=== PATIENT | female | born 1940 | race Two or more races ===

== ENCOUNTER 2024-04-01 15:25 | Inpatient (IN) | payer MEDICARE, MEDICAID, SELFPAY ==
[2024-04-01] VITALS (7 sets, daily range): BP systolic 164–180; BP diastolic 47–110; PULSE 80–128; RESP 17–20; TEMP 36.3–36.8; O2SAT 95–98; BMI 18.6; BMI 26.2
--- NOTE | 2024-04-01 15:35 | PC.NURSE ---
PT ARRIVES FROM HOME VIA [place]. DAUGHTER WAS HELPING HER GET OUT OF THE SHOWER WHEN SHE SLIPPED AND FELL. DID NOT HAVE ANY LOC IS NOT ON BLOOD THINNERS, PT DID GET A SKIN TEAR TO RIGHT ELBOW AND INJURED RIGHT SECOND TOE WITH VISIBLE DEFORMITY. PT REPORTS HER PAIN IS 6/10, BP A LITTLE ELEVATED ON TELE, OTHER VSS. CALL [facility] IN RE[place], AWAITING PROVIDER ASSESSMENT
--- NOTE | 2024-04-01 15:47 | PD.EDFALL ---
ED Fall Injury RME/HPI General Chief Complaint: Fall Stated Complaint: FALL Time Seen by Provider: 04/01/24 15:36 Arrival date/time: 04/01/24 15:25 RME / HPI RME / HPI Narrative: Patient is a 83 year old female presenting to the ED BIBA for reported slip and fall today when getting out of the shower. Denies dizziness, head trauma, LOC. Complains of pain to bilateral 2nd toes. No further reported history at this time. Related Data Home Medications ?Medication ?Instructions ?Recorded ?Confirmed Fosinopril * (MONOPRIL *) 40 mg PO BID #0 tabs 05/29/16 04/01/24 celecoxib 200 mg capsule (Celebrex) 200 mg PO QDAY #0 caps 05/29/16 04/01/24 lovastatin 40 mg tablet 40 mg PO HS #0 tabs 05/29/16 04/01/24 Previous Rx's ?Medication ?Instructions ?Recorded amlodipine 10 mg tablet 10 mg PO HS 1 month #30 tabs 04/04/24 Allergies Allergy/AdvReac Type Severity Reaction Status Date / Time No Known Allergies Allergy Verified 04/01/24 15:32 Review of Systems Review of Systems Narrative Review of Systems: Gen: No fever, no chills, no weight loss EYES: No discharge, no visual changes, no pain HEENT: No ear pain, no congestion, no sore throat PULM: No shortness of breath, no cough, no congestion CV: No chest pain, no dyspnea on exertion, no palpitations GI: No nausea, no vomiting, no diarrhea, no pain, no constipation : No frequency, no urgency, no dysuria Musc/skel:+toe pain. no back pain Skin: No rash Psyc: No hallucinations, no depression Heme/Lymph: No easy bleeding or bruising tendencies Neuro: No weakness, no headache Past Medical History Past Medical History OTHER HISTORY: Positive Blood Transfusions Social History SMOKING STATUS: Never smoker ED Exam Narrative Physical exam: GEN. APPEARANCE: The patient is alert awake oriented X-3 in minimal distress, lying down comfortably, does not look ill/toxic. Patient has good eye contact. Patient is cooperative. VITALS: All vitals were reviewed and the pulse ox is 98% on room air which is normal according to my interpretation. HEENT: Normocephalic, atraumatic. Pupils are equal and reactive. Oral mucosa is moist. Patent Nares NECK: Supple, nontender, no thyromegaly, no meningismus, no JVD, no step offs CHEST: Symmetrical, atraumatic, and with equal expansion , Nontender on palpation no deformity and no crepitus. CARDIOVASCULAR: Heart regular rhythm no murmur or gallop rub or extra beats. LUNGS: Clear to auscultation bilaterally with symmetrical chest rise. No laboring tachypnea or wheezing. No intercostal subcostal retraction. No rales and no rhonchi. ABDOMEN: Soft, flat, nontender to palpation, no guarding or rebound tenderness. There are no abnormal masses palpated. Active and normal bowel sounds. EXTREMITIES: contusion and skin tear to left elbow. No edema. No cyanosis. Patient is able to move all 4 extremities well, with full ROM and good CSM. SKIN: Warm and dry, no jaundice or rashes noted. MUSCULOSKELETAL: No lubar or midline bony tenderness. There is no CVA tenderness. No paraspinal muscle spasm or tenderness. NEURO: Patient is BOURNE x 4, Cranial nerves II through XII grossly intact. There is no focal neurologic deficits noted. GCS is 15, PNS and [employer] appear grossly intact. PSYCHIATRIC: Patient is in normal mood and affect, cooperative, no SI or HI or hallucinations. Course Quality Measures none Orders Category Date Time Status Admit to Inpatient Status Routine Admission 04/01/24 18:19 Active Patient Condition Routine Admission 04/01/24 18:18 Ordered IV [Insert IV] NOW Care 04/01/24 17:50 Completed Notify provider NEEDED Care 04/01/24 18:18 Completed CA echo doppler complete Routine Exams 04/01/24 18:[address] foot RT wo con Stat Exams 04/01/24 17:13 Completed XR elbow RT 2V Stat Exams 04/01/24 17:50 Completed XR foot comp RT min 3V Stat Exams 04/01/24 15:48 Completed Basic Metabolic Panel AM DRAW Lab 04/02/24 05:29 Completed Basic Metabolic Panel AM DRAW Lab 04/03/24 05:35 Completed Basic Metabolic Panel AM DRAW Lab 04/04/24 05:03 Completed CBC AM DRAW Lab 04/02/24 05:29 Completed CBC AM DRAW Lab 04/03/24 05:35 Completed CBC AM DRAW Lab 04/04/24 05:03 Completed CBC Stat Lab 04/01/24 17:30 Completed CMP [Comprehensive Metabolic Panel] Stat Lab 04/01/24 17:30 Completed INR [Prothrombin Time with INR] Stat Lab 04/01/24 18:00 Completed Liver Panel AM DRAW Lab 04/02/24 05:29 Completed Magnesium AM DRAW Lab 04/02/24 05:29 Completed PTT [Partial Thromboplastin Time] Stat Lab 04/01/24 18:00 Completed Partial Thromboplastin Time AM DRAW Lab 04/02/24 05:29 Completed Prothrombin Time with INR AM DRAW Lab 04/02/24 05:29 Completed Thyroid Stimulating Hormone AM DRAW Lab 04/02/24 05:29 Completed Acetaminophen Tab [Tylenol Tab] Med 04/01/24 18:18 Discontinued 650 mg PO Q6H PRN Famotidine Inj [Pepcid Inj] Med 04/01/24 21:00 Discontinued 20 mg IVP Q12HR HYDROcodone*/APAP 5/325 [[place] 5/325] Med 04/01/24 18:18 Discontinued 1 tab PO Q4HR PRN Heparin Inj Med 04/01/24 18:23 Discontinued 5,000 unit SC X1 ONE Morphine Inj Med 04/01/24 15:48 Discontinued 2 mg IVP Q30M PRN Ondansetron Inj [Zofran Inj] Med 04/01/24 18:18 Discontinued 4 mg IV Q6H PRN Ondansetron Inj [Zofran Inj] Med 04/01/24 15:48 Discontinued 4 mg IV X1 ONE ceFAZolin/D5W 1 GM IVPB [Ancef Ivpb] Med 04/01/24 17:50 Discontinued 1 gm in 50 ml IV X1 Code Status Routine Oth 04/01/24 18:18 Completed Vital Signs Vital signs: Vital Signs Temperature 98.2 F 04/01/24 15:32 Pulse Rate 101 H 04/01/24 15:32 Respiratory Rate 19 04/01/24 15:32 Blood Pressure 178/79 H 04/01/24 15:32 Pulse Oximetry (%) 98 04/01/24 15:32 Oxygen Delivery Method Room Air 04/01/24 15:32 Fall MDM Narrative MDM Narrative:: I called and spoke with Dr. Lorenzo Mae (orthopedic surgeon communication professor from the emergency department). We discussed the patient's case in detail. He said we should continue the IV antibiotics and admit the patient to the hospitalist team I then spoke with the resident for Dr. Lyons. We discussed the patient's case in detail and she kindly agreed to admit the patient. Patient's pain is currently controlled. Patient data External records reviewed:: [facility] previous records and EMS form Clinical information provided by:: patient Social determinants that could affect healthcare access:: none Patient has the following chronic illnesses:: RA How is presenting disease/condition affected by chronic disease/condition?: exacerbated by Evaluation data The following diagnostics were reviewed and interpreted by me:: radiology exam(s) Lab and/or radiology exams considered but not ordered:: none Interpretation Summary: Ordering Physician: Daniel Núñez MD Date of Service: 04/01/24 Procedure(s): XR foot comp RT min 3V Accession Number(s): [id number] cc: Malena Arora MD; Ramin Denis MD; Daniel Núñez MD~ Examination: Foot, right, 3 views Technique: AP, oblique, lateral views foot, 3 views Date and time of exam: April 01, 2024 1608 hrs. Indications: Patient fell today with injury to foot, foot pain Findings: Subluxations chronic deformities at the fifth, fourth, third and second metatarsophalangeal joints Severe osteopenia No acute fracture depicted Impression: No acute fracture Given the severe osteopenia, suggest short-term follow-up foot films as clinically warranted Dictated By: Ramin Denis MD Signed By: <Electronically signed by Ramin Denis MD in OV> 04/01/24 1705 Medications / Prescriptions Medications or Prescriptions considered but not ordered:: none Medication administrations:: Medication Administration History Discontinued Medications Acetaminophen (Acetaminophen 325 Mg Tablet) 650 mg PO Q6H PRN PRN Reason: Fever >100.3 Stop: 05/01/24 18:17 Hydrocodone Bitart/Acetaminophen (Hydrocodone/Apap 5/325 Tablet) 1 tab PO Q4HR PRN PRN Reason: PAIN SCALE 4-10(Mod-Sev Stop: 04/06/24 18:17 Amlodipine Besylate (Amlodipine Besylate 2.5 Mg Tablet) 2.5 mg PO X1 ONE Stop: 04/02/24 08:25 Last Admin: 04/02/24 08:59 Dose: 2.5 mg Documented By: [facility] Amlodipine Besylate (Amlodipine Besylate 5 Mg Tablet) 5 mg PO QPM NADIR Stop: 05/03/24 20:59 Amlodipine Besylate (Amlodipine Besylate 5 Mg Tablet) 10 mg PO QPM NADIR Stop: 05/04/24 20:59 Amlodipine Besylate (Amlodipine Besylate 5 Mg Tablet) 5 mg PO X1 ONE Stop: 04/03/24 09:01 Last Admin: 04/03/24 09:12 Dose: 5 mg Documented By: ZAKI Amlodipine Besylate (Amlodipine Besylate 5 Mg Tablet) 5 mg PO X1 ONE Stop: 04/03/24 21:01 Last Admin: 04/03/24 21:02 Dose: 5 mg Documented By: LUIS Atorvastatin Calcium (Atorvastatin Calcium 10 Mg Tablet) 10 mg PO HS [facility] Stop: 05/01/24 20:59 Celecoxib (Celecoxib 100 Mg Capsule) 100 mg PO BID PRN PRN Reason: rheumatoid arthritis Stop: 05/01/24 20:59 Enoxaparin Sodium (Enoxaparin Sod Inj 30 Mg/0.3 Ml Syringe) 30 mg SC QDAY NADIR Stop: 04/17/24 17:29 Last Admin: 04/04/24 09:03 Dose: 30 mg Documented By: Admin: 04/03/24 17:52 Dose: 30 mg Documented By: MOO Famotidine (Famotidine Inj 10 Mg/Ml Vial 2 Ml) 20 mg IVP Q12HR NADIR Stop: 05/01/24 20:59 Famotidine (Famotidine 20 Mg Tablet) 20 mg PO QDAY NADIR Stop: 05/02/24 23:00 Last Admin: 04/04/24 09:03 Dose: 20 mg Documented By: Admin: 04/03/24 08:12 Dose: 20 mg Documented By: Admin: 04/02/24 22:50 Dose: 20 mg Documented By: LUIS Glycerin (Glycerin, Adult 1 Ea Supp) 1 each [place] X1 ONE Stop: 04/04/24 12:07 Heparin Sodium (Porcine) (Heparin Sod Inj 5000 Unit/Ml Vial) 5,000 unit SC X1 ONE Stop: 04/01/24 18:24 Last Admin: 04/01/24 19:40 Dose: 5,000 unit Documented By: CLEMENTE Co-signed By: KRISTAN Cefazolin Sodium/Dextrose (Ancef Ivpb) 1 gm in 50 mls @ 100 mls/hr IV X1 ONE Stop: 04/01/24 18:19 Last Infusion: 04/01/24 18:50 Dose: Infused Documented By: Admin: 04/01/24 18:03 Dose: 100 mls/hr Documented By: CHASE Sodium Chloride (Ns) 1,000 mls @ 50 mls/hr IV .Q20H NADIR Stop: 05/02/24 11:14 Last Admin: 04/02/24 11:48 Dose: 50 mls/hr Documented By: ZAKI Lisinopril (Lisinopril 20 Mg Tablet) 40 mg PO DAILY NADIR Stop: 05/01/24 18:29 Last Admin: 04/04/24 09:02 Dose: 40 mg Documented By: Admin: 04/03/24 08:12 Dose: 40 mg Documented By: Admin: 04/02/24 08:11 Dose: 40 mg Documented By: Admin: 04/01/24 20:23 Dose: 40 mg Documented By: CLEMENTE Comments: Order was not verified by pharmacy until 2008. Magnesium Hydroxide (Milk Of Magnesia Susp 30 Ml Udc) 30 ml PO X1 ONE; Protocol Stop: 04/03/24 16:12 Last Admin: 04/03/24 16:32 Dose: 30 ml Documented By: ZAKI Morphine Sulfate (Morphine Sulf Inj 10 Mg/Ml Vial) 2 mg IVP Q30M PRN PRN Reason: toe fracture Last Admin: 04/01/24 16:27 Dose: 2 mg Documented By: CHASE Non-Formulary Medication (Fosfomycin ) 3 gm PO X1 ONE Stop: 04/02/24 13:53 Ondansetron HCl (Ondansetron Inj 2 Mg/Ml Inj 2 Ml) 4 mg IV X1 ONE; Protocol Stop: 04/01/24 15:49 Last Admin: 04/01/24 16:27 Dose: 4 mg Documented By: CHASE Ondansetron HCl (Ondansetron Inj 2 Mg/Ml Inj 2 Ml) 4 mg IV X1 ONE; Protocol Stop: 04/01/24 18:22 Last Admin: 04/01/24 19:04 Dose: Not Given Documented By: CHASE Non-Admin Reason: Duplicate Medication on eMAR Ondansetron HCl (Ondansetron Inj 2 Mg/Ml Inj 2 Ml) 4 mg IV Q6H PRN; Protocol PRN Reason: NAUSEA OR VOMITING Stop: 05/01/24 18:17 Last Admin: 04/01/24 18:44 Dose: 4 mg Documented By: ED see above Consultations Consultation(s) initiated? (list below): No Diagnosis Fall Differential Diagnosis: other (fracture, dislocation, foot fracture, midfoot fracture) Most likely diagnosis given after review of the tests above:: work up in progress Admission Indicated Admission indicated?: not indicated Admission Request Was there a request for admission?: No Disposition Plan Disposition Plan: other (specify) (signed out pending results) Discharge Plan Plan Patient Disposition: Admit Acute Care w/in Hospital Disposition Comment: [facility] Patient condition on transfer: Stable Problem List Clinical Impression: Fracture of toe
[2024-04-01] MEDS: ONDANSETRON INJ 2 MG/ML INJ 2 ML 4 MG IV ×2 (16:27→18:44)
[2024-04-01] MEDS: MORPHINE SULF INJ 10 MG/ML VIAL 2 MG IVP (16:27)
--- NOTE | 2024-04-01 17:13 | XR_ITS ---
Examination: CT right foot, without contrast. 2-D sagittal reconstructions. 2-D coronal reconstructions. 3-D reconstructions. Date and time of exam:April 01, 2024 1718 hrs. Indications: Patient slipped and fell today with injury to the foot, foot pain CTDI: vol (mGy):5.48 DLP: (mGycm):123 Technique: Multiple 1.25 mm axial sections of the right foot without intravenous contrast have been obtained. 2-D sagittal and coronal reconstructions have been obtained. 3-D reconstructions have been obtained. Low dose protocols were performed. One or more of the following dose reduction techniques were used; automated exposure control, adjustment of the mA and/or KV according to patient size, use of iterative reconstruction technique. Findings: Severe osteopenia Chronic subluxations at the fifth, fourth, third, second metatarsal phalangeal joints, most prominent third metatarsophalangeal joint sagittal image 43 There is a fracture deformity which appears acute involving the distal aspect proximal phalanx second digit sagittal image 41 Tarsal bones intact No Lisfranc tarsometatarsal dislocations Impression: Chronic subluxations at the fifth, fourth, third, second metatarsal tarsal phalangeal joints There is a fracture deformity which appears acute with mild offset involving the distal aspect proximal phalanx second digit, sagittal image 41
--- NOTE | 2024-04-01 17:50 | XR_ITS ---
Examination: Right elbow 2 views Technique: Elbow AP, lateral 2 views Exam date and time: April 01, 2024 1752 hrs. Indications: Injury to the elbow today, elbow pain Findings: No acute fracture No dislocation No foreign body Impression: No acute fracture.
[2024-04-01] MEDS: ceFAZolin/D5W 1 GM IVPB 1 GM/50 ML BAG IV (18:03)
[2024-04-01 18:22] LABS: Basophils # (Auto) 0.1 Thou/mm3 (0.0-0.2); Basophils % (Auto) 1 % (0-2.5); Eosinophils % (Auto) 0 % (0-10); Hematocrit 47.7 % (36.0-46.0); Hemoglobin 15.3 g/dL (12.0-16.0); Immature Granulocytes % (Auto) 1 % (0-0); Immature Granulocytes Auto 0.06 Thou/mm3 (0.00-0.00); Lymphocytes # (Auto) 1.7 Thou/mm3 (1.0-4.8); Lymphocytes % (Auto) 15 % (10-50); Mean Corpuscular HGB Conc 32.1 g/dl (31.0-37.0); Mean Corpuscular Hemoglobin 28.3 pg (25.0-35.0); Mean Corpuscular Volume 88 fL (80-100); Monocytes # (Auto) 0.7 Thou/mm3 (0.0-0.8); Monocytes % (Auto) 6 % (0-12); Neutrophils % (Auto) 77 % (37-80); Nucleated Red Blood Cell % 0 /100 WBC (0); Platelet Count 159 Thou/mm3 (140-440); RDW Standard Deviation 45.6 fL (36.4-46.3); Red Blood Count 5.41 Miln/mm3 (4.00-5.20); White Blood Count 11.6 Thou/mm3 (3.6-11.0)
--- NOTE | 2024-04-01 18:22 | ECHO_ITS ---
Transthoracic Echo Report Ht (in): 66 Wt (lb): 115 Exam Location: [facility] Status: Emergency Management Information Systems Director: Ana Schafer Indications: Procedure Performed: BP: 151 / 68 HR: 86 Rhythm: Sinus Technical Quality: Fair FINDINGS Left Ventricle Normal left ventricular size, systolic function with no obvious regional wall motion abnormalities. Mild LVH. The ejection fraction is visually estimated at 65-70%. Right Ventricle The right ventricle is normal in size and systolic function. Left Atrium The left atrium is moderate dilatation. Right Atrium The right atrium is normal by two-dimensional imaging, color flow and Doppler imaging with no struct ural abnormalities, no thrombus formation present. Atrial Septum The interatrial septum appears normal with no evidence of a shunt. Aorta The aorta is normal by two-dimensional, color flow and Doppler interrogation. Mitral Valve The mitral valve is moderately MAC. Mild to moderate stenosis. There is moderate mitral valve regurgitation. Aortic Valve The aortic valve is trileaflet and normal by two-dimensional, color flow and Doppler interrogation. There is moderate aortic valve regurgitation. Tricuspid Valve The tricuspid valve is normal by two-dimensional, color flow and Doppler interrogation. There is tra ce tricuspid valve regurgitation. Pulmonic Valve There is no significant pulmonic valve regurgitation. Vessels The pulmonary artery appears normal. The inferior vena cava pulmonary and hepatic veins appear leonel l. Pericardium The pericardium is normal by two-dimensional imaging. There is no significant pericardial effusion. CONCLUSIONS Normal LV size and function. Mild LVH. Estimated EF 65-70% Normal RV size and function. Moderate LA dilatation Moderate MAC. Mild to moderate MV stenosis, mean gradient 6mmHg. Moderate MR, AI. Trace TR. Geovanny Mendieta (Electronically Signed) Final Date: 02 April 2024 16:43
--- NOTE | 2024-04-01 18:28 | ESHP_ITS ---
Documentation for date of: 04/01/24 HPI History of Present Illness History of present illness: Chief complaint: GLF, RT 2nd toe # HPI: Ms. Nagy is a pleasant 83-year-old female with past medical history of rheumatoid arthritis, primary hypertension and hyperlipidemia, who was brought into the ED by her daughter after having a ground-level fall. Patient was stepping out of the shower with assistance from her daughter when she slipped and fell to the ground, she injured her right second toe and this process, and has abrasions of the right elbow and hand. Patient has longstanding history of advanced rheumatoid arthritis and has joint deformities in both upper and lower extremity digits. She has minimal discomfort at this time from the fracture of the right foot second digit, but endorses this to her rheumatoid arthritis. Recently started seeing a new still operator batch or continuous, and is also on monthly IV infusions of monoclonal antibodies for the same. As per daughter at bedside, patient ambulates independently with some help, and has no past history of ground-level falls or syncope. She denies any chest pain, dizziness/lightheadedness, weakness or other systemic symptoms at this time In the ED, vitals showed elevated blood pressure 175/76, other vitals within normal limits. Initial lab work up is for mild leukocytosis WBC 11.6, hct 47.7% likely due to dehydration. CMP and coag panel pending results at this time. On imaging, foot x-ray did not show a fracture. Follow-up with CT was obtained, which showed chronic subluxations at the fifth, fourth, third, second metatarsal tarsal phalangeal joints, with a fracture deformity which appears acute with mild offset involving the distal aspect proximal phalanx second digit. Patient was admitted for the work-up and management of right second digit proximal phalanx fracture. Orthopedic surgeon Dr Narayan is consulted and recommended admission for further evaluation regarding surgery. Past medical history: -Hyperlipidemia -Primary hypertension -Rheumatoid arthritis Medication list: pending med rec Allergies: NKFDA Social history: Marital?Status:? Tobacco?Use:?Denies ETOH?Use:?Denies Drug?Note:?Denies Social?History?Note:?Lives?alone at home, daughter is primary customer care agent Family history: CAD, stroke and cancer Review of Systems Review of Systems Narrative Review of Systems: GENERAL: Denies fevers/chills or diaphoresis. HEENT: Denies headache or visual/hearing changes. Denies nasal discharge. NEURO: Denies unusual weakness or difficulty speaking. CARDIO: Denies chest pain or palpitations. PULM: Denies SOB, coughing, or wheezing. GI: Denies abdominal pain, N/V/C/D. Reports having BMs URO: Denies burning/itching/pain/urinary changes. C D STILL OPERATOR: Denies menstrual changes, hot flashes. MSK/EXT/SKIN: chronic RA joint deformities, RT foot 2nd digit displaced 90 degrees PSYCH: Cooperative, pleasant mood & affect. The rest of the review of systems is otherwise negative. Exam Vital Signs Temp Pulse Resp BP Pulse Ox O2 Del Method 97.7 F 93 17 175/76 H 98 Room Air 04/01/24 16:23 04/01/24 16:23 04/01/24 16:23 04/01/24 16:23 04/01/24 16:23 04/01/24 16:23 Narrative Exam Constitutional Alert, oriented x3 and comfortable. Thin, small build HEENT Vision grossly intact. Patent nares. Trachea midline. Respiratory Chest normal on inspection and clear to auscultation bilaterally. Cardiovascular S1 and S2 audible, RRR. No murmurs or carotid bruit. No gross JVD. Abdominal Soft and non tender to palpation in all quadrants. BS + Genitourinary No bladder tenderness, no flank pain. Normal to palpation. Musculoskeletal RT foot 2nd phalanx displaced by 90 degrees, other digits also show deformities due to RA Neurological CN II - XII grossly intact. Extremity motor and sensation grossly intact. Skin Abrasion at the extensor surface of RT elbow Psychiatric Patient has a good affect, is cooperative. Results: Labs 04/02/24 05:29 04/02/24 05:29 Labs: Short CBC 04/01/24 Range/Units 17:30 WBC 11.6 H (3.6-11.0) Thou/mm3 Hgb 15.3 (12.0-16.0) g/dL Hct 47.7 H (36.0-46.0) % Plt Count 159 (140-440) Thou/mm3 Quality Measures Quality Measures VTE prophylaxis Advance care planning discussed with:: patient and child Medications Home Medications and Allergies Home Medications ?Medication ?Instructions ?Recorded ?Confirmed ?Type Fosinopril * (MONOPRIL *) 40 mg PO BID #0 tabs 05/29/16 04/01/24 History celecoxib 200 mg capsule (Celebrex) 200 mg PO QDAY #0 caps 05/29/16 04/01/24 History lovastatin 40 mg tablet 40 mg PO HS #0 tabs 05/29/16 04/01/24 History Allergies Allergy/AdvReac Type Severity Reaction Status Date / Time No Known Allergies Allergy Verified 04/01/24 15:32 Visit Medications Acetaminophen (Acetaminophen 325 Mg Tablet) 650 mg PO Q6H PRN PRN Reason: Fever >100.3 Stop: 05/01/24 18:17 Hydrocodone Bitart/Acetaminophen (Hydrocodone/Apap 5/325 Tablet) 1 tab PO Q4HR PRN PRN Reason: PAIN SCALE 4-10(Mod-Sev Stop: 04/06/24 18:17 Atorvastatin Calcium (Atorvastatin Calcium 10 Mg Tablet) 10 mg PO HS NADIR Stop: 05/01/24 20:59 Celecoxib (Celecoxib 100 Mg Capsule) 100 mg PO BID PRN PRN Reason: rheumatoid arthritis Stop: 05/01/24 20:59 Famotidine (Famotidine Inj 10 Mg/Ml Vial 2 Ml) 20 mg IVP Q12HR NADIR Stop: 05/01/24 20:59 Lisinopril (Lisinopril 20 Mg Tablet) 40 mg PO DAILY NADIR Stop: 05/01/24 18:29 Morphine Sulfate (Morphine Sulf Inj 10 Mg/Ml Vial) 2 mg IVP Q30M PRN PRN Reason: toe fracture Last Admin: 04/01/24 16:27 Dose: 2 mg Ondansetron HCl (Ondansetron Inj 2 Mg/Ml Inj 2 Ml) 4 mg IV Q6H PRN; Protocol PRN Reason: NAUSEA OR VOMITING Stop: 05/01/24 18:17 Discontinued Medications Heparin Sodium (Porcine) (Heparin Sod Inj 5000 Unit/Ml Vial) 5,000 unit SC X1 ONE Stop: 04/01/24 18:24 Cefazolin Sodium/Dextrose (Ancef Ivpb) 1 gm in 50 mls @ 100 mls/hr IV X1 ONE Stop: 04/01/24 18:19 Last Admin: 04/01/24 18:03 Dose: 100 mls/hr Ondansetron HCl (Ondansetron Inj 2 Mg/Ml Inj 2 Ml) 4 mg IV X1 ONE; Protocol Stop: 04/01/24 15:49 Last Admin: 04/01/24 16:27 Dose: 4 mg Ondansetron HCl (Ondansetron Inj 2 Mg/Ml Inj 2 Ml) 4 mg IV X1 ONE; Protocol Stop: 04/01/24 18:22 Assessment & Plan Plan Ms. Nagy is a pleasant 83-year-old female with past medical history of rheumatoid arthritis, primary hypertension and hyperlipidemia, who was brought into the ED by her daughter after having a ground-level fall. Patient was stepping out of the shower with assistance from her daughter when she slipped and fell to the ground, she injured her right second toe and this process, and has abrasions of the right elbow and hand. Patient has longstanding history of advanced rheumatoid arthritis and has joint deformities in both upper and lower extremity digits. She has minimal discomfort at this time from the fracture of the right foot second digit, but endorses this to her rheumatoid arthritis. Recently started seeing a new still operator batch or continuous, and is also on monthly IV infusions of monoclonal antibodies for the same. As per daughter at bedside, patient ambulates independently with some help, and has no past history of ground-level falls or syncope. She denies any chest pain, dizziness/lightheadedness, weakness or other systemic symptoms at this time. In the ED, vitals showed elevated blood pressure 175/76, other vitals within normal limits. Initial lab work up is for mild leukocytosis WBC 11.6, hct 47.7% likely due to dehydration. CMP and coag panel pending results at this time. On imaging, foot x-ray did not show a fracture. Follow-up with CT was obtained, which showed chronic subluxations at the fifth, fourth, third, second metatarsal tarsal phalangeal joints, with a fracture deformity which appears acute with mild offset involving the distal aspect proximal phalanx second digit. Patient was admitted for the work-up and management of right second digit proximal phalanx fracture. Orthopedic surgeon Dr Narayan is consulted and recommended admission for further evaluation regarding surgery. 1. RT second digit proximal phalanx fracture 2. Ground-level mechanical fall 3. Advanced rheumatoid arthritis 4. Reactive leukocytosis - Patient was stepping out of the shower with assistance from her daughter when she slipped and fell to the ground, she injured her right second toe and this process, and has abrasions of the right elbow and hand. She has minimal discomfort at this time from the fracture of the right foot second digit, but endorses this to her rheumatoid arthritis. Recently started seeing a new still operator batch or continuous, and is also on monthly IV infusions of monoclonal antibodies for the same. - mild leukocytosis WBC 11.6 - Foot x-ray did not show a fracture. - Foot CT : chronic subluxations at the fifth, fourth, third, second metatarsal tarsal phalangeal joints, with a fracture deformity which appears acute with mild offset involving the distal aspect proximal phalanx second digit. Plan: - Orthopedic surgeon Dr Narayan is consulted and recommended admission for further evaluation regarding surgeyr - NPO after midnight, with meds allowed - DVT prophylaxis with Heparin 5000U x1 only for now - Will get PT evaluation post-op - Pain control: Tylenol (1-3) + [place] 5/325 q4H (4-10) - PRN celebrex 100mg BID for RA pain, per patient's request 5. Primary hypertension 6. Hyperlipidemia - On admission, elevated blood pressure 175/76 - Takes Fosinopril 40mg daily at home - On Lovastatin 40mg HS at home Plan: - Started Lisinopril 40mg daily - On Atorvastatin 40mg HS - Diet x1 ordered, NPO after midnight Health maintenance: Disposition: Admitted to [facility], pending orthopedic recommendations Diet: Dysphagia 2 tray x 1 ordered. N.p.o. after midnight Lines: pIVs GI Prophylaxis: IV famotidine 20 mg twice daily Thrombo Prophylaxis: Heparin 5000 SC x 1 given, will hold in anticipation of surgery until further orthopedic recommendations Code status: DNR/DNI Plan of care discussed with attending Dr Lyons , Jaya Keys MD, PGY 2 Attending Provider Attestation/Addendum I reviewed labs, imaging, EKG, home medications and prior available records. Face to face evaluation was performed by me. I have personally examined the patient and discussed assessment and plan with the IM team. I reviewed the resident note and agree with the plan with exceptions as below. 83-year-old female with history of rheumatoid arthritis including her feet who presented with a chief complaint of ground-level fall. She was found to have right second toe fracture. Right second toe fracture: In the setting of ground-level fall. Pain is severe requiring IV opiates. Management of pain as needed. 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 PT evaluation. Rheumatoid arthritis: Resume home medications. Uncontrolled hypertension: Resume home medications. Management of pain as above.
[2024-04-01 18:45] LABS: INR 1.1 (0.9-1.3); Prothrombin Time 11.5 Seconds (9.0-12.2)
--- NOTE | 2024-04-01 19:36 | PC.NURSE ---
Called to verify heparin order. Per MD Keys, give heparin x1 now and hold furthermore for pending ortho surgery.
[2024-04-01 19:40] LABS: Alanine Aminotransferase 274 U/L (10-49); Albumin, Serum 3.7 gm/dL (3.4-4.8); Albumin/Globulin Ratio 1.2 (1.2-2.2); Alkaline Phosphatase 98 U/L (46-116); Anion Gap 10 (7-16); Aspartate Amino Transferase 512 U/L (0-34); BUN/Creatinine Ratio 18 Ratio (12-20); Bilirubin,Total 0.4 mg/dL (0.3-1.2); Blood Urea Nitrogen 21 mg/dL (9-23); Calcium 9.4 mg/dL (8.3-10.6); Calcium (Corrected) 9.6 mg/dL (8.5-10.1); Carbon Dioxide 23.3 mMol/L (20.0-31.0); Chloride 102 mMol/L (98-107); Creatinine (Component) 1.2 mg/dL (0.6-1.3); Estimated Creatinine Clearance 29.3 mL/min (>60); Globulin 3.2 gm/dL (2.3-3.5); Glucose 154 mg/dL (74-106); Osmolality,Calculated 276 (275-295); Potassium 4.5 mMol/L (3.4-5.1); Sodium 135 mMol/L (136-145); Total Protein 6.9 gm/dL (5.7-8.2); eGFR 45 See Note
[2024-04-01] MEDS: HEPARIN SOD INJ 5000 UNIT/ML VIAL SC (19:40)
[2024-04-01] MEDS: Lisinopril 20 MG TABLET 40 MG PO (20:23)
[2024-04-02] VITALS (8 sets, daily range): BP systolic 126–156; BP diastolic 62–80; PULSE 80–93; RESP 18–20; TEMP 36.4–36.9; O2SAT 95–97; BMI 13.0
[2024-04-02 06:10] LABS: Basophils % (Auto) 0 % (0-2.5); Eosinophils % (Auto) 0 % (0-10); Hematocrit 42.7 % (36.0-46.0); Immature Granulocytes % (Auto) 1 % (0-0); Immature Granulocytes Auto 0.07 Thou/mm3 (0.00-0.00); Lymphocytes # (Auto) 1.6 Thou/mm3 (1.0-4.8); Lymphocytes % (Auto) 11 % (10-50); Mean Corpuscular HGB Conc 32.8 g/dl (31.0-37.0); Mean Corpuscular Hemoglobin 28.3 pg (25.0-35.0); Mean Corpuscular Volume 86 fL (80-100); Monocytes # (Auto) 0.8 Thou/mm3 (0.0-0.8); Monocytes % (Auto) 5 % (0-12); Neutrophils % (Auto) 83 % (37-80); Nucleated Red Blood Cell % 0 /100 WBC (0); Platelet Count 171 Thou/mm3 (140-440); RDW Standard Deviation 44.8 fL (36.4-46.3); Red Blood Count 4.94 Miln/mm3 (4.00-5.20); White Blood Count 14.5 Thou/mm3 (3.6-11.0)
--- NOTE | 2024-04-02 06:17 | XR_ITS ---
Examination: AP chest single view Technique one AP portable upright chest single view Exam date and time: April 02, 2024 0626 hrs. Comparison September 11, 2018 Indications: Shortness of breath today. Findings: Extensive bilateral lung opacity No significant cardiac enlargement Severe osteopenia Impression: Extensive bilateral lung opacity, differential would include pneumonia, pulmonary fibrosis, clinical correlation advised, consider CT high-resolution chest without contrast follow-up
--- NOTE | 2024-04-02 06:17 | EKG_ITS ---
[facility] Test Date: 2024-04-02 Pat Name: JAYLA INFANTE [facility] [employer]: LINDA : 1940 Requested By: Eric Rainey Order Number: [id number] Reading MD: Eric Rainey Measurements Intervals [place] Rate: 82 P: 29 [place]: 142 QRS: 2 QRSD: 81 T: 25 QT: 359 QTc: 420 Interpretive Statements SINUS RHYTHM POSSIBLE LEFT ATRIAL ENLARGEMENT [-0.1mV P WAVE IN V1/V2] POSSIBLE LEFT VENTRICULAR HYPERTROPHY [VOLTAGE CRITERIA PLUS LAE OR QRS WIDENING] No previous ECG available for comparison /[id number]/S0/[id number].pdf
[2024-04-02 06:23] LABS: Partial Thromboplastin Time 24.2 Seconds (22.0-36.0); Prothrombin Time 11.1 Seconds (9.0-12.2)
[2024-04-02 06:40] LABS: Alanine Aminotransferase 217 U/L (10-49); Albumin, Serum 3.5 gm/dL (3.4-4.8); Alkaline Phosphatase 81 U/L (46-116); Anion Gap 9 (7-16); Aspartate Amino Transferase 365 U/L (0-34); BUN/Creatinine Ratio 24 Ratio (12-20); Bilirubin,Direct 0.2 mg/dL (0.0-0.3); Bilirubin,Total 0.5 mg/dL (0.3-1.2); Blood Urea Nitrogen 24 mg/dL (9-23); Calcium 9.3 mg/dL (8.3-10.6); Carbon Dioxide 25.3 mMol/L (20.0-31.0); Chloride 102 mMol/L (98-107); Estimated Creatinine Clearance 33.3 mL/min (>60); Glucose 101 mg/dL (74-106); Magnesium 2.3 mg/dL (1.6-2.6); Osmolality,Calculated 275 (275-295); Potassium 4.3 mMol/L (3.4-5.1); Sodium 136 mMol/L (136-145); Thyroid Stimulating Hormone 1.62 uIU/mL (0.55-4.78); Total Protein 6.3 gm/dL (5.7-8.2); eGFR 56 See Note
[2024-04-02] MEDS: Lisinopril 20 MG TABLET 40 MG PO (08:11)
[2024-04-02] MEDS: amLODIPine BESYLATE 2.5 MG TABLET PO (08:59)
--- NOTE | 2024-04-02 11:14 | XR_ITS ---
Examination:Left hip AP, lateral, AP pelvis 3 views, AP lateral left femur 2 views Technique: Hip AP lateral, AP pelvis, 3 views, AP lateral left femur 2 views Exam date and time:April 02, 2024 1121 hours INDICATIONS: Patient fell 2 days ago with injury to the left hip, left hip pain. FINDINGS: Healed fracture left hip No acute left or right hip fracture Bones of the pelvis intact Long intramedullary zana satisfactory position femoral shaft No femoral shaft fracture IMPRESSION: No acute fracture
--- NOTE | 2024-04-02 11:18 | XR_ITS ---
Examination: Abdomen sonogram, Limited Date and time of exam: April 02, 2024 1205 hours INDICATIONS: Elevated liver function tests on laboratory examination April 02, 2024 Technique: Real-time muller scale transabdominal sonographic images of the upper abdomen obtained. Findings: Multiple gallstones, the largest 16 mm Normal gallbladder wall 0.1 cm Normal common bile duct 0.1 cm Pancreatic head 2.4 cm Liver 11.3 cm no focal liver lesions Normal hepatopedal portal venous flow Patent IVC IMPRESSION: Cholelithiasis, negative for cholecystitis
[2024-04-02] MEDS: SODIUM CHLORIDE 0.9% 1000 ML 1,000 ML 50 ML IV (11:48)
--- NOTE | 2024-04-02 14:02 | PC.NURSE ---
Dr. Narayan at bedside, no surgery needed
--- NOTE | 2024-04-02 16:04 | ESPR_ITS ---
Documentation for date of: 04/02/24 Subjective Subjective Interval history: Patient was seen and examined bedside. Denies any other complaints. Patient is on n.p.o. since midnight and scheduled for surgery by Dr. Narayan. Exam Vital Signs Temp Pulse Resp BP Pulse Ox O2 Del Method 97.7 F 80 18 126/68 97 Room Air 04/02/24 12:00 04/02/24 12:00 04/02/24 12:00 04/02/24 12:00 04/02/24 12:00 04/02/24 12:00 Narrative Exam General: Awake. Lying comfortably on the bed. HEENT: Normocephalic, atraumatic, mucous membranes moist. Heart: Regular rate and rhythm, no murmurs. Lungs: Clear to auscultation with no wheezing or crackles. Abdomen: Soft, nondistended, nontender, positive bowel sounds. ?No guarding or rebound tenderness. Neurologic: Alert and oriented x3, no gross neurological deficit, and patient able to move all 4 extremities. Extremities: No edema. Deformity of right second toe is noted and rheumatoid arthritis deformities are noted in both upper and lower extremities Skin: No rash or ecchymoses. Objective Labs 04/03/24 05:35 04/03/24 05:35 Labs: Laboratory Results - last 24 hr 04/01/24 04/01/24 04/02/24 17:30 18:00 05:29 WBC 11.6 H 14.5 H RBC 5.41 H 4.94 Hgb 15.3 14.0 Hct 47.7 H 42.7 MCV 88 86 MCH 28.3 28.3 MCHC 32.1 32.8 RDW Std Deviation 45.6 44.8 Plt Count 159 171 Neut % (Auto) 77 83 H Lymph % (Auto) 15 11 [place] % (Auto) 6 5 Eos % (Auto) 0 0 Baso % (Auto) 1 0 Neut # (Auto) 9.0 H 12.0 H Lymph # (Auto) 1.7 1.6 [place] # (Auto) 0.7 0.8 Eos # (Auto) 0.0 0.0 Baso # (Auto) 0.1 0.0 Immature Gran # (Auto) 0.06 H 0.07 H Absolute Nucleated RBC 0.00 0.00 Immature Gran % 1 H 1 H Nucleated RBC % 0 0 PT 11.5 11.1 INR 1.1 1.0 APTT 20.0 L 24.2 Sodium 135 L 136 Potassium 4.5 4.3 Chloride 102 102 Carbon Dioxide 23.3 25.3 Anion Gap 10 9 BUN 21 24 H Creatinine 1.2 1.0 Estim Creat Clear Calc 29.3 L 33.3 L eGFR 45 L 56 L BUN/Creatinine Ratio 18 24 H Glucose 154 H 101 D Calculated Osmolality 276 275 Calcium 9.4 9.3 Corrected Calcium 9.6 Magnesium 2.3 Total Bilirubin 0.4 0.5 Direct Bilirubin 0.2 AST 512 H* 365 H ALT 274 H 217 H Alkaline Phosphatase 98 81 Total Protein 6.9 6.3 Albumin 3.7 3.5 Globulin 3.2 Albumin/Globulin Ratio 1.2 TSH 1.62 Blood Type Antibody Screen Blood Bank Wristband ID 04/02/24 07:20 WBC RBC Hgb Hct MCV MCH MCHC RDW Std Deviation Plt Count Neut % (Auto) Lymph % (Auto) [place] % (Auto) Eos % (Auto) Baso % (Auto) Neut # (Auto) Lymph # (Auto) [place] # (Auto) Eos # (Auto) Baso # (Auto) Immature Gran # (Auto) Absolute Nucleated RBC Immature Gran % Nucleated RBC % PT INR APTT Sodium Potassium Chloride Carbon Dioxide Anion Gap BUN Creatinine Estim Creat Clear Calc eGFR BUN/Creatinine Ratio Glucose Calculated Osmolality Calcium Corrected Calcium Magnesium Total Bilirubin Direct Bilirubin AST ALT Alkaline Phosphatase Total Protein Albumin Globulin Albumin/Globulin Ratio TSH Blood Type O Positive Antibody Screen NEGATIVE Blood Bank Wristband ID Yes Quality Measures Quality Measures VTE prophylaxis Advance care planning discussed with:: patient Assessment & Plan Assessment Current Active Medications: Generic Name Dose Route Start Last Admin Trade Name Freq PRN Reason Stop Dose Admin Acetaminophen 650 mg 04/01/24 18:18 Acetaminophen 325 Mg Tablet PO 05/01/24 18:17 Q6H PRN Fever >100.3 Hydrocodone Bitart/Acetaminophen 1 tab 04/01/24 18:18 Hydrocodone/Apap 5/325 Tablet PO 04/06/24 18:17 Q4HR PRN PAIN SCALE 4-10(Mod-Sev Amlodipine Besylate 5 mg 04/03/24 21:00 Amlodipine Besylate 5 Mg Tablet PO 05/03/24 20:59 QPM NADIR Celecoxib 100 mg 04/01/24 18:27 Celecoxib 100 Mg Capsule PO 05/01/24 20:59 BID PRN rheumatoid arthritis Famotidine 20 mg 04/02/24 23:01 Famotidine 20 Mg Tablet PO 05/02/24 23:00 QDAY NADIR Sodium Chloride 1,000 mls @ 50 mls/hr 04/02/24 11:15 04/02/24 11:48 Ns IV 05/02/24 11:14 50 mls/hr .Q20H NADIR Administration Lisinopril 40 mg 04/01/24 18:30 04/02/24 08:11 Lisinopril 20 Mg Tablet PO 05/01/24 18:29 40 mg DAILY NADIR Administration Ondansetron HCl 4 mg 04/01/24 18:18 04/01/24 18:44 Ondansetron Inj 2 Mg/Ml Inj 2 Ml IV 05/01/24 18:17 4 mg Q6H PRN Administration NAUSEA OR VOMITING Protocol Plan Ms. Nagy is a pleasant 83-year-old female with past medical history of rheumatoid arthritis, primary hypertension and hyperlipidemia, who was brought into the ED by her daughter after having a ground-level fall. 1. RT second digit proximal phalanx fracture 2. Ground-level mechanical fall 3. Advanced rheumatoid arthritis 4. Reactive leukocytosis - Patient was stepping out of the shower with assistance from her daughter when she slipped and fell to the ground, she injured her right second toe and this process, and has abrasions of the right elbow and hand. She has minimal discomfort at this time from the fracture of the right foot second digit, but endorses this to her rheumatoid arthritis. Recently started seeing a new gum maker, and is also on monthly IV infusions of monoclonal antibodies for the same. - mild leukocytosis WBC 11.6 - Foot x-ray did not show a fracture. - Foot CT : chronic subluxations at the fifth, fourth, third, second metatarsal tarsal phalangeal joints, with a fracture deformity which appears acute with mild offset involving the distal aspect proximal phalanx second digit. Plan: - Orthopedic surgeon Dr Narayan is consulted and recommended surgery. - Will get PT evaluation post-op - Pain control: Tylenol (1-3) + [place] 5/325 q4H (4-10) - PRN celebrex 100mg BID for RA pain, per patient's request 5. Primary hypertension 6. Hyperlipidemia - On admission, elevated blood pressure 175/76 - Takes Fosinopril 40mg daily at home - On Lovastatin 40mg HS at home Plan: - Started Lisinopril 40mg daily - On Atorvastatin 40mg HS Health maintenance: Disposition: Admitted to [facility], Diet: N.p.o. Lines: pIVs GI Prophylaxis: IV famotidine 20 mg twice daily Thrombo Prophylaxis: will hold in anticipation of surgery until further orthopedic recommendations Code status: DNR/DNI Patient plan of care was discussed with the attending physician, Dr. Lyons and senior resident Dr. Ludmila Lara, PGY1 L Ms. Nagy is a pleasant 83-year-old female with past medical history of rheumatoid arthritis, primary hypertension and hyperlipidemia, who was brought into the ED by her daughter after having a ground-level fall. Pending Orthopedic recommendations at this time. We will go ahead and order diet for the patient until plan finalized re: surgical intervention. Patient examined and case discussed with the team including attending physician. Note reviewed, I agree with the care plan as documented. - Jaya Keys MD, PGY 2 Attending Provider Attestation/Addendum I reviewed labs, imaging, EKG, home medications and prior available records. Face to face evaluation was performed by me. I have personally examined the patient and discussed assessment and plan with the IM team. I reviewed the resident note and agree with the plan with exceptions as below. 83-year-old female with history of rheumatoid arthritis including her feet who presented with a chief complaint of ground-level fall. She was found to have right second toe fracture. Right second toe fracture: In the setting of ground-level fall. Pain is severe requiring IV opiates. Management of pain as needed. 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 PT evaluation. Rheumatoid arthritis: Resume home medications. Leukocytosis: Likely reactive in the setting of toe fracture versus pain. Management as above. Trend WBC. Transaminitis: Could be reactive in setting of pain versus dehydration versus rheumatoid arthritis. Ordered liver ultrasound. Monitor LFTs. Uncontrolled hypertension: Resume home medications. Management of pain as above. Possible pulmonary fibrosis: Seen on chest x-ray. No respiratory symptoms. Could be interstitial lung disease in the setting of longstanding rheumatoid arthritis. Recommend outpatient high-resolution CT scan.
--- NOTE | 2024-04-02 19:43 | ESCONSULT_ITS ---
RE: JAYLA INFANTE : 1940 DATE OF CONSULTATION: 04/02/2024 Thank you, Dr. Magallon, for asking me to consult with the patient. HISTORY OF PRESENT ILLNESS: As per history available, the patient fell down. It was a ground level fall. The patient injured her right foot. The patient was brought to the emergency room. There was some suspicion of fracture, but it did not show any fracture. However, the patient has significant rheumatoid arthritis and there is significant subluxation of quite a few joints at the metatarsophalangeal joint of the right foot. There was superficial abrasion on the little toe on the lateral side. The patient was admitted for further management as the patient is 85 years old. PAST MEDICAL HISTORY: The patient has a history of high blood pressure, rheumatoid arthritis and hyperlipidemia. PAST SURGICAL HISTORY: The patient underwent left hip fracture surgery in the past. DRUG HISTORY: The patient is on Monopril, lovastatin, and Celebrex. FAMILY HISTORY AND SOCIAL HISTORY: Noncontributory in this case. PHYSICAL EXAMINATION: GENERAL: Normal built lady. The patient is alert and oriented. The patient's family member was there and the patient said it was okay to talk about the issues in the presence of the family member. VITAL SIGNS: Pulse 88 per minute. Blood pressure 140/76. NECK: Soft, supple. No mass felt. Trachea centrally placed. CARDIOVASCULAR SYSTEM: First and second heart sounds normal. No murmur heard. RESPIRATORY SYSTEM: Bilateral vesicular breath sounds. CHEST: Clear. ABDOMEN: Soft. No mass felt. Bowel sounds present. EXTREMITIES: Right foot examination revealed no swelling. There was tenderness over the base of the second toe. On the lateral side at the metatarsophalangeal joint of the fifth toe, there was a superficial abrasion. DIAGNOSTIC DATA: X-ray was obtained, which revealed subluxation of the metatarsophalangeal joint of the second, third, fourth, and fifth toes. A CT scan was also reviewed and it showed the same thing. No obvious fracture is seen. I discussed the situation with the patient and the family. No surgical intervention is indicated. RECOMMENDATIONS: I advised the patient to be mobilized with the help of physical therapist and once she is comfortable, may be discharged home. I will be happy to see her as a followup in my office. Once again, I thank you for letting me take part in the management of the patient. DT: 17:23:10 TT: 19:42:00 Ref: [id number] - TID: [id number]
[2024-04-02] MEDS: FAMOTIDINE 20 MG TABLET PO (22:50)
[2024-04-02 23:12] LABS: Collection Type, Urine Clean Catch
[2024-04-02 23:33] LABS: Bilirubin,Urine Negative (Negative); Blood,Urine 3+ (Negative); Clarity,Urine Turbid (Clear/Hazy); Color,Urine Yellow (Lt Yel-Yel); Culture Indicated,Urine Yes; Glucose, Urine Negative (Negative); Hyaline Casts,Urine < 1 /hpf (0-1); Ketones,Urine 1+ (Negative); Leukocyte Esterase,Urine Positive (Negative); Nitrite,Urine Negative (Negative); Protein,Urine 1+ (Neg - Trace); RBC,Urine 6 /hpf (0-3); Specific Gravity,Urine 1.028 (1.001-1.035); Squamous Epithelial Cell,Urine 1 /hpf (0-5); Urobilinogen,Urine Negative mg/dL (0.0-1.0); WBC,Urine 136 /hpf (0-5)
[2024-04-03] VITALS (9 sets, daily range): BP systolic 142–176; BP diastolic 64–90; PULSE 86–104; RESP 18–22; TEMP 36.1–36.9; O2SAT 94–97; BMI 13.0
--- NOTE | 2024-04-03 00:19 | PC.NURSE ---
Dr. Pierre notified of UA completion and results ready for them to view.
[2024-04-03 06:14] LABS: Basophils # (Auto) 0.1 Thou/mm3 (0.0-0.2); Basophils % (Auto) 1 % (0-2.5); Eosinophils # (Auto) 0.1 Thou/mm3 (0.0-0.5); Eosinophils % (Auto) 1 % (0-10); Hematocrit 40.5 % (36.0-46.0); Hemoglobin 13.5 g/dL (12.0-16.0); Immature Granulocytes % (Auto) 0 % (0-0); Immature Granulocytes Auto 0.05 Thou/mm3 (0.00-0.00); Lymphocytes # (Auto) 1.6 Thou/mm3 (1.0-4.8); Lymphocytes % (Auto) 14 % (10-50); Mean Corpuscular HGB Conc 33.3 g/dl (31.0-37.0); Mean Corpuscular Hemoglobin 28.8 pg (25.0-35.0); Mean Corpuscular Volume 87 fL (80-100); Monocytes # (Auto) 0.8 Thou/mm3 (0.0-0.8); Monocytes % (Auto) 7 % (0-12); Neutrophils # (Auto) 8.7 Thou/mm3 (1.8-7.7); Neutrophils % (Auto) 77 % (37-80); Nucleated Red Blood Cell % 0 /100 WBC (0); Platelet Count 141 Thou/mm3 (140-440); RDW Standard Deviation 44.5 fL (36.4-46.3); Red Blood Count 4.68 Miln/mm3 (4.00-5.20); White Blood Count 11.3 Thou/mm3 (3.6-11.0)
[2024-04-03 06:39] LABS: Anion Gap 7 (7-16); BUN/Creatinine Ratio 26 Ratio (12-20); Blood Urea Nitrogen 21 mg/dL (9-23); Calcium 8.8 mg/dL (8.3-10.6); Carbon Dioxide 25.8 mMol/L (20.0-31.0); Chloride 105 mMol/L (98-107); Creatinine (Component) 0.8 mg/dL (0.6-1.3); Estimated Creatinine Clearance 41.6 mL/min (>60); Glucose 85 mg/dL (74-106); Osmolality,Calculated 277 (275-295); Potassium 4.2 mMol/L (3.4-5.1); Sodium 138 mMol/L (136-145); eGFR > 60 See Note
[2024-04-03] MEDS: Lisinopril 20 MG TABLET 40 MG PO (08:12)
[2024-04-03] MEDS: FAMOTIDINE 20 MG TABLET PO (08:12)
[2024-04-03] MEDS: amLODIPine BESYLATE 5 MG TABLET PO ×2 (09:12→21:02)
--- NOTE | 2024-04-03 10:36 | PC.SS ---
This is 83-year-old, , single female who presented to the ED due to suffering from a fall. Patient appeared alert and oriented to self only. Most of the information was provided by her daughter, Crystal and [id number], Jane. Patient reported that she resides alone at home. She has her grandson- Driss III, as a healthcare sales representative through [facility] [facility] [employer]. He goes 3 times per week. Patient reported that her daughter, Crystal goes in the AM and PM to set her medications and ensure that she has ate throughout the day. Patient has a walker, wheelchair, cane and BSC. Patient follows up with Dr. Arora for primary care. When medically clear, patient will need SNF as she cannot continue to reside alone at home. SW provided pamphlet information regarding SNF facilities to James. Discharge Plan: SNF (referrals sent via [facility]). Medical Decision Maker: Crystal Yakov, daughter.
--- NOTE | 2024-04-03 13:42 | CHAP ---
09:30 AM Visited by spiritual care volunteer Provided prayer for Patient.
[2024-04-03] MEDS: Milk Of Magnesia Susp 30 ML UDC PO (16:32)
--- NOTE | 2024-04-03 17:12 | ESPR_ITS ---
<Statement entered by Evin Lamb MD - 04/04/24 07:57> Patient was seen and examined by me personally. I agree with most of the assessment and plan as discussed with the psychology intern physician, and my attending, Dr. Lyons. No surgical managment recommended by ortho. Will continue PT and pain management, and discuss with family/CM regarding dispo plan, as patient lives alone. She is AAO to self, place, and , but not year. Evin Lamb MD, PGY-3 Documentation for date of: 04/03/24 Subjective Subjective Interval history: Patient was seen and examined bedside. No complaints. Dr. Narayan saw the patient and recommended no surgery and conservative management. Patient underwent physical therapy yesterday and was able to walk with the help of support. Planning to discharge patient to halfway facility tomorrow for further care. Exam Vital Signs Temp Pulse Resp BP Pulse Ox O2 Del Method 98.4 F 90 22 H 142/67 H 94 L Room Air 04/03/24 16:00 04/03/24 16:00 04/03/24 16:00 04/03/24 16:00 04/03/24 16:00 04/03/24 16:00 Narrative Exam General: Awake. Lying comfortably on the bed. HEENT: Normocephalic, atraumatic, mucous membranes moist. Heart: Regular rate and rhythm, no murmurs. Lungs: Clear to auscultation with no wheezing or crackles. Abdomen: Soft, nondistended, nontender, positive bowel sounds. ?No guarding or rebound tenderness. Neurologic: Alert and oriented x3, no gross neurological deficit, and patient able to move all 4 extremities. Extremities: No edema. Deformity of right second toe is noted and rheumatoid arthritis deformities are noted in both upper and lower extremities Skin: No rash. Ecchymosis noted on right second toe at the site of fracture. Objective Labs 04/04/24 05:03 04/04/24 05:03 Labs: Laboratory Results - last 24 hr 04/02/24 04/03/24 23:00 05:35 WBC 11.3 H RBC 4.68 Hgb 13.5 Hct 40.5 MCV 87 MCH 28.8 MCHC 33.3 RDW Std Deviation 44.5 Plt Count 141 D Neut % (Auto) 77 Lymph % (Auto) 14 Miner % (Auto) 7 Eos % (Auto) 1 Baso % (Auto) 1 Neut # (Auto) 8.7 H Lymph # (Auto) 1.6 Miner # (Auto) 0.8 Eos # (Auto) 0.1 Baso # (Auto) 0.1 Immature Gran # (Auto) 0.05 H Absolute Nucleated RBC 0.00 Immature Gran % 0 Nucleated RBC % 0 Sodium 138 Potassium 4.2 Chloride 105 Carbon Dioxide 25.8 Anion Gap 7 BUN 21 Creatinine 0.8 Estim Creat Clear Calc 41.6 L eGFR > 60 BUN/Creatinine Ratio 26 H Glucose 85 Calculated Osmolality 277 Calcium 8.8 Ur Collection Type Clean Catch Urine Color Yellow Urine Clarity Turbid A Urine pH 6.0 Ur Specific Jackson 1.028 Urine Protein 1+ A Urine Glucose (UA) Negative Urine Ketones 1+ A Urine Blood 3+ A Urine Nitrite Negative Urine Bilirubin Negative Urine Urobilinogen (Auto) Negative Ur Leukocyte Esterase Positive Urine RBC 6 H Urine WBC 136 H Ur Squamous Epith Cells 1 Urine Bacteria None Hyaline Casts < 1 Ur Culture Indicated? Yes Quality Measures Quality Measures VTE prophylaxis Advance care planning discussed with:: patient and significant other Assessment & Plan Assessment Current Active Medications: Generic Name Dose Route Start Last Admin Trade Name Freq PRN Reason Stop Dose Admin Acetaminophen 650 mg 04/01/24 18:18 Acetaminophen 325 Mg Tablet PO 05/01/24 18:17 Q6H PRN Fever >100.3 Hydrocodone Bitart/Acetaminophen 1 tab 04/01/24 18:18 Hydrocodone/Apap 5/325 Tablet PO 04/06/24 18:17 Q4HR PRN PAIN SCALE 4-10(Mod-Sev Amlodipine Besylate 10 mg 04/04/24 21:00 Amlodipine Besylate 5 Mg Tablet PO 05/04/24 20:59 QPM NADIR Amlodipine Besylate 5 mg 04/03/24 21:00 Amlodipine Besylate 5 Mg Tablet PO 04/03/24 21:01 X1 ONE Celecoxib 100 mg 04/01/24 18:27 Celecoxib 100 Mg Capsule PO 05/01/24 20:59 BID PRN rheumatoid arthritis Famotidine 20 mg 04/02/24 23:01 04/03/24 08:12 Famotidine 20 Mg Tablet PO 05/02/24 23:00 20 mg QDAY NADIR Administration Lisinopril 40 mg 04/01/24 18:30 04/03/24 08:12 Lisinopril 20 Mg Tablet PO 05/01/24 18:29 40 mg DAILY NADIR Administration Ondansetron HCl 4 mg 04/01/24 18:18 04/01/24 18:44 Ondansetron Inj 2 Mg/Ml Inj 2 Ml IV 05/01/24 18:17 4 mg Q6H PRN Administration NAUSEA OR VOMITING Protocol Plan Ms. Nagy is a pleasant 83-year-old female with past medical history of rheumatoid arthritis, primary hypertension and hyperlipidemia, who was brought into the ED by her daughter after having a ground-level fall. 1. RT second digit proximal phalanx fracture 2. Ground-level mechanical fall 3. Advanced rheumatoid arthritis 4. Reactive leukocytosis - Patient was stepping out of the shower with assistance from her daughter when she slipped and fell to the ground, she injured her right second toe and this process, and has abrasions of the right elbow and hand. She has minimal discomfort at this time from the fracture of the right foot second digit, but endorses this to her rheumatoid arthritis. Recently started seeing a new solid glass rod dowel machine operator, and is also on monthly IV infusions of monoclonal antibodies for the same. - mild leukocytosis WBC 11.6 - Foot x-ray did not show a fracture. - Foot CT : chronic subluxations at the fifth, fourth, third, second metatarsal tarsal phalangeal joints, with a fracture deformity which appears acute with mild offset involving the distal aspect proximal phalanx second digit. Plan: - Orthopedic surgeon Dr Narayan is consulted and recommended conservative management with no surgery. - Pain control: Tylenol (1-3) + [place] 5/325 q4H (4-10) - PRN celebrex 100mg BID for RA pain, per patient's request 5. Primary hypertension 6. Hyperlipidemia - On admission, elevated blood pressure 175/76 - Takes Fosinopril 40mg daily at home - On Lovastatin 40mg HS at home Plan: - Started Lisinopril 40mg daily - On Atorvastatin 40mg HS # UTI, treated -Urine analysis showed turbid urine with 1+ proteinuria, 136 WBC -Patient denied of burning micturition, urine frequency but Patient had history of dementia -On examination there is suprapubic tenderness. -WBC count is mildly elevated, 11.3 -Treated with 1 dose of fosfomycin. Health maintenance: Disposition: Admitted to [facility], Diet: Dysphagia 2 Lines: pIVs GI Prophylaxis: IV famotidine 20 mg twice daily Thrombo Prophylaxis: Lovenox Code status: DNR/DNI Patient plan of care was discussed with the attending physician, Dr. Lyons and senior resident Dr. Zainab Lara, PGY1 Attending Provider Attestation/Addendum I reviewed labs, imaging, EKG, home medications and prior available records. Face to face evaluation was performed by me. I have personally examined the patient and discussed assessment and plan with the IM team. I reviewed the resident note and agree with the plan with exceptions as below. 83-year-old female with history of rheumatoid arthritis including her feet who presented with a chief complaint of ground-level fall. She was found to have right second toe fracture. Right second toe fracture: In the setting of ground-level fall. Pain is severe requiring IV opiates. Management of pain as needed. 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 Recommended to continue to work with physical therapy. Physical therapy recommended SNF. She needs 3 inpatient nights prior to discharge. Rheumatoid arthritis: Resume home medications. Leukocytosis: Likely reactive in the setting of toe fracture versus pain. Management as above. Trend WBC. Transaminitis: Could be reactive in setting of pain versus dehydration versus rheumatoid arthritis. Ordered liver ultrasound: Showed no focal lesions. Monitor LFTs: Downtrending. Uncontrolled hypertension: Resume home medications. Management of pain as above. Possible pulmonary fibrosis: Seen on chest x-ray. No respiratory symptoms. Could be interstitial lung disease in the setting of longstanding rheumatoid arthritis. Recommend outpatient high-resolution CT scan.
[2024-04-03] MEDS: ENOXAPARIN SOD INJ 30 MG/0.3 ML SYRINGE SC (17:52)
[2024-04-04] VITALS: BP 140/70; PULSE 97; RESP 18; TEMP 36.2; O2SAT 94
[2024-04-04 03:57] VITALS: BP 157/78; PULSE 98; RESP 18; TEMP 36.3; O2SAT 95
[2024-04-04 06:02] LABS: Basophils # (Auto) 0.1 Thou/mm3 (0.0-0.2); Basophils % (Auto) 1 % (0-2.5); Eosinophils # (Auto) 0.1 Thou/mm3 (0.0-0.5); Eosinophils % (Auto) 1 % (0-10); Hematocrit 43.2 % (36.0-46.0); Hemoglobin 14.3 g/dL (12.0-16.0); Immature Granulocytes % (Auto) 0 % (0-0); Immature Granulocytes Auto 0.05 Thou/mm3 (0.00-0.00); Lymphocytes # (Auto) 1.8 Thou/mm3 (1.0-4.8); Lymphocytes % (Auto) 15 % (10-50); Mean Corpuscular HGB Conc 33.1 g/dl (31.0-37.0); Mean Corpuscular Hemoglobin 28.5 pg (25.0-35.0); Mean Corpuscular Volume 86 fL (80-100); Monocytes # (Auto) 0.8 Thou/mm3 (0.0-0.8); Monocytes % (Auto) 7 % (0-12); Neutrophils % (Auto) 76 % (37-80); Nucleated Red Blood Cell % 0 /100 WBC (0); Platelet Count 157 Thou/mm3 (140-440); RDW Standard Deviation 44.5 fL (36.4-46.3); Red Blood Count 5.02 Miln/mm3 (4.00-5.20); White Blood Count 11.8 Thou/mm3 (3.6-11.0)
[2024-04-04 06:34] LABS: Anion Gap 3 (7-16); BUN/Creatinine Ratio 29 Ratio (12-20); Blood Urea Nitrogen 23 mg/dL (9-23); Calcium 9.4 mg/dL (8.3-10.6); Carbon Dioxide 28.9 mMol/L (20.0-31.0); Chloride 104 mMol/L (98-107); Creatinine (Component) 0.8 mg/dL (0.6-1.3); Estimated Creatinine Clearance 41.6 mL/min (>60); Glucose 100 mg/dL (74-106); Osmolality,Calculated 275 (275-295); Potassium 4.4 mMol/L (3.4-5.1); Sodium 136 mMol/L (136-145); eGFR > 60 See Note
[2024-04-04 08:00] VITALS: BP 124/51; PULSE 74; RESP 18; TEMP 36.2; O2SAT 92
[2024-04-04 08:58] VITALS: BP 123/57; PULSE 85; RESP 18
--- NOTE | 2024-04-04 09:01 | PC.SS ---
Addendum entered by Nancy Jaramillo 04/04/24 09:24: SS spoke to nursing to update. Patient needs a BM prior to discharge. SS spoke to PT and they state patient can d/c via private vehicle or medi van. Original Note: Follow up note: SS spoke to physician who will discharge patient to SNF today. Patient is ready for d/c. Patient/family chose [facility].
[2024-04-04 09:02] VITALS: BP 123/57; PULSE 85
[2024-04-04] MEDS: Lisinopril 20 MG TABLET 40 MG PO (09:02)
[2024-04-04] MEDS: FAMOTIDINE 20 MG TABLET PO (09:03)
[2024-04-04] MEDS: ENOXAPARIN SOD INJ 30 MG/0.3 ML SYRINGE SC (09:03)
[2024-04-04 10:16] LABS: Alanine Aminotransferase 277 U/L (10-49); Albumin, Serum 3.1 gm/dL (3.4-4.8); Alkaline Phosphatase 74 U/L (46-116); Aspartate Amino Transferase 525 U/L (0-34); Bilirubin,Direct 0.2 mg/dL (0.0-0.3); Bilirubin,Total 0.5 mg/dL (0.3-1.2); Total Protein 5.7 gm/dL (5.7-8.2)
[2024-04-04 12:00] VITALS: BP 155/51; PULSE 96; RESP 18; TEMP 36.2; O2SAT 95
--- NOTE | 2024-04-04 15:18 | ESDS_ITS ---
Planned Discharge Date 04/05/24 DS: Providers Provider Date of admission: 04/01/24 18:19 Primary care physician: Malena Arora MD Admitting Provider: Jose Lyons MD Attending Provider on Admission: Jose Lyons MD Consults: 04/01/24 18:25 Consult to Orthopedic Routine Comment: Consulting Provider: Eric Narayan 04/01/24 22:13 Referral [place] Routine Comment: Referral Physical Therapy Routine Comment: Physician Instructions: Referral Respiratory Therapy Routine Comment: Attending Provider on DC: Juan Pablo Lara MD Discharging Provider: Juan Pablo Lara MD DS: Diagnosis Problem List Completed Was Problem List Reviewed/Reconciled?: Yes Hospital Course Hospital Course Hospital course: Ms. Nagy is a pleasant 83-year-old female with past medical history of rheumatoid arthritis, primary hypertension and hyperlipidemia, who was brought into the ED by her daughter after having a ground-level fall and diagnosed to have a right second toe phalanx fracture. Initial lab work up is for mild leukocytosis WBC 11.6, hct 47.7% likely due to dehydration. CMP and coag panel pending results at this time. On imaging, foot x-ray did not show a fracture. Follow-up with CT was obtained, which showed chronic subluxations at the fifth, fourth, third, second metatarsal tarsal phalangeal joints, with a fracture deformity which appears acute with mild offset involving the distal aspect proximal phalanx second digit. Dr Narayan was consulted and he recommended conservative management. Treated with 1 dose of fosfomycin for UTI. Patient was kept for 3 nights to be eligible for SNF placement. Patient was discharged to the home with the following medications and recommendations. -Follow-up with PCP within 1 week of discharge. If you do not have appointment, please [facility] for [facility] and complex care with Dr. Lara. Call [phone] to make an appointment. -Follow up with Dr. Narayan within 1 week of discharge -Started amlodipine 10mg in view of elevated blood pressures noted in the hospital -Continue other home medications as prescribed -Return to ED if symptoms persist or return 1. RT second digit proximal phalanx fracture 2. Ground-level mechanical fall 3. Advanced rheumatoid arthritis 4. Reactive leukocytosis 5. Primary hypertension 6. Hyperlipidemia # UTI, treated Patient plan of care was discussed with the attending physician, Dr. Lyons and senior resident Dr. Ludmila Lara, PGY1 Time Spent with Patient Time attestation: Total time spent providing and/or coordinating discharge services: Time spent: Greater than 30 minutes Exam Vital Signs Temp Pulse Resp BP Pulse Ox O2 Del Method 97.1 F 96 18 155/51 H 95 Room Air 04/04/24 12:00 04/04/24 12:00 04/04/24 12:00 04/04/24 12:00 04/04/24 12:00 04/04/24 12:00 Narrative Exam General: Awake. Lying comfortably on the bed. HEENT: Normocephalic, atraumatic, mucous membranes moist. Heart: Regular rate and rhythm, no murmurs. Lungs: Clear to auscultation with no wheezing or crackles. Abdomen: Soft, nondistended, nontender, positive bowel sounds. ?No guarding or rebound tenderness. Neurologic: Alert and oriented x3, no gross neurological deficit, and patient able to move all 4 extremities. Extremities: No edema. Deformity of right second toe is noted and rheumatoid arthritis deformities are noted in both upper and lower extremities Skin: No rash. Ecchymosis noted on right second toe at the site of fracture. Discharge Plan Plan Patient Disposition: Xfer Skilled Nsg Fac (SNF) Disposition Comment: [facility] Patient condition on transfer: Stable Care Plan Goals: -Follow-up with PCP within 1 week of discharge. If you do not have appointment, please follow-up with the regional hospital for respiratory and complex care with Dr. Lara. Call [phone] to make an appointment. -Follow up with Dr. Narayan within 1 week of discharge -Started amlodipine 10mg in view of elevated blood pressures noted in the [place] -Continue other home medications as prescribed -Return to ED if symptoms persist or return Prescriptions/Referrals Prescriptions/Med Rec: New amlodipine 10 mg tablet 10 mg PO HS 30 Days Qty: 30 1RF Continued celecoxib [Celebrex] 200 MG capsule 200 mg PO QDAY Qty: 0 lovastatin 40 MG tablet 40 mg PO HS Qty: 0 Fosinopril * (MONOPRIL *) 40 MG tablet 40 mg PO BID Qty: 0 Referrals: Malena Arora MD [Primary Care Provider] - Eric Narayan MD [Physician] - Patient/Caregiver Discharge Instructions Discharge Activity: as per physical therapy Other Discharge Activity Instructions:: - Follow up Dr. Narayan on or Tuesday - Resume activities as tolerated - Take Amlodipine 10mg every night. Continue Fosinipril as prescribed - Return to ED if symptoms worsen Print Language: Afghan Stand Alone Forms: [employer] Award Info. Discharge Order Discharge Orders: Discharge (Routine); Ordered 04/04/24 Ordered By: Evin Lamb Quality Discharge Quality Measures VTE prophylaxis Attestestation Attestation I reviewed labs, imaging, EKG, home medications and prior available records. Face to face evaluation was performed by me. I have personally examined the patient and discussed assessment and plan with the IM team. I reviewed the resident note and agree with the plan with exceptions as below. 83-year-old female with history of rheumatoid arthritis including her feet who presented with a chief complaint of ground-level fall. She was found to have right second toe fracture. Right second toe fracture: In the setting of ground-level fall. Pain is severe requiring IV opiates. Management of pain as needed. 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 Recommended to continue to work with physical therapy. Physical therapy recommended SNF. She needs 3 inpatient nights prior to discharge. Rheumatoid arthritis: Resume home medications. Leukocytosis: Likely reactive in the setting of toe fracture versus pain. Management as above. Trend WBC. Transaminitis: Could be reactive in setting of pain versus dehydration versus rheumatoid arthritis. Ordered liver ultrasound: Showed no focal lesions. Monitor LFTs: Downtrending. Uncontrolled hypertension: Resume home medications. Management of pain as above. Possible pulmonary fibrosis: Seen on chest x-ray. No respiratory symptoms. Could be interstitial lung disease in the setting of longstanding rheumatoid arthritis. Recommend outpatient high-resolution CT scan. Time spent is 40 minutes. More than 50% of the time was spent on patient education and coordination of care.
== END 2024-04-04 15:40 | disposition skilled nursing facility (03) | DRG 563 ==
LOC: SERX 16:52 → SERHOLD 19:03 → S3SX 21:47
PROVIDERS: Student in an Organized Health Care Education/Training Program; Admitting Provider Student in an Organized Health Care Education/Training Program; Emergency Provider Emergency Medicine; PCP Specialist; Visit Provider Student in an Organized Health Care Education/Training Program
DX: S92.321A Displaced fracture of second metatarsal bone, right foot, initial encounter for closed fracture (principal); N39.0 Urinary tract infection, site not specified; M06.9 Rheumatoid arthritis, unspecified; I10 Essential (primary) hypertension; E78.5 Hyperlipidemia, unspecified; W01.0XXA Fall on same level from slipping, tripping and stumbling without subsequent striking against object, initial encounter; S50.311A Abrasion of right elbow, initial encounter; S60.511A Abrasion of right hand, initial encounter; E86.0 Dehydration; Z66 Do not resuscitate
CPT/HCPCS: 36415; 71045; 73070; 73502; 73630; 73700; 76705; 80048; 80053; 80076; 81001; 83735; 84443; 85025; 85610; 85730; 86850; 86900; 86901; 87086; 93005; 93306; 96365; 96372; 96375; 96376; 97162; 99285; J0689; J1643; J1650; J2270; J2405; J7030; A9270; J0690; J1644

== ENCOUNTER → 2024-06-05 | Outpatient (CLI) | payer MEDICARE, MEDICAID, SELFPAY ==
--- NOTE | 2024-06-05 07:30 | XR_ITS ---
Examination: CT chest, without intravenous contrast. Sagittal and coronal 2-D reconstructions. Exam date and time: June 05, 2024 at 0749 hours INDICATIONS: History pulmonary nodules CTDI:vol (mGy) 12.0 DLP: (mGycm) 354 Technique: Multiple 3.0 mm axial sections of the chest to been obtained. Bone and lung density settings are obtained. Sagittal and coronal 2-D reconstructions have been obtained. Low dose protocols were performed. One or more of the following dose reduction techniques were used; automated exposure control, adjustment of the mA and/or KV according to patient size, use of iterative reconstruction technique. 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
== END | disposition home or self-care (01) ==
LOC: CCTX 07:16
PROVIDERS: PCP Family Medicine; Referring Provider Physician Assistant; Visit Provider Physician Assistant
DX: J84.10 Pulmonary fibrosis, unspecified (principal)
CPT/HCPCS: 71250

== ENCOUNTER 2024-08-02 11:17 | Emergency (ER) | payer MEDICARE, SELFPAY ==
[2024-08-02] VITALS (16 sets, daily range): BP systolic 82–174; BP diastolic 50–74; PULSE 71–99; RESP 14–33; TEMP 36.3–37; O2SAT 94–100; BMI 16.1
--- NOTE | 2024-08-02 11:34 | XR_ITS ---
Examination: CT abdomen with intravenous contrast CT pelvis with intravenous contrast 2-D coronal reconstructions 2-D sagittal reconstructions Date and time of exam:August 02, 2024 1434 hrs. Indications: Nausea vomiting abdominal pain coffee-ground emesis beginning this morning. CTDI: vol (mGy) 6.98 DLP: (mGycm) 368 Technique: Multiple axial sections of the abdomen and pelvis have been obtained. 64 slice high-resolution scanner used. 3 mm axial sections have been obtained, post intravenous injection 60 cc [id number] 2-D sagittal, coronal reconstructions obtained. Low dose protocols were performed. One or more of the following dose reduction techniques were used; automated exposure control, adjustment of the mA and/or KV according to patient size, use of iterative reconstruction technique. Findings: Mild enlargement cardiac contour Retrocardiac gastric hernia Severe bibasilar pulmonary fibrosis Liver irregular in contour Cholelithiasis, common hepatic duct 11 mm, suspicious for 4 mm stone in the distal common bile duct coronal image 57 Spleen not enlarged No pancreatic mass Atrophic right kidney 2 mm nonobstructing right renal calculus Heavy abdominal aortic calcification No pericecal inflammatory change No bowel obstruction No diverticulitis Atrophic uterus Urinary bladder wall thickening up to 4 mm no bladder mass or bladder calculi Severe osteopenia with advanced disc narrowing L2-L3, L3-L4, healed left hip fracture Impression: Severe bibasilar pulmonary fibrosis Primary hepatocellular disease Cholelithiasis, prominent hepatic duct 11 mm, suspicious for 4 mm stone in the distal common bile duct, consider MRCP follow-up
--- NOTE | 2024-08-02 11:34 | EKG_ITS ---
[facility] Test Date: 2024-08-02 Pat Name: JAYLA INFANTE Department: Room: - Gender: Female Testing Consultant: : 1940 Requested By: Hina Nolan Order Number: [id number] Reading MD: Hina Nolan Measurements Intervals [place] Rate: 75 P: 29 MN: 164 QRS: 2 QRSD: 73 T: 32 QT: 397 QTc: 446 Interpretive Statements SINUS RHYTHM NONSPECIFIC ST & T-WAVE ABNORMALITY Compared to ECG 04/02/2024 09:15:12 T-wave abnormality now present /store/S0/[id number]
--- NOTE | 2024-08-02 11:36 | PD.EDABDPN ---
ED Abdominal Pain RME/HPI General Chief Complaint: Abdominal Pain Stated complaint: N/V Time seen by provider: 08/02/24 11:25 Arrival date/time: 08/02/24 11:17 RME / HPI RME / HPI narrative: 84-year-old female patient with significant history of rheumatoid arthritis, hypertension, currently taking Celebrex, came in for evaluation regarding abdominal pain. Patient's been having abdominal pain since early this morning described as dull ache, severity moderate associated with vomiting, pinkish colored vomitus severity moderate. Patient denies any fever denies any cough denies any diarrhea denies any constipation denies any blood in the stool. Denies any abdominal surgery. Patient is DNR Related Data Home Medications ?Medication ?Instructions ?Recorded ?Confirmed Fosinopril * (MONOPRIL *) 40 mg PO BID #0 tabs 05/29/16 04/01/24 celecoxib 200 mg capsule (Celebrex) 200 mg PO QDAY #0 caps 05/29/16 04/01/24 lovastatin 40 mg tablet 40 mg PO HS #0 tabs 05/29/16 04/01/24 Previous Rx's ?Medication ?Instructions ?Recorded amlodipine 10 mg tablet 10 mg PO HS 1 month #30 tabs 04/04/24 Allergies Allergy/AdvReac Type Severity Reaction Status Date / Time No Known Allergies Allergy Verified 04/01/24 15:32 Review of Systems Review of Systems Narrative Review of Systems: Review of system reviewed and within normal limits except mentioned in HPI ED Exam Narrative Physical exam: VITAL SIGNS: Reviewed. GENERAL APPEARANCE: Alert and interactive, follows commands, no acute distress, HEAD AND FACE: Non-traumatic. ENT: PERRL, pink conjunctivitis, eyelid no trauma, Mucous membrane moist. NECK: Supple, nontender, no nuchal rigidity. CHEST: No tenderness, no crepitus, no paradoxical movement, no retractions. LUNGS: Clear, well ventilated, symmetric, no rales, no wheezing, no ronchi, no stridor, good breath sounds bilaterally. HEART: Regular rate, regular rhythm, no murmur, no gallops. ABDOMEN: Soft, positive bowel sounds, nondistended, no guarding, diffuse tenderness, no rebound, no masses, RECTAL: Deferred. GENITAL: Deferred. NEUROLOGICAL: Gross motor function intact sensory function intact, Appropriate for age. MUSCULOSKELETAL: low back nontender, full range of motion. EXTREMITIES: Nontender, full range of motion. SKIN: Color pink, dry, no rash, no lacerations, no abrasions, no contusions. LYMPHATICS: Deferred. Course Quality Measures none Orders Category Date Time Status COVID-19 Screening Questionnaire NOW Care 08/02/24 16:[address] Screening NOW Care 08/02/24 11:34 Active Decision to Admit X1 Care 08/02/24 16:02 Completed EKG (ED ONLY) *Do not use* NOW Care 08/02/24 11:34 Completed MRI Screening NOW Care 08/02/24 16:33 Active Occult blood,Gastric (Nursing) NEEDED Care 08/02/24 11:[address] abdomen pelvis w con Stat Exams 08/02/24 11:34 Completed EKG (ED Only) Stat Exams 08/02/24 11:34 Draft MR MRCP Stat Exams 08/03/24 00:00 Taken US gall bladder Stat Exams 08/02/24 13:28 Completed CBC Stat Lab 08/02/24 11:44 Completed Comprehensive Metabolic Panel Stat Lab 08/02/24 11:44 Completed Occult Blood, Gastric (LAB) Stat Lab 08/02/24 11:38 Completed Partial Thromboplastin Time Stat Lab 08/02/24 15:05 Completed Prothrombin Time with INR Stat Lab 08/02/24 15:05 Completed Troponin I Stat Lab 08/02/24 11:44 Completed Type and Screen Stat Lab 08/02/24 11:44 Completed Urinalysis Stat Lab 08/02/24 13:14 Completed Metoclopramide Inj [Reglan Inj] Med 08/02/24 11:34 Discontinued 10 mg IVP X1 ONE Morphine Inj Med 08/03/24 09:02 Discontinued 2 mg IVP X1 ONE Ondansetron Inj [Zofran Inj] Med 08/02/24 13:28 Discontinued 4 mg IV X1 ONE Ondansetron Inj [Zofran Inj] Med 08/03/24 09:02 Discontinued 4 mg IV X1 ONE Pantoprazole Inj [Protonix Inj] Med 08/02/24 11:34 Discontinued 80 mg IV X1 ONE Piper/Tazo 3.375 gm Premix [Zosyn] Med 08/03/24 09:00 Active 3.375 gm in 50 ml IV Q12HR Piper/Tazo 3.375 gm Premix [Zosyn] Med 08/02/24 15:48 Discontinued 3.375 gm in 50 ml IV X1 Piper/Tazo 3.375 gm Premix [Zosyn] Med 08/02/24 23:00 Discontinued 3.375 gm in 50 ml IV X1 Ringers Lactated 1000 ml [Lactated Ringers] 1,000 ml Med 08/02/24 22:53 Discontinued IV 125 mls/hr Ringers Lactated 1000 ml [Lactated Ringers] 1,000 ml Med 08/02/24 11:35 Discontinued IV 999 mls/hr Ringers Lactated 1000 ml [Lactated Ringers] 1,000 ml Med 08/02/24 15:55 Discontinued IV 999 mls/hr Vital Signs Vital signs: Vital Signs Temperature 97.4 F 08/02/24 11:20 Pulse Rate 71 08/02/24 11:20 Respiratory Rate 18 08/02/24 11:20 Blood Pressure 105/65 08/02/24 11:20 Pulse Oximetry (%) 98 08/02/24 11:20 Oxygen Delivery Method Room Air 08/02/24 11:20 Abdominal Pain MDM MDM Narrative MDM Narrative:: 84-year-old female patient with significant history of rheumatoid arthritis, hypertension, currently taking Celebrex, came in for evaluation regarding abdominal pain. Patient's been having abdominal pain since early this morning described as dull ache, severity moderate associated with vomiting, pinkish colored vomitus severity moderate. Patient denies any fever denies any cough denies any diarrhea denies any constipation denies any blood in the stool. Denies any abdominal surgery. Patient is DNR Patient's workup today significant for leukocytosis of 20,000. CMP significant for AST of 446, ALT of 175, alkaline phos of 210. Urinalysis no UTI. Gastric occult blood was noted to be positive. 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 Garcia for final disposition. I already discussed this case with hospitalist who refused admission asking for MRCP. At this time I do not think patient needs emergent MRCP or ERCP due to no sign of obstructive jaundice, total bili is normal Patient data External records reviewed:: None Clinical information provided by:: patient Social determinants that could affect healthcare access:: none Patient has the following chronic illnesses:: DNR, How is presenting disease/condition affected by chronic disease/condition?: no chronic disease Evaluation data The following diagnostics were reviewed and interpreted by me:: lab results and radiology exam(s) Lab and/or radiology exams considered but not ordered:: None Interpretation Summary: See results MDM Medications / Prescriptions Medications or Prescriptions considered but not ordered:: None Medication administrations:: Medication Administration History Piperacillin/Tazobactam/Dextrose (Zosyn) 3.375 gm in 50 mls @ 12.5 mls/hr IV Q12HR NADIR; Protocol Stop: 08/10/24 08:59 Last Admin: 08/03/24 09:44 Dose: 12.5 mls/hr Documented By: RD Discontinued Medications Lactated Ringer's (Lactated Ringers) 1,000 mls @ 999 mls/hr IV .Q1H1M ONE Stop: 08/02/24 12:35 Last Infusion: 08/02/24 13:01 Dose: Infused Documented By: Admin: 08/02/24 11:59 Dose: 999 mls/hr Documented By: Piperacillin/Tazobactam/Dextrose (Zosyn) 3.375 gm in 50 mls @ 100 mls/hr IV X1 ONE Stop: 08/02/24 16:17 Last Infusion: 08/02/24 16:59 Dose: Infused Documented By: Admin: 08/02/24 16:05 Dose: 100 mls/hr Documented By: Lactated Ringer's (Lactated Ringers) 1,000 mls @ 999 mls/hr IV .Q1H1M ONE Stop: 08/02/24 16:55 Last Infusion: 08/02/24 18:52 Dose: Infused Documented By: Admin: 08/02/24 16:57 Dose: 999 mls/hr Documented By: Lactated Ringer's (Lactated Ringers) 1,000 mls @ 125 mls/hr IV .Q8H ONE Stop: 08/03/24 06:52 Last Admin: 08/02/24 23:25 Dose: 125 mls/hr Documented By: KRISTAN Piperacillin/Tazobactam/Dextrose (Zosyn) 3.375 gm in 50 mls @ 100 mls/hr IV X1 ONE Stop: 08/02/24 23:29 Last Infusion: 08/02/24 23:55 Dose: Infused Documented By: Admin: 08/02/24 23:25 Dose: 100 mls/hr Documented By: KRISTAN Metoclopramide HCl (Metoclopramide Inj 5 Mg/Ml Vial 2 Ml) 10 mg IVP X1 ONE; Protocol Stop: 08/02/24 11:35 Last Admin: 08/02/24 11:52 Dose: 10 mg Documented By: GM Morphine Sulfate (Morphine Sulf Inj 10 Mg/Ml Vial) 2 mg IVP X1 ONE Stop: 08/03/24 09:03 Last Admin: 08/03/24 09:47 Dose: 2 mg Documented By: CHARLOTTE Ondansetron HCl (Ondansetron Inj 2 Mg/Ml Inj 2 Ml) 4 mg IV X1 ONE; Protocol Stop: 08/02/24 13:29 Last Admin: 08/02/24 14:01 Dose: 4 mg Documented By: GM Ondansetron HCl (Ondansetron Inj 2 Mg/Ml Inj 2 Ml) 4 mg IV X1 ONE; Protocol Stop: 08/03/24 09:03 Last Admin: 08/03/24 09:47 Dose: 4 mg Documented By: CHARLOTTE Pantoprazole Sodium (Pantoprazole Inj 40 Mg Vial) 80 mg IV X1 ONE Stop: 08/02/24 11:35 Last Admin: 08/02/24 11:52 Dose: 80 mg Documented By: GM IV fluids, IV Zosyn Protonix Reglan Zofran Consultations Consultation(s) initiated? (list below): No Diagnosis Differential diagnosis abdominal pain: abdominal pain, gastroenteritis, pancreatitis and other (Nausea vomiting, cholelithiasis) Most likely diagnosis given after review of the tests above:: Nausea vomiting, cholelithiasis Admission Indicated Admission indicated?: indicated Admission Request Was there a request for admission?: Yes Admission Attestation Admission request attestation: Discussed case with [Dr. Head ] from Hospitalist service regarding admission. Discussed patients ED course, exam findings, labs, and radiology results. The Hospitalist declines] to accept the patient for admission. Disposition Plan Disposition Plan: other (specify) Discharge Plan Prescriptions/Referrals Prescriptions/Med Rec: No Action celecoxib [Celebrex] 200 MG capsule 200 mg PO QDAY Qty: 0 lovastatin 40 MG tablet 40 mg PO HS Qty: 0 Fosinopril * (MONOPRIL *) 40 MG tablet 40 mg PO BID Qty: 0 amlodipine 10 mg tablet 10 mg PO HS 30 Days Qty: 30 1RF Referrals: Malena Arora MD [Primary Care Provider] - In 1 week Problem List Clinical Impression: Abdominal pain, Intractable nausea and vomiting Patient/Caregiver Discharge Instructions Print Language: Chinese
[2024-08-02 11:51] LABS: OBG Card Lot # 2063210; OBG Developer Expiration Date 2026-09; OBG Developer Lot # 7508BG; OBG Performed By MADRG3; OBG QC OK? Yes
[2024-08-02 11:52] LABS: Basophils # (Auto) 0.1 Thou/mm3 (0.0-0.2); Basophils % (Auto) 0 % (0-2.5); Eosinophils # (Auto) 0.1 Thou/mm3 (0.0-0.5); Eosinophils % (Auto) 1 % (0-10); Hematocrit 42.8 % (36.0-46.0); Hemoglobin 13.5 g/dL (12.0-16.0); Immature Granulocytes % (Auto) 1 % (0-0); Lymphocytes # (Auto) 2.2 Thou/mm3 (1.0-4.8); Lymphocytes % (Auto) 11 % (10-50); Mean Corpuscular HGB Conc 31.5 g/dl (31.0-37.0); Mean Corpuscular Volume 89 fL (80-100); Monocytes # (Auto) 1.1 Thou/mm3 (0.0-0.8); Monocytes % (Auto) 5 % (0-12); Neutrophils # (Auto) 16.4 Thou/mm3 (1.8-7.7); Neutrophils % (Auto) 82 % (37-80); Nucleated Red Blood Cell % 0 /100 WBC (0); Platelet Count 193 Thou/mm3 (140-440); Red Blood Count 4.83 Miln/mm3 (4.00-5.20)
[2024-08-02] MEDS: PANTOPRAZOLE INJ 40 MG VIAL 80 MG IV (11:52)
[2024-08-02] MEDS: METOCLOPRAMIDE INJ 5 MG/ML VIAL 2 ML 10 MG IVP (11:52)
[2024-08-02 11:58] LABS: Occult Blood, Gastric Positive (Negative)
[2024-08-02] MEDS: RINGERS LACTATED 1000 ML 1,000 ML 999 ML IV ×2 (11:59→16:57)
[2024-08-02 12:10] LABS: Alanine Aminotransferase 175 U/L (10-49); Albumin, Serum 3.5 gm/dL (3.4-4.8); Alkaline Phosphatase 210 U/L (46-116); Anion Gap 11 (7-16); Aspartate Amino Transferase 446 U/L (0-34); BUN/Creatinine Ratio 18 Ratio (12-20); Bilirubin,Total 1.1 mg/dL (0.3-1.2); Blood Urea Nitrogen 21 mg/dL (9-23); Calcium 9.6 mg/dL (8.3-10.6); Carbon Dioxide 23.2 mMol/L (20.0-31.0); Chloride 107 mMol/L (98-107); Creatinine (Component) 1.2 mg/dL (0.6-1.3); Globulin 3.6 gm/dL (2.3-3.5); Glucose 179 mg/dL (74-106); Osmolality,Calculated 288 (275-295); Potassium 4.1 mMol/L (3.4-5.1); Sodium 141 mMol/L (136-145); Total Protein 7.1 gm/dL (5.7-8.2); Troponin I < 0.020 ng/mL (0.0-0.045); eGFR 45 See Note
[2024-08-02 13:27] LABS: Collection Type, Urine Clean Catch
--- NOTE | 2024-08-02 13:28 | XR_ITS ---
Examination: Abdomen sonogram, Limited Date and time of exam: August 02, 2024 1429 hrs. Indications: Abdominal pain nausea vomiting today Technique: Real-time muller scale transabdominal sonographic images of the upper abdomen obtained. Findings: Multiple gallstones Gallbladder wall Common bile duct 1.0 cm no stones Pancreatic head 3.1 Liver 11.8 cm irregular contour no focal liver lesions Normal hepatopedal portal venous oh Patent IVC Impression: Cholelithiasis, negative for cholecystitis Common bile duct 10 mm no common bile duct stones, if biliary colic is a clinical consideration, consider MRCP follow-up
[2024-08-02 13:35] LABS: Bilirubin,Urine Negative (Negative); Blood,Urine Trace (Negative); Clarity,Urine Clear (Clear/Hazy); Color,Urine Yellow (Lt Yel-Yel); Glucose, Urine Negative (Negative); Hyaline Casts,Urine < 1 /hpf (0-1); Ketones,Urine Negative (Negative); Leukocyte Esterase,Urine Negative (Negative); Nitrite,Urine Negative (Negative); PH,Urine 6.5 (5.0-7.0); Protein,Urine Trace (Neg - Trace); RBC,Urine 3 /hpf (0-3); Specific Gravity,Urine 1.014 (1.001-1.035); Squamous Epithelial Cell,Urine < 1 /hpf (0-5); WBC,Urine 1 /hpf (0-5)
[2024-08-02] MEDS: ONDANSETRON INJ 2 MG/ML INJ 2 ML 4 MG IV (14:01)
[2024-08-02 15:45] LABS: INR 1.1 (0.9-1.3); Partial Thromboplastin Time 23.7 Seconds (22.0-36.0); Prothrombin Time 11.9 Seconds (9.0-12.2)
[2024-08-02] MEDS: PIPER/TAZO 3.375 GM PREMIX 3.375 GM/50 ML BAG IV ×2 (16:05→23:25)
--- NOTE | 2024-08-02 16:33 | ESCONSULT_ITS ---
<Statement entered by Pilo Perez MD - 08/10/24 08:54> I reviewed above note and agree with findings and plans. I have also personally examined the patient with medicine team and went over assessment and plan with medical team including security intern and resident physician. <Statement entered by Hattie Gaines MD - 08/02/24 16:59> 84-year-old female with PMH of Rheumatoid arthritis (on celecoxib), hypertension, hyperlipidemia presented to the emergency department with complaints of worsening abdominal pain, nausea, and vomiting. These symptoms began earlier in the morning and progressively intensified, to the point where the patient was unable to eat. Her daughter, who was at the bedside, reported that the patient experienced coffee-ground emesis. A gastric occult blood test was performed, which was positive. On presentation, the patient was hemodynamically stable.PE Positive Pack sign. Abdominal examination consistent with tenderness and discomfort. Laboratory Results:Leukocytosis: WBC of 20,000 with a left shift.,Hemoglobin: Stable at 13.5 g/dL.Liver Enzymes:AST: 406 U/LALT: 175 U/LALP: 210 U/L Imaging:Abdomen/Pelvic CT: Revealed cholelithiasis and a prominent hepatic duct (11 mm). There is a suspicion of a 4 mm stone in the distal common bile duct. Cholangitis is suspected, given the patient's presentation with abdominal pain, nausea, vomiting, severe leukocytosis, elevated ALP, and a positive Pack sign. Hospitalist team was consulted regarding management. Next steps:MRCP is indicated to confirm or rule out the presence of an obstructive stone in the common bile duct. If obstruction is confirmed, the patient will require ERCP and transfer to another facility where procedure can be done. The patient's daughter was at the bedside, and all findings, the treatment plan, and potential need for ERCP were explained in detail. The daughter is agreeable to proceed with further imaging and, if needed, to transfer for ERCP. I discussed with and supervised the security intern physician who took care of this patient. I personally saw and examined the patient and discussed the assessment and plan with the entire medicine team, including my attending , I agree with the assessment and plan as documented below Hattie Gaines M.D. PGY-2 Disclaimer: Despite multiple revisions, due to the dictation software being used, the document bellow may not be free of grammatical errors including phonetic/typographic errors. However, this does not deter from our commitment to providing health care in the patient's best interest in mind. HPI Data of Consult Requesting Physician: Hina Nolan Attending Provider: Pilo Perez MD Primary Care Provider: Malena Arora MD Consult Narrative Reason for consult: Eval for admission History of present illness: 84 y/o F with PMHx significant for rheumatoid arthritis, hypertension, hyperlipidemia presents to the ED with 1 day of coffee-ground emesis. Patient has emesis associated with oral intake, abdominal pain. Patient received 1 L bolus lactated Ringer's, Reglan in ED. Patient was given small bite of Jell-O which caused immediate emesis. While waiting in ED patient had CT A/P which showed 11 mm hepatic duct, 4 mm stone in the distal common bile duct. On exam Pack sign was positive. Hospitalist team was consulted to evaluate for potential admission. Patient denies fevers, chills, shortness of breath, chest pain. Spoke to patient and her daughter at bedside, who were agreeable with intervention as necessary. Will recommend MRCP prior to decision making regarding admission, patient potential need to transfer to facility with ERCP. Past medical history: Hyperlipidemia, Primary hypertension, Rheumatoid arthritis Medication list: Amlodipine, Celebrex, lovastatin, Monopril Allergies: NKDA Social history: Denies alcohol, tobacco, illicit drug use. Family history: CAD, stroke and cancer CODE STATUS: DNR cc:: cc: Review of Systems Review of Systems Systems Reviewed: All systems reviewed, normal except as documented Past Medical History Past Medical History Comments PMH COMMENT: Past medical history: Hyperlipidemia, Primary hypertension, Rheumatoid arthritis Medication list: Amlodipine, Celebrex, lovastatin, Monopril Allergies: NKDA Social history: Denies alcohol, tobacco, illicit drug use. Family history: CAD, stroke and cancer Exam Vital Signs Temp Pulse Resp BP Pulse Ox O2 Del Method 98.3 F 99 15 129/51 L 96 Room Air 08/02/24 16:20 08/02/24 16:20 08/02/24 16:20 08/02/24 16:20 08/02/24 16:20 08/02/24 13:59 Narrative Exam PE: Gen: Well-developed and well-nourished. Appears mildly distressed. HEENT: NCAT, PERRLA, EOMI, MMM, anicteric conjunctivae. CVS: normal S1 and S2. RRR. No M/R/G. Resp: CTA B/L. No rhonchi, rales, crackles or wheezing. Abd: soft, non-distended. RUQ tenderness, Pack sign positive. MSK: Good ROM in BUE & BLE. No edema or rash. Neuro: CN II-XII grossly intact. Strength 5/5 in BUE & BLE. Alert and oriented x3. Psych: appropriate mood and affect. Results Labs 08/02/24 11:44 08/02/24 11:44 Labs: Short CBC 08/02/24 Range/Units 11:44 WBC 20.0 H (3.6-11.0) Thou/mm3 Hgb 13.5 (12.0-16.0) g/dL Hct 42.8 (36.0-46.0) % Plt Count 193 (140-440) Thou/mm3 BMP 08/02/24 11:44 Sodium 141 Potassium 4.1 Chloride 107 Carbon Dioxide 23.2 BUN 21 Creatinine 1.2 Glucose 179 H Calcium 9.6 Cardiac Enzymes 08/02/24 Range/Units 11:44 Troponin I < 0.020 (0.0-0.045) ng/mL Liver Function 08/02/24 Range/Units 11:44 Total Bilirubin 1.1 (0.3-1.2) mg/dL AST 446 H (0-34) U/L ALT 175 H (10-49) U/L Alkaline Phosphatase 210 H (46-116) U/L Albumin 3.5 (3.4-4.8) gm/dL Urine 08/02/24 Range/Units 13:14 Urine Color Yellow (Lt Yel-Yel) Urine Clarity Clear (Clear/Hazy) Urine pH 6.5 (5.0-7.0) Ur Specific [place] 1.014 (1.001-1.035) Urine Protein Trace (Neg - Trace) Urine Glucose (UA) Negative (Negative) Quality Measures Quality Measures none Advance care planning discussed with:: patient and child Medications Home Medications and Allergies Home Medications ?Medication ?Instructions ?Recorded ?Confirmed ?Type Fosinopril * (MONOPRIL *) 40 mg PO BID #0 tabs 7 04/01/24 History celecoxib 200 mg capsule (Celebrex) 200 mg PO QDAY #0 caps 05/29/16 04/01/24 History lovastatin 40 mg tablet 40 mg PO HS #0 tabs 05/29/16 04/01/24 History Allergies Allergy/AdvReac Type Severity Reaction Status Date / Time No Known Allergies Allergy Verified 04/01/24 15:32 Visit Medications Lactated Ringer's (Lactated Ringers) 1,000 mls @ 999 mls/hr IV .Q1H1M ONE Stop: 08/02/24 16:55 Discontinued Medications Lactated Ringer's (Lactated Ringers) 1,000 mls @ 999 mls/hr IV .Q1H1M ONE Stop: 08/02/24 12:35 Last Infusion: 08/02/24 13:01 Dose: Infused Piperacillin/Tazobactam/Dextrose (Zosyn) 3.375 gm in 50 mls @ 100 mls/hr IV X1 ONE Stop: 08/02/24 16:17 Last Admin: 08/02/24 16:05 Dose: 100 mls/hr Metoclopramide HCl (Metoclopramide Inj 5 Mg/Ml Vial 2 Ml) 10 mg IVP X1 ONE; Protocol Stop: 08/02/24 11:35 Last Admin: 08/02/24 11:52 Dose: 10 mg Ondansetron HCl (Ondansetron Inj 2 Mg/Ml Inj 2 Ml) 4 mg IV X1 ONE; Protocol Stop: 08/02/24 13:29 Last Admin: 08/02/24 14:01 Dose: 4 mg Pantoprazole Sodium (Pantoprazole Inj 40 Mg Vial) 80 mg IV X1 ONE Stop: 08/02/24 11:35 Last Admin: 08/02/24 11:52 Dose: 80 mg Assessment & Plan Plan 84 y/o F with PMHx significant for rheumatoid arthritis, hypertension, hyperlipidemia presents to the ED with 1 day of coffee-ground emesis, hospitalist team consulted for potential admit. #Abdominal pain #Nausea/vomiting #nausea/vomiting DDx will include choledocholithiasis, gastric ulcer, cholecystitis, gastritis Hospitalist team consulted due to coffee-ground emesis. CT A/P showed 11 mm hepatic duct, 4 mm stone in the distal common bile duct. On exam patient had notable right upper quadrant tenderness, with positive Pack sign. Patient remained afebrile, however leukocytosis with WBCs 20. Concern for choledocholithiasis requiring urgent treatment. Discussion held with patient and family at bedside, requested full interventional treatment. - Recommend urgent MRCP - If MRCP positive, patient requires transfer to facility capable of performing ERCP for urgent treatment - If MRCP negative, contact hospitalist team on-call for admission Plan of care discussed with senior resident Dr. Gaines PGY?[address] Perez. Chi Guadarrama MD PGY?1
--- NOTE | 2024-08-02 19:00 | PC.NURSE ---
MRI CALLED AT THIS TIME; NO ANSWER.
--- NOTE | 2024-08-02 20:17 | PC.NURSE ---
Pt resting comfortably at this time. Denies pain and NV at this time. Pt and family informed that she will stay in ER tonight for ERCP in the morning.
--- NOTE | 2024-08-02 23:02 | PD.EDADDENDU ---
Emergency Room Addendum Addendum Narrative: 2300: Care assumed from Hina Nolan NP. Past medical, surgical, social and family history reviewed. Vitals and home medications reviewed. Results and treatment plan discussed. I will assume the care of the patient at this time and will follow the patient, pending MRCP. Please refer to the emergency department record for history and examination from initial visit. The patient was placed in ED observation care at 08/02/24 at 2300 hours. The patient was placed in ED observation care because of pending MRCP. The patients past medical history, social history, and family history were reviewed. Patient remained clinically stable while under my care. 0600: Care signed out to Dr. Wolf (emergency physician). Past medical, surgical, social and family history reviewed. Vitals and home medications reviewed. Results and treatment plan discussed. They will assume the care of the patient at this time and will follow the patient, pending MRCP. At this time, observation has ended.
[2024-08-02] MEDS: RINGERS LACTATED 1000 ML 1,000 ML 125 ML IV (23:25)
[2024-08-03] VITALS (11 sets, daily range): BP systolic 134–177; BP diastolic 47–85; PULSE 68–90; RESP 15–20; TEMP 36.5–36.9; O2SAT 90–98
--- NOTE | 2024-08-03 | XR_ITS ---
MRI abdomen, without contrast. MRCP Date and time of exam: August 03, 2024 at 0736 hrs. Indications: Abdominal pain nausea vomiting today, suspicious for 4 mm stone in the distal common bile duct on CT examination 2024 Technique: Multiple axial and coronal images of the abdomen have been obtained with the Siemens 1.5T MRI scanner. Images obtained included T1 weighted transverse images, T2-weighted transverse images, T2-weighted transverse images fat-suppressed, T2 weighted haste fat suppressed transverse images, T1 weighted images, in and out of phase images, T2-weighted coronal images, breath hold, T2 weighted haze coronal images as well as T2 weighted coronal thick slab images, MRCP. Findings: Multiple gallstones Gallbladder wall does not appear thickened Normal-appearing common bile duct in size but 3 mm calculus is present in the distal common bile duct No peripancreatic edema Atrophic right kidney Benign renal cysts Impression: 3 mm calculus in the distal common bile duct
--- NOTE | 2024-08-03 05:03 | PC.NURSE ---
IV to L arm infiltrated with LR. IV restarted R FA. warm compress applied to L arm.
--- NOTE | 2024-08-03 06:52 | EDNOTE_ITS ---
Emergency Room Addendum <Hannah Mcfarland - Last Filed: 08/03/24 17:08> Addendum Narrative: 0600: Care assumed from Dr. Hankins, the previous shift emergency physician. Past medical, surgical, social and family history reviewed. Vitals and home medications reviewed. I will assume the care of the patient at this time, pending MRCP. Please refer to the emergency department record for history and examination from initial visit.?The following addendum documentation note is intended to reflect any pending information, findings, or radiology results not included in the patient?s initial chart. 719: I spoke with daughter Crystal. Reports the patient began having abdominal pain, nausea, vomiting, and unable to tolerate any foods beginning yesterday. Daughter described emesis and coffee ground. Aware of pending MRCP. MRCP was eventually completed and came back with a very small choledocholithiasis measuring 3 mm when back in the room multiple times and patient is comfortable her belly is soft and benign we had a long discussion with the daughter Patient ate and drank without any nausea or vomiting she just got up and walk at 1630 hrs. around the department and she is walking her usual self smiling and in no distress. Gave her the option of following up with a regular doctor get referred to an outpatient specialist for this and she knows to return or seek ERCP services at another facility if she is getting worse. Lab review reveals her transaminases were elevated white count was elevated and hemoglobin is 13.5. And although the patient has no nausea vomiting now earlier she did and it is unclear if the white count is elevated due to some other process and it is unclear why the transaminases were elevated as the patient clinically is much improved. Because of the uncertain organ to get a second CBC and a CMP at this time and if those show improvement or are stable then the patient can go home and follow-up with outpatient ERCP as this was discussed with the patient's daughter at great length. RADIOLOGY Ordering Physician: Date of Service: Procedure(s): Accession Number(s): cc: ~ MR Cholangiopancreatography without intravenous contrast. August 03, 2024 at 0734 hours Clinical History: Rule out choledocholithiasis Comparison: No prior study is available for comparison. Findings: There are multiple calculi within the gallbladder, the largest measuring 1.5 cm. No gallbladder pericholecystic fluid. The common bile duct is normal in caliber, measuring 3.2 mm with intraluminal calculus distally measuring 3 mm (axial T2 HASTE image 20/26). The pancreatic duct is not dilated. There is no evidence of intrahepatic biliary duct dilatation. The right kidney is atrophic. There are bilateral renal cysts measuring up to 5 mm. The liver, pancreas, spleen and adrenals appear unremarkable. A moderate-sized hiatal hernia is present. Bibasilar interstitial lung changes are seen. Impression: 1. Cholelithiasis, without evidence of acute cholecystitis. 2. Choledocholithiasis, with no evidence of intra or extrahepatic biliary ductal dilatation. 3. Other findings as described above. Report Electronically Signed By: Daniel Brewer 08/03/2024 9:41:07 AM [EST] <Misael Wolf MD - Last Filed: 08/03/24 17:43> Addendum Narrative: 0600: Care assumed from Dr. Hankins, the previous shift emergency physician. Past medical, surgical, social and family history reviewed. Vitals and home medications reviewed. I will assume the care of the patient at this time, pending MRCP. Please refer to the emergency department record for history and examination from initial visit.?The following addendum documentation note is intended to reflect any pending information, findings, or radiology results not included in the patient?s initial chart. 719: I spoke with daughter Crystal. Reports the patient began having abdominal pain, nausea, vomiting, and unable to tolerate any foods beginning yesterday. Daughter described emesis and coffee ground. Aware of pending MRCP. MRCP was eventually completed and came back with a very small choledocholithiasis measuring 3 mm when back in the room multiple times and patient is comfortable her belly is soft and benign we had a long discussion with the daughter Patient ate and drank without any nausea or vomiting she just got up and walk at 1630 hrs. around the department and she is walking her usual self smiling and in no distress. Gave her the option of following up with a regular doctor get referred to an outpatient specialist for this and she knows to return or seek ERCP services at another facility if she is getting worse. Lab review reveals her transaminases were elevated white count was elevated and hemoglobin is 13.5. And although the patient has no nausea vomiting now earlier she did and it is unclear if the white count is elevated due to some other process and it is unclear why the transaminases were elevated as the patient clinically is much improved. Because of the uncertain organ to get a second CBC and a CMP at this time and if those show improvement or are stable then the patient can go home and follow-up with outpatient ERCP as this was discussed with the patient's daughter at great length. Follow-up CBC shows improvement of the white count hemoglobin is stable so I do not believe there is any significant GI bleed despite the intermittent coffee- ground emesis 12 for 18 hours ago. Also the transaminases the AST is improved ALT is about the same alkaline phos is slightly elevated bilirubin is still negative. At this time the daughter understands follow-up with the regular doctor and coming back if getting worse or to another facility that has ERCP services if the patient is getting worse. RADIOLOGY Ordering Physician: Date of Service: Procedure(s): Accession Number(s): cc: ~ MR Cholangiopancreatography without intravenous contrast. August 03, 2024 at 0734 hours Clinical History: Rule out choledocholithiasis Comparison: No prior study is available for comparison. Findings: There are multiple calculi within the gallbladder, the largest measuring 1.5 cm. No gallbladder pericholecystic fluid. The common bile duct is normal in caliber, measuring 3.2 mm with intraluminal calculus distally measuring 3 mm (axial T2 HASTE image 20/26). The pancreatic duct is not dilated. There is no evidence of intrahepatic biliary duct dilatation. The right kidney is atrophic. There are bilateral renal cysts measuring up to 5 mm. The liver, pancreas, spleen and adrenals appear unremarkable. A moderate-sized hiatal hernia is present. Bibasilar interstitial lung changes are seen. Impression: 1. Cholelithiasis, without evidence of acute cholecystitis. 2. Choledocholithiasis, with no evidence of intra or extrahepatic biliary ductal dilatation. 3. Other findings as described above. Report Electronically Signed By: Daniel Brewer 08/03/2024 9:41:07 AM [EST]
--- NOTE | 2024-08-03 08:59 | PC.NURSE ---
RECEIVED VERBAL ORDER FOR 2MG MORPHINE IV AND 4MG ZOFRAN IV.
--- NOTE | 2024-08-03 09:41 | PRELIM_ITS ---
MR Cholangiopancreatography without intravenous contrast. August 03, 2024 at 0734 hours Clinical History: Rule out choledocholithiasis Comparison: No prior study is available for comparison. Findings: There are multiple calculi within the gallbladder, the largest measuring 1.5 cm. No gallbladder pericholecystic fluid. The common bile duct is normal in caliber, measuring 3.2 mm with intraluminal calculus distally measuring 3 mm (axial T2 HASTE image 20/26). The pancreatic duct is not dilated. There is no evidence of intrahepatic biliary duct dilatation. The right kidney is atrophic. There are bilateral renal cysts measuring up to 5 mm. The liver, pancreas, spleen and adrenals appear unremarkable. A moderate-sized hiatal hernia is present. Bibasilar interstitial lung changes are seen. Impression: 1. Cholelithiasis, without evidence of acute cholecystitis. 2. Choledocholithiasis, with no evidence of intra or extrahepatic biliary ductal dilatation. 3. Other findings as described above. Report Electronically Signed By: Daniel Brewer 08/03/2024 9:41:07 AM [EST]
[2024-08-03] MEDS: PIPER/TAZO 3.375 GM PREMIX 3.375 GM/50 ML BAG IV (09:44)
[2024-08-03] MEDS: ONDANSETRON INJ 2 MG/ML INJ 2 ML 4 MG IV (09:47)
[2024-08-03] MEDS: MORPHINE SULF INJ 10 MG/ML VIAL 2 MG IVP ×2 (09:47→14:17)
--- NOTE | 2024-08-03 13:53 | PC.NURSE ---
Received verbal order for 2mg morphine IV.
--- NOTE | 2024-08-03 16:33 | PC.NURSE ---
Patient ambulated around ER past nurses station with minimal assistance. ER provider made aware.
[2024-08-03 16:57] LABS: Lactate (Lactic Acid) 1.9 mMol/L (0.4-2.0)
[2024-08-03 17:02] LABS: Basophils # (Auto) 0.1 Thou/mm3 (0.0-0.2); Basophils % (Auto) 1 % (0-2.5); Eosinophils % (Auto) 0 % (0-10); Hematocrit 37.8 % (36.0-46.0); Hemoglobin 12.3 g/dL (12.0-16.0); Immature Granulocytes % (Auto) 0 % (0-0); Immature Granulocytes Auto 0.03 Thou/mm3 (0.00-0.00); Lymphocytes # (Auto) 1.5 Thou/mm3 (1.0-4.8); Lymphocytes % (Auto) 12 % (10-50); Mean Corpuscular HGB Conc 32.5 g/dl (31.0-37.0); Mean Corpuscular Hemoglobin 28.1 pg (25.0-35.0); Mean Corpuscular Volume 87 fL (80-100); Monocytes # (Auto) 0.9 Thou/mm3 (0.0-0.8); Monocytes % (Auto) 7 % (0-12); Neutrophils # (Auto) 9.8 Thou/mm3 (1.8-7.7); Neutrophils % (Auto) 80 % (37-80); Nucleated Red Blood Cell % 0 /100 WBC (0); Platelet Count 169 Thou/mm3 (140-440); Red Blood Count 4.37 Miln/mm3 (4.00-5.20); White Blood Count 12.3 Thou/mm3 (3.6-11.0)
[2024-08-03 17:30] LABS: Alanine Aminotransferase 349 U/L (10-49); Albumin, Serum 3.2 gm/dL (3.4-4.8); Alkaline Phosphatase 232 U/L (46-116); Anion Gap 8 (7-16); Aspartate Amino Transferase 385 U/L (0-34); BUN/Creatinine Ratio 14 Ratio (12-20); Bilirubin,Total 1.1 mg/dL (0.3-1.2); Blood Urea Nitrogen 15 mg/dL (9-23); Calcium 8.8 mg/dL (8.3-10.6); Calcium (Corrected) 9.4 mg/dL (8.5-10.1); Carbon Dioxide 27.6 mMol/L (20.0-31.0); Chloride 106 mMol/L (98-107); Creatinine (Component) 1.1 mg/dL (0.6-1.3); Estimated Creatinine Clearance 21.8 mL/min (>60); Globulin 3.3 gm/dL (2.3-3.5); Glucose 150 mg/dL (74-106); Osmolality,Calculated 286 (275-295); Potassium 4.1 mMol/L (3.4-5.1); Sodium 142 mMol/L (136-145); Total Protein 6.5 gm/dL (5.7-8.2); eGFR 50 See Note
== END 2024-08-03 18:27 | disposition home or self-care (01) ==
PROVIDERS: Nurse Practitioner Family; Emergency Provider Emergency Medicine; PCP Specialist
DX: K80.70 Calculus of gallbladder and bile duct without cholecystitis without obstruction (principal); D72.829 Elevated white blood cell count, unspecified; I10 Essential (primary) hypertension; M06.9 Rheumatoid arthritis, unspecified; Z66 Do not resuscitate; Z79.899 Other long term (current) drug therapy
CPT/HCPCS: 51701; 36415; 74177; 76705; 80053; 81001; 82271; 83605; 84484; 85025; 85610; 85730; 86850; 86900; 86901; 93005; 96361; 96365; 96367; 96374; 96375; 96376; 99285; A4649; J2270; J2405; J2470; J2543; J2765; J7120; Q9967; S8037; 74181

== ENCOUNTER 2024-08-20 07:24 | Inpatient (IN) | payer MEDICARE, MEDICAID, SELFPAY ==
[2024-08-20] VITALS (21 sets, daily range): BP systolic 143–213; BP diastolic 68–134; PULSE 66–105; RESP 13–99; TEMP 36.3–37; O2SAT 94–99; BMI 25.4
--- NOTE | 2024-08-20 | XR_ITS ---
Examinations: MRI Brain without intravenous contrast. MRA brain without intravenous contrast. MRA carotids without intravenous contrast 3-D vascular reconstructions Date and time of exam: August 20, 2024 1748 hours INDICATIONS: Stroke alert today, onset left-sided facial droop slurred speech and left-sided body numbness beginning this morning Technique: Multiple axial and sagittal images of the brain have been obtained MRA brain carotid images without contrast obtained, including 3-D postprocessing, vascular maximum intensity projection images Findings: Sellaturcica is not enlarged. The optic chiasm and infundibular stalk are not remarkable. Prepontine and interpeduncular cisterns are not enlarged. No localized enlargement of the medulla or tacos. Fourth ventricle and cerebellar tonsils normal in position. Subacute hemorrhage is not seen. Fourth ventricle is midline. Mass in the cerebellopontine angle region is not evident. 7th and 8th nerve complexes exhibits symmetry. Globes are symmetrical with no retro-orbital mass. Increased white matter signal prominent Diffusion-weighted images demonstrate multiple embolic type subcentimeter foci restricted diffusion left cerebellar hemisphere right vermis left occipital lobe bilateral temporal lobes bilateral parietal lobes Mass-effect upon the ventricular system is not identified. MRA carotid images degraded by patient motion. 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
--- NOTE | 2024-08-20 07:29 | EKG_ITS ---
[facility] Test Date: 2024-08-20 Pat Name: JAYLA INFANTE Department: Room: - Gender: Female Patient Services Technician: : 1940 Requested By: Ashley Reina Order Number: [id number] Reading MD: Ashley Reina Measurements Intervals [place] Rate: 95 P: 45 NV: 155 QRS: 15 QRSD: 74 T: 54 QT: 329 QTc: 414 Interpretive Statements SINUS RHYTHM WITH OCCASIONAL SUPRAVENTRICULAR PREMATURE COMPLEXES POSSIBLE LEFT ATRIAL ENLARGEMENT [-0.1mV P-WAVE IN V1/V2] Compared to ECG 08/02/2024 12:00:50 T-wave abnormality no longer present /store/S0/[id number]/ecg/[id number].pdf
--- NOTE | 2024-08-20 07:31 | EDNOTE_ITS ---
Neuro Symptoms Deficit-RME/HPI General Chief Complaint: Neuro Symptoms/Deficit Stated Complaint: L SIDE FACIAL DROOP WITH SLURRED SPEECH Time Seen by Provider: 08/20/24 07:29 Arrival date/time: 08/20/24 07:24 RME / HPI RME / HPI Narrative: DR. MONSIVAIS MAIN ED EVALUATION: 84 year old female presents to the Emergency Department accompanied by the daughter with complaints of slurred speech, left facial droop, left sided we akness, and mouth drooling since she got up at 630 AM. Last well known time was last night at 930 PM. No other symptoms reported at this time. Related Data Home Medications ?Medication ?Instructions ?Recorded ?Confirmed Fosinopril * (MONOPRIL *) 40 mg PO BID #0 tabs 7 04/01/24 celecoxib 200 mg capsule (Celebrex) 200 mg PO QDAY #0 caps 05/29/16 04/01/24 lovastatin 40 mg tablet 40 mg PO HS #0 tabs 05/29/16 04/01/24 Previous Rx's ?Medication ?Instructions ?Recorded amlodipine 10 mg tablet 10 mg PO HS 1 month #30 tabs 04/04/24 Allergies Allergy/AdvReac Type Severity Reaction Status Date / Time No Known Allergies Allergy Verified 08/20/24 07:25 Review of Systems Review of Systems Systems Reviewed: All systems reviewed, normal except as documented Narrative Review of Systems: GEN: No fever, no chills, no weight loss EYES: No discharge, no visual changes, no pain HEENT: No ear pain, no congestion, no sore throat PULM: No shortness of breath, no cough, no congestion CV: No chest pain, no dyspnea on exertion, no palpitations GI: No nausea, no vomiting, no diarrhea, no pain, no constipation : No frequency, no urgency and no dysuria MUSC/SKEL: No joint pain, no back pain SKIN: No rash PSYCH: No hallucinations, no depression HEME/LYMPH: No easy bleeding or bruising tendencies NEURO: No weakness, no headache, + slurred speech, + left facial droop Past Medical History Past Medical History CARDIAC: Positive Hypercholesterolemia and Hypertension MUSCULOSKELETAL: Positive Rheumatoid Arthritis OTHER HISTORY: Positive Blood Transfusions and Anesthesia Reactions (nausea) Social History SMOKING STATUS: Never smoker SUBSTANCE USE: does not use ALCOHOL: Never ED Exam Narrative Physical exam: GENERAL APPEARANCE: alert and oriented x 4, well-developed, well-nourished, no acute distress VITALS: All vitals were reviewed and the pulse ox is 97% on room air, which is normal according to my interpretation. HEENT: Normocephalic, atraumatic; pupils equal, round, reactive to light; EOMI; mucous membranes pink, moist; oropharynx clear NECK: Supple LUNGS: CTABL; no wheezes, no rales, no rhonchi HEART: Regular rate, regular rhythm; normal S1, S2; no murmurs ABDOMEN: non distended; normal BS; soft, no tenderness, no guarding, no rebound; no masses, no organomegaly, no hernia BACK: no CVA tenderness EXTREMITIES: atraumatic; no edema, contractures of bilateral hands NEUROLOGIC: awake; alert and oriented x4; left facial droop, left pronator drift, LLE 4/5 PSYCHIATRIC: appropriate mood and affect SKIN: warm, dry, normal color; no rashes Course Quality Measures none Orders Category Date Time Status Bedside Blood Glucose NOW Care 08/20/24 07:29 Active Installation And Repair Technician NOW Care 08/20/24 07:29 Active Continuous Pulse Oximetry NOW Care 08/20/24 07:29 Completed EKG (ED ONLY) *Do not use* NOW Care 08/20/24 07:29 Completed In and Out Catheter NEEDED Care 08/20/24 07:29 Completed Insert IV NOW Care 08/20/24 07:29 Active NIH Stroke Scale now Care 08/20/24 07:29 Active NPO NOW Care 08/20/24 07:29 Active Nurse Swallow Screen x1 Care 08/20/24 07:29 Active Consult to Neurology / Tele-Neurology Routine Cons 08/20/24 07:[address] angio stroke protocol Stat Exams 08/20/24 07:[address] stroke protocol Stat Exams 08/20/24 07:29 Completed EKG (ED Only) Stat Exams 08/20/24 07:29 Ordered B-Type Natriuretic Peptide Stat Lab 08/20/24 07:39 Completed CBC Stat Lab 08/20/24 07:39 Completed Comprehensive Metabolic Panel Stat Lab 08/20/24 07:39 Completed Drug Screen,Urine Stat Lab 08/20/24 08:15 Received Magnesium Stat Lab 08/20/24 07:39 Completed Partial Thromboplastin Time Stat Lab 08/20/24 07:39 Completed Prothrombin Time with INR Stat Lab 08/20/24 07:39 Completed Troponin I Stat Lab 08/20/24 07:39 Completed Urinalysis Stat Lab 08/20/24 08:15 Completed Urine Culture Stat Lab 08/20/24 08:15 Received Aspirin Chew Med 08/20/24 08:07 Discontinued 324 mg PO X1 ONE Clopidogrel [Plavix] Med 08/20/24 08:07 Discontinued 300 mg PO X1 ONE Ondansetron Inj [Zofran Inj] Med 08/20/24 07:29 Active 4 mg IV Q4HR PRN Oxygen Delivery NOW RT 08/20/24 07:29 Active Vital Signs Vital signs: Vital Signs Temperature 98.3 F 08/20/24 07:25 Pulse Rate 97 08/20/24 07:25 Respiratory Rate 18 08/20/24 07:25 Blood Pressure 190/89 H 08/20/24 07:25 Pulse Oximetry (%) 97 08/20/24 07:25 Oxygen Delivery Method Room Air 08/20/24 07:25 Neuro Symptoms / Deficit MDM Narrative MDM Narrative:: Letitia Ballard am scribing for and in the presence of Dr. Monsivais. Patient data External records reviewed:: [facility] previous records (Reviewed last admission discharge dated 04/04/24, patient admitted for the following: Fracture of toe) Clinical information provided by:: patient and family Social determinants that could affect healthcare access:: none Patient has the following chronic illnesses:: rheumatoid arthritis, primary hypertension, and hyperlipidemia How is presenting disease/condition affected by chronic disease/condition?: exacerbated by Evaluation data The following diagnostics were reviewed and interpreted by me:: lab results, radiology exam(s) and EKG tracing(s) (EKG#1: EKG at 0802 hours. Interpreted by me: sinus rhythm, rate 95, Q wave in lead 3, mild artifact) Lab and/or radiology exams considered but not ordered:: none Interpretation Summary: Procedure(s): CT stroke protocol Accession Number(s): [id number] cc: Ramin Denis MD; Ashley Monsivais MD~ Examination: CT brain head without contrast. 2-D sagittal coronal reconstructions Date and time of exam:August 20, 2024 0731 hours CTDI: vol (mGy):46 DLP: (mGycm):837 Technique: Multiple CT axial sections of the brain have been obtained, 5 mm slice thickness. Contrast has not been administered. 2-D sagittal, coronal reconstructions have been obtained Low dose protocols were performed. One or more of the following dose reduction techniques were used; automated exposure control, adjustment of the mA and/or KV according to patient size, use of iterative reconstruction technique. Findings: No significant ventricular enlargement. Intra-axial or extra-axial hemorrhage density is not seen. No mass effect or midline shift Basal cisterns are not remarkable. Fourth ventricle is midline. Cranial vault intact. Impression: Negative for acute hemorrhage, mass effect or midline shift Dictated By: Ramin Denis MD Procedure(s): CT angio stroke protocol Accession Number(s): [id number] cc: Ramin Denis MD; Ashley Monsivais MD; Adry Bojorquez MD~ Examination: CTA carotids with intravenous contrast CTA brain, head with intravenous contrast. 2-D sagittal, coronal reconstructions. 3-D reconstructions. Exam date and time: August 20, 2024 0738 hours INDICATIONS: Stroke alert, onset focal neurologic deficit today CTDI: vol (mGy) 26.6 DLP: (mGycm) 404 Technique: Multiple CTA axial brain, head carotid images post intravenous contrast injection 75 cc, [id number]. 2-D sagittal, coronal reconstructions. 3-D reconstructions, 3-D post processing including vascular maximum intensity projection images. Low dose protocols were performed. One or more of the following dose reduction techniques were used; automated exposure control, adjustment of the mA and/or KV according to patient size, use of iterative reconstruction technique. 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 No cerebral large vessel arterial occlusions or thrombus Dictated By: Ramin Denis MD Medications / Prescriptions Medications or Prescriptions considered but not ordered:: none Medication administrations:: Medication Administration History Ondansetron HCl (Ondansetron Inj 2 Mg/Ml Inj 2 Ml) 4 mg IV Q4HR PRN PRN Reason: NAUSEA OR VOMITING Stop: 09/19/24 07:28 Discontinued Medications Aspirin (Aspirin 81 Mg Chew) 324 mg PO X1 ONE Stop: 08/20/24 08:08 Last Admin: 08/20/24 08:28 Dose: 324 mg Documented By: RADHA Clopidogrel Bisulfate (Clopidogrel Bisulfate 75 Mg Tablet) 300 mg PO X1 ONE Stop: 08/20/24 08:08 Last Admin: 08/20/24 08:26 Dose: 300 mg Documented By: RADHA see above Consultations Consultation(s) initiated? (list below): Yes Consultation #1 (Physician, Specialty, Details): Discussed test HPI, PMHx, lab, radiology results and/or management with hospitalist. Will admit for further evaluation and management. Accepts patient for admission. Time: 09:02 Diagnosis Neuro Differential Diagnosis: subarachnoid hemorrhage, cerebrovascular accident and transient cerebral ischemia Most likely diagnosis given after review of the tests above:: CVA Admission Indicated Admission indicated?: indicated Admission Request Was there a request for admission?: Yes Admission Attestation Admission request attestation: Discussed case with [] from Hospitalist service regarding admission. Discussed patients ED course, exam findings, labs, and radiology results. The Hospitalist [agrees,declines] to accept the patient for admission. Disposition Plan Disposition Plan: Admit Discharge Plan Plan Patient Disposition: Admit Acute Care w/in Hospital Prescriptions/Referrals Prescriptions/Med Rec: No Action celecoxib [Celebrex] 200 MG capsule 200 mg PO QDAY Qty: 0 lovastatin 40 MG tablet 40 mg PO HS Qty: 0 Fosinopril * (MONOPRIL *) 40 MG tablet 40 mg PO BID Qty: 0 amlodipine 10 mg tablet 10 mg PO HS 30 Days Qty: 30 1RF Referrals: Adry Bojorquez MD [Primary Care Provider] - In 1 week Problem List Clinical Impression: CVA (cerebral vascular accident) Patient/Caregiver Discharge Instructions Print Language: Sinhala Stand Alone Forms: Pam Award Info., Patient Portal Info Letter
--- NOTE | 2024-08-20 07:40 | PC.NURSE ---
PT BIB DAUGHTER WITH [facility] C/O OF LEFT SIDE FACIAL DROOP/SLURRED SPEECH/ AND LEFT SIDE WEAKNESS THAT STARTED AT 0630AM. PER DAUGHTER, PT LWKT 2130HRS. ON ASSESSMENT, PT HAD SLURRED SPEECH WITH LEFT SIDE FACIAL DROOP AND LEFT SIDE WEAKNESS. BLOOD GLUCOSE 105. PT IS A GCS 15, A&OX3. PT WAS TAKEN TO CT, PENDING CT RESULTS.
[2024-08-20 08:04] LABS: Basophils # (Auto) 0.1 Thou/mm3 (0.0-0.2); Basophils % (Auto) 1 % (0-2.5); Eosinophils # (Auto) 0.1 Thou/mm3 (0.0-0.5); Eosinophils % (Auto) 1 % (0-10); Hematocrit 43.6 % (36.0-46.0); Hemoglobin 13.8 g/dL (12.0-16.0); Immature Granulocytes % (Auto) 0 % (0-0); Immature Granulocytes Auto 0.04 Thou/mm3 (0.00-0.00); Lymphocytes # (Auto) 2.3 Thou/mm3 (1.0-4.8); Lymphocytes % (Auto) 17 % (10-50); Mean Corpuscular HGB Conc 31.7 g/dl (31.0-37.0); Mean Corpuscular Hemoglobin 27.3 pg (25.0-35.0); Mean Corpuscular Volume 86 fL (80-100); Monocytes # (Auto) 1.1 Thou/mm3 (0.0-0.8); Monocytes % (Auto) 8 % (0-12); Neutrophils # (Auto) 9.6 Thou/mm3 (1.8-7.7); Neutrophils % (Auto) 73 % (37-80); Nucleated Red Blood Cell % 0 /100 WBC (0); Platelet Count 193 Thou/mm3 (140-440); RDW Standard Deviation 40.8 fL (36.4-46.3); Red Blood Count 5.06 Miln/mm3 (4.00-5.20); White Blood Count 13.1 Thou/mm3 (3.6-11.0)
--- NOTE | 2024-08-20 08:04 | PD.TNEURO ---
Tele Neuro Consultation Consultation Date 08/20/24 Most Recent Vital Signs Last Vital Signs Temp 98.3 F 08/20/24 07:25 Pulse 97 08/20/24 07:25 Resp 18 08/20/24 07:25 BP 190/89 H 08/20/24 07:25 Pulse Ox 97 08/20/24 07:25 O2 Del Method Room Air 08/20/24 07:25 Consultation Narrative [facility] Tele[facility]urology Consult Services Patient Name:???Katherine Nagy Date of :???1940 Identification Number:??? Date of Service:???08/20/2024 07:29:41 Diagnosis:?R47.81 - Slurred speech ?R29.810 - Facial numbness/ Facial weakness Impression: ?Patient is an 84 year old woman PMHX of HTN, not on blood thinners. Was last normal last evening 08/19/2024 at 2130 PST at bedtime. Daughter noticed when patient woke up at 0630 PST today patient had new left sided facial droop, slurred speech. Patient also reports left sided numbness. ? ?Exam with left facial droop, slurred speech, left arm drift, left sided numbness. Concerned for stroke. ? ?CT head was performed and reviewed. No acute findings. The patient was not a candidate for IV thrombolytics due to LKN > 4.5 hrs. ? ?Further stroke workup as below recommended. ? ? Our recommendations are outlined below. Recommendations: ? Stroke/Telemetry Floor ? Neuro Checks ? Bedside Swallow Eval ? DVT Prophylaxis ? IV Fluids, Normal Saline ? Head of Bed 30 Degrees ? Euglycemia and Avoid Hyperthermia (PRN Acetaminophen) ? Bolus with Clopidogrel 300 mg bolus x1 and initiate dual antiplatelet therapy with Aspirin 81 mg daily and Clopidogrel 75 mg daily ? Antihypertensives PRN if Blood pressure is greater than 220/120 or there is a concern for End organ damage/contraindications for permissive HTN. If blood pressure is greater than 220/120 give labetalol PO or IV or Vasotec IV with a goal of 15% reduction in BP during the first 24 hours. ?CTA pending ?MRI head without contrast Sign Out: ? Discussed with Emergency Department Provider Advanced Imaging:Advanced imaging has been ordered. Results pending. Metrics: Last Known Well: 08/19/2024 21:30:00 Dispatch Time: 08/20/2024 07:29:41 Arrival Time: 08/20/2024 07:24:00 Initial Response Time: 08/20/2024 07:31:57Symptoms: facial droop, slurred speech . Initial patient interaction: 08/20/2024 07:32:47 NIHSS Assessment Completed: 08/20/2024 07:44:57Patient is not a candidate for Thrombolytic. Thrombolytic Medical Decision: 08/20/2024 07:45:01Patient was not deemed candidate for Thrombolytic because of following reasons: LKW outside 4.[address] head showed no acute hemorrhage or acute core infarct. I personally Reviewed the CT Head and it Showed no acute findings. Primary Provider Notified of Diagnostic Impression and Management Plan on: 08/20/2024 08:07:03 History of Present Illness:Patient is a 84 year old Female. Patient was brought by private transportation with symptoms of facial droop, slurred speech . Patient is an 84 year old woman PMHX of HTN, not on blood thinners. Was last normal last evening 08/19/2024 at 2130 PST at bedtime. Daughter noticed when patient woke up at 0630 PST today patient had new left sided facial droop, slurred speech. Patient also reports left sided numbness. ? Past Medical History: ?Hypertension Medications: No Anticoagulant use? No Antiplatelet use Reviewed EMR for current medications Allergies:? Reviewed Social History: Drug Use: No Family History: There is no family history of premature cerebrovascular disease pertinent to this consultation ROS : 14 Points Review of Systems was performed and was negative except mentioned in HPI. Past Surgical History: There Is No Surgical History Contributory To Today?s Visit ? Examination: BP(163/48),?Pulse(78),?Blood Glucose(105) 1A: Level of Consciousness - Alert; keenly responsive?+ 0 1B: Ask Month and Age - 1 Question Right?+ 1 1C: Blink Eyes & Squeeze Hands - Performs Both Tasks?+ 0 2: Test Horizontal Extraocular Movements - Normal?+ 0 3: Test Visual Schulz - No Visual Loss?+ 0 4: Test Facial Palsy (Use Grimace if Obtunded) - Partial paralysis (lower face)?+ 2 5A: Test Left Arm Motor Drift - No Drift for 10 Seconds?+ 0 5B: Test Right Arm Motor Drift - No Drift for 10 Seconds?+ 0 6A: Test Left Leg Motor Drift - Drift, but doesn't hit bed?+ 1 6B: Test Right Leg Motor Drift - No Drift for 5 Seconds?+ 0 7: Test Limb Ataxia (FNF/Heel-Salmon) - No Ataxia?+ 0 8: Test Sensation - Mild-Moderate Loss: Less Sharp/More Dull?+ 1 9: Test Language/Aphasia - Normal; No aphasia?+ 0 10: Test Dysarthria - Mild-Moderate Dysarthria: Slurring but can be understood?+ 1 11: Test Extinction/Inattention - No abnormality?+ 0 NIHSS Score:?6 NIHSS Free Text :?left sided reduced sensation Pre-Morbid Modified Gervais Scale:0 Points = No symptoms at all Spoke with :?Dr Monsivais This consult was conducted in real time using interactive audio and video technology. Patient was informed of the technology being used for this visit and agreed to proceed. Patient located in hospital and provider located at home/office setting. Patient is being evaluated for possible acute neurologic impairment and high probability of imminent or life-threatening deterioration. I spent total of 30 minutes providing care to this patient, including time for face to face visit via telemedicine, review of medical records, imaging studies and discussion of findings with providers, the patient and/or family. Dr Ho Murphy [facility] For Inpatient follow-up with [facility] physician please call [facility] at . As we are not an outpatient service for any post hospital discharge needs please contact the hospital for assistance. If you have any questions for the [facility] physicians or need to reconsult for clinical or diagnostic changes please contact us via [facility] at . ?
[2024-08-20 08:12] LABS: B-Type Natriuretic Peptide 204 pg/mL (0-100)
[2024-08-20 08:25] LABS: Collection Type, Urine Clean Catch; Squamous Epithelial Cell,Urine 0 /hpf (0-5)
[2024-08-20] MEDS: CLOPIDOGREL BISULFATE 75 MG TABLET 300 MG PO (08:26)
[2024-08-20 08:27] LABS: INR 1.1 (0.9-1.3); Partial Thromboplastin Time 27.5 Seconds (22.0-36.0); Prothrombin Time 11.9 Seconds (9.0-12.2)
[2024-08-20] MEDS: ASPIRIN 81 MG CHEW 324 MG PO (08:28)
[2024-08-20 08:30] LABS: Alanine Aminotransferase 9 U/L (10-49); Albumin, Serum 3.5 gm/dL (3.4-4.8); Alkaline Phosphatase 116 U/L (46-116); Anion Gap 7 (7-16); Aspartate Amino Transferase 21 U/L (0-34); BUN/Creatinine Ratio 21 Ratio (12-20); Bilirubin,Total 0.5 mg/dL (0.3-1.2); Blood Urea Nitrogen 17 mg/dL (9-23); Calcium 8.9 mg/dL (8.3-10.6); Calcium (Corrected) 9.3 mg/dL (8.5-10.1); Carbon Dioxide 25.7 mMol/L (20.0-31.0); Chloride 107 mMol/L (98-107); Creatinine (Component) 0.8 mg/dL (0.6-1.3); Estimated Creatinine Clearance 42.1 mL/min (>60); Globulin 3.6 gm/dL (2.3-3.5); Glucose 109 mg/dL (74-106); Magnesium 1.9 mg/dL (1.6-2.6); Osmolality,Calculated 281 (275-295); Potassium 4.4 mMol/L (3.4-5.1); Sodium 140 mMol/L (136-145); Total Protein 7.1 gm/dL (5.7-8.2); eGFR > 60 See Note
[2024-08-20 08:32] LABS: Troponin I 0.998 ng/mL (0.0-0.045)
[2024-08-20 08:48] LABS: Bilirubin,Urine Negative (Negative); Blood,Urine Trace (Negative); Clarity,Urine Clear (Clear/Hazy); Color,Urine Colorless (Lt Yel-Yel); Glucose, Urine Negative (Negative); Ketones,Urine Negative (Negative); Leukocyte Esterase,Urine Negative (Negative); Nitrite,Urine Negative (Negative); Protein,Urine Negative (Neg - Trace); RBC,Urine 6 /hpf (0-3); Specific Gravity,Urine 1.028 (1.001-1.035); Urobilinogen,Urine Negative mg/dL (0.0-1.0); WBC,Urine 1 /hpf (0-5)
[2024-08-20 09:04] LABS: Amphetamine/Methamp Scrn,U Negative (Negative); Barbiturate Screen,Urine Negative (Negative); Benzodiazepines Screen,Urine Negative (Negative); Benzoylecgonine Screen, Ur Negative (Negative); Fentanyl Screen,Urine Negative (Negative); Opiate Screen,Urine Negative (Negative); THC Screen,Urine Negative (Negative)
[2024-08-20] MEDS: FAMOTIDINE INJ 10 MG/ML VIAL 2 ML 20 MG IVP (10:08)
[2024-08-20] MEDS: DiphenhydrAMINE INJ 50 MG/ML VIAL 25 MG IVP (10:08)
--- NOTE | 2024-08-20 10:29 | ESHP_ITS ---
Documentation for date of: 08/20/24 HPI History of Present Illness Chief complaint: Slurring of speech, facial droop. History of present illness: Ms. Nagy is a 84-year-old female with past medical history of rheumatoid arthritis, hypertension and hyperlipidemia who presented to [facility] emergency department with a chief complaint of left-sided facial droop, slurred speech and left-sided numbness. Patient's daughter at bedside assisting in providing history, per daughter patient woke up this morning and had symptoms of facial droop slurred speech and left-sided numbness. Patient otherwise ambulates with assistance of cane, has no complaints with mobility as of now. Per daughter patient walked to the car with a cane this morning. On examination patient does have swelling of upper lip, tongue shows white discharge high suspicion of oral thrush. Patient denies having any history of angioedema, is on ARIANNA inhibitor for the last many years, denies any allergies, no new medications and also tried no new foods recently. Patient has no other complaints, strength intact bilateral lower and upper extremities. Patient denies any history of heart problems, denies any chest pain shortness of breath palpitation and headache currently. Patient does follow rheumatology outpatient, received IV infusions of tocilizumab in the past, currently was recently discharged from [facility]. Of note patient was recently discharged from the emergency department on 08/03/2024. MRCP was done that showed cholelithiasis, no acute cholecystitis, choledocholithiasis and patient was discharged from ED to follow-up outpatient to obtain ERCP. Currently patient has no abdominal tenderness, Pack sign negative and denies any abdominal discomfort. ED Course: ED Vitals: On presentation blood pressure 190/89, heart rate 97, respirate rate 18, temp 98.3, O2 sat 97 on room air ED Labs: Emergency department labs show WBC 13.1, glucose 109, ALT 9, troponin I 0.998, BNP 204, globulin 3.6. Urine analysis negative for bacteria, urine RBC 6. ED Imaging: CT scan of the head in the ED showed no acute hemorrhage mass or midline affect. CTA shows 70% stenosis origin left internal carotid artery ED Treatment: Stroke alert called in the ED, patient was given loading dose clopidogrel and aspirin in the emergency department Review of Systems Review of Systems Narrative Review of Systems: ROS: -CONSTITUTIONAL: Denies weight loss, fever and chills. -HEENT: Denies changes in vision and hearing. -RESPIRATORY: Denies SOB and cough. -CV: Denies palpitations and Chest Pain. -GI: Denies abdominal pain, nausea, vomiting,constipation and diarrhea. -: Denies dysuria and urinary frequency. -MSK: Denies myalgia and joint pain. -SKIN: Denies rash and pruritus. -NEUROLOGICAL: Denies headache and syncope. Positive for facial droop, slurring of speech. -PSYCHIATRIC: Denies recent changes in mood. Denies anxiety and depression. Past Medical History Past Medical History Comments PMH COMMENT: PMH: Positive for rheumatoid arthritis, hypertension and hyperlipidemia PSHx: Positive for hip and knee surgery in the past Allergies: No known drug and food allergies Social history: -Smoking: Denies -Alcohol Use: Denies -Illicit Drug Use: Denies Family History: Denies any family history of CVA Exam Vital Signs Temp Pulse Resp BP Pulse Ox O2 Del Method 98.4 F 94 16 213/88 H 95 Room Air 08/20/24 10:22 08/20/24 10:22 08/20/24 10:22 08/20/24 10:22 08/20/24 10:22 08/20/24 10:22 Narrative Exam Physical Exam General: Awake and in no acute distress. Conversational and non-toxic appearing. HEENT: Normocephalic, atraumatic, mucous membranes moist. Heart: Regular rate and rhythm, no murmurs. Lungs: Clear to auscultation with no wheezing or crackles. Abdomen: Soft, nondistended, nontender, positive bowel sounds. ?No guarding or rebound tenderness. Neurologic: Alert and oriented x3, no gross neurological deficit, and patient able to move all 4 extremities. Extremities: No edema. Deformity is noted secondary to rheumatoid arthritis on the right foot and bilateral upper extremities. Small ulcer lateral right foot. Skin: No rash or ecchymoses. Results: Labs 08/20/24 07:39 08/20/24 07:39 Labs: Short CBC 08/20/24 Range/Units 07:39 WBC 13.1 H (3.6-11.0) Thou/mm3 Hgb 13.8 (12.0-16.0) g/dL Hct 43.6 (36.0-46.0) % Plt Count 193 (140-440) Thou/mm3 BMP 08/20/24 07:39 Sodium 140 Potassium 4.4 Chloride 107 Carbon Dioxide 25.7 BUN 17 Creatinine 0.8 Glucose 109 H Calcium 8.9 Cardiac Enzymes 08/20/24 Range/Units 07:39 Troponin I 0.998 H* (0.0-0.045) ng/mL Liver Function 08/20/24 Range/Units 07:39 Total Bilirubin 0.5 (0.3-1.2) mg/dL AST 21 (0-34) U/L ALT 9 L (10-49) U/L Alkaline Phosphatase 116 (46-116) U/L Albumin 3.5 (3.4-4.8) gm/dL Urine 08/20/24 Range/Units 08:15 Urine Color Colorless A (Lt Yel-Yel) Urine Clarity Clear (Clear/Hazy) Urine pH 7.0 (5.0-7.0) Ur Specific [place] 1.028 (1.001-1.035) Urine Protein Negative (Neg - Trace) Urine Glucose (UA) Negative (Negative) Quality Measures Quality Measures none Advance care planning discussed with:: patient and child Medications Home Medications and Allergies Home Medications ?Medication ?Instructions ?Recorded ?Confirmed ?Type Fosinopril * (MONOPRIL *) 40 mg PO BID #0 tabs 7 08/20/24 History celecoxib 200 mg capsule (Celebrex) 200 mg PO QDAY #0 caps 05/29/16 08/20/24 History Allergies Allergy/AdvReac Type Severity Reaction Status Date / Time No Known Allergies Allergy Verified 08/20/24 07:25 Visit Medications Acetaminophen (Acetaminophen 325 Mg Tablet) 650 mg PO Q6H PRN PRN Reason: Pain (1-3) & Fever >100.4 Stop: 09/19/24 09:48 Aspirin (Aspirin Ec 81 Mg Tabec) 81 mg PO QDAY NADIR Stop: 09/20/24 08:59 Atorvastatin Calcium (Atorvastatin Calcium 20 Mg Tablet) 80 mg PO HS NADIR Stop: 09/19/24 20:59 Clopidogrel Bisulfate (Clopidogrel Bisulfate 75 Mg Tablet) 75 mg PO QDAY NADIR Stop: 09/20/24 08:59 Famotidine (Famotidine Inj 10 Mg/Ml Vial 2 Ml) 20 mg IVP QDAY NADIR Stop: 09/19/24 09:59 Last Admin: 08/20/24 10:08 Dose: 20 mg Heparin Sodium (Porcine) (Heparin Sod Inj 5000 Unit/Ml Vial) 5,000 unit SC Q12H [facility] Stop: 09/03/24 20:59 Labetalol HCl (Labetalol Inj 5 Mg/Ml Vial 20 Ml) 10 mg IVP Q6H PRN PRN Reason: HTN SBP>220 DBP >120 Stop: 09/19/24 10:14 Nystatin (Nystatin Susp 1 Ml) 5 ml PO QID [facility] Stop: 08/27/24 11:59 Ondansetron HCl (Ondansetron Inj 2 Mg/Ml Inj 2 Ml) 4 mg IV Q6H PRN; Protocol PRN Reason: NAUSEA OR VOMITING Stop: 09/19/24 09:48 Sennosides (Senna Tablet) 2 tab PO QDAY [facility]; Protocol Stop: 09/20/24 08:59 Discontinued Medications Aspirin (Aspirin 81 Mg Chew) 324 mg PO X1 ONE Stop: 08/20/24 08:08 Last Admin: 08/20/24 08:28 Dose: 324 mg Clopidogrel Bisulfate (Clopidogrel Bisulfate 75 Mg Tablet) 300 mg PO X1 ONE Stop: 08/20/24 08:08 Last Admin: 08/20/24 08:26 Dose: 300 mg Diphenhydramine HCl (Diphenhydramine Inj 50 Mg/Ml Vial) 25 mg IVP X1 ONE Stop: 08/20/24 09:57 Last Admin: 08/20/24 10:08 Dose: 25 mg Ondansetron HCl (Ondansetron Inj 2 Mg/Ml Inj 2 Ml) 4 mg IV Q4HR PRN PRN Reason: NAUSEA OR VOMITING Stop: 09/19/24 07:28 Assessment & Plan Plan Assessment and plan: Summary: Ms. Nagy is a 84-year-old female with past medical history of rheumatoid arthritis, hypertension and hyperlipidemia who presented to [facility] emergency department with a chief complaint of left-sided facial droop, slurred speech and left-sided numbness. Patient admitted for CVA workup. #Left-sided facial droop #Slurred speech #CVA workup Per daughter patient woke up this morning and had symptoms of facial droop slurred speech and left-sided numbness. Patient otherwise ambulates with assistance of cane, has no complaints with mobility as of now. Per daughter patient walked to the car with a cane this morning. Does have history of TIA in the past per daughter. NIHSS was Plan: - Admitted to telemetry unit - Started on aspirin 81 Mg daily - Started on clopidogrel 75 Mg daily - Started on atorvastatin 80 Mg daily - A1c, lipid panel, TSH ordered - Ordered MR stroke protocol, TTE as per teleneurology recommendations - Neurologist Dr. Rollins consulted, appreciate recommendations - Speech therapist and physical therapist consultation done - Neurocheck every 4 hourly, head of bed elevated to 30 daily, aspiration precautions - Clear liquid diet, passed bedside swallow, pending speech therapy evaluation - Permissive hypertension for 24 hours - Daily a.m. labs for CBC, CMP and electrolytes - Continue to monitor closely #Elevated troponin, likely type II Elevated troponin on presentation 0.998, no chest pain and no acute ST-T changes -Trend troponin every 6 hours until downtrend #Upper lip swelling #Oral thrush On examination patient does have swelling of upper lip, tongue shows white discharge high suspicion of oral thrush. Patient denies having any history of angioedema, is on ARIANNA inhibitor for the last many years, denies any allergies, no new medications and also tried no new foods recently. - Started on nystatin suspension 4 times daily - Patient was given diphenhydramine 25 IV x 1, famotidine x 1 - Continue to monitor #Hypertension Patient on lisinopril at home, will hold in setting of permissive hypertension #Hyperlipidemia Follow lipid panel in a.m. - Atorvastatin 80 mg at bedtime daily #Cholelithiasis #Choledocholithiasis Patient presented with coffee-ground emesis earlier this month, was found to have cholelithiasis and choledocholithiasis . Currently denies any abdominal pain, has no symptoms alk phos, AST ALT, bilirubin within normal limits . -Pursue outpatient workup DVT prophylaxis: Heparin every 12hours GI prophylaxis: IV Protonix daily Diet: Clear liquid diet, pending speech therapy evaluation Lines: Peripheral IV Code status: DNR Case discussed with Attending Dr. Gonzalez and Dr. Mirza PGY3. Raquel Torres PGY1 Disclaimer: This note was dictated by speech recognition. Minor errors in electric repair supervisor may be present due to voice recognition software. SHAR discussed with and supervised the international relations teacher physician who took care of this patient. I personally saw and examined the patient and discussed the assessment and plan with the entire medicine team, including my attending Dr. Curt Rodriguez MD. I agree with the assessment and plan as documented above. Ms. Mejia is a 84-year-old lady with a past medical history significant for rheumatoid arthritis, hypertension and hyperlipidemia and stroke who presented to the ED with left-sided facial droop, dysarthria and hemiparesis. Patient was admitted for stroke workup per teleneurology recommendations. Thus far, patient's imaging has been negative for an acute stroke. Patient currently pending MRI. Will consult neurology for further recommendations. In the meantime we will start aspirin, clopidogrel and atorvastatin. Will stratify the patient with A1c, lipid panel and TSH. Will allow for permissive hypertension within the first 24 hours. Of note, the patient's troponin was also elevated at 0.998 which up trended to 1 point. Will consult cardiology service for further recommendations and defer heparin drip at this time. Patient also noted to have oral candidiasis for which we will start nystatin. On exam patient was noted to have swelling of her lips. Upon further questioning of the patient, this was noted to be a new symptom. Patient is also notably on an ARIANNA inhibitor which may be attributing to this finding, concerning for angioedema, for which Benadryl and famotidine were administered. Abhinav Mirza M.D. Internal Medicine PGY-3 Attending Provider Attestation/Addendum 84-year-old female with hypertension on fosinopril, cholelithiasis admitted for facial droop left side and slurring of speech noted this morning when she woke up. She was fine last night she went to bed around 930 according to her daughter who was at bedside patient denies headache. She has no chest pain. She has no A- fib. Patient is scheduled to have an MRI done. CT scan of the head is negative for acute stroke. CTA head and neck 70% left ICA stenosis. Will need vascular surgery referral.
--- NOTE | 2024-08-20 11:55 | PC.SS ---
Initial assessment: this is 84 year old female who presents to the ED for CVA workup. Patient is pending admission to med/tele floors. Information was obtained by patient's daughter, Crystal Nagy . Patient resides at home with daughter Crystal. Patient was recently at [facility] and discharged back home during May 2024. Patient able to complete ADL's with some assistance. Per daughter, the patient has a wheelchair and walker to assist with ambulation. Patient was being seen by provider Lexie at the [facility] and is pending to get established with a new provider at [facility] per daughter. Pharmacy of choice is [facility] in [place]. Patient's alternate medical surrogate decision maker is Crystal, she informs she has POA over the patient and recommended she provide a copy to hospital staff. At this time the discharge plan is pending on physical therapy evaluation home vs SNF. If SNF is recommended, daughter prefers [facility]. D/c plan: home vs SNF Next of kin: Crystal kyle
[2024-08-20] MEDS: PANTOPRAZOLE INJ 40 MG VIAL IV (13:23)
[2024-08-20] MEDS: ACETAMINOPHEN 325 MG TABLET 650 MG PO (13:57)
[2024-08-20] MEDS: NYSTATIN SUSP 5 ML UDC PO ×3 (13:58→20:18)
[2024-08-20 15:01] LABS: Troponin I 1.377 ng/mL (0.0-0.045)
--- NOTE | 2024-08-20 18:37 | ESCONSULT_ITS ---
<Statement entered by Rashaun Perez MD - 08/21/24 08:42> I personally examined the patient evaluated patient through the hospital mostly neurologic symptoms still has left facial weakness clearly had a TIA and possibly small stroke upper extremity also has mild weakness. She incidentally found elevated troponin level with no chest pain or cardiac symptoms possible type II troponin versus NSTEMI recommend continuing aspirin Plavix and will evaluate the patient after cardiac echo if there is significant wall motion abnormalities may consider angiogram otherwise medical management currently with dual antiplatelet drug therapy. Clinical picture does not support myocardial infarction though troponin level is elevated possibly from severe hypertension demand ischemia on admission. CT scan was negative but MRI probably will show stroke. I evaluated the patient with resident physician PGY 2 Dr. Gely Hernandez agree with the treatment plan recommendation as documented HPI Data of Consult Patient: new to practice Consult date: 08/20/24 Requesting Physician: Slade Gonzalez MD Admitting Provider: Slade Gonzalez MD Attending Provider: Slade Gonzalez MD Primary Care Provider: Adry Bojorquez MD Consult Narrative Reason for consult: Type 2 NSTEMI History of present illness: Patient is a 84-year-old female with past medical history of rheumatoid arthritis, hypertension, and hyperlipidemia who presented to the ED on 08/20/2024 with left-sided facial droop, swollen mouth, slurred speech, and left-sided numbness discovered this morning when she woke up. Patient's daughter at bedside assisting in providing history. Patient otherwise ambulates with assistance of cane, has no complaints with mobility as of now. On examination patient does have swelling of upper lip, tongue shows white discharge high suspicion of oral thrush. Patient denies having any history of angioedema, is on ARIANNA inhibitor for the last many years, denies any allergies, no new medications or medication changes and also tried no new foods recently. Patient has no other complaints, strength intact bilateral lower and upper extremities. Patient denies any history of heart problems, denies any chest pain, shortness of breath, palpitations, dizziness, or headache currently. Patient does follow rheumatology outpatient, received IV infusions of tocilizumab in the past, currently was recently discharged from [facility]. Of note patient was recently discharged from the emergency department on 08/03/2024. MRCP was done that showed cholelithiasis, no acute cholecystitis, choledocholithiasis and patient was discharged from ED to follow-up outpatient to obtain ERCP. Currently patient has no abdominal tenderness, Pack sign negative and denies any abdominal discomfort. ED Course: -Initial vitals were BP 190/89, heart rate 97, respirate rate 18, temp 98.3, O2 sat 97 on room air -Labs significant for WBC 13.1, glucose 109, ALT 9, troponin I 0.998, BNP 204, globulin 3.6. Urine analysis negative for bacteria, urine RBC 6. -CT scan of the head in the ED showed no acute hemorrhage mass or midline affect. CTA shows 70% stenosis origin left internal carotid artery -In the ED, patient was given loading dose clopidogrel and aspirin. Stroke alert called in the ED. -Patient was admitted for acute ischemic stroke workup and Cardiology was consulted for elevated troponin and suspicion for type 2 NSTEMI Review of Systems Review of systems otherwise negative except what is mentioned above. cc:: cc: Slade Gonzalez MD Past Medical History Past Medical History Comments PMH COMMENT: PMH: Positive for rheumatoid arthritis, hypertension and hyperlipidemia PSHx: Positive for hip and knee surgery in the past Allergies: No known drug and food allergies Social history: -Smoking: Denies -Alcohol Use: Denies -Illicit Drug Use: Denies Patient lives at home alone however has nearly 24 hour support with children, neighbors, and caregivers staying in the home at different times Family History: Denies any family history of CVA. Family history of cancers including leukemia and dementia. Exam Vital Signs Temp Pulse Resp BP Pulse Ox O2 Del Method 97.3 F 97 18 167/81 H 96 Room Air 08/21/24 04:00 08/21/24 04:00 08/21/24 04:00 08/21/24 04:00 08/21/24 04:00 08/21/24 04:00 Narrative Exam Physical Exam General: Awake and in no acute distress. Conversational and non-toxic appearing. HEENT: Normocephalic, atraumatic, mucous membranes moist. Heart: Regular rate and rhythm, normal S1 and S2, 2/6 systolic murmur at the left lower sternal border. Lungs: Clear to auscultation with no wheezing or crackles. Abdomen: Soft, nondistended, nontender, positive bowel sounds. ?No guarding or rebound tenderness. Neurologic: Alert and oriented x3, no gross neurological deficit, and patient able to move all 4 extremities. Patient has left-sided facial droop. Slight swelling of lips. Extremities: No edema. Skin: No rash or ecchymoses. Results Labs 08/20/24 07:39 08/20/24 07:39 Labs: Short CBC 08/20/24 Range/Units 07:39 WBC 13.1 H (3.6-11.0) Thou/mm3 Hgb 13.8 (12.0-16.0) g/dL Hct 43.6 (36.0-46.0) % Plt Count 193 (140-440) Thou/mm3 BMP 08/20/24 07:39 Sodium 140 Potassium 4.4 Chloride 107 Carbon Dioxide 25.7 BUN 17 Creatinine 0.8 Glucose 109 H Calcium 8.9 Cardiac Enzymes 08/20/24 08/20/24 08/20/24 Range/Units 07:39 13:50 19:02 Troponin I 0.998 H* 1.377 H* D 1.086 H* D (0.0-0.045) ng/mL 08/21/24 Range/Units 01:25 Troponin I 1.124 H* (0.0-0.045) ng/mL Liver Function 08/20/24 Range/Units 07:39 Total Bilirubin 0.5 (0.3-1.2) mg/dL AST 21 (0-34) U/L ALT 9 L (10-49) U/L Alkaline Phosphatase 116 (46-116) U/L Albumin 3.5 (3.4-4.8) gm/dL Urine 08/20/24 Range/Units 08:15 Urine Color Colorless A (Lt Yel-Yel) Urine Clarity Clear (Clear/Hazy) Urine pH 7.0 (5.0-7.0) Ur Specific [place] 1.028 (1.001-1.035) Urine Protein Negative (Neg - Trace) Urine Glucose (UA) Negative (Negative) Quality Measures Quality Measures none Advance care planning discussed with:: patient Medications Home Medications and Allergies Home Medications ?Medication ?Instructions ?Recorded ?Confirmed ?Type Fosinopril * (MONOPRIL *) 40 mg PO BID #0 tabs 7 08/20/24 History celecoxib 200 mg capsule (Celebrex) 200 mg PO QDAY #0 caps 05/29/16 08/20/24 History Allergies Allergy/AdvReac Type Severity Reaction Status Date / Time No Known Allergies Allergy Verified 08/20/24 07:25 Visit Medications Acetaminophen (Acetaminophen 325 Mg Tablet) 650 mg PO Q6H PRN PRN Reason: Pain (1-3) & Fever >100.4 Stop: 09/19/24 09:48 Last Admin: 08/20/24 13:57 Dose: 650 mg Aspirin (Aspirin Ec 81 Mg Tabec) 81 mg PO QDAY [facility] Stop: 09/20/24 08:59 Atorvastatin Calcium (Atorvastatin Calcium 20 Mg Tablet) 80 mg PO HS [facility] Stop: 09/19/24 20:59 Last Admin: 08/20/24 20:17 Dose: 80 mg Clopidogrel Bisulfate (Clopidogrel Bisulfate 75 Mg Tablet) 75 mg PO QDAY [facility] Stop: 09/20/24 08:59 Famotidine (Famotidine Inj 10 Mg/Ml Vial 2 Ml) 20 mg IVP QDAY [facility] Stop: 09/19/24 09:59 Last Admin: 08/20/24 10:08 Dose: 20 mg Heparin Sodium (Porcine) (Heparin Sod Inj 5000 Unit/Ml Vial) 5,000 unit SC Q12H [facility] Stop: 09/03/24 20:59 Last Admin: 08/20/24 20:18 Dose: 5,000 unit Labetalol HCl (Labetalol Inj 5 Mg/Ml Vial 20 Ml) 10 mg IVP Q6H PRN PRN Reason: HTN SBP>220 DBP >120 Stop: 09/19/24 10:14 Nystatin (Nystatin Susp 5 Ml Udc) 5 ml PO QID [facility] Stop: 08/27/24 13:29 Last Admin: 08/21/24 05:05 Dose: 5 ml Ondansetron HCl (Ondansetron Inj 2 Mg/Ml Inj 2 Ml) 4 mg IV Q6H PRN; Protocol PRN Reason: NAUSEA OR VOMITING Stop: 09/19/24 09:48 Pantoprazole Sodium (Pantoprazole Inj 40 Mg Vial) 40 mg IV QDAY [facility] Stop: 09/19/24 11:29 Last Admin: 08/20/24 13:23 Dose: 40 mg Sennosides (Senna Tablet) 2 tab PO QDAY [facility]; Protocol Stop: 09/20/24 08:59 Discontinued Medications Aspirin (Aspirin 81 Mg Chew) 324 mg PO X1 ONE Stop: 08/20/24 08:08 Last Admin: 08/20/24 08:28 Dose: 324 mg Clopidogrel Bisulfate (Clopidogrel Bisulfate 75 Mg Tablet) 300 mg PO X1 ONE Stop: 08/20/24 08:08 Last Admin: 08/20/24 08:26 Dose: 300 mg Diphenhydramine HCl (Diphenhydramine Inj 50 Mg/Ml Vial) 25 mg IVP X1 ONE Stop: 08/20/24 09:57 Last Admin: 08/20/24 10:08 Dose: 25 mg Nystatin (Nystatin Susp 1 Ml) 5 ml PO QID NADIR Stop: 08/27/24 11:59 Last Admin: 08/20/24 13:46 Dose: Not Given Ondansetron HCl (Ondansetron Inj 2 Mg/Ml Inj 2 Ml) 4 mg IV Q4HR PRN PRN Reason: NAUSEA OR VOMITING Stop: 09/19/24 07:28 Assessment & Plan Plan 84-year-old female with past medical history of rheumatoid arthritis, hypertension, and hyperlipidemia who presented to the ED on 08/20/2024 with left- sided facial droop, swollen mouth, slurred speech, and left-sided numbness discovered this morning when she woke up, subsequently admitted for acute ischemic stroke workup. Cardiology was consulted in the setting of elevated troponin and type 2 NSTEMI. #Elevated troponin #Likely type II NSTEMI Elevated troponin on presentation 0.998 which uptrended to 1.377, however patient has no chest pain, pressure-like sensation, palpitations, shortness of breath, or any other symptoms. Most likely to be type 2 NSTEMI in the setting of severe hypertension. EKG was reviewed which showed sinus rhythm at [address]-T changes. -Continue trending the troponin every 6 hours until downtrend -Continue with aspirin 81 mg qday -Continue with clopidogrel 75 mg qday #Acute ischemic stroke Per daughter patient woke up this morning and had symptoms of facial droop slurred speech and left-sided numbness, last known well last night before bed at 9:30 pm. Patient otherwise ambulates with assistance of cane, has no complaints with mobility as of now. Per daughter patient walked to the car with a cane this morning. Does have history of TIA in the past per daughter. NIHSS was 6. CT head negative. CTA head/neck showed 70% stenosis origin left internal carotid artery. No cerebral large vessel arterial occlusions or thrombus. -Pending head MRI -Continue stroke workup #Hypertensive emergency #History of hypertension Patient arrived with significantly elevated BPs ranging 190-200s systolic, highest 213/88. Patient on fosinopril 40 mg qday at home. -Hold home medication in setting of permissive hypertension <220/120 #History of hyperlipidemia -Pending lipid panel -Patient was started on atorvastatin 80 mg HS Rest of conditions to continue current management per primary team: #Upper lip swelling #Oral thrush #Leukocytosis #History of cholelithiasis #History of choledocholithiasis Cardiology will continue to follow. Patient was discussed with the attending, Dr. Perez. Thank you for allowing us to participate in the care of this patient. Gely Hernandez, PGY-2
[2024-08-20 19:48] LABS: Troponin I 1.086 ng/mL (0.0-0.045)
--- NOTE | 2024-08-20 19:54 | PC.NURSE ---
At beginning of shift, Dr. Perez and hospitalist Dr. Granger arrived on unit to follow up on patient.
[2024-08-20] MEDS: ATORVASTATIN CALCIUM 20 MG TABLET 80 MG PO (20:17)
[2024-08-20] MEDS: HEPARIN SOD INJ 5000 UNIT/ML VIAL SC (20:18)
--- NOTE | 2024-08-20 22:49 | PD.NEUROPROG ---
Documentation for date of: 08/20/24 Subjective Subjective Interval history: Patient was seen in telemetry today with her family at the bedside as she was getting ready to go to the MRI. She came in with acute onset of left facial droop. She denies any headache dizziness or weakness in the upper or lower extremities. Exam - Neurology Vital Signs Temp Pulse Resp BP Pulse Ox O2 Del Method 97.6 F 87 16 155/69 H 95 Room Air 08/20/24 20:00 08/20/24 20:00 08/20/24 20:00 08/20/24 20:00 08/20/24 20:00 08/20/24 20:00 Narrative Exam GENERAL APPEARANCE: Well hydrated, well-nourished in no acute distress. HEENT: Normocephalic, atraumatic, extraocular movements intact. Pupils: Equal reacting to light and accommodation NECK: Supple, no JVD or bruits. CARDIOVASULAR: Heart: S1, S2 heard, regular without S3-S4 or murmur no rubs or gallops. LUNGS/CHEST: Clear to auscultation bilaterally. No rails, rhonchi, or wheezing. Normal inspection. ABDOMEN: Soft, nontender, with normal bowel sounds. No pulsatile masses. No rebound, rigidity, or guarding. Normal inspection and palpation. EXTREMITIES: Normal inspection and palpation. No edema, clubbing or cyanosis. SKIN: Warm and dry without rashes. Normal inspection. MUSCULOSKELETAL: She has significant joint deformities consistent with severe rheumatoid arthritis NEURO: Alert, awake and oriented x3. Cranial nerves: II through XII grossly intact with exception of left facial weakness of upper motor neuron type. Speech and language: Normal with no dysarthria or dysphasia. Motor system: Tone and bulk: Normal: Strength: Moves all 4 extremities; No pronator drift noted. Deep tendon reflexes: 1+ bilaterally symmetrical. Plantar reflex: Downgoing bilaterally. Sensory system: Intact to all modalities of sensation bilaterally. Coordination: Intact to [id number] and [id number]-ejhj-[id number] test bilaterally. No ataxia, no dysmetria, or dysdiadochokinesia noted. No intention tremors noted. Gait: Not tested. PSYCHIATRIC: Normal mood and affect. Objective Labs 08/20/24 07:39 08/20/24 07:39 Labs: Laboratory Results - last 24 hr 08/20/24 08/20/24 08/20/24 07:39 08:15 13:50 WBC 13.1 H RBC 5.06 Hgb 13.8 Hct 43.6 MCV 86 MCH 27.3 MCHC 31.7 RDW Std Deviation 40.8 Plt Count 193 Neut % (Auto) 73 Lymph % (Auto) 17 [place] % (Auto) 8 Eos % (Auto) 1 Baso % (Auto) 1 Neut # (Auto) 9.6 H Lymph # (Auto) 2.3 [place] # (Auto) 1.1 H Eos # (Auto) 0.1 Baso # (Auto) 0.1 Immature Gran # (Auto) 0.04 H Absolute Nucleated RBC 0.00 Immature Gran % 0 Nucleated RBC % 0 PT 11.9 INR 1.1 APTT 27.5 Sodium 140 Potassium 4.4 Chloride 107 Carbon Dioxide 25.7 Anion Gap 7 BUN 17 Creatinine 0.8 Estim Creat Clear Calc 42.1 L eGFR > 60 BUN/Creatinine Ratio 21 H Glucose 109 H Calculated Osmolality 281 Calcium 8.9 Corrected Calcium 9.3 Magnesium 1.9 Total Bilirubin 0.5 AST 21 ALT 9 L Alkaline Phosphatase 116 Troponin I 0.998 H* 1.377 H* D B-Natriuretic Peptide 204 H Total Protein 7.1 Albumin 3.5 Globulin 3.6 H Albumin/Globulin Ratio 1.0 L Ur Collection Type Clean Catch Urine Color Colorless A Urine Clarity Clear Urine pH 7.0 Ur Specific [place] 1.028 Urine Protein Negative Urine Glucose (UA) Negative Urine Ketones Negative Urine Blood Trace Urine Nitrite Negative Urine Bilirubin Negative Urine Urobilinogen (Auto) Negative Ur Leukocyte Esterase Negative Urine RBC 6 H Urine WBC 1 Ur Squamous Epith Cells 0 Urine Bacteria None Urine Opiates Screen Negative Urine Fentanyl Screen Negative Ur Barbiturates Screen Negative U Amphetamin/Meth Scrn Negative U Benzodiazepines Scrn Negative U Cocaine Metab Screen Negative U Marijuana (THC) Screen Negative 08/20/24 19:02 WBC RBC Hgb Hct MCV MCH MCHC RDW Std Deviation Plt Count Neut % (Auto) Lymph % (Auto) [place] % (Auto) Eos % (Auto) Baso % (Auto) Neut # (Auto) Lymph # (Auto) [place] # (Auto) Eos # (Auto) Baso # (Auto) Immature Gran # (Auto) Absolute Nucleated RBC Immature Gran % Nucleated RBC % PT INR APTT Sodium Potassium Chloride Carbon Dioxide Anion Gap BUN Creatinine Estim Creat Clear Calc eGFR BUN/Creatinine Ratio Glucose Calculated Osmolality Calcium Corrected Calcium Magnesium Total Bilirubin AST ALT Alkaline Phosphatase Troponin I 1.086 H* D B-Natriuretic Peptide Total Protein Albumin Globulin Albumin/Globulin Ratio Ur Collection Type Urine Color Urine Clarity Urine pH Ur Specific [place] Urine Protein Urine Glucose (UA) Urine Ketones Urine Blood Urine Nitrite Urine Bilirubin Urine Urobilinogen (Auto) Ur Leukocyte Esterase Urine RBC Urine WBC Ur Squamous Epith Cells Urine Bacteria Urine Opiates Screen Urine Fentanyl Screen Ur Barbiturates Screen U Amphetamin/Meth Scrn U Benzodiazepines Scrn U Cocaine Metab Screen U Marijuana (THC) Screen Assessment & Plan Assessment and plan (1) CVA (cerebral vascular accident): Status: Acute Assessment and plan: Presented with acute onset of left facial weakness I independently reviewed the MRI images and I agreed with the radiologist interpretation MRI brain showed Increased white matter signal prominent Diffusion-weighted images demonstrate multiple embolic type infarcts with restricted diffusion involving left cerebellar hemisphere, right vermis,left occipital lobe, bilateral temporal lobes bilateral parietal lobes MRA brain images no large vessel occlusion. Patient would need transesophageal echocardiogram to look for cardiac sources of emboli. Continue with aspirin 81, Plavix 75 mg and statin for now. Physical therapy and Occupational Therapy. (2) Hypertension: Status: Acute Assessment and plan: Continue with blood pressure management
[2024-08-21] VITALS (11 sets, daily range): BP systolic 149–184; BP diastolic 71–85; PULSE 87–97; RESP 16–98; TEMP 36.2–36.5; O2SAT 92–98; BMI 27.6
[2024-08-21 02:53] LABS: Troponin I 1.124 ng/mL (0.0-0.045)
--- NOTE | 2024-08-21 03:10 | PC.NURSE ---
Patient tried to get out of bed. Patient's nurse and supervisor white sugar attended to patient. Patient was a little disorientated from waking up and was reminded by the nurse that she was in the hospital and her daughter went home for the day and would be back in the morning to come visit her. Patient verbalized understanding. Patient is also redirectable.
[2024-08-21] MEDS: NYSTATIN SUSP 5 ML UDC PO ×3 (05:05→20:03)
[2024-08-21 07:55] LABS: Basophils # (Auto) 0.1 Thou/mm3 (0.0-0.2); Basophils % (Auto) 1 % (0-2.5); Eosinophils # (Auto) 0.1 Thou/mm3 (0.0-0.5); Eosinophils % (Auto) 1 % (0-10); Hematocrit 42.3 % (36.0-46.0); Hemoglobin 13.8 g/dL (12.0-16.0); Immature Granulocytes % (Auto) 0 % (0-0); Immature Granulocytes Auto 0.02 Thou/mm3 (0.00-0.00); Lymphocytes # (Auto) 2.2 Thou/mm3 (1.0-4.8); Lymphocytes % (Auto) 21 % (10-50); Mean Corpuscular HGB Conc 32.6 g/dl (31.0-37.0); Mean Corpuscular Hemoglobin 27.7 pg (25.0-35.0); Mean Corpuscular Volume 85 fL (80-100); Monocytes # (Auto) 0.8 Thou/mm3 (0.0-0.8); Monocytes % (Auto) 8 % (0-12); Neutrophils # (Auto) 7.4 Thou/mm3 (1.8-7.7); Neutrophils % (Auto) 70 % (37-80); Nucleated Red Blood Cell % 0 /100 WBC (0); Platelet Count 207 Thou/mm3 (140-440); RDW Standard Deviation 40.7 fL (36.4-46.3); Red Blood Count 4.98 Miln/mm3 (4.00-5.20); White Blood Count 10.6 Thou/mm3 (3.6-11.0)
[2024-08-21 08:12] LABS: Glucose Estimated Average 100 mg/dL (80-131); Hemoglobin A1C 5.1 % Hgb (4.8-6.0)
--- NOTE | 2024-08-21 08:20 | XR_ITS ---
Examination: Venous duplex lower extremity sonogram, bilateral. Date and time of exam: August 21, 2024 1137 hours INDICATIONS: Patient is immobile this week, stroke history Technique: Multiple sonographic images of the deep venous system have been obtained. B-mode/2-D grayscale imaging of vascular structures and Doppler spectral analysis (waveforms) and color performed Both legs are examined. Findings: Deep venous systems do not demonstrate abnormal echogenicity. All visualized deep veins exhibit compressibility. All visualized deep veins exhibit augmentation. Impression: Negative for deep vein thrombosis
[2024-08-21 08:27] LABS: Alanine Aminotransferase 10 U/L (10-49); Albumin, Serum 3.5 gm/dL (3.4-4.8); Albumin/Globulin Ratio 0.9 (1.2-2.2); Alkaline Phosphatase 112 U/L (46-116); Anion Gap 8 (7-16); Aspartate Amino Transferase 23 U/L (0-34); BUN/Creatinine Ratio 12 Ratio (12-20); Bilirubin,Total 0.9 mg/dL (0.3-1.2); Blood Urea Nitrogen 11 mg/dL (9-23); Calcium 8.9 mg/dL (8.3-10.6); Calcium (Corrected) 9.3 mg/dL (8.5-10.1); Carbon Dioxide 27.3 mMol/L (20.0-31.0); Chloride 101 mMol/L (98-107); Creatinine (Component) 0.9 mg/dL (0.6-1.3); Estimated Creatinine Clearance 38.9 mL/min (>60); Globulin 3.7 gm/dL (2.3-3.5); Glucose 121 mg/dL (74-106); Osmolality,Calculated 272 (275-295); Phosphorous 2.6 mg/dL (2.4-5.1); Potassium 4.2 mMol/L (3.4-5.1); Sodium 136 mMol/L (136-145); Thyroid Stimulating Hormone 3.13 uIU/mL (0.55-4.78); Total Protein 7.2 gm/dL (5.7-8.2); eGFR > 60 See Note
[2024-08-21 08:30] LABS: Troponin I 1.218 ng/mL (0.0-0.045)
[2024-08-21] MEDS: PANTOPRAZOLE INJ 40 MG VIAL IV (08:33)
[2024-08-21] MEDS: FAMOTIDINE INJ 10 MG/ML VIAL 2 ML 20 MG IVP (08:34)
[2024-08-21] MEDS: SENNA TABLET 2 TAB PO (08:35)
[2024-08-21] MEDS: ASPIRIN EC 81 MG TABEC PO (08:35)
[2024-08-21] MEDS: CLOPIDOGREL BISULFATE 75 MG TABLET PO (08:35)
[2024-08-21] MEDS: ACETAMINOPHEN 325 MG TABLET 650 MG PO (08:35)
[2024-08-21] MEDS: HEPARIN SOD INJ 5000 UNIT/ML VIAL SC ×2 (08:36→20:04)
[2024-08-21 08:43] LABS: Cardiac Risk Estimate 4.6 RATIO (3.7-5.6); Cholesterol 147 mg/dL (132-200); Free T4 (Free Thyroxine) 1.14 ng/dL (0.89-1.76); HDL Cholesterol 32 mg/dL (40-60); LDL Cholesterol,Calculated 95 mg/dL (0-130); Triglycerides 98 mg/dL (30-150)
--- NOTE | 2024-08-21 09:45 | PD.RESCONSUL ---
HPI Data of Consult Requesting Physician: Slade Gonzalez MD Admitting Provider: Slade Gonzalez MD Attending Provider: Slade Gonzalez MD Primary Care Provider: Adry Bojorquez MD Consult Narrative History of present illness: Katherine Nagy is an 84-year-old female with a past medical history of rheumatoid arthritis, hypertension, and hyperlipidemia who presented on 08/20 with focal neurological deficits. Daughter at bedside provided additional history, stating that after patient woke up that morning at 6:30 AM she noticed patient's face was swollen, left-sided facial droop, and slurred speech and prompted her to contact EMS. Last known normal was previous 9 PM. Upon arrival to ED, stroke alert was called and teleneurology was consulted. CT head did not show any acute findings and patient was not a candidate for IV thrombolytics as she was outside window. In the ED, BP elevated at 190/89 and labs significant for troponin of 0.99 -> 1.37, BNP 204, EKG showed NSR with heart rate 95. At baseline patient can perform most of her ADLs other than bathing and was able to ambulate with a walker, has no issues swallowing, and has normal speech. Upon evaluation, daughter states that she was able to help patient walk to and from the bathroom without any noticeable deficits but continues to have slurred speech and is alert and oriented to name, birthdate, and town but not place. Additionally, patient denies history of atrial fibrillation, palpitations, lightheadedness, syncope, or dyspnea. 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 Given MRI findings, in-house neurology recommended obtaining DEANGELO to look for cardiac source of emboli and so Dr. Robledo was consulted. Patient denies any issues swallowing, history of esophageal interventions/previous surgeries or pathology. She does have history of gastric ulcers causing 15+ years ago but no episodes of hematemesis, hemoptysis. Per daughter, patient has had issues when emerging from anesthesia, including nausea and hallucinations. Risks and benefits of procedure were explained and all questions were answered. Last meal was at 7 AM this morning on clear liquids and has since been n.p.o. PMHx: rheumatoid arthritis, hypertension and hyperlipidemia PSHx: hip and knee surgery in the past Allergies: No known drug and food allergies Social history: - Smoking: Denies - Alcohol: Denies - Illicit drug use: Denies cc:: cc: Slade Gonzalez MD Review of Systems Review of Systems Systems Reviewed: All systems reviewed, normal except as documented Exam Vital Signs Temp Pulse Resp BP Pulse Ox O2 Del Method 97.7 F 88 21 H 184/85 H 94 L Room Air 08/21/24 08:00 08/21/24 09:37 08/21/24 09:37 08/21/24 08:00 08/21/24 08:00 08/21/24 08:00 Narrative Exam General: Alert and oriented to self/birthdate/town but not place, no acute distress HEENT: NC/AT, mucous membranes moist, bilateral sclera anicteric Cardiovascular: systolic murmur in tricuspid and mitral areas, regular rate and rhythm, S1/S2 present Pulmonary: clear to auscultation bilaterally, no rales/rhonchi/wheezes Abdominal: soft, non-tender, non-distended, no rebound/guarding, normal bowel sounds present Musculoskeletal: joint deformities in fingers and hands and toes, no peripheral edema Skin: warm and dry, intact, no rashes Neuro: Left-sided facial weakness, left upper extremity weakness, slurred speech Results Labs 08/21/24 07:39 08/21/24 07:39 Labs: Short CBC 08/21/24 Range/Units 07:39 WBC 10.6 (3.6-11.0) Thou/mm3 Hgb 13.8 (12.0-16.0) g/dL Hct 42.3 (36.0-46.0) % Plt Count 207 (140-440) Thou/mm3 BMP 08/21/24 07:39 Sodium 136 Potassium 4.2 Chloride 101 Carbon Dioxide 27.3 BUN 11 Creatinine 0.9 Glucose 121 H Calcium 8.9 Cardiac Enzymes 08/20/24 08/20/24 08/21/24 Range/Units 13:50 19:02 01:25 Troponin I 1.377 H* D 1.086 H* D 1.124 H* (0.0-0.045) ng/mL 08/21/24 Range/Units 07:39 Troponin I 1.218 H* (0.0-0.045) ng/mL Liver Function 08/21/24 Range/Units 07:39 Total Bilirubin 0.9 (0.3-1.2) mg/dL AST 23 (0-34) U/L ALT 10 (10-49) U/L Alkaline Phosphatase 112 (46-116) U/L Albumin 3.5 (3.4-4.8) gm/dL Quality Measures Quality Measures none Advance care planning discussed with:: patient and child Medications Home Medications and Allergies Home Medications ?Medication ?Instructions ?Recorded ?Confirmed ?Type Fosinopril * (MONOPRIL *) 40 mg PO BID #0 tabs 05/29/16 08/20/24 History celecoxib 200 mg capsule (Celebrex) 200 mg PO QDAY #0 caps 05/29/16 08/20/24 History Allergies Allergy/AdvReac Type Severity Reaction Status Date / Time No Known Allergies Allergy Verified 08/20/24 07:25 Visit Medications Acetaminophen (Acetaminophen 325 Mg Tablet) 650 mg PO Q6H PRN PRN Reason: Pain (1-3) & Fever >100.4 Stop: 09/19/24 09:48 Last Admin: 08/21/24 08:35 Dose: 650 mg Aspirin (Aspirin Ec 81 Mg Tabec) 81 mg PO QDAY [facility] Stop: 09/20/24 08:59 Last Admin: 08/21/24 08:35 Dose: 81 mg Atorvastatin Calcium (Atorvastatin Calcium 20 Mg Tablet) 80 mg PO [facility] Stop: 09/19/24 20:59 Last Admin: 08/20/24 20:17 Dose: 80 mg Clopidogrel Bisulfate (Clopidogrel Bisulfate 75 Mg Tablet) 75 mg PO QDAY [facility] Stop: 09/20/24 08:59 Last Admin: 08/21/24 08:35 Dose: 75 mg Famotidine (Famotidine Inj 10 Mg/Ml Vial 2 Ml) 20 mg IVP QDAY [facility] Stop: 09/19/24 09:59 Last Admin: 08/21/24 08:34 Dose: 20 mg Heparin Sodium (Porcine) (Heparin Sod Inj 5000 Unit/Ml Vial) 5,000 unit SC Q12H [facility] Stop: 09/03/24 20:59 Last Admin: 08/21/24 08:36 Dose: 5,000 unit Labetalol HCl (Labetalol Inj 5 Mg/Ml Vial 20 Ml) 10 mg IVP Q6H PRN PRN Reason: HTN SBP>220 DBP >120 Stop: 09/19/24 10:14 Nystatin (Nystatin Susp 5 Ml Udc) 5 ml PO QID NADIR Stop: 08/27/24 13:29 Last Admin: 08/21/24 05:05 Dose: 5 ml Ondansetron HCl (Ondansetron Inj 2 Mg/Ml Inj 2 Ml) 4 mg IV Q6H PRN; Protocol PRN Reason: NAUSEA OR VOMITING Stop: 09/19/24 09:48 Pantoprazole Sodium (Pantoprazole Inj 40 Mg Vial) 40 mg IV QDAY NADIR Stop: 09/19/24 11:29 Last Admin: 08/21/24 08:33 Dose: 40 mg Sennosides (Senna Tablet) 2 tab PO QDAY [facility]; Protocol Stop: 09/20/24 08:59 Last Admin: 08/21/24 08:35 Dose: 2 tab Discontinued Medications Aspirin (Aspirin 81 Mg Chew) 324 mg PO X1 ONE Stop: 08/20/24 08:08 Last Admin: 08/20/24 08:28 Dose: 324 mg Clopidogrel Bisulfate (Clopidogrel Bisulfate 75 Mg Tablet) 300 mg PO X1 ONE Stop: 08/20/24 08:08 Last Admin: 08/20/24 08:26 Dose: 300 mg Diphenhydramine HCl (Diphenhydramine Inj 50 Mg/Ml Vial) 25 mg IVP X1 ONE Stop: 08/20/24 09:57 Last Admin: 08/20/24 10:08 Dose: 25 mg Nystatin (Nystatin Susp 1 Ml) 5 ml PO QID NADIR Stop: 08/27/24 11:59 Last Admin: 08/20/24 13:46 Dose: Not Given Ondansetron HCl (Ondansetron Inj 2 Mg/Ml Inj 2 Ml) 4 mg IV Q4HR PRN PRN Reason: NAUSEA OR VOMITING Stop: 09/19/24 07:28 Assessment & Plan Plan Katherine Nagy is an 84-year-old female with a past medical history of rheumatoid arthritis, hypertension, and hyperlipidemia who presented on 08/20 with focal neurological deficits. Daughter at bedside provided additional history, stating that after patient woke up that morning at 6:30 AM she noticed patient's face was swollen, left-sided facial droop, and slurred speech and found to have multiple embolic infarcts on MRI for which cardiology was consulted to obtain DEANGELO. #Acute stroke #Multiple embolic infarcts Patient presented with left-sided facial weakness, slurred speech, and left-sided numbness/weakness. MRI showed multiple embolic infarcts of left cerebellar hemisphere, right vermis, left occipital lobe, and bilateral temporal parietal lobes and so cardiology was consulted to obtain DEANGELO to assess for possible cardiac source of emboli. Patient denies any issues swallowing, history of esophageal interventions/previous surgeries or pathology. She does have history of gastric ulcers causing 15+ years ago but no episodes of hematemesis, hemoptysis. Per daughter, patient has had issues when emerging from anesthesia, including nausea and hallucinations. Risks and benefits of procedure were explained and all questions were answered. ? N.p.o. after midnight ? DEANGELO planned for 08/22 ? Neurology following ? Continue aspirin, Plavix, atorvastatin #Elevated troponin #Likely type II NSTEMI #Hypertensive emergency #History of hypertension #History of hyperlipidemia Previous certified lactation counselor election watcher, Dr. Perez, consulted for evaluation of elevated troponins/NSTEMI type II #Upper lip swelling #Oral thrush #Leukocytosis #History of cholelithiasis #History of choledocholithiasis ? Management of above conditions per primary team and other consultants ----- Plan discussed with attending physician Dr. Meena Mejía MD PGY-1 Internal Medicine Attending Provider Attestation/Addendum I have personally seen and examined the patient separately on the above date of service and discussed the plan of care with the resident. I reviewed the resident Dr. Joe Mejía consultation progress note and agree with the resident findings and plan in the note above and have also edited the documentation to reflect my findings and plan. 84-year-old female with a past medical history of severe rheumatoid arthritis with multiple deformities of her bilateral hands and feet, essential hypertension, hyperlipidemia presented to the emergency department for further evaluation of/please completely rule and focal neurological deficits. EKG he diagnosed with acute stroke with MRI showing multiple embolic infarcts of the left cerebellar hemisphere, right vermis, left occipital lobe, bilateral temporoparietal lobes. Patient did have some left-sided weakness and slurred speech with some left-sided numbness but no significant weakness. Neurology was consulted. Patient was started on aspirin and Plavix for now and was recommended DEANGELO to rule out any kind of embolic source. 1. Acute stroke with multiple embolic type infarcts 2. Mildly elevated troponins mostly NSTEMI type II in the setting of acute stroke 3. Hypertensive emergency 4. Hyperlipidemia 5. History of cholelithiasis and choledocholithiasis 6. Severe rheumatoid arthritis with multiple deformities of bilateral hands and feet Patient presented with acute stroke with multiple embolic infarcts noted on the MRI as noted above. Neurology recommended DENAGELO. Feel free to indication for DEANGELO to rule out PFO or ASD or LA or MELANIE thrombus to rule out cardioembolic source for the stroke. Will follow-up the results of transthoracic echocardiogram that was ordered Patient denies any kind of swallowing problems or any kind of esophageal interventions or previous surgeries. Patient denies any kind of gastric ulcers bleeding and any other hematemesis or hematochezia. Patient denies any issues with anesthesia previously. Patient explained all the risks, benefits and alternatives of DEANGELO including the risk of perforation, bleeding, respiratory failure secondary to sedation, injury to teeth gums esophagus and stomach. Patient understands all risks and benefits and provided consent for the procedure. We will keep her n.p.o. overnight and plan for DEANGELO in the morning. Elevated troponins mostly secondary to the acute stroke and patient does have risk factors for CAD. Can continue the rest of the ischemic workup as outpatient when she recovers from the stroke. Patient also denies any chest pain chest pressure or other cardiac complaints at the present point of time. Management of rest of the medical conditions as per primary team and other consultants. Thank you for the consult and allowing me to participate in the care of the patient. Cardiology will continue to follow. Bandar Robledo M.D. Interventional Cardiology
--- NOTE | 2024-08-21 09:54 | ECHO_ITS ---
Transthoracic Echo Report Ht (in): 60 Wt (lb): 141 Exam Location: Portable Status: Inpatient Cathode Ray Tube Salvage Processor: PALMER H^^^^ Indications: Procedure Performed: BP: / HR: 62 Technical Quality: Fair MEASUREMENTS (Male / Female) Normal Values 2D ECHO LV Diastolic Diameter PLAX 3.5 cm 4.2 - 5.9 / 3.9 - 5.3 cm LV Systolic Diameter PLAX 2.4 cm IVS Diastolic Thickness 1.2 cm 0.6 - 1.0 / 0.6 - 0.9 cm LVPW Diastolic Thickness 1.1 cm 0.6 - 1.0 / 0.6 - 0.9 cm LV Relative Wall Thickness 0.6 LVOT Diameter 1.7 cm Aortic Root Diameter 2.9 cm LA Systolic Diameter LX 3.3 cm 3.0 - 4.0 / 2.7 - 3.8 cm LA Volume Index 52.9 cm?/m? 16 - 28 cm?/m? DOPPLER AV Peak Velocity 173.0 cm/s AV Peak Gradient 12.0 mmHg AV Mean Gradient 7.3 mmHg AV Velocity Time Integral 33.8 cm AI Peak Velocity 434.5 cm/s AI Peak Gradient 75.5 mmHg AI Pressure Half Time 1395.0 ms LVOT Peak Velocity 115.0 cm/s LVOT Peak Gradient 5.3 mmHg LVOT Velocity Time Integral 26.8 cm LVOT Cardiac Index 2264.6 cm?/min?m? AV Area Cont Eq vti 1.8 cm? AV Area Cont Eq pk 1.5 cm? MV Peak Velocity 211.0 cm/s MV Peak Gradient 17.8 mmHg MV Mean Velocity 143.0 cm/s MV Mean Gradient 9.0 mmHg MV Area PHT 2.5 cm? MR Peak Velocity 409.0 cm/s MR Peak Gradient 66.9 mmHg Mitral E Point Velocity 123.0 cm/s Mitral A Point Velocity 174.0 cm/s Mitral E to A Ratio 0.7 LV E' Lateral Velocity 6.2 cm/s Mitral E to LV E' Lateral Ratio 19.9 LV E' Septal Velocity 5.8 cm/s Mitral E to LV E' Septal Ratio 21.2 TR Peak Velocity 249.0 cm/s TR Peak Gradient 24.8 mmHg PV Peak Velocity 116.0 cm/s PV Peak Gradient 5.4 mmHg RVOT Peak Velocity 100.0 cm/s FINDINGS Left Ventricle Normal left ventricular size, wall thickness, systolic function with no obvious regional wall motion abnormalities. There is grade I diastolic dysfunction of the left ventricle (impaired relaxation pattern). The left ventricular ejection fraction is normal, estimated at 55-60%. Right Ventricle The right ventricle is normal in size and systolic function. The estimated right ventricular systolic pressure, 35 mmHg. Left Atrium The left atrial cavity size is moderately increased. Right Atrium The right atrial cavity size is mildly increased. Atrial Septum The interatrial septum is normal to color flow Doppler and agitated saline imaging. Aorta The aorta is normal by two-dimensional, color flow and Doppler interrogation. Mitral Valve Mild mitral regurgitation. Mild thickening of the mi evidence of a calcification mitral apparatus and possible tral valve leaflets. Mild mitral annular calcification. Degenerated calcified structure on anterior mitral leaflet possibly degenerated valve structure valvular endocarditis or vegetation. The structure is quite echogenic. Aortic Valve Sclerosis of the valve no vegetation no stenosis Tricuspid Valve There is mild tricuspid valve regurgitation. Pulmonic Valve Trivial pulmonic valve regurgitation. Vessels The pulmonary artery appears normal. The inferior vena cava pulmonary and hepatic veins appear normal. Pericardium The pericardium is normal by two-dimensional imaging. There is no significant pericardial effusion. CONCLUSIONS indication: CVA workup; Bubble Aortic root is normal in dimensions. Aortic leaflets showed calcifications and aortic valve sclerosis with no evidence of stenosis. Mitral annulus and mitral apparatus and mitral valve cleft showed heavy calcification thickening. There is evidence of what appears to be a 6 to 10 mm calcified structure that is attached to the anterior mitral leaflet appears to mostly degenerated cardiac calcified valve rather than typical endocarditis vegetation. There is evidence of mild mitral regurgitation. Mild tricuspid regurgitation normal PA pressure. Tricuspid and pulmonic valves appear normal.. Left atrium is mildly dilated. Left ventricle is normal in dimension with mild concentric left ventricular hypertrophy with excellent left ventricle function normal left ventricle wall motion ejection fraction 65%. No regional wall motion abnormalities detected. Right atrium right ventricle normal. No evidence of pericardial effusion. Qi Montero (Electronically Signed) Final Date: 21 August 2024 17:46
--- NOTE | 2024-08-21 10:39 | PC.SS ---
Update Physical therapy evaluation pending.
--- NOTE | 2024-08-21 10:41 | PC.SS ---
Update: DEANGELO is pending. Cardiology is consulting.
--- NOTE | 2024-08-21 12:25 | XR_ITS ---
Examination: CT brain head without contrast. 2-D sagittal coronal reconstructions Date and time of exam:August 21, 2024 1323 hours INDICATIONS: Altered mental status beginning 2 days ago CTDI: vol (mGy):45.2 DLP: (mGycm):86 3 Technique: Multiple CT axial sections of the brain have been obtained, 5 mm slice thickness. Contrast has not been administered. 2-D sagittal, coronal reconstructions have been obtained Low dose protocols were performed. One or more of the following dose reduction techniques were used; automated exposure control, adjustment of the mA and/or KV according to patient size, use of iterative reconstruction technique. Findings: No significant ventricular enlargement. Intra-axial or extra-axial hemorrhage density is not seen. No mass effect or midline shift Basal cisterns are not remarkable. Fourth ventricle is midline. Cranial vault intact. Impression: Negative for acute hemorrhage, mass effect or midline shift Please see the brain MRI report August 12, 2024, consider short-term follow-up repeat brain MRI
--- NOTE | 2024-08-21 14:23 | ESPR_ITS ---
Documentation for date of: 08/21/24 Subjective Subjective Interval history: Patient seen and examined at bedside. MRI demonstrated multiple embolic type subcentimeter foci restricted diffusion left cerebellar hemisphere, right vermis, left occipital lobe, bilateral temporal lobes and bilateral parietal lobes. Hence multiple acute embolic type infarcts as above, Neurology recommends DEANGELO for further workup. Will continue with aspirin and Plavix. Will continue with nystatin for oral thrush. Patient is pending speech therapy evaluation, started on dysphagia 1 diet. Patient confused compared to yesterday, ordered repeat CT scan head. Exam Vital Signs Temp Pulse Resp BP Pulse Ox O2 Del Method 97.2 F 87 19 165/78 H 92 L Room Air 08/21/24 12:00 08/21/24 12:00 08/21/24 12:00 08/21/24 12:00 08/21/24 12:08/21/24 12:00 Narrative Exam Physical Exam General: Awake and in no acute distress. Conversational and non-toxic appearing. HEENT: Normocephalic, atraumatic, mucous membranes moist. Heart: Regular rate and rhythm, normal S1 and S2, 2/6 systolic murmur at the left lower sternal border. Lungs: Clear to auscultation with no wheezing or crackles. Abdomen: Soft, nondistended, nontender, positive bowel sounds. ?No guarding or rebound tenderness. Neurologic: Alert and oriented x3, no gross neurological deficit, and patient able to move all 4 extremities. Patient has left-sided facial droop. Slight swelling of lips. Extremities: No edema. Skin: No rash or ecchymoses. Objective Labs 08/22/24 05:03 08/22/24 05:03 Labs: Laboratory Results - last 24 hr 08/20/24 08/20/24 08/21/24 13:50 19:02 01:25 WBC RBC Hgb Hct MCV MCH MCHC RDW Std Deviation Plt Count Neut % (Auto) Lymph % (Auto) [place] % (Auto) Eos % (Auto) Baso % (Auto) Neut # (Auto) Lymph # (Auto) [place] # (Auto) Eos # (Auto) Baso # (Auto) Immature Gran # (Auto) Absolute Nucleated RBC Immature Gran % Nucleated RBC % Sodium Potassium Chloride Carbon Dioxide Anion Gap BUN Creatinine Estim Creat Clear Calc eGFR BUN/Creatinine Ratio Glucose Estimated Ave Glu mg/dL Hemoglobin A1c Calculated Osmolality Calcium Corrected Calcium Phosphorus Magnesium Total Bilirubin AST ALT Alkaline Phosphatase Troponin I 1.377 H* D 1.086 H* D 1.124 H* Total Protein Albumin Globulin Albumin/Globulin Ratio Triglycerides Cholesterol LDL Cholesterol, Calc HDL Cholesterol Cholesterol/HDL Ratio TSH Free T4 08/21/24 07:39 WBC 10.6 RBC 4.98 Hgb 13.8 Hct 42.3 MCV 85 MCH 27.7 MCHC 32.6 RDW Std Deviation 40.7 Plt Count 207 Neut % (Auto) 70 Lymph % (Auto) 21 [place] % (Auto) 8 Eos % (Auto) 1 Baso % (Auto) 1 Neut # (Auto) 7.4 Lymph # (Auto) 2.2 [place] # (Auto) 0.8 Eos # (Auto) 0.1 Baso # (Auto) 0.1 Immature Gran # (Auto) 0.02 H Absolute Nucleated RBC 0.00 Immature Gran % 0 Nucleated RBC % 0 Sodium 136 Potassium 4.2 Chloride 101 Carbon Dioxide 27.3 Anion Gap 8 BUN 11 Creatinine 0.9 Estim Creat Clear Calc 38.9 L eGFR > 60 BUN/Creatinine Ratio 12 [address] Glu mg/dL 100 Hemoglobin A1c 5.1 Calculated Osmolality 272 L Calcium 8.9 Corrected Calcium 9.3 Phosphorus 2.6 Magnesium 2.0 Total Bilirubin 0.9 AST 23 ALT 10 Alkaline Phosphatase 112 Troponin I 1.218 H* Total Protein 7.2 Albumin 3.5 Globulin 3.7 H Albumin/Globulin Ratio 0.9 L Triglycerides 98 Cholesterol 147 LDL Cholesterol, Calc 95 HDL Cholesterol 32 L Cholesterol/HDL Ratio 4.6 TSH 3.13 Free T4 1.14 Quality Measures Quality Measures none Advance care planning discussed with:: patient and child Assessment & Plan Assessment Current Active Medications: Generic Name Dose Route Start Last Admin Trade Name Freq PRN Reason Stop Dose Admin Acetaminophen 650 mg 08/20/24 09:49 08/21/24 08:35 Acetaminophen 325 Mg Tablet PO 09/19/24 09:48 650 mg Q6H PRN Administration Pain (1-3) & Fever >100.4 Aspirin 81 mg 08/21/24 09:00 08/21/24 08:35 Aspirin Ec 81 Mg Tabec PO 09/20/24 08:59 81 mg QDAY NADIR Administration Atorvastatin Calcium 80 mg 08/20/24 21:00 08/20/24 20:17 Atorvastatin Calcium 20 Mg Tablet PO 09/19/24 20:59 80 mg HS NADIR Administration Clopidogrel Bisulfate 75 mg 08/21/24 09:00 08/21/24 08:35 Clopidogrel Bisulfate 75 Mg Tablet PO 09/20/24 08:59 75 mg QDAY NADIR Administration Famotidine 20 mg 08/20/24 10:00 08/21/24 08:34 Famotidine Inj 10 Mg/Ml Vial 2 Ml IVP 09/19/24 09:59 20 mg QDAY NADIR Administration Heparin Sodium (Porcine) 5,000 unit 08/20/24 21:00 08/21/24 08:36 Heparin Sod Inj 5000 Unit/Ml Vial SC 09/03/24 20:59 5,000 unit Q12H NADIR Administration Labetalol HCl 10 mg 08/20/24 10:01 Labetalol Inj 5 Mg/Ml Vial 20 Ml IVP 09/19/24 10:14 Q6H PRN HTN SBP>220 DBP >120 Nystatin 5 ml 08/20/24 13:30 08/21/24 12:58 Nystatin Susp 5 Ml Udc PO 08/27/24 13:29 Not Given QID NADIR Ondansetron HCl 4 mg 08/20/24 09:49 Ondansetron Inj 2 Mg/Ml Inj 2 Ml IV 09/19/24 09:48 Q6H PRN NAUSEA OR VOMITING Protocol Sennosides 2 tab 08/21/24 09:00 08/21/24 08:35 Senna Tablet PO 09/20/24 08:59 2 tab QDAY NADIR Administration Protocol Plan Assessment and plan: Summary: Ms. Nagy is a 84-year-old female with past medical history of rheumatoid arthritis, hypertension and hyperlipidemia who presented to [facility] emergency department with a chief complaint of left-sided facial droop, slurred speech and left-sided numbness. Patient admitted for CVA workup. #Multiple acute embolic infarcts #Left-sided facial droop #Slurred speech Per daughter patient woke up this morning and had symptoms of facial droop slurred speech and left-sided numbness. Patient otherwise ambulates with assistance of cane, has no complaints with mobility as of now. Per daughter patient walked to the car with a cane this morning. Does have history of TIA in the past per daughter. NIHSS was 6. MRI demonstrated multiple embolic type subcentimeter foci restricted diffusion left cerebellar hemisphere, right vermis, left occipital lobe, bilateral temporal lobes and bilateral parietal lobes. Hence multiple acute embolic type infarcts as above, Neurology recommends DEANGELO for further workup. A1c 5.1, LDL 95, HDL 32, cholesterol 147, triglyceride 98, TSH 3.13, free T4 1.14 Plan: - Continue aspirin and Plavix daily - Continue atorvastatin 80 Mg daily - Pending TTE - Ordered DEANGELO, cardiology consulted per nephrology recommendations. - Neurologist Dr. Rollins consulted, appreciate recommendations - Speech therapist and physical therapist consultation pending - Neurocheck every 4 hourly, head of bed elevated to 30 daily, aspiration precautions - Dysphagia 1 diet, passed bedside swallow, pending speech therapy evaluation - Permissive hypertension for 24 hours - Daily a.m. labs for CBC, CMP and electrolytes - Continue to monitor closely - Cardiology consulted for DEANGELO #Elevated troponin, likely type II Elevated troponin on presentation 0.998, no chest pain and no acute ST-T changes Troponin I 0.998 ?> 1.377 ?> 1.086 -Cardiology consulted, appreciate recommendations #Upper lip swelling #Oral thrush On examination patient does have swelling of upper lip, tongue shows white discharge high suspicion of oral thrush. Patient denies having any history of angioedema, is on ARIANNA inhibitor for the last many years, denies any allergies, no new medications and also tried no new foods recently. Patient was given diphenhydramine 25 IV x 1, famotidine x 1 -Continue nystatin suspension 4 times daily - Continue to monitor #Hypertension Patient on lisinopril at home, will hold in setting of lip swelling, possible angioedema -Started on amlodipine 5 mg daily, will uptitrate as needed. #Hyperlipidemia LDL 95, HDL 32, cholesterol 147, triglyceride 98 - Atorvastatin 80 mg at bedtime daily #Cholelithiasis #Choledocholithiasis Patient presented with coffee-ground emesis earlier this month, was found to have cholelithiasis and choledocholithiasis . Currently denies any abdominal pain, has no symptoms alk phos, AST ALT, bilirubin within normal limits . -Pursue outpatient workup DVT prophylaxis: Heparin every 12hours GI prophylaxis: IV Protonix daily Diet: Dysphagia 1 diet, pending speech therapy evaluation Lines: Peripheral IV Code status: DNR Case discussed with Attending Dr. Espinoza and Dr. Mirza PGY3. Raquel Torres PGY1 Disclaimer: This note was dictated by speech recognition. Minor errors in frame stripper may be present due to voice recognition software. SHAR discussed with and supervised the global marketing intern physician who took care of this patient. I personally saw and examined the patient and discussed the assessment and plan with the entire medicine team, including my attending Dr. Olga BATES. I agree with the assessment and plan as documented above. Patient interviewed and examined at bedside this a.m. Accompanied by her daughter at bedside. Patient was initially admitted for stroke rule out however unfortunately she was found to have multiple acute infarcts in various regions of her brain suggestive of cryptogenic stroke of embolic source. Per neurology recommending a transesophageal echo for which cardiology has been consulted. Will continue the patient on DAPT and high intensity statin. On exam the patient appeared to be somewhat confused. Her daughter also reported that she was not her usual self in terms of her mentation. Therefore a repeat head CT was ordered to rule out any hemorrhagic conversion which was thankfully negative. Abhinav Mirza M.D. Internal Medicine PGY-3 Attending Provider Attestation/Addendum I have examined the patient, reviewed labs and imaging findings, discussed the case with the resident(s), and reviewed entered orders. I agree with the plan of care as outlined in this note, with these additional summaries/recommendations: Patient seen at bedside. No acute overnight events. MRI brain was obtained which revealed multiple acute embolic type infract's in left cerebral hemisphere, right vermis, left occipital lobe, bilateral temporal lobes, and bilateral parietal lobes. No evidence of arrhythmia on telemetry thus far. CTA head and neck showed 70% stenosis origin left internal carotid artery. In-house neurology following and continue dual antiplatelet therapy plus high intensity atorvastatin. Cardiology consulted for transesophageal echocardiogram to rule out left atrial thrombus. Patient was noted to have oral thrush yesterday and will continue nystatin. Minimal angioedema present which is new per patient. She does take ARIANNA inhibitor which we will discontinue and adjust antihypertensive regimen. Patient was also noted to have elevated troponins although no cardiac complaints. Elevated troponins may be related to demand ischemia in the setting of acute CVA. Appreciate cardiology recommendations. Leukocytosis resolved and likely reactive in nature. Continue to adjust antihypertensive regimen as needed. Dr. Olga MD
--- NOTE | 2024-08-21 15:05 | PC.SS ---
Rounding Note: Plan is for patient to obtain DEANGELO. Repeat head CT scheduled for today.
--- NOTE | 2024-08-21 15:47 | PC.SS ---
PATTERN PUNCHER notified by PT recommendation for patient to transition to SNF. PATTERN PUNCHER contacted patients daughter, Crystal Nagy ; to provide update. Daughter in favor of patient transitioning to SNF. Preferred facility is [facility].
--- NOTE | 2024-08-21 16:17 | PCS.ST ---
Assisted STUDENT SUPPORT ADVISOR patient with swallow eval.
--- NOTE | 2024-08-21 16:25 | PC.SS ---
FOREIGN AGENT submitted SNF referral on [facility]. Awaiting responses.
--- NOTE | 2024-08-21 16:38 | PC.SS ---
PASSR completed. Patient meets Level I criteria. No PASSR follow required.
[2024-08-21] MEDS: amLODIPine BESYLATE 5 MG TABLET PO ×2 (17:09→21:28)
--- NOTE | 2024-08-21 17:18 | PC.PT ---
Patient is safe to ambulate to the bathroom and in the halls with a FWW and 1 staff assist. RN made aware.
[2024-08-21] MEDS: ATORVASTATIN CALCIUM 20 MG TABLET 80 MG PO (20:03)
--- NOTE | 2024-08-21 21:05 | PC.NURSE ---
Notified hospitalist Dr. Hannah regarding patient's blood pressure. Nurse also notified regarding patient's high trend of blood pressure since the day shift. Per give patient a one time order of amlodapine 5mg for blood pressure.
--- NOTE | 2024-08-21 21:41 | ESPR_ITS ---
<Statement entered by Rashaun Perez MD - 08/22/24 18:12> I personally evaluated the patient examined with resident physician PGY 2 neurologic status improved but still has some slurred speech I reviewed echo that showed evidence of possible mitral valve vegetations possible degenerative mitral valve with multiple calcified areas as well as possible vegetation like structure which is possibly [place] endocarditis not due to infectious etiology from degenerative disease as well as rheumatoid disease. Transesophageal echo will be performed to assess for any cardiac thrombi especially in the left atrium and also assess PFO I do not see need for anticoagulation with heparin or Eliquis but aspirin Plavix is recommended. Evaluate the patient with resident physician PGY 2 Dr[address] Carolyne Hernandez and will continue to monitor the patient closely Documentation for date of: 08/21/24 Subjective Subjective Interval history: No acute events overnight.?Patient seen and examined at bedside this afternoon. She appeared to have improved left facial droop, with some droop still present, however speech per family at bedside is still slurred and not at baseline. MRI showed multiembolic pattern of stroke with occipital, temporal, parietal, and cerebellar lobes affected.?TTE showed normal EF 65% and anterior mitral valve leaflet calcification about 6-10 mm, appears more like degeneration of the valve. From cardiology standpoint DEANGELO is not needed as this structure is readily visualized on the TTE. Labs and vitals were reviewed.?24-hour telemetry reviewed and there has not been any afib so will recommend to continue aspirin and Plavix. BP has been elevated with systolic in the 180s so will recommend to restart patient's home fosinopril. Patient was able to ambulate today without issues. Plan will however be to discharge to acute rehab. No further complaints at this time. Review of systems otherwise negative except what is mentioned above. Exam Vital Signs Temp Pulse Resp BP Pulse Ox O2 Del Method 97.4 F 97 20 156/82 H 96 Room Air 08/21/24 20:00 08/21/24 21:28 08/21/24 20:00 08/21/24 21:28 08/21/24 20:00 08/21/24 20:00 Narrative Exam Physical Exam General: Awake and in no acute distress. Conversational and non-toxic appearing. HEENT: Normocephalic, atraumatic, mucous membranes moist. Heart: Regular rate and rhythm, normal S1 and S2, 2/6 systolic murmur at the left lower sternal border. Lungs: Clear to auscultation with no wheezing or crackles. Abdomen: Soft, nondistended, nontender, positive bowel sounds. ?No guarding or rebound tenderness. Neurologic: Alert and oriented x3, no gross neurological deficit, and patient able to move all 4 extremities. Patient has left-sided facial droop. Extremities: No edema. Skin: No rash or ecchymoses. Objective Labs 08/21/24 07:39 08/21/24 07:39 Labs: Laboratory Results - last 24 hr 08/21/24 08/21/24 01:25 07:39 WBC 10.6 RBC 4.98 Hgb 13.8 Hct 42.3 MCV 85 MCH 27.7 MCHC 32.6 RDW Std Deviation 40.7 Plt Count 207 Neut % (Auto) 70 Lymph % (Auto) 21 [place] % (Auto) 8 Eos % (Auto) 1 Baso % (Auto) 1 Neut # (Auto) 7.4 Lymph # (Auto) 2.2 [place] # (Auto) 0.8 Eos # (Auto) 0.1 Baso # (Auto) 0.1 Immature Gran # (Auto) 0.02 H Absolute Nucleated RBC 0.00 Immature Gran % 0 Nucleated RBC % 0 Sodium 136 Potassium 4.2 Chloride 101 Carbon Dioxide 27.3 Anion Gap 8 BUN 11 Creatinine 0.9 Estim Creat Clear Calc 38.9 L eGFR > 60 BUN/Creatinine Ratio [address] Glu mg/dL 100 Hemoglobin A1c 5.1 Calculated Osmolality 272 L Calcium 8.9 Corrected Calcium 9.3 Phosphorus 2.6 Magnesium 2.0 Total Bilirubin 0.9 AST 23 ALT 10 Alkaline Phosphatase 112 Troponin I 1.124 H* 1.218 H* Total Protein 7.2 Albumin 3.5 Globulin 3.7 H Albumin/Globulin Ratio 0.9 L Triglycerides 98 Cholesterol 147 LDL Cholesterol, Calc 95 HDL Cholesterol 32 L Cholesterol/HDL Ratio 4.6 TSH 3.13 Free T4 1.14 Quality Measures Quality Measures none Advance care planning discussed with:: patient Assessment & Plan Assessment Current Active Medications: Generic Name Dose Route Start Last Admin Trade Name Freq PRN Reason Stop Dose Admin Acetaminophen 650 mg 08/20/24 09:49 08/21/24 08:35 Acetaminophen 325 Mg Tablet PO 09/19/24 09:48 650 mg Q6H PRN Administration Pain (1-3) & Fever >100.4 Amlodipine Besylate 10 mg 08/22/24 09:00 Amlodipine Besylate 5 Mg Tablet PO 09/21/24 08:59 QDAY NADIR Aspirin 81 mg 08/21/24 09:00 08/21/24 08:35 Aspirin Ec 81 Mg Tabec PO 09/20/24 08:59 81 mg QDAY NADIR Administration Atorvastatin Calcium 80 mg 08/20/24 21:00 08/21/24 20:03 Atorvastatin Calcium 20 Mg Tablet PO 09/19/24 20:59 80 mg HS NADIR Administration Clopidogrel Bisulfate 75 mg 08/21/24 09:00 08/21/24 08:35 Clopidogrel Bisulfate 75 Mg Tablet PO 09/20/24 08:59 75 mg QDAY NADIR Administration Famotidine 20 mg 08/20/24 10:00 08/21/24 08:34 Famotidine Inj 10 Mg/Ml Vial 2 Ml IVP 09/19/24 09:59 20 mg QDAY NADIR Administration Heparin Sodium (Porcine) 5,000 unit 08/20/24 21:00 08/21/24 20:04 Heparin Sod Inj 5000 Unit/Ml Vial SC 09/03/24 20:59 5,000 unit Q12H NADIR Administration Labetalol HCl 10 mg 08/20/24 10:01 Labetalol Inj 5 Mg/Ml Vial 20 Ml IVP 09/19/24 10:14 Q6H PRN HTN SBP>220 DBP >120 Nystatin 5 ml 08/20/24 13:30 08/21/24 20:03 Nystatin Susp 5 Ml Udc PO 08/27/24 13:29 5 ml QID NADIR Administration Ondansetron HCl 4 mg 08/20/24 09:49 Ondansetron Inj 2 Mg/Ml Inj 2 Ml IV 09/19/24 09:48 Q6H PRN NAUSEA OR VOMITING Protocol Sennosides 2 tab 08/21/24 09:00 08/21/24 08:35 Senna Tablet PO 09/20/24 08:59 2 tab QDAY NADIR Administration Protocol Plan 84-year-old female with past medical history of rheumatoid arthritis, hypertension, and hyperlipidemia who presented to the ED on 08/20/2024 with left- sided facial droop, swollen mouth, slurred speech, and left-sided numbness discovered in the morning when she woke up, subsequently admitted for acute ischemic stroke workup. Cardiology was consulted in the setting of elevated troponin and type 2 NSTEMI. #Acute ischemic stroke, multiembolic pattern Per daughter patient woke up this morning and had symptoms of facial droop slurred speech and left-sided numbness, last known well last night before bed at 9:30 pm. Patient otherwise ambulates with assistance of cane, has no complaints with mobility as of now. Per daughter patient walked to the car with a cane this morning. Does have history of TIA in the past per daughter. NIHSS was 6. CT head negative. CTA head/neck showed 70% stenosis origin left internal carotid artery. No cerebral large vessel arterial occlusions or thrombus. MRI head with occipital, temporal, parietal, and cerebellar lobes affected Echo showed normal EF 65% and anterior mitral valve leaflet calcification about 6-10 mm, which appears to be a structure related to degeneration of the valve -No need for DEANGELO as structure is visualized well on TTE -Unlikely endocarditis, as patient does not have any bacteremia, fevers, leukocytosis, or other clinical indicators of infection -No need for anticoagulation, patient does not appear to have afib -Continue with aspirin and Plavix #Hypertensive emergency #History of hypertension Patient arrived with significantly elevated BPs ranging 190-200s systolic, highest 213/88. Patient on fosinopril 40 mg qday at home. -Continue home fosinopril #Elevated troponin, downtrended #Likely type II NSTEMI Elevated troponin on presentation 0.998 which uptrended to 1.377, however patient has no chest pain, pressure-like sensation, palpitations, shortness of breath, or any other symptoms. Most likely to be type 2 NSTEMI in the setting of severe hypertension. EKG was reviewed which showed sinus rhythm at [address]-T changes. Subsequent troponins were 1.086 - 1.124 - 1.218 -No need to continue trending troponin as they have peaked -Continue with aspirin 81 mg qday -Continue with clopidogrel 75 mg qday #History of hyperlipidemia Lipid panel this admission showed TC 147, TG 98, LDL 95, HDL 32 -Continue atorvastatin 80 mg HS Rest of conditions to continue current management per primary team: #Upper lip swelling #Oral thrush #Leukocytosis #History of cholelithiasis #History of choledocholithiasis Patient was discussed with the attending, Dr. Perez. Thank you for allowing us to participate in the care of this patient. Gely Hernandez, PGY-2
--- NOTE | 2024-08-21 22:33 | VVPN_ITS ---
Telemedicine visit statement This visit was conducted with the use of interactive audio and video telecommunications system that permits real time communication between the patient and the provider. Patient's verbal consent for virtual visit was obtained on 08/21/24 at 2233. Documentation for date of: 08/21/24 Subjective Subjective Interval history: Patient is in telemetry. Continues to have left facial weakness, paresthesias in the left hemibody and weakness. Waiting for DEANGELO tomorrow Virtual exam Vital Signs Temp Pulse Resp BP Pulse Ox O2 Del Method 97.4 F 97 20 156/82 H 96 Room Air 08/21/24 20:00 08/21/24 21:28 08/21/24 20:00 08/21/24 21:28 08/21/24 20:00 08/21/24 20:00 Objective Labs 08/21/24 07:39 08/22/24 05:03 Labs: Laboratory Results - last 24 hr 08/21/24 08/21/24 01:25 07:39 WBC 10.6 RBC 4.98 Hgb 13.8 Hct 42.3 MCV 85 MCH 27.7 MCHC 32.6 RDW Std Deviation 40.7 Plt Count 207 Neut % (Auto) 70 Lymph % (Auto) 21 [place] % (Auto) 8 Eos % (Auto) 1 Baso % (Auto) 1 Neut # (Auto) 7.4 Lymph # (Auto) 2.2 [place] # (Auto) 0.8 Eos # (Auto) 0.1 Baso # (Auto) 0.1 Immature Gran # (Auto) 0.02 H Absolute Nucleated RBC 0.00 Immature Gran % 0 Nucleated RBC % 0 Sodium 136 Potassium 4.2 Chloride 101 Carbon Dioxide 27.3 Anion Gap 8 BUN 11 Creatinine 0.9 Estim Creat Clear Calc 38.9 L eGFR > 60 BUN/Creatinine Ratio [address] Glu mg/dL 100 Hemoglobin A1c 5.1 Calculated Osmolality 272 L Calcium 8.9 Corrected Calcium 9.3 Phosphorus 2.6 Magnesium 2.0 Total Bilirubin 0.9 AST 23 ALT 10 Alkaline Phosphatase 112 Troponin I 1.124 H* 1.218 H* Total Protein 7.2 Albumin 3.5 Globulin 3.7 H Albumin/Globulin Ratio 0.9 L Triglycerides 98 Cholesterol 147 LDL Cholesterol, Calc 95 HDL Cholesterol 32 L Cholesterol/HDL Ratio 4.6 TSH 3.13 Free T4 1.14 Assessment & Plan Problem List (1) CVA (cerebral vascular accident): Status: Acute Assessment and plan: MRI brain showed multiple acute infarcts suggestive of embolic origin. Will follow-up with the DEANGELO. (2) Hypertension: Status: Chronic Assessment and plan: Continue blood pressure control as per primary team
[2024-08-22] VITALS (24 sets, daily range): BP systolic 107–208; BP diastolic 65–131; PULSE 78–115; RESP 12–96; TEMP 36.1–37.1; O2SAT 91–98; BMI 25.5; BMI 25.7
[2024-08-22] MEDS: NYSTATIN SUSP 5 ML UDC PO ×3 (05:01→21:02)
[2024-08-22 06:01] LABS: Basophils # (Auto) 0.1 Thou/mm3 (0.0-0.2); Basophils % (Auto) 0 % (0-2.5); Eosinophils # (Auto) 0.1 Thou/mm3 (0.0-0.5); Eosinophils % (Auto) 1 % (0-10); Hematocrit 43.4 % (36.0-46.0); Immature Granulocytes % (Auto) 0 % (0-0); Immature Granulocytes Auto 0.03 Thou/mm3 (0.00-0.00); Lymphocytes # (Auto) 2.1 Thou/mm3 (1.0-4.8); Lymphocytes % (Auto) 19 % (10-50); Mean Corpuscular HGB Conc 32.3 g/dl (31.0-37.0); Mean Corpuscular Hemoglobin 27.5 pg (25.0-35.0); Mean Corpuscular Volume 85 fL (80-100); Monocytes # (Auto) 0.9 Thou/mm3 (0.0-0.8); Monocytes % (Auto) 8 % (0-12); Neutrophils # (Auto) 8.1 Thou/mm3 (1.8-7.7); Neutrophils % (Auto) 72 % (37-80); Nucleated Red Blood Cell % 0 /100 WBC (0); Platelet Count 192 Thou/mm3 (140-440); RDW Standard Deviation 40.5 fL (36.4-46.3); White Blood Count 11.3 Thou/mm3 (3.6-11.0)
[2024-08-22 06:47] LABS: Alanine Aminotransferase 8 U/L (10-49); Albumin, Serum 3.4 gm/dL (3.4-4.8); Albumin/Globulin Ratio 0.9 (1.2-2.2); Alkaline Phosphatase 114 U/L (46-116); Anion Gap 10 (7-16); Aspartate Amino Transferase 23 U/L (0-34); BUN/Creatinine Ratio 12 Ratio (12-20); Bilirubin,Total 0.7 mg/dL (0.3-1.2); Blood Urea Nitrogen 12 mg/dL (9-23); Calcium 8.7 mg/dL (8.3-10.6); Calcium (Corrected) 9.2 mg/dL (8.5-10.1); Carbon Dioxide 25.6 mMol/L (20.0-31.0); Chloride 104 mMol/L (98-107); Estimated Creatinine Clearance 33.7 mL/min (>60); Globulin 3.6 gm/dL (2.3-3.5); Glucose 119 mg/dL (74-106); Magnesium 1.9 mg/dL (1.6-2.6); Osmolality,Calculated 280 (275-295); Phosphorous 2.2 mg/dL (2.4-5.1); Sodium 140 mMol/L (136-145); eGFR 56 See Note
--- NOTE | 2024-08-22 09:01 | PC.SS ---
SS update: DEANGELO and Neurology recommendations are pending.
[2024-08-22] MEDS: CLOPIDOGREL BISULFATE 75 MG TABLET PO (09:19)
[2024-08-22] MEDS: amLODIPine BESYLATE 5 MG TABLET 10 MG PO (09:19)
[2024-08-22] MEDS: ASPIRIN EC 81 MG TABEC PO (09:20)
--- NOTE | 2024-08-22 09:40 | ESPR_ITS ---
Documentation for date of: 08/22/24 Subjective Subjective Interval history: No acute overnight events noted. Patient underwent transesophageal echo today that showed 2 echodensities. First attached to Coumadin ridge and MELANIE, broad- based, irregular, mildly calcified, 0.7 cm and suggestive of vegetation versus thrombus. Second on left atrial aspect of anterior mitral leaflet, broad-based, irregular, mildly calcified with mobile distal tip, 2.0 x 0.6 cm. 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 Mild to moderate MR, AV moderately calcified with moderate sclerosis without stenosis. Mild AI. EF 60 to 65%. Moderately dilated LA. Vitals reviewed and BP 165/65, HR 108, afebrile, and on room air. CBC unremarkable other than mild leukocytosis of 11.3. CHEM panel also largely unremarkable. Exam Vital Signs Temp Pulse Resp BP Pulse Ox O2 Del Method O2 Flow Rate 98.7 F 99 13 169/82 H 98 Nasal Cannula 3 08/22/24 08:27 08/22/24 09:30 08/22/24 09:30 08/22/24 09:30 08/22/24 09:30 08/22/24 09:30 08/22/24 09:30 Narrative Exam General: Alert and oriented to self/birthdate/town but not place, no acute distress HEENT: NC/AT, mucous membranes moist, bilateral sclera anicteric Cardiovascular: systolic murmur in tricuspid and mitral areas, regular rate and rhythm, S1/S2 present Pulmonary: clear to auscultation bilaterally, no rales/rhonchi/wheezes Abdominal: soft, non-tender, non-distended, no rebound/guarding, normal bowel sounds present Musculoskeletal: joint deformities in fingers and hands and toes, no peripheral edema Skin: warm and dry, intact, no rashes Neuro: Left-sided facial weakness, left upper extremity weakness, slurred speech Objective Labs 08/22/24 05:03 08/22/24 05:03 Labs: Laboratory Results - last 24 hr 08/22/24 05:03 WBC 11.3 H RBC 5.10 Hgb 14.0 Hct 43.4 MCV 85 MCH 27.5 MCHC 32.3 RDW Std Deviation 40.5 Plt Count 192 Neut % (Auto) 72 Lymph % (Auto) 19 [place] % (Auto) 8 Eos % (Auto) 1 Baso % (Auto) 0 Neut # (Auto) 8.1 H Lymph # (Auto) 2.1 [place] # (Auto) 0.9 H Eos # (Auto) 0.1 Baso # (Auto) 0.1 Immature Gran # (Auto) 0.03 H Absolute Nucleated RBC 0.00 Immature Gran % 0 Nucleated RBC % 0 Sodium 140 Potassium 4.0 Chloride 104 Carbon Dioxide 25.6 Anion Gap 10 BUN 12 Creatinine 1.0 Estim Creat Clear Calc 33.7 L eGFR 56 L BUN/Creatinine Ratio 12 Glucose 119 H Calculated Osmolality 280 Calcium 8.7 Corrected Calcium 9.2 Phosphorus 2.2 L Magnesium 1.9 Total Bilirubin 0.7 AST 23 ALT 8 L Alkaline Phosphatase 114 Total Protein 7.0 Albumin 3.4 Globulin 3.6 H Albumin/Globulin Ratio 0.9 L Quality Measures Quality Measures none Advance care planning discussed with:: patient Assessment & Plan Assessment Current Active Medications: Generic Name Dose Route Start Last Admin Trade Name Freq PRN Reason Stop Dose Admin Acetaminophen 650 mg 08/20/24 09:49 08/21/24 08:35 Acetaminophen 325 Mg Tablet PO 09/19/24 09:48 650 mg Q6H PRN Administration Pain (1-3) & Fever >100.4 Amlodipine Besylate 10 mg 08/22/24 09:00 08/22/24 09:19 Amlodipine Besylate 5 Mg Tablet PO 09/21/24 08:59 10 mg QDAY NADIR Administration Aspirin 81 mg 08/21/24 09:00 08/22/24 09:20 Aspirin Ec 81 Mg Tabec PO 09/20/24 08:59 81 mg QDAY NADIR Administration Atorvastatin Calcium 80 mg 08/20/24 21:00 08/21/24 20:03 Atorvastatin Calcium 20 Mg Tablet PO 09/19/24 20:59 80 mg HS NADIR Administration Clopidogrel Bisulfate 75 mg 08/21/24 09:00 08/22/24 09:19 Clopidogrel Bisulfate 75 Mg Tablet PO 09/20/24 08:59 75 mg QDAY NADIR Administration Famotidine 20 mg 08/20/24 10:00 08/21/24 08:34 Famotidine Inj 10 Mg/Ml Vial 2 Ml IVP 09/19/24 09:59 20 mg QDAY NADIR Administration Heparin Sodium (Porcine) 5,000 unit 08/20/24 21:00 08/21/24 20:04 Heparin Sod Inj 5000 Unit/Ml Vial SC 09/03/24 20:59 5,000 unit Q12H NADIR Administration Labetalol HCl 10 mg 08/20/24 10:01 Labetalol Inj 5 Mg/Ml Vial 20 Ml IVP 09/19/24 10:14 Q6H PRN HTN SBP>220 DBP >120 Nystatin 5 ml 08/20/24 13:30 08/22/24 05:01 Nystatin Susp 5 Ml Udc PO 08/27/24 13:29 5 ml QID NADIR Administration Ondansetron HCl 4 mg 08/20/24 09:49 Ondansetron Inj 2 Mg/Ml Inj 2 Ml IV 09/19/24 09:48 Q6H PRN NAUSEA OR VOMITING Protocol Potassium Phos/Sodium Phos 1 packet 08/22/24 09:00 Naph,Kph Mbdb 1 Packet (1.5 Gm) PO 08/22/24 21:01 BID NADIR Sennosides 2 tab 08/21/24 09:00 08/21/24 08:35 Senna Tablet PO 09/20/24 08:59 2 tab QDAY NADIR Administration Protocol Plan Katherine Nagy is an 84-year-old female with a past medical history of rheumatoid arthritis, hypertension, and hyperlipidemia who presented on 08/20 with focal neurological deficits. Daughter at bedside provided additional history, stating that after patient woke up that morning at 6:30 AM she noticed patient's face was swollen, left-sided facial droop, and slurred speech and found to have multiple embolic infarcts on MRI for which cardiology was consulted to obtain DEANGELO. #Acute stroke #Multiple embolic infarcts #Marantic endocarditis Patient presented with left-sided facial weakness, slurred speech, and left- sided numbness/weakness. MRI showed multiple embolic infarcts of left cerebellar hemisphere, right vermis, left occipital lobe, and bilateral temporal parietal lobes and so cardiology was consulted to obtain DEANGELO to assess for possible cardiac source of emboli. DEANGELO 08/22 showed 2 echodensities. First attached to Coumadin ridge and MELANIE, broad-based, irregular, mildly calcified, 0.7 cm and suggestive of vegetation versus thrombus. Second on left atrial aspect of anterior mitral leaflet, broad-based, irregular, mildly calcified with mobile distal tip, 2.0 x 0.6 cm. 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 Mild to moderate MR, AV moderately calcified with moderate sclerosis without stenosis. Mild AI. EF 60 to 65%. Moderately dilated LA. ? Neurology following ? Continue aspirin, Plavix, atorvastatin #Elevated troponin #Likely type II NSTEMI #Hypertensive emergency #History of hypertension #History of hyperlipidemia Previous aeronautical design engineer insulation blanket maker, Dr. Perez, consulted for evaluation of elevated troponins/NSTEMI type II #Upper lip swelling #Oral thrush #Leukocytosis #History of cholelithiasis #History of choledocholithiasis ? Management of above conditions per primary team and other consultants ----- Plan discussed with attending physician Dr. Meena Mejía MD PGY-1 Internal Medicine
[2024-08-22] MEDS: BENZOCAINE 20% (Hurricaine) SPRAY 1 DOSE TOP (10:09)
[2024-08-22] MEDS: MIDAZOLAM INJ 1 MG/ML VIAL 2 ML 3 MG IV (10:10)
[2024-08-22] MEDS: fentaNYL CIT INJ 50 mCg/ML AMP 2ML 75 MCG IV (10:11)
--- NOTE | 2024-08-22 12:07 | PC.NURSE ---
patient transferred via gurney back to room. hand off report given to nita manuel. patient alert and arousable.
[2024-08-22] MEDS: FAMOTIDINE INJ 10 MG/ML VIAL 2 ML 20 MG IVP (12:37)
--- NOTE | 2024-08-22 14:21 | ESPR_ITS ---
Documentation for date of: 08/22/24 Subjective Subjective Interval history: Patient seen and examined at bedside. Repeat CT scan of head was negative. Patient scheduled for DEANGELO today with cardiology. Patient's phosphorus 2.2, was repleted Currently NPO. Will continue to monitor patient. Exam Vital Signs Temp Pulse Resp BP Pulse Ox O2 Del Method O2 Flow Rate 97.0 F 93 20 154/74 H 91 L Room Air 1 08/22/24 12:10 08/22/24 12:10 08/22/24 12:10 08/22/24 12:10 08/22/24 12:10 08/22/24 11:45 08/22/24 11:15 Narrative Exam Physical Exam General: Awake and in no acute distress. Conversational and non-toxic appearing. HEENT: Normocephalic, atraumatic, mucous membranes moist. Heart: Regular rate and rhythm, normal S1 and S2, 2/6 systolic murmur at the left lower sternal border. Lungs: Clear to auscultation with no wheezing or crackles. Abdomen: Soft, nondistended, nontender, positive bowel sounds. ?No guarding or rebound tenderness. Neurologic: Alert and oriented x3, no gross neurological deficit, and patient able to move all 4 extremities. Patient has left-sided facial droop. Slight swelling of lips. Extremities: No edema. Skin: No rash or ecchymoses. Objective Labs 08/23/24 05:45 08/23/24 05:45 Labs: Laboratory Results - last 24 hr 08/22/24 05:03 WBC 11.3 H RBC 5.10 Hgb 14.0 Hct 43.4 MCV 85 MCH 27.5 MCHC 32.3 RDW Std Deviation 40.5 Plt Count 192 Neut % (Auto) 72 Lymph % (Auto) 19 [place] % (Auto) 8 Eos % (Auto) 1 Baso % (Auto) 0 Neut # (Auto) 8.1 H Lymph # (Auto) 2.1 [place] # (Auto) 0.9 H Eos # (Auto) 0.1 Baso # (Auto) 0.1 Immature Gran # (Auto) 0.03 H Absolute Nucleated RBC 0.00 Immature Gran % 0 Nucleated RBC % 0 Sodium 140 Potassium 4.0 Chloride 104 Carbon Dioxide 25.6 Anion Gap 10 BUN 12 Creatinine 1.0 Estim Creat Clear Calc 33.7 L eGFR 56 L BUN/Creatinine Ratio 12 Glucose 119 H Calculated Osmolality 280 Calcium 8.7 Corrected Calcium 9.2 Phosphorus 2.2 L Magnesium 1.9 Total Bilirubin 0.7 AST 23 ALT 8 L Alkaline Phosphatase 114 Total Protein 7.0 Albumin 3.4 Globulin 3.6 H Albumin/Globulin Ratio 0.9 L Quality Measures Quality Measures none Advance care planning discussed with:: patient Assessment & Plan Assessment Current Active Medications: Generic Name Dose Route Start Last Admin Trade Name Freq PRN Reason Stop Dose Admin Acetaminophen 650 mg 08/20/24 09:49 08/21/24 08:35 Acetaminophen 325 Mg Tablet PO 09/19/24 09:48 650 mg Q6H PRN Administration Pain (1-3) & Fever >100.4 Amlodipine Besylate 10 mg 08/22/24 09:00 08/22/24 09:19 Amlodipine Besylate 5 Mg Tablet PO 09/21/24 08:59 10 mg QDAY NADIR Administration Aspirin 81 mg 08/21/24 09:00 08/22/24 09:20 Aspirin Ec 81 Mg Tabec PO 09/20/24 08:59 81 mg QDAY NADIR Administration Atorvastatin Calcium 80 mg 08/20/24 21:00 08/21/24 20:03 Atorvastatin Calcium 20 Mg Tablet PO 09/19/24 20:59 80 mg HS NADIR Administration Clopidogrel Bisulfate 75 mg 08/21/24 09:00 08/22/24 09:19 Clopidogrel Bisulfate 75 Mg Tablet PO 09/20/24 08:59 75 mg QDAY NADIR Administration Famotidine 20 mg 08/20/24 10:00 08/22/24 12:37 Famotidine Inj 10 Mg/Ml Vial 2 Ml IVP 09/19/24 09:59 20 mg QDAY NADIR Administration Heparin Sodium (Porcine) 5,000 unit 08/20/24 21:00 08/22/24 12:24 Heparin Sod Inj 5000 Unit/Ml Vial SC 09/03/24 20:59 Not Given Q12H NADIR Labetalol HCl 10 mg 08/20/24 10:01 Labetalol Inj 5 Mg/Ml Vial 20 Ml IVP 09/19/24 10:14 Q6H PRN HTN SBP>220 DBP >120 Home Medication- 40 mg 08/22/24 10:30 Please Speak With PO 09/21/24 10:29 Patient Caregiver To BID NADIR Have Rx Brought To [facility] Nystatin 5 ml 08/20/24 13:30 08/22/24 12:57 Nystatin Susp 5 Ml Udc PO 08/27/24 13:29 Not Given QID NADIR Ondansetron HCl 4 mg 08/20/24 09:49 Ondansetron Inj 2 Mg/Ml Inj 2 Ml IV 09/19/24 09:48 Q6H PRN NAUSEA OR VOMITING Protocol Potassium Phos/Sodium Phos 1 packet 08/22/24 09:00 08/22/24 12:25 Naph,[facility] Mbdb 1 Packet (1.5 Gm) PO 08/22/24 21:01 Not Given BID NADIR Sennosides 2 tab 08/21/24 09:00 08/22/24 12:24 Senna Tablet PO 09/20/24 08:59 Not Given QDAY NADIR Protocol Plan Assessment and plan: Summary: Ms. Nagy is a 84-year-old female with past medical history of rheumatoid arthritis, hypertension and hyperlipidemia who presented to [facility] emergency department with a chief complaint of left-sided facial droop, slurred speech and left-sided numbness. Patient admitted for CVA workup. #Multiple acute embolic infarcts #Left-sided facial droop #Slurred speech Per daughter patient woke up this morning and had symptoms of facial droop slurred speech and left-sided numbness. Patient otherwise ambulates with assistance of cane, has no complaints with mobility as of now. Per daughter patient walked to the car with a cane this morning. Does have history of TIA in the past per daughter. NIHSS was 6. MRI demonstrated multiple embolic type subcentimeter foci restricted diffusion left cerebellar hemisphere, right vermis, left occipital lobe, bilateral temporal lobes and bilateral parietal lobes. Hence multiple acute embolic type infarcts as above, Neurology recommends DEANGELO for further workup. A1c 5.1, LDL 95, HDL 32, cholesterol 147, triglyceride 98, TSH 3.13, free T4 1.14 Plan: - Continue aspirin and Plavix daily - Continue atorvastatin 80 Mg daily - Pending TTE - Ordered DEANGELO, cardiology consulted per nephrology recommendations. - Neurologist Dr. Rollins consulted, appreciate recommendations - Speech therapist and physical therapist consultation pending - Neurocheck every 4 hourly, head of bed elevated to 30 daily, aspiration precautions - Dysphagia 1 diet, passed bedside swallow, pending speech therapy evaluation - Permissive hypertension for 24 hours - Daily a.m. labs for CBC, CMP and electrolytes - Continue to monitor closely - Cardiology consulted for DEANGELO #Elevated troponin, likely type II Elevated troponin on presentation 0.998, no chest pain and no acute ST-T changes Troponin I 0.998 ?> 1.377 ?> 1.086 -Cardiology consulted, appreciate recommendations #Oral thrush #Upper lip swelling On examination patient does have swelling of upper lip, tongue shows white discharge high suspicion of oral thrush. Patient denies having any history of angioedema, is on ARIANNA inhibitor for the last many years, denies any allergies, no new medications and also tried no new foods recently. Patient was given diphenhydramine 25 IV x 1, famotidine x 1 -Continue nystatin suspension 4 times daily - Continue to monitor #Hypertension Patient on lisinopril at home, will hold in setting of lip swelling, possible angioedema -Continue amlodipine 10 mg daily. -Started on fosinopril 40mg, home dose Consider switching back to lisinopril 40 twice daily and stopping amlodipine 10mg #Hyperlipidemia LDL 95, HDL 32, cholesterol 147, triglyceride 98 - Atorvastatin 80 mg at bedtime daily #Cholelithiasis #Choledocholithiasis Patient presented with coffee-ground emesis earlier this month, was found to have cholelithiasis and choledocholithiasis . Currently denies any abdominal pain, has no symptoms alk phos, AST ALT, bilirubin within normal limits . -Pursue outpatient workup DVT prophylaxis: Heparin every 12hours GI prophylaxis: IV Protonix daily Diet: Dysphagia 1 diet, pending speech therapy evaluation Lines: Peripheral IV Code status: DNR Case discussed with Attending Dr. Espinoza and Dr. Mirza PGY3. Raquel Torres PGY1 Disclaimer: This note was dictated by speech recognition. Minor errors in elementary art teacher may be present due to voice recognition software. SHAR discussed with and supervised the internet media planner physician who took care of this patient. I personally saw and examined the patient and discussed the assessment and plan with the entire medicine team, including my attending Dr. Olga BATES. I agree with the assessment and plan as documented above. Patient interviewed and examined at bedside this a.m. No acute overnight events this a.m. Patient underwent DEANGELO under the care of cardiology services which is currently pending. Will keep the patient n.p.o. in anticipation of DEANGELO. Abhinav Mirza M.D. Internal Medicine PGY-3 Attending Provider Attestation/Addendum I have examined the patient, reviewed labs and imaging findings, discussed the case with the resident(s), and reviewed entered orders. I agree with the plan of care as outlined in this note, with these additional summaries/recommendations: Patient seen at bedside. No acute overnight events. MRI brain was obtained which revealed multiple acute embolic type infract's in left cerebral hemisphere, right vermis, left occipital lobe, bilateral temporal lobes, and bilateral parietal lobes. No evidence of arrhythmia on telemetry thus far. CTA head and neck showed 70% stenosis origin left internal carotid artery. In-house neurology following and continue dual antiplatelet therapy plus high intensity atorvastatin. Cardiology consulted for transesophageal echocardiogram to rule out left atrial thrombus which patient will go for today. If present we will discuss with neurology and cardiology in regards to changing Plavix to NOAC. Patient was noted to have oral thrush and will continue nystatin. Minimal angioedema present which is new per patient. Blood pressure still labile and we will continue to optimize antihypertensive regimen as needed. Continue to control vascular risk factors. Elevated troponins likely related to demand ischemia in the setting of acute CVA. Appreciate cardiology recommendations. Leukocytosis resolved and likely reactive in nature. Dr. Olga MD
--- NOTE | 2024-08-22 14:27 | PC.SS ---
Rounding note: pending cardiology recommendations.
--- NOTE | 2024-08-22 20:01 | ESPR_ITS ---
RE: JAYLA INFANTE : 1940 DATE OF SERVICE: 08/22/2024 SUBJECTIVE: Jayla Infante admitted to the hospital with multiple embolic strokes with left-sided facial weakness, also slight troponin elevation, type 2 troponin. Cardiac echo showed evidence of degenerative mitral valve with atherosclerotic ulcer with possible vegetation- like structures. Transesophageal echo showed no evidence of PFO, but there is evidence of intimal plaque, atherosclerotic plaque, and aortic root calcification and there is also some calcified structure near the appendage inside the left atrium. 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 There is also extensive mitral annulus calcification, possible fibrocalcific and_ lesions with what appears to be vegetation, appears to be marantic endocarditis due to chronic illness, rheumatoid arthritis and degenerative disease, possibly causing embolic stroke from platelet thrombi. OBJECTIVE: On clinical examination; General: She is alert, awake, and in no acute distress. Still communicative. Vital Signs: Blood pressure is slightly elavted pulse rate is 100. Neck: Supple. Lungs: Decreased breath sounds. Heart: S1 and S2, regular. No arrhythmias. Abdomen: Thin and soft. Extremities: No edema. IMPRESSION: 1. Multiple embolic strokes secondary to atheroembolism, possibly from the aorta and mitral valve degenerating structures. 2. Elevated troponin, type 2 myocardial infarction, possibly due to stress. 3. Hypertension. RECOMMENDATIONS: Continue antiplatelt therapy. No need for anticoagulation. Aspirin and Plavix. Amlodipine 10 mg daily was started for hypertension along with lisinopril 40 mg daily and we will keep monitoring closely. For now, medical management. After rehabilitation, I will reevaluate her in the office to possibly stress nuclear imaging. No need for any angiogram as far as troponin elevation is concerned. No need for any anticoagulation other than aspirin and Plavix for now. DT: 18:23:26 TT: 19:50:00 Ref: [id number] - TID: [id number] MTDD
--- NOTE | 2024-08-22 20:40 | ECHO_ITS ---
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 The left ventricular ejection fraction is normal, estimated at 55-60%. Right Ventricle The right ventricle is normal in size and systolic function. The estimated right ventricular systolic pressure, 20 mmHg. Left Atrium The left atrium is normal by two-dimensional, color flow and Doppler imaging with no structural abnormalities, no thrombus formation present. Right Atrium The right atrium is normal by two-dimensional imaging, color flow and Doppler imaging with no structural abnormalities, no thrombus formation present. Atrial Appendages Possible thrombus in the left atrial appendage. Atrial Septum The interatrial septum is normal to color flow Doppler and agitated saline imaging. Aorta The aorta is normal by two-dimensional, color flow and Doppler interrogation. Mitral Valve Mitral annular calcification. Moderate mitral regurgitation. Findings consistent with vegetation on the posterior leaflet of the mitral valve. Aortic Valve Diffuse calcification of the aortic valve. Mild aortic valve regurgitation. Tricuspid Valve There is trace tricuspid valve regurgitation. Pulmonic Valve The pulmonic valve is normal by two-dimensional, color flow and Doppler interrogation. There is no significant pulmonic valve regurgitation. Vessels The pulmonary artery appears normal. The inferior vena cava pulmonary and hepatic veins appear normal. Pericardium The pericardium is normal by two-dimensional imaging. There is no significant pericardial effusion. CONCLUSIONS Indication: Stroke is to rule out mitral valve vegetation. Bubble study negative and no evidence of any PFO or ASD. No LA or MELANIE thrombus. Small echodensity noted attached to the Coumadin ridge in the MELANIE which is around 0.7 cm, broad-based irregular with mild calcification suggestive of more of vegetation pathology rather than a thrombus. Echodensity noted on the left atrial aspect of the anterior mitral leaflet measuring around 2.0 x 0.6 cm which is broad-based, irregular, mildly calcified with the mobile distal tip. Recommend clinical correlation for above 2 echodensities - can consider marantic endocarditis given history of RA and stroke Moderate to severe MAC with significant calcification and mitral valve appears to show significant degenerative changes. Trivial to mild mitral stenosis with a mean PG of 7 mmHg but blood pressure was mildly elevated. Mild to moderate MR Aortic valve is moderately calcified with moderate aortic valve sclerosis without stenosis. Mild AI. Tricuspid and pulmonary valves appear to be normal with trace TR and PI. Normal LV, RV size and function. Estimated LVEF is 60 to 65%. Moderately dilated LA no evidence of any pericardial effusion. Bandar Robledo (Electronically Signed) Final Date: 22 August 2024 18:52
[2024-08-22] MEDS: ATORVASTATIN CALCIUM 20 MG TABLET 80 MG PO (21:02)
[2024-08-22] MEDS: HEPARIN SOD INJ 5000 UNIT/ML VIAL SC (21:02)
[2024-08-22] MEDS: NAPH,KPH MBDB 1 PACKET (1.5 GM) PO (21:15)
--- NOTE | 2024-08-22 23:37 | PD.DDS ---
Documentation for date of: 08/22/24 Summary Date and Time Date of admission: 08/20/24 09:49 Additional Data Attending physician: Prosper Espinoza MD Visit Providers Provider Primary care physician: Adry Bojorquez MD Consults: 08/20/24 07:29 Consult to Neurology / Tele-Neurology Routine Comment: Consulting Provider: [facility] 08/20/24 09:54 Consult to Neurology / Tele-Neurology Routine Comment: CVA Workup Consulting Provider: Valente Rollins Referral Physical Therapy Routine Comment: CVA Workup Physician Instructions: 08/20/24 09:55 Referral Speech Therapy Routine Comment: CVA Workup 08/20/24 10:20 Referral Wound Care Routine Comment: Right Foot ulcer 08/20/24 16:41 Consult to Cardiology Routine Comment: Elevated Troponin Consulting Provider: Rashaun Perez 08/21/24 08:20 Consult to Cardiology Routine Comment: DEANGELO Consulting Provider: Bandar Robledo 08/21/24 15:05 Referral - BILINGUAL SALES CONSULTANT Scrum Coach Routine Comment: swallow eval c Juanis Diagnosis Contributing Factors (1) CVA (cerebral vascular accident): (2) Hypertension: Discharge Plan Prescriptions/Referrals Prescriptions/Med Rec: No Action celecoxib [Celebrex] 200 MG capsule 200 mg PO QDAY Qty: 0 Fosinopril * (MONOPRIL *) 40 MG tablet 40 mg PO BID Qty: 0 Referrals: Adry Bojorquez MD [Primary Care Provider] - Patient/Caregiver Discharge Instructions Print Language: Japanese
--- NOTE | 2024-08-22 23:38 | VVPN_ITS ---
Telemedicine visit statement This visit was conducted with the use of interactive audio and video telecommunications system that permits real time communication between the patient and the provider. Patient's verbal consent for virtual visit was obtained on 08/22/24 at 2338. Documentation for date of: 08/22/24 Subjective Subjective Interval history: Patient is in telemetry. Continues to have left facial weakness, paresthesias in the left hemibody and weakness. Got the DEANGELO today. Virtual exam Vital Signs Temp Pulse Resp BP Pulse Ox O2 Del Method O2 Flow Rate 98.4 F 113 H 23 H 152/77 H 95 Room Air 1 08/22/24 20:00 08/22/24 20:00 08/22/24 20:00 08/22/24 20:00 08/22/24 20:00 08/22/24 20:00 08/22/24 11:15 Objective Labs 08/23/24 05:45 08/23/24 05:45 Labs: Laboratory Results - last 24 hr 08/22/24 05:03 WBC 11.3 H RBC 5.10 Hgb 14.0 Hct 43.4 MCV 85 MCH 27.5 MCHC 32.3 RDW Std Deviation 40.5 Plt Count 192 Neut % (Auto) 72 Lymph % (Auto) 19 [place] % (Auto) 8 Eos % (Auto) 1 Baso % (Auto) 0 Neut # (Auto) 8.1 H Lymph # (Auto) 2.1 [place] # (Auto) 0.9 H Eos # (Auto) 0.1 Baso # (Auto) 0.1 Immature Gran # (Auto) 0.03 H Absolute Nucleated RBC 0.00 Immature Gran % 0 Nucleated RBC % 0 Sodium 140 Potassium 4.0 Chloride 104 Carbon Dioxide 25.6 Anion Gap 10 BUN 12 Creatinine 1.0 Estim Creat Clear Calc 33.7 L eGFR 56 L BUN/Creatinine Ratio 12 Glucose 119 H Calculated Osmolality 280 Calcium 8.7 Corrected Calcium 9.2 Phosphorus 2.2 L Magnesium 1.9 Total Bilirubin 0.7 AST 23 ALT 8 L Alkaline Phosphatase 114 Total Protein 7.0 Albumin 3.4 Globulin 3.6 H Albumin/Globulin Ratio 0.9 L Assessment & Plan Problem List (1) CVA (cerebral vascular accident): Status: Acute Assessment and plan: Stable with the left facial weakness more than the extremity weakness MRI brain showed multiple acute infarcts suggestive of embolic origin. DEANGELO: findings reviewed. Continue with the current management. (2) Hypertension: Status: Chronic Assessment and plan: Continue blood pressure control as per primary team
[2024-08-23] VITALS (7 sets, daily range): BP systolic 132–161; BP diastolic 56–88; PULSE 82–111; RESP 14–20; TEMP 36.3–37.6; O2SAT 95–97; BMI 26.6
[2024-08-23] MEDS: NYSTATIN SUSP 5 ML UDC PO ×2 (05:05→12:03)
[2024-08-23 06:05] LABS: Basophils # (Auto) 0.1 Thou/mm3 (0.0-0.2); Basophils % (Auto) 0 % (0-2.5); Eosinophils % (Auto) 0 % (0-10); Hemoglobin 14.2 g/dL (12.0-16.0); Immature Granulocytes % (Auto) 0 % (0-0); Immature Granulocytes Auto 0.05 Thou/mm3 (0.00-0.00); Lymphocytes # (Auto) 1.5 Thou/mm3 (1.0-4.8); Lymphocytes % (Auto) 12 % (10-50); Mean Corpuscular Hemoglobin 27.5 pg (25.0-35.0); Mean Corpuscular Volume 83 fL (80-100); Monocytes % (Auto) 8 % (0-12); Neutrophils # (Auto) 10.1 Thou/mm3 (1.8-7.7); Neutrophils % (Auto) 80 % (37-80); Nucleated Red Blood Cell % 0 /100 WBC (0); Platelet Count 198 Thou/mm3 (140-440); RDW Standard Deviation 39.9 fL (36.4-46.3); Red Blood Count 5.16 Miln/mm3 (4.00-5.20); White Blood Count 12.6 Thou/mm3 (3.6-11.0)
[2024-08-23 06:31] LABS: Alanine Aminotransferase 12 U/L (10-49); Albumin, Serum 3.6 gm/dL (3.4-4.8); Alkaline Phosphatase 110 U/L (46-116); Anion Gap 9 (7-16); Aspartate Amino Transferase 32 U/L (0-34); BUN/Creatinine Ratio 14 Ratio (12-20); Bilirubin,Total 0.8 mg/dL (0.3-1.2); Blood Urea Nitrogen 14 mg/dL (9-23); Calcium 8.4 mg/dL (8.3-10.6); Calcium (Corrected) 8.7 mg/dL (8.5-10.1); Carbon Dioxide 26.3 mMol/L (20.0-31.0); Chloride 101 mMol/L (98-107); Estimated Creatinine Clearance 33.4 mL/min (>60); Globulin 3.7 gm/dL (2.3-3.5); Glucose 108 mg/dL (74-106); Osmolality,Calculated 273 (275-295); Phosphorous 2.2 mg/dL (2.4-5.1); Potassium 4.1 mMol/L (3.4-5.1); Sodium 136 mMol/L (136-145); Total Protein 7.3 gm/dL (5.7-8.2); eGFR 56 See Note
--- NOTE | 2024-08-23 08:08 | ESPR_ITS ---
Documentation for date of: 08/23/24 Subjective Subjective Interval history: 08/22/2024: No acute overnight events noted. Patient underwent transesophageal echo today that showed 2 echodensities. First attached to Coumadin ridge and MELANIE, broad-based, irregular, mildly calcified, 0.7 cm and suggestive of vegetation versus thrombus. Second on left atrial aspect of anterior mitral leaflet, broad-based, irregular, mildly calcified with mobile distal tip, 2.0 x 0.6 cm. 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 Mild to moderate MR, AV moderately calcified with moderate sclerosis without stenosis. Mild AI. EF 60 to 65%. Moderately dilated LA. Vitals reviewed and BP 165/65, HR 108, afebrile, and on room air. CBC unremarkable other than mild leukocytosis of 11.3. CHEM panel also largely unremarkable. 08/23/2024: No acute overnight events. Examined at bedside, nephew was in the room. Reports feeling well today, nephew noted improvement in speech overall. Afebrile, BP 161/88, HR 92, on room air. WBC 12.6, otherwise CBC unremarkable. CHEM panel, relatively unchanged, largely unremarkable. Continued on ASA, PLAVIX, and statin. Neurology following. Exam Vital Signs Temp Pulse Resp BP Pulse Ox O2 Del Method O2 Flow Rate 98.2 F 92 14 161/88 H 95 Room Air 1 08/23/24 04:00 08/23/24 04:00 08/23/24 04:00 08/23/24 04:00 08/23/24 04:00 08/23/24 04:00 08/22/24 11:15 Narrative Exam General: A&Ox3, NAD HEENT: NC/AT, mucous membranes moist, bilateral sclera anicteric Cardiovascular: systolic murmur in tricuspid and mitral areas, regular rate and rhythm, S1/S2 present Pulmonary: clear to auscultation bilaterally, no rales/rhonchi/wheezes Abdominal: soft, non-tender, non-distended, no rebound/guarding, normal bowel sounds present Musculoskeletal: joint deformities in fingers and hands and toes, no peripheral edema Skin: warm and dry, intact, no rashes Neuro: Left-sided facial weakness, improving left upper extremity weakness, slurred speech Objective Labs 08/23/24 05:45 08/23/24 05:45 Labs: Laboratory Results - last 24 hr 08/23/24 05:45 WBC 12.6 H RBC 5.16 Hgb 14.2 Hct 43.0 MCV 83 MCH 27.5 MCHC 33.0 RDW Std Deviation 39.9 Plt Count 198 Neut % (Auto) 80 Lymph % (Auto) 12 [place] % (Auto) 8 Eos % (Auto) 0 Baso % (Auto) 0 Neut # (Auto) 10.1 H Lymph # (Auto) 1.5 [place] # (Auto) 1.0 H Eos # (Auto) 0.0 Baso # (Auto) 0.1 Immature Gran # (Auto) 0.05 H Absolute Nucleated RBC 0.00 Immature Gran % 0 Nucleated RBC % 0 Sodium 136 Potassium 4.1 Chloride 101 Carbon Dioxide 26.3 Anion Gap 9 BUN 14 Creatinine 1.0 Estim Creat Clear Calc 33.4 L eGFR 56 L BUN/Creatinine Ratio 14 Glucose 108 H Calculated Osmolality 273 L Calcium 8.4 Corrected Calcium 8.7 Phosphorus 2.2 L Magnesium 2.0 Total Bilirubin 0.8 AST 32 ALT 12 Alkaline Phosphatase 110 Total Protein 7.3 Albumin 3.6 Globulin 3.7 H Albumin/Globulin Ratio 1.0 L Quality Measures Quality Measures none Advance care planning discussed with:: patient Assessment & Plan Assessment Current Active Medications: Generic Name Dose Route Start Last Admin Trade Name Freq PRN Reason Stop Dose Admin Acetaminophen 650 mg 08/20/24 09:49 08/21/24 08:35 Acetaminophen 325 Mg Tablet PO 09/19/24 09:48 650 mg Q6H PRN Administration Pain (1-3) & Fever >100.4 Amlodipine Besylate 10 mg 08/22/24 09:00 08/22/24 09:19 Amlodipine Besylate 5 Mg Tablet PO 09/21/24 08:59 10 mg QDAY NADIR Administration Aspirin 81 mg 08/21/24 09:00 08/22/24 09:20 Aspirin Ec 81 Mg Tabec PO 09/20/24 08:59 81 mg QDAY NADIR Administration Atorvastatin Calcium 80 mg 08/20/24 21:00 08/22/24 21:02 Atorvastatin Calcium 20 Mg Tablet PO 09/19/24 20:59 80 mg HS NADIR Administration Clopidogrel Bisulfate 75 mg 08/21/24 09:00 08/22/24 09:19 Clopidogrel Bisulfate 75 Mg Tablet PO 09/20/24 08:59 75 mg QDAY NADIR Administration Famotidine 20 mg 08/20/24 10:00 08/22/24 12:37 Famotidine Inj 10 Mg/Ml Vial 2 Ml IVP 09/19/24 09:59 20 mg QDAY NADIR Administration Heparin Sodium (Porcine) 5,000 unit 08/20/24 21:00 08/22/24 21:02 Heparin Sod Inj 5000 Unit/Ml Vial SC 09/03/24 20:59 5,000 unit Q12H NADIR Administration Labetalol HCl 10 mg 08/20/24 10:01 Labetalol Inj 5 Mg/Ml Vial 20 Ml IVP 09/19/24 10:14 Q6H PRN HTN SBP>220 DBP >120 Lisinopril 40 mg 08/23/24 09:00 Lisinopril 20 Mg Tablet PO 09/22/24 08:59 QDAY NADIR Protocol Nystatin 5 ml 08/20/24 13:30 08/23/24 05:05 Nystatin Susp 5 Ml Udc PO 08/27/24 13:29 5 ml QID NADIR Administration Ondansetron HCl 4 mg 08/20/24 09:49 Ondansetron Inj 2 Mg/Ml Inj 2 Ml IV 09/19/24 09:48 Q6H PRN NAUSEA OR VOMITING Protocol Potassium Phos/Sodium Phos 1 packet 08/22/24 21:00 08/22/24 21:15 Naph,Kph Mbdb 1 Packet (1.5 Gm) PO 08/23/24 09:01 1 packet BID NADIR Administration Sennosides 2 tab 08/21/24 09:00 08/22/24 12:24 Senna Tablet PO 09/20/24 08:59 Not Given QDAY NADIR Protocol Plan Katherine Nagy is an 84-year-old female with a past medical history of rheumatoid arthritis, hypertension, and hyperlipidemia who presented on 08/20 with focal neurological deficits. Daughter at bedside provided additional history, stating that after patient woke up that morning at 6:30 AM she noticed patient's face was swollen, left-sided facial droop, and slurred speech and found to have multiple embolic infarcts on MRI for which cardiology was consulted, DEANGELO was obtained, findings as below. 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 MRI showed multiple embolic infarcts of left cerebellar hemisphere, right vermis, left occipital lobe, and bilateral temporal parietal lobes and so cardiology was consulted to obtain DEANGELO to assess for possible cardiac source of emboli. DEANGELO 08/22 showed 2 echodensities. First attached to Coumadin ridge and MELANIE, broad-based, irregular, mildly calcified, 0.7 cm and suggestive of vegetation versus thrombus. Second on left atrial aspect of anterior mitral leaflet, broad-based, irregular, mildly calcified with mobile distal tip, 2.0 x 0.6 cm. 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 Mild to moderate MR, AV moderately calcified with moderate sclerosis without stenosis. Mild AI. EF 60 to 65%. Moderately dilated LA. ? Neurology following ? 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 Perez, consulted for evaluation of elevated troponins/NSTEMI type II Upper lip swelling Oral thrush Leukocytosis History of cholelithiasis History of choledocholithiasis ? Management of above conditions per primary team and other consultants Thank you for the opportunity to participate in the patient's care. Case was discussed with attending, Dr. Robledo. Kael Valenzuela DO PGYI
[2024-08-23] MEDS: NAPH,KPH MBDB 1 PACKET (1.5 GM) PO (08:38)
[2024-08-23] MEDS: ASPIRIN EC 81 MG TABEC PO (08:39)
[2024-08-23] MEDS: Lisinopril 20 MG TABLET 40 MG PO (08:39)
[2024-08-23] MEDS: CLOPIDOGREL BISULFATE 75 MG TABLET PO (08:40)
[2024-08-23] MEDS: amLODIPine BESYLATE 5 MG TABLET 10 MG PO (08:40)
[2024-08-23] MEDS: SENNA TABLET 2 TAB PO (08:40)
[2024-08-23] MEDS: FAMOTIDINE INJ 10 MG/ML VIAL 2 ML 20 MG IVP (08:41)
[2024-08-23] MEDS: HEPARIN SOD INJ 5000 UNIT/ML VIAL SC (08:41)
--- NOTE | 2024-08-23 08:55 | PC.SS ---
Addendum entered by CAMDEN Uribe 08/23/24 17:31: ETA 5:30pm. Bed side RN and SNF aware. Addendum entered by CAMDEN Uribe 08/23/24 14:57: [facility] is still pending ETA they informed it would be after 3:30pm, no specific ETA provided. Bed side nurse aware. Addendum entered by CAMDEN Uribe 08/23/24 13:47: Patient has d/c orders for today, going to [facility]. Patient's daughter Crystal is aware and agreeable and requesting transportation to be arranged for the patient. [facility]. Pending ETA for garbage pick up worker. Addendum entered by CAMDEN Uribe 08/23/24 10:57: Spoke with Suzie at [facility], who informs they can accept the patient at time of d/c. PASRR to be sent via [employer]. Original Note: SS follow up: patient is a possible d/c for today. Contacted Suzie at [facility], she informs she will review patient's insurance and determine if they are able to accept. Provided Suzie will my call back number.
--- NOTE | 2024-08-23 14:02 | ESPR_ITS ---
<Statement entered by Rashaun Perez MD - 08/25/24 16:30> I personally examined the patient reviewed patient is feeling better still has some speech problems and left upper extremity weakness from the stroke clearly microembolic stroke with thromboembolism possibly from degenerative valve and intracardiac structures and aortic atheroembolism recommended antiplatelet drug therapy discharged to correction facility for rehabilitation will monitor the patient closely do a cardiac workup as an outpatient. Evaluated the patient with PGY 3 agree with the treatment plan recommendation. Documentation for date of: 08/23/24 Subjective Subjective Interval history: Patient was examined bedside this morning, no acute overnight event., Continue current management Exam Vital Signs Temp Pulse Resp BP Pulse Ox O2 Del Method O2 Flow Rate 97.4 F 92 18 147/61 H 95 Room Air 1 08/23/24 12:00 08/23/24 12:00 08/23/24 12:00 08/23/24 12:00 08/23/24 12:00 08/23/24 12:00 08/22/24 11:15 Narrative Exam GENERAL:Old, frail looking female resting comfortably in hospital bed, no acute distress, HEENT: Normocephalic, atraumatic. Pupils are equal and reactive. Oral mucosa is moist. NECK: Supple, nontender, no JVD CHEST: Symmetrical, atraumatic and with equal expansion ,Nontender on palpation CARDIOVASCULAR: Heart regular rhythm & rate. S1/S2. no murmur or gallop rub or extra beats. LUNGS: Clear to auscultation bilaterally with symmetrical chest rise. No laboring tachypnea or wheezing. No intercostal subcostal retraction. No rales and no rhonchi. ABDOMEN: Soft, flat, nontender to palpation, no guarding or rebound tenderness. Active and normal bowel sounds. EXTREMITIES:Moves all 4 extremities,No B/L LE edema. SKIN: Warm and dry, no jaundice or rashes noted. NEURO: Patient is AO x 3,left hand weakness and left facial weakness PSYCHIATRIC: Patient is in normal mood, cooperative, no SI or HI or hallucinations. Objective Labs 08/23/24 05:45 08/23/24 05:45 Labs: Laboratory Results - last 24 hr 08/23/24 05:45 WBC 12.6 H RBC 5.16 Hgb 14.2 Hct 43.0 MCV 83 MCH 27.5 MCHC 33.0 RDW Std Deviation 39.9 Plt Count 198 Neut % (Auto) 80 Lymph % (Auto) 12 [place] % (Auto) 8 Eos % (Auto) 0 Baso % (Auto) 0 Neut # (Auto) 10.1 H Lymph # (Auto) 1.5 [place] # (Auto) 1.0 H Eos # (Auto) 0.0 Baso # (Auto) 0.1 Immature Gran # (Auto) 0.05 H Absolute Nucleated RBC 0.00 Immature Gran % 0 Nucleated RBC % 0 Sodium 136 Potassium 4.1 Chloride 101 Carbon Dioxide 26.3 Anion Gap 9 BUN 14 Creatinine 1.0 Estim Creat Clear Calc 33.4 L eGFR 56 L BUN/Creatinine Ratio 14 Glucose 108 H Calculated Osmolality 273 L Calcium 8.4 Corrected Calcium 8.7 Phosphorus 2.2 L Magnesium 2.0 Total Bilirubin 0.8 AST 32 ALT 12 Alkaline Phosphatase 110 Total Protein 7.3 Albumin 3.6 Globulin 3.7 H Albumin/Globulin Ratio 1.0 L Quality Measures Quality Measures none Advance care planning discussed with:: patient Assessment & Plan Assessment Current Active Medications: Generic Name Dose Route Start Last Admin Trade Name Freq PRN Reason Stop Dose Admin Acetaminophen 650 mg 08/20/24 09:49 08/21/24 08:35 Acetaminophen 325 Mg Tablet PO 09/19/24 09:48 650 mg Q6H PRN Administration Pain (1-3) & Fever >100.4 Amlodipine Besylate 10 mg 08/22/24 09:00 08/23/24 08:40 Amlodipine Besylate 5 Mg Tablet PO 09/21/24 08:59 10 mg QDAY NADIR Administration Aspirin 81 mg 08/21/24 09:00 08/23/24 08:39 Aspirin Ec 81 Mg Tabec PO 09/20/24 08:59 81 mg QDAY NADIR Administration Atorvastatin Calcium 80 mg 08/20/24 21:00 08/22/24 21:02 Atorvastatin Calcium 20 Mg Tablet PO 09/19/24 20:59 80 mg HS NADIR Administration Clopidogrel Bisulfate 75 mg 08/21/24 09:00 08/23/24 08:40 Clopidogrel Bisulfate 75 Mg Tablet PO 09/20/24 08:59 75 mg QDAY NADIR Administration Famotidine 20 mg 08/20/24 10:00 08/23/24 08:41 Famotidine Inj 10 Mg/Ml Vial 2 Ml IVP 09/19/24 09:59 20 mg QDAY NADIR Administration Heparin Sodium (Porcine) 5,000 unit 08/20/24 21:00 08/23/24 08:41 Heparin Sod Inj 5000 Unit/Ml Vial SC 09/03/24 20:59 5,000 unit Q12H NADIR Administration Labetalol HCl 10 mg 08/20/24 10:01 Labetalol Inj 5 Mg/Ml Vial 20 Ml IVP 09/19/24 10:14 Q6H PRN HTN SBP>220 DBP >120 Lisinopril 40 mg 08/23/24 09:00 08/23/24 08:39 Lisinopril 20 Mg Tablet PO 09/22/24 08:59 40 mg QDAY NADIR Administration Protocol Nystatin 5 ml 08/20/24 13:30 08/23/24 12:03 Nystatin Susp 5 Ml Udc PO 08/27/24 13:29 5 ml QID NADIR Administration Ondansetron HCl 4 mg 08/20/24 09:49 Ondansetron Inj 2 Mg/Ml Inj 2 Ml IV 09/19/24 09:48 Q6H PRN NAUSEA OR VOMITING Protocol Sennosides 2 tab 08/21/24 09:00 08/23/24 08:40 Senna Tablet PO 09/20/24 08:59 2 tab QDAY NADIR Administration Protocol Plan Katherine Nagy is an 84-year-old female with a past medical history of rheumatoid arthritis, hypertension, and hyperlipidemia who presented on 08/20 with focal neurological deficits. Daughter at bedside provided additional history, stating that after patient woke up that morning at 6:30 AM she noticed patient's face was swollen, left-sided facial droop, and slurred speech and found to have multiple embolic infarcts on MRI for which cardiology was consulted. Cardiac echo showed evidence of degenerative mitral valve with atherosclerotic ulcer with possible vegetation-like structures. Transesophageal echo showed no evidence of PFO, but there is evidence of intimal plaque, atherosclerotic plaque, and aortic root calcification and there is also some calcified structure near the appendage inside the left atrium. 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 -Medical management for now -No need for anticoagulation -Due to aspirin and Plavix -Continue amlodipine 10 daily -Continue lisinopril 40 -After the patient is discharged and after rehabitation follow-up in the clinic with Dr. Perez for stress nuclear imaging -No need for angiogram c urrently # Elevated troponin, type 2 myocardial infarction, possibly due to stress. # Hypertension. Rest of the medical management as per primary team Discussed the patient with my attending Dr Perez, Marla Koch MD,PGY-3
--- NOTE | 2024-08-23 15:20 | PD.RESDS ---
Planned Discharge Date 08/23/24 DS: Providers Provider Date of admission: 08/20/24 09:49 Primary care physician: Adry Bojorquez MD Admitting Provider: Slade Gonzalez MD Attending Provider on Admission: Prosper Espinoza MD Consults: 08/20/24 07:29 Consult to Neurology / Tele-Neurology Routine Comment: Consulting Provider: [facility] 08/20/24 09:54 Consult to Neurology / Tele-Neurology Routine Comment: CVA Workup Consulting Provider: Valente Rollins Referral Physical Therapy Routine Comment: CVA Workup Physician Instructions: 08/20/24 09:55 Referral Speech Therapy Routine Comment: CVA Workup 08/20/24 10:20 Referral Wound Care Routine Comment: Right Foot ulcer 08/20/24 16:41 Consult to Cardiology Routine Comment: Elevated Troponin Consulting Provider: Rashaun Perez 08/21/24 08:20 Consult to Cardiology Routine Comment: DEANGELO Consulting Provider: Bandar Robledo 08/21/24 15:05 Referral - ALUMINUM MOLDING MACHINE OPERATOR Length Control Tester Routine Comment: brad Olivarez Attending Provider on DC: Prosper Espinoza MD Discharging Provider: Brett Doyle MD DS: Diagnosis Problem List Completed Was Problem List Reviewed/Reconciled?: Yes Hospital Course Hospital Course Hospital course: Ms. Nagy is a 84-year-old female with past medical history of rheumatoid arthritis, hypertension and hyperlipidemia who presented to [facility] emergency department with a chief complaint of left-sided facial droop, slurred speech and left-sided numbness. Patient admitted for CVA workup. MRI demonstrated multiple embolic type subcentimeter foci restricted diffusion left cerebellar hemisphere, right vermis, left occipital lobe, bilateral temporal lobes and bilateral parietal lobes. Hence multiple acute embolic type infarcts as above. Patient underwent transesophageal echo that showed 2 echodensities. First attached to Coumadin ridge and MELANIE, broad-based, irregular, mildly calcified, 0.7 cm and suggestive of vegetation versus thrombus. Second on left atrial aspect of anterior mitral leaflet, broad-based, irregular, mildly calcified with mobile distal tip, 2.0 x 0.6 cm. 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 Mild to moderate MR, AV moderately calcified with moderate sclerosis without stenosis. Mild AI. EF 60 to 65%. Moderately dilated LA. Patient was diagnosed with marantic endocarditis and started on dual antiplatelet therapy with aspirin and Plavix as per cardiology and neurology recommendations. While hospitalized patient received physiotherapy who recommended she be discharged to SNF. All patient's labs are now returning to baseline and patient is now clinically stable and fit for discharge to SNF. 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 Oral thrush 5. Primary hypertension 6. Hyperlipidemia 7. Cholelithiasis 8. Choledocholithiasis Discharge plan: - You have been started on 'blood thinners', Aspirin and Plavix because of your stroke and calcium deposit in your heart. Take one tablet each every day for one month. - After one month only take 1 Aspirin each day for life - You have been started on a cholesterol pill Atorvastatin. Take 4 tablets per day at night - You have been started on a medication 'Nystatin' for your thrush, use mouthwash 4 times a day for 2 weeks - Continue your Home medication Fosinopril. - We have discontinued your home medication celecoxib. - Follow up with Neurology Dr. Rollins within 2 weeks - Follow up with Director Of Individual Giving Dr. Mason Perez within 2 weeks of discharge - Follow up with your primary care physician within 1 week of discharge. If you do not have a primary care physician or cannot get an appointment in time, please follow up with the [facility] Residents clinic ([phone]) ? If you experience any new, worsening or persistent symptoms either call your primary doctor, or dial 911 or present to the emergency department. We are grateful to be able to participate in Ms. Nagy's care. We wish her the best. Plan of care discussed with Attending Dr. Olga Doyle MD PGY 1 Disclaimer: This note was dictated by speech recognition. Minor errors in hod carrier may be present due to voice recognition software. Time Spent with Patient Time attestation: Total time spent providing and/or coordinating discharge services: Time spent: Greater than 30 minutes (36) Exam Vital Signs Temp Pulse Resp BP Pulse Ox O2 Del Method O2 Flow Rate 97.4 F 92 18 147/61 H 95 Room Air 1 08/23/24 12:08/23/24 12:00 08/23/24 12:00 08/23/24 12:08/23/24 12:08/23/24 12:00 08/22/24 11:15 Narrative Exam Physical Exam General: Awake and in no acute distress. Conversational and non-toxic appearing. HEENT: Normocephalic, atraumatic, mucous membranes moist. Heart: Regular rate and rhythm, normal S1 and S2, 2/6 systolic murmur at the left lower sternal border. Lungs: Clear to auscultation with no wheezing or crackles. Abdomen: Soft, nondistended, nontender, positive bowel sounds. ?No guarding or rebound tenderness. Neurologic: Alert and oriented x3, no gross neurological deficit, and patient able to move all 4 extremities. Patient has left-sided facial droop. Slight swelling of lips. Extremities: No edema. Skin: No rash or ecchymoses. Discharge Plan Plan Patient Disposition: Xfer Skilled [facility] (SNF) Care Plan Goals: - You have been started on 'blood thinners', Aspirin and Plavix because of your stroke and calcium deposit in your heart. Take one tablet each every day for one month. - After one month only take 1 Aspirin each day for life - You have been started on a cholesterol pill Atorvastatin. Take 4 tablets per day at night - You have been started on a medication 'Nystatin' for your thrush, use mouthwash 4 times a day for 2 weeks - Continue your Home medication Fosinopril. - We have discontinued your home medication celecoxib. - Follow up with Neurology Dr. Rollins within 2 weeks - Follow up with Director Of Individual Giving Dr. Mason Perez within 2 weeks of discharge - Follow up with your primary care physician within 1 week of discharge. If you do not have a primary care physician or cannot get an appointment in time, please follow up with the [facility] Residents clinic ([phone]) ? If you experience any new, worsening or persistent symptoms either call your primary doctor, or dial 911 or present to the emergency department. Prescriptions/Referrals Prescriptions/Med Rec: New nystatin 100,000 unit/mL Suspension 5 ml PO QID 14 Days Qty: 280 0RF atorvastatin 20 mg Tablet 80 mg PO HS 30 Days Qty: 120 3RF aspirin [Ecotrin Low Strength] 81 mg Tablet,Delayed Release (/Ec) 81 mg PO QDAY 30 Days Qty: 30 3RF clopidogrel 75 mg tablet 75 mg PO QDAY 30 Days Qty: 30 0RF Continued Fosinopril * (MONOPRIL *) 40 MG tablet 40 mg PO BID Qty: 0 Discontinued celecoxib [Celebrex] 200 MG capsule 200 mg PO QDAY Qty: 0 Referrals: Rashaun Perez MD [Physician] - Adry Bojorquez MD [Primary Care Provider] - Valente Rollins MD [Physician] - Patient/Caregiver Discharge Instructions Education Materials: Effects of a Stroke on the ..., Stroke Mood Swings Depression, Stroke: Resources and Support, Stroke: Tips for Swallowing, Risk Factors for Stroke, Stroke Prevention Activity, Good Positioning After a Stroke, ED Stroke, Completed Print Language: Belarusian Stand Alone Forms: Pam Award Info., Patient Portal Info Letter Discharge Order Discharge Orders: Discharge (Routine); Ordered 08/23/24 Ordered By: Brett Doyle Quality Discharge Quality Measures VTE prophylaxis Attestestation MD Attestation I have examined the patient, reviewed labs and imaging findings, discussed the case with the resident(s), and reviewed entered orders. I agree with the plan of care as outlined in this note. Time Spent: [address] Olga MD
== END 2024-08-23 17:50 | disposition skilled nursing facility (03) | DRG 64 ==
LOC: SERX 08:59 → SERHOLD 10:10 → S2NX 12:51
PROVIDERS: Internal Medicine Cardiovascular Disease; Admitting Provider Internal Medicine; Emergency Provider Emergency Medicine; PCP Family Medicine; Visit Provider Student in an Organized Health Care Education/Training Program
PROC: (CPT 93312; principal; 2024-08-22 10:00)
DX: I63.40 Cerebral infarction due to embolism of unspecified cerebral artery (principal); I21.A1 Myocardial infarction type 2; B37.0 Candidal stomatitis; I16.1 Hypertensive emergency; R47.81 Slurred speech; R53.1 Weakness; R29.810 Facial weakness; I10 Essential (primary) hypertension; M06.9 Rheumatoid arthritis, unspecified; E78.5 Hyperlipidemia, unspecified; K80.70 Calculus of gallbladder and bile duct without cholecystitis without obstruction; I34.81 Nonrheumatic mitral (valve) annulus calcification; Z66 Do not resuscitate; R29.706 NIHSS score 6; Z79.82 Long term (current) use of aspirin; Z79.899 Other long term (current) drug therapy; Z87.11 Personal history of peptic ulcer disease; Z79.02 Long term (current) use of antithrombotics/antiplatelets
CPT/HCPCS: 36415; 70450; 70496; 70498; 70544; 80053; 80061; 80307; 81001; 83036; 83735; 83880; 84100; 84439; 84443; 84484; 85025; 85610; 85730; 87086; 92610; 93005; 93306; 93312; 93970; 96374; 96375; 97162; 99152; 99285; A4649; J1200; J1644; J2250; J2470; J3010; J3490; Q9967; A9270

== ENCOUNTER 2024-09-17 20:24 | Emergency (ER) | payer MEDICARE, MEDICAID, SELFPAY ==
[2024-09-17 20:26] VITALS: BMI 15.4
[2024-09-17 20:27] VITALS: BP 133/69; PULSE 98; RESP 18; TEMP 36.5; O2SAT 96
--- NOTE | 2024-09-17 20:33 | EDNOTE_ITS ---
ED General RME/HPI General Chief complaint: Nausea/Vomiting/Diarrhea Stated complaint: ABD PAIN Time Seen by Provider: 09/17/24 20:32 Arrival date/time: 09/17/24 20:24 CC: Nausea vomiting HPI patient presents the ER via EMS who reports stable vital signs after patient vomited once after dinner, EMS report patient's care providers at the [facility] care facility and the daughter wanted her checked out as she has a history of gallstones. Patient is awake alert oriented denies any nausea denies any abdominal pain. EMS reports stable vital signs Related Data Home Medications ?Medication ?Instructions ?Recorded ?Confirmed Fosinopril * (MONOPRIL *) 40 mg PO BID #0 tabs 7 08/20/24 Previous Rx's ?Medication ?Instructions ?Recorded aspirin 81 mg tablet,delayed 81 mg PO QDAY 1 month #30 tabs 08/23/24 release (Ecotrin Low Strength) atorvastatin 20 mg tablet 80 mg (4 x 20 mg) PO HS 1 mo nth 08/23/24 #120 tabs clopidogrel 75 mg tablet 75 mg PO QDAY 1 month #30 ta bs 08/23/24 Allergies Allergy/AdvReac Type Severity Reaction Status Date / Time No Known Allergies Allergy Verified 08/20/24 07:25 Review of Systems Review of Systems Narrative Review of Systems: GEN: No fever, no chills, no weight loss EYES: No discharge, no visual changes, no pain HEENT: No ear pain, no congestion, no sore throat PULM: No shortness of breath, no cough, no congestion CV: No chest pain, no dyspnea on exertion, no palpitations GI: + nausea, + vomiting, no diarrhea, no pain, no constipation : No frequency, no urgency, no dysuria MUSC/SKEL: No joint pain, no back pain SKIN: No rash PSYCH: No hallucinations, no depression HEME/LYMPH: No easy bleeding or bruising tendencies NEURO: No weakness, no headache Past Medical History Past Medical History NEUROLOGIC: Positive Transient Ischemic Attacks (TIA) (20years ago); Negative Seizures CARDIAC: Positive Hypercholesterolemia and Hypertension; Negative Cardiac Disorders or Congestive Heart Failure RESPIRATORY: Negative Chronic Obstructive Pulmonary Disease (COPD) or Asthma GENITOURINARY: Negative Renal Disease MUSCULOSKELETAL: Positive Rheumatoid Arthritis ENDOCRINE: Negative Diabetes Mellitus Type 1 or Diabetes Mellitus Type 2 HEMATOLOGIC: Negative Sickle Cell Disease OTHER HISTORY: Positive Blood Transfusions and Anesthesia Reactions; Negative Blood Transfusion Reaction or Cancer Surgical History SURGICAL: Positive Joint Replacement Social History SMOKING STATUS: Never smoker SUBSTANCE USE: does not use ED Exam Narrative Physical exam: [General: Frail, deconditioned, but not in any acute distress Head normocephalic HEENT: Eyes: Pupils are PERRLA EOMs are intact mouth pink dry membranes uvula is midline swallow symmetrical phonation is normal. All other subsystems of ATTR within acceptable limits Neck is supple nontender Chest equal chest rise nontender to palpation Respiratory: Clear to auscultation no wheezes crackles or rubs CV: Rate rhythm is regular no murmurs rubs or clicks Abdomen is distended secondary to body habitus soft nontender no masses positive bowel sounds all 4 quadrants Back: No CVA tenderness no spinous process tenderness from cervical spine thoracic and lumbar spine Skin: Intact no petechiae rash induration ulceration or crepitus Extremities: Moving all extremities weakly, significantly contracted right hand. Am informed this is baseline. Neuro: Awake alert oriented x3 Glascow coma 15 no focal deficits] Course Quality Measures none Orders Category Date Time Status CBC Stat Lab 09/17/24 20:42 Completed CMP [Comprehensive Metabolic Panel] Stat Lab 09/17/24 20:42 Completed Lipase Stat Lab 09/17/24 20:42 Completed Urinalysis Stat Lab 09/17/24 20:32 Ordered Vital Signs Vital signs: Vital Signs Temperature 97.7 F 09/17/24 20:27 Pulse Rate 98 09/17/24 20:27 Respiratory Rate 18 09/17/24 20:27 Blood Pressure 133/69 H 09/17/24 20:27 Pulse Oximetry (%) 96 09/17/24 20:27 Oxygen Delivery Method Room Air 09/17/24 20:27 Discharge Plan Plan Patient Disposition: HOME (Self Care) Prescriptions/Referrals Prescriptions/Med Rec: No Action Fosinopril * (MONOPRIL *) 40 MG tablet 40 mg PO BID Qty: 0 atorvastatin 20 mg Tablet 80 mg PO HS 30 Days Qty: 120 3RF aspirin [Ecotrin Low Strength] 81 mg Tablet,Delayed Release (Dr/Ec) 81 mg PO QDAY 30 Days Qty: 30 3RF clopidogrel 75 mg tablet 75 mg PO QDAY 30 Days Qty: 30 0RF Problem List Clinical Impression: Nausea & vomiting Patient/Caregiver Discharge Instructions Education Materials: ED Vomiting and Diarrhea ... Print Language: Mohawk Stand Alone Forms: Pam Award Info., Patient Portal Info Letter PA/CONVERTIBLE SOFA BEDSPRING TESTER Supervising Physician PA/CONVERTIBLE SOFA BEDSPRING TESTER Supervising Physician: Jersey Hopkins ENP MDM Clinical Information Provided by patient and EMS Medical Records Reviewed [facility] Meds/Rx Considered, not Ordered None Labs/Rad/Tests considered, not Ordered None Chronic Illness/Social Conditions Add or document further as needed: Past medical history includes hypertension rheumatoid arthritis hyperlipidemia tenderness recent CVA with NSTEMI. EKG EKG not done Lab Interpretation Labs: interpreted by de Lab(s) interpretation(s): CBC shows WBCs 11.8 no anemia or thrombocytopenia. CMP shows sodium 133 no other electrolyte imbalances no renal impairment no transaminitis or T. bili elevation. Lipase at 63. Imaging Imaging interpretation: none Radiology reports / interpretation(s): The patient has no acute findings has completely resolved of any nausea states she is she is ready to go home laboratory results are wholly unremarkable. She is nontender in the abdomen comfortable discharging her home with nausea vomiting.
[2024-09-17 20:52] LABS: Basophils # (Auto) 0.1 Thou/mm3 (0.0-0.2); Basophils % (Auto) 0 % (0-2.5); Eosinophils # (Auto) 0.1 Thou/mm3 (0.0-0.5); Eosinophils % (Auto) 1 % (0-10); Hematocrit 39.4 % (36.0-46.0); Immature Granulocytes % (Auto) 0 % (0-0); Immature Granulocytes Auto 0.04 Thou/mm3 (0.00-0.00); Lymphocytes # (Auto) 2.3 Thou/mm3 (1.0-4.8); Lymphocytes % (Auto) 19 % (10-50); Mean Corpuscular Hemoglobin 27.1 pg (25.0-35.0); Mean Corpuscular Volume 82 fL (80-100); Monocytes % (Auto) 9 % (0-12); Neutrophils # (Auto) 8.3 Thou/mm3 (1.8-7.7); Neutrophils % (Auto) 71 % (37-80); Nucleated Red Blood Cell % 0 /100 WBC (0); Platelet Count 195 Thou/mm3 (140-440); RDW Standard Deviation 41.9 fL (36.4-46.3); Red Blood Count 4.79 Miln/mm3 (4.00-5.20); White Blood Count 11.8 Thou/mm3 (3.6-11.0)
[2024-09-17 21:00] VITALS: PULSE 96; O2SAT 97
[2024-09-17 21:06] LABS: Anion Gap 10 (7-16); BUN/Creatinine Ratio 17 Ratio (12-20); Blood Urea Nitrogen 20 mg/dL (9-23); Carbon Dioxide 24.4 mMol/L (20.0-31.0); Chloride 99 mMol/L (98-107); Creatinine (Component) 1.2 mg/dL (0.6-1.3); Estimated Creatinine Clearance 22.5 mL/min (>60); Potassium 4.9 mMol/L (3.4-5.1); Sodium 133 mMol/L (136-145); eGFR 45 See Note
[2024-09-17 21:07] LABS: Alanine Aminotransferase 14 U/L (10-49); Albumin, Serum 3.6 gm/dL (3.4-4.8); Alkaline Phosphatase 116 U/L (46-116); Aspartate Amino Transferase 30 U/L (0-34); Bilirubin,Total 0.9 mg/dL (0.3-1.2); Calcium 9.8 mg/dL (8.3-10.6); Calcium (Corrected) 10.1 mg/dL (8.5-10.1); Globulin 3.7 gm/dL (2.3-3.5); Glucose 99 mg/dL (74-106); Lipase 63 U/L (12-53); Osmolality,Calculated 268 (275-295); Total Protein 7.3 gm/dL (5.7-8.2)
== END 2024-09-17 22:00 | disposition home or self-care (01) ==
LOC: SERX 21:54
PROVIDERS: Registered Nurse General Practice; Emergency Provider Emergency Medicine; PCP Family Medicine
DX: R11.2 Nausea with vomiting, unspecified (principal)
CPT/HCPCS: 36415; 80053; 81001; 83690; 85025; 99283

== ENCOUNTER 2024-09-19 00:08 | Inpatient (IN) | payer MEDICARE, MEDICAID, SELFPAY ==
[2024-09-19] VITALS (13 sets, daily range): BP systolic 88–157; BP diastolic 38–62; PULSE 65–104; RESP 14–99; TEMP 36.3–36.9; O2SAT 93–100; BMI 25.7; BMI 11.0
--- NOTE | 2024-09-19 00:26 | EDNOTE_ITS ---
Nausea/Vomit./Diarrhea-RME/HPI General Chief complaint: Nausea/Vomiting/Diarrhea Stated complaint: VOMITING BLOOD Time Seen by Provider: 09/19/24 00:28 Arrival date/time: 09/19/24 00:08 RME / HPI RME / HPI Narrative: This section includes all my notes and documentations, including HPI, PE, and ED course. Flo Garvey MD HPI: 84 y/o female with Hx of Hypertension, TIA, and CVA presents to ED BIBA from [facility] with possible hematemesis just prior to arrival. EMS received report from ID staff that patient had two episodes of hematemesis just prior to arrival. Patient reports coughing for a few days. Thinks the coughing induced vomiting. She is uncertain if she had hemoptysis or hematemesis. Daughter who is present reports no significant coughing recently. Visits her mom daily. 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 And has been in the detention since the stroke. No fever. EMS noted hypotension and patient received 1 L of IV fluid. Currently, patient reports no nausea or vomiting. No abdominal pain. No rectal bleeding. No tarry stools. No other complaints ROS: All negative except as documented in HPI. Physical Exam: General: Alert and oriented. No acute distress. Hypoxia noted. Hypotension noted. Eyes: Conjunctivae and lids clear. EOMI. PERRL. ENT: No nasal congestion. Pharynx normal. Tympanic membrane normal bilaterally. Neck: Supple. No carotid bruit. No JVD. Heart: RRR. Lungs: No respiratory distress. Good air movement. No significant rhonchi, wheezing, rales. Abdomen: Soft and nontender. Normal bowel sounds. No distension. No rebound or guarding. Legs: No clubbing, cyanosis, edema. Skin: Warm and dry. Neuro: Alert and oriented X 3. I reviewed EMS and detention notes. I reviewed all diagnostic test results. My interpretation of the EKG: NSR (86 bpm) with no ST-T changes. My review of the Abdomen/Pelvis CT report is no acute findings. My review of the CTA report is pneumonia. Blood tests remarkable for WBC 13.9, D-dimer 920, and LA 2.1. UA showed positive leukocyte esterase and 74 WBC. COVID/influenza negative. At this point, diagnoses include acute respiratory failure with hypoxia, detention acquired pneumonia, and UTI. Treatment here included Oxygen, IV fluid, Zofran, Methylprednisolone, DuoNeb, Rocephin, and Vancomycin. I discussed the case with our hospitalist. About the presentation and exam and diagnostics and treatments here. And need of further care in the hospital. Will accept the patient. Flo Garvey MD Related Data Home Medications ?Medication ?Instructions ?Recorded ?Confirmed Fosinopril * (MONOPRIL *) 40 mg PO BID #0 tabs 7 08/20/24 Previous Rx's ?Medication ?Instructions ?Recorded aspirin 81 mg tablet,delayed 81 mg PO QDAY 1 month #30 tabs 08/23/24 release (Ecotrin Low Strength) atorvastatin 20 mg tablet 80 mg (4 x 20 mg) PO HS 1 mo nth 08/23/24 #120 tabs clopidogrel 75 mg tablet 75 mg PO QDAY 1 month #30 ta bs 08/23/24 Allergies Allergy/AdvReac Type Severity Reaction Status Date / Time No Known Allergies Allergy Verified 08/20/24 07:25 Review of Systems Review of Systems Systems Reviewed: All systems reviewed, normal except as documented Past Medical History Past Medical History NEUROLOGIC: Positive Cerebrovascular Accident and Transient Ischemic Attacks (TIA) CARDIAC: Positive Myocardial Infarction, Hypercholesterolemia and Hypertension MUSCULOSKELETAL: Positive Rheumatoid Arthritis OTHER HISTORY: Positive Blood Transfusions and Anesthesia Reactions Surgical History SURGICAL: Positive Joint Replacement ED Exam Narrative Physical exam: Refer to HPI above Course Quality Measures none Orders Category Date Time Status Bedside Influenza A&B Antigen Test NOW Care 09/19/24 00:29 Active COVID-19 Screening Questionnaire NOW Care 09/19/24 05:[address] Screening NOW Care 09/19/24 00:30 Active Decision to Admit X1 Care 09/19/24 05:20 Active EKG (ED ONLY) *Do not use* NOW Care 09/19/24 00:30 Completed Saline [Insert IV] NOW Care 09/19/24 00:29 Active Straight [In and Out Catheter] X1 Care 09/19/24 00:[address] abdomen pelvis w con Stat Exams 09/19/24 00:[address] angio chest Stat Exams 09/19/24 00:30 Taken EKG (ED Only) Stat Exams 09/19/24 00:30 Ordered Amylase Stat Lab 09/19/24 01:09 Completed BNP [B-Type Natriuretic Peptide] Stat Lab 09/19/24 01:09 Completed Bilirubin,Direct Stat Lab 09/19/24 01:09 Completed Blood Culture (Lab) Stat Lab 09/19/24 01:02 Received CBC Stat Lab 09/19/24 01:09 Results CMP [Comprehensive Metabolic Panel] Stat Lab 09/19/24 01:09 Completed COVID-19 Antigen (In-House) Stat Lab 09/19/24 04:12 Completed CRP [C-Reactive Protein] Stat Lab 09/19/24 01:09 Completed D-Dimer Stat Lab 09/19/24 01:09 Completed ESR [Sed Rate (ESR)] Stat Lab 09/19/24 01:09 Results Free T4 (Free Thyroxine) Stat Lab 09/19/24 01:09 Completed Lactate (Lactic Acid) Stat Lab 09/19/24 01:09 Completed Lactic Acid, 3 HR Stat Lab 09/19/24 04:25 Received Lipase Stat Lab 09/19/24 01:09 Completed Magnesium Stat Lab 09/19/24 01:09 Completed Procalcitonin Stat Lab 09/19/24 01:09 Completed TSH [Thyroid Stimulating Hormone] Stat Lab 09/19/24 01:09 Completed Troponin I Stat Lab 09/19/24 01:09 Completed UA, C/S IF [Urinalysis, C/S if Indicated] Stat Lab 09/19/24 04:12 Completed Urine Culture Stat Lab 09/19/24 04:12 Received Albuterol/Ipratr Rt Lida [Duoneb Rt Lida] Med 09/19/24 00:29 Discontinued 3 ml INH X1 ONE MethylPREDNISolone.* [SoluMEDROL Inj] Med 09/19/24 00:29 Discontinued 125 mg IVP X1 ONE Ondansetron Inj [Zofran Inj] Med 09/19/24 00:29 Discontinued 4 mg IVP X1 ONE Sodium Chloride 0.9% 1000 ml [Ns] 1,000 ml Med 09/19/24 00:29 Discontinued IV 999 mls/hr Vancomycin Inj 2,000 mg Med 09/19/24 05:15 Active Sodium Chloride 0.9% 500 ml [Ns] 500 ml IV X1 cefTRIAXone/D5w 1gm IV premix [Rocephin/D5w 1gm IV Med 09/19/24 04:57 Active premix] 1 gm in 50 ml IV X1 Vital Signs Vital signs: Vital Signs Temperature 98.4 F 09/19/24 00:11 Pulse Rate 92 09/19/24 00:11 Respiratory Rate 17 09/19/24 00:11 Blood Pressure 88/38 L 09/19/24 00:11 Pulse Oximetry (%) 93 L 09/19/24 00:11 Oxygen Delivery Method Room Air 09/19/24 00:11 Nausea/Vomiting/Diarrhea MDM Narrative MDM Narrative:: Scribe Attestation: I, Kathleen Barrett, am scribing for and in the presence of Dr. Garvey. Provider Notation: Although this document has been carefully reviewed, there may still be some phonetic and other typographical errors.? These errors are purely grammatical due to imperfections in the software program and should not be construed in any way to? compromise the substance of the patient's medical care during this visit. 84 y/o female with Hx of Hypertension, TIA, and CVA presents to ED BIBA from [facility] c/o cough and vomiting blood x 1 day. SNF faculty reported patient vomited bright red blood twice today. When EMS arrived, they observed 80 mL of bright red vomit. Patient was hypotensive en route and was given 1,000 of LR. Patient denies nausea, abdominal pain, chest pain, bloody or tarry stool, or any fever. No other complaints. Patient data External records reviewed:: [facility] previous records (Reviewed prior ED records from 09/17/24. Patient was seen for Nausea & vomiting.), EMS form and [facility] records Clinical information provided by:: patient and EMS Social determinants that could affect healthcare access:: housing (SNF) Patient has the following chronic illnesses:: Cerebrovascular Accident, Transient Ischemic Attacks (TIA), Myocardial Infarction, Hypercholesterolemia, Hypertension, Rheumatoid Arthritis How is presenting disease/condition affected by chronic disease/condition?: exacerbated by Evaluation data The following diagnostics were reviewed and interpreted by me:: EKG tracing(s) (My interpretation of the EKG: NSR (86 bpm) with no ST-T changes. Flo Garvey MD) Lab and/or radiology exams considered but not ordered:: None Interpretation Summary: I reviewed all diagnostic test results. My interpretation of the EKG: NSR (86 bpm) with no ST-T changes. My review of the Abdomen/Pelvis CT report is no acute findings. My review of the CTA report is pneumonia. Blood tests remarkable for WBC 13.9, D-dimer 920, and LA 2.1. UA showed positive leukocyte esterase and 74 WBC. COVID/influenza negative. Medications / Prescriptions Medications / Prescriptions considered but not ordered:: None Medication administrations:: Medication Administration History Ceftriaxone Sodium/Dextrose (Rocephin/D5w 1gm Iv Premix) 1 gm in 50 mls @ 100 mls/hr IV X1 ONE Stop: 09/19/24 05:26 Vancomycin HCl 2,000 mg/ (Sodium Chloride) 500 mls @ 150 mls/hr IV X1 ONE Stop: 09/19/24 08:34 Discontinued Medications Albuterol/Ipratropium (Albuterol/Ipratropium (Duoneb) Rt Lida 3 Ml Nebu) 3 ml I NH X1 ONE Stop: 09/19/24 00:30 Last Admin: 09/19/24 01:00 Dose: 3 ml Documented By: MINDY Sodium Chloride (Ns) 1,000 mls @ 999 mls/hr IV .Q1H1M ONE Stop: 09/19/24 01:29 Last Admin: 09/19/24 01:52 Dose: 999 mls/hr Documented By: AFIA Methylprednisolone Sodium Succinate (Methylprednisolone Sod Succ 62.5 Mg/Ml 2ml Vial) 125 mg IVP X1 ONE Stop: 09/19/24 00:30 Last Admin: 09/19/24 01:52 Dose: 125 mg Documented By: AFIA Ondansetron HCl (Ondansetron Inj 2 Mg/Ml Inj 2 Ml) 4 mg IVP X1 ONE; Protocol Stop: 09/19/24 00:30 Last Admin: 09/19/24 01:51 Dose: 4 mg Documented By: AFIA Comments: given over 2 minutes Treatment here included Oxygen, IV fluid, Zofran, Methylprednisolone, DuoNeb, Rocephin, and Vancomycin. Consultations Consultation(s) initiated? (list below): No Diagnosis Nausea Differential Diagnosis: other (CVA, brain tumor, CO, PE, CHF, pneumonia, COVID, influenza, GI bleed, pulmonary embolism, dehydration, electrolyte abnormalities) Most likely diagnosis given after review of the tests above:: At this point, diagnoses include acute respiratory failure with hypoxia, detention acquired pneumonia, and UTI. Admission Indicated Admission indicated?: indicated Explain why admission is indicated or not indicated:: Acute respiratory failure with hypoxia, detention acquired pneumonia, and UTI. Admission Request Was there a request for admission?: Yes Admission Attestation Admission request attestation: Discussed case with Hospitalist service regarding admission. Discussed patients ED course, exam findings, labs, and radiology results. The Hospitalist [agrees] to accept the patient for admission. Disposition Plan Disposition Plan: Admit Discharge Plan Plan Patient Disposition: Admit Acute Care w/in Hospital Prescriptions/Referrals Prescriptions/Med Rec: No Action Fosinopril * (MONOPRIL *) 40 MG tablet 40 mg PO BID Qty: 0 atorvastatin 20 mg Tablet 80 mg PO HS 30 Days Qty: 120 3RF aspirin [Ecotrin Low Strength] 81 mg Tablet,Delayed Release (Dr/Ec) 81 mg PO QDAY 30 Days Qty: 30 3RF clopidogrel 75 mg tablet 75 mg PO QDAY 30 Days Qty: 30 0RF Referrals: Fitz Gomes MD [Primary Care Provider] - In 1 week Problem List Clinical Impression: Acute respiratory failure with hypoxia, shelter-acquired pneumonia, UTI (urinary tract infection) Patient/Caregiver Discharge Instructions Print Language: Paraguayan Stand Alone Forms: Pam Award Info., Patient Portal Info Letter
--- NOTE | 2024-09-19 00:30 | XR_ITS ---
Examination: CTA chest with intravenous contrast 2-D reconstructions 3-D reconstructions, vascular Date and time of exam: September 19, 2024, 0423 hours INDICATIONS: Shortness of breath chest pain hemoptysis today CTDI: vol (mGy) 9.48 DLP: (mGycm) 304 Technique: Multiple axial sections of the thorax have been obtained. 3 mm slice thickness, from below the hemidiaphragms to above the apices of the lungs. Mediastinal and lung density settings have been obtained. 2-D sagittal and coronal reconstructions. 3-D angiographic renderings, 3-D volume renderings, 3D post processing, vascular maximum intensity projections obtained. Contrast administered is 100 cc 370 intravenous. Low dose protocols were performed. One or more of the following dose reduction techniques were used; automated exposure control, adjustment of the mA and/or KV according to patient size, use of iterative reconstruction technique. Findings: No thoracic aortic aneurysmal dilatation or dissection No pulmonary artery filling defects Mild enlargement left atrium and ventricle Significant coronary artery calcification COPD with extensive pulmonary fibrosis pattern Suspicious for superimposed pneumonia in the right lung Significant osteopenia IMPRESSION: Negative for pulmonary artery emboli Severe bilateral pulmonary fibrosis Suspicious for superimposed pneumonia right lung
--- NOTE | 2024-09-19 00:30 | XR_ITS ---
Examination: CT abdomen with intravenous contrast CT pelvis with intravenous contrast 2-D coronal reconstructions 2-D sagittal reconstructions Date and time of exam:September 19, 2024, 0423 hours INDICATIONS: Vomiting blood today. CTDI: vol (mGy) 8.9 DLP: (mGycm) 445 Technique: Multiple axial sections of the abdomen and pelvis have been obtained. 64 slice high-resolution scanner used. 3 mm axial sections have been obtained, post intravenous injection 100 cc Isovue 370 2-D sagittal, coronal reconstructions obtained. Low dose protocols were performed. One or more of the following dose reduction techniques were used; automated exposure control, adjustment of the mA and/or KV according to patient size, use of iterative reconstruction technique. Findings: Large retrocardiac gastric hernia Cholelithiasis No focal liver or splenic lesions Atrophic right kidney Heavy abdominal aortic calcification No bowel obstruction No pericecal inflammatory change No diverticulitis Atrophic uterus Significant degenerative disc disease L2-L3, L3-L4 Old healed left hip fracture IMPRESSION: Large retrocardiac gastric hernia Cholelithiasis Atrophic right kidney No bowel obstruction or diverticulitis
[2024-09-19] MEDS: ALBUTEROL/IPRATROPIUM (Duoneb) RT SOL 3 ML NEBU INH (01:00)
[2024-09-19 01:21] LABS: Lactate (Lactic Acid) 2.1 mMol/L (0.4-2.0)
[2024-09-19 01:23] LABS: Basophils # (Auto) 0.1 Thou/mm3 (0.0-0.2); Basophils % (Auto) 1 % (0-2.5); Eosinophils # (Auto) 0.1 Thou/mm3 (0.0-0.5); Eosinophils % (Auto) 1 % (0-10); Hemoglobin 10.6 g/dL (12.0-16.0); Immature Granulocytes % (Auto) 1 % (0-0); Immature Granulocytes Auto 0.08 Thou/mm3 (0.00-0.00); Lymphocytes # (Auto) 1.4 Thou/mm3 (1.0-4.8); Lymphocytes % (Auto) 10 % (10-50); Mean Corpuscular HGB Conc 33.1 g/dl (31.0-37.0); Mean Corpuscular Hemoglobin 27.2 pg (25.0-35.0); Mean Corpuscular Volume 82 fL (80-100); Monocytes % (Auto) 7 % (0-12); Neutrophils # (Auto) 11.2 Thou/mm3 (1.8-7.7); Neutrophils % (Auto) 81 % (37-80); Nucleated Red Blood Cell % 0 /100 WBC (0); Platelet Count 171 Thou/mm3 (140-440); RDW Standard Deviation 42.1 fL (36.4-46.3); Red Blood Count 3.89 Miln/mm3 (4.00-5.20); White Blood Count 13.9 Thou/mm3 (3.6-11.0)
[2024-09-19 01:48] LABS: Alanine Aminotransferase 12 U/L (10-49); Albumin, Serum 2.8 gm/dL (3.4-4.8); Albumin/Globulin Ratio 1.1 (1.2-2.2); Alkaline Phosphatase 88 U/L (46-116); Amylase 111 U/L (30-118); Anion Gap 9 (7-16); Aspartate Amino Transferase 22 U/L (0-34); BUN/Creatinine Ratio 25 Ratio (12-20); Bilirubin,Direct 0.4 mg/dL (0.0-0.3); Bilirubin,Total 0.9 mg/dL (0.3-1.2); Blood Urea Nitrogen 27 mg/dL (9-23); C-Reactive Protein < 0.5 mg/dL (0.0-0.9); Calcium 8.3 mg/dL (8.3-10.6); Calcium (Corrected) 9.3 mg/dL (8.5-10.1); Carbon Dioxide 23.5 mMol/L (20.0-31.0); Chloride 105 mMol/L (98-107); Creatinine (Component) 1.1 mg/dL (0.6-1.3); Estimated Creatinine Clearance 30.8 mL/min (>60); Free T4 (Free Thyroxine) 1.22 ng/dL (0.89-1.76); Globulin 2.6 gm/dL (2.3-3.5); Glucose 117 mg/dL (74-106); Lipase 58 U/L (12-53); Osmolality,Calculated 279 (275-295); Potassium 4.7 mMol/L (3.4-5.1); Sodium 137 mMol/L (136-145); Thyroid Stimulating Hormone 3.12 uIU/mL (0.55-4.78); Total Protein 5.4 gm/dL (5.7-8.2); Troponin I 0.028 ng/mL (0.0-0.045); eGFR 50 See Note
[2024-09-19] MEDS: ONDANSETRON INJ 2 MG/ML INJ 2 ML 4 MG IVP (01:51)
[2024-09-19] MEDS: MethylPREDNISolone SOD SUCC 62.5 MG/ML 2ML VIAL 125 MG IVP (01:52)
[2024-09-19] MEDS: SODIUM CHLORIDE 0.9% 1000 ML 1,000 ML 999 ML IV (01:52)
[2024-09-19 02:11] LABS: B-Type Natriuretic Peptide 57 pg/mL (0-100)
[2024-09-19 02:13] LABS: D-Dimer 920 ng/mL (<600)
[2024-09-19 04:18] LABS: Reflex Lactate? Y
[2024-09-19 04:35] LABS: Collection Type, Urine Clean Catch
[2024-09-19 04:51] LABS: Bilirubin,Urine Negative (Negative); Blood,Urine Negative (Negative); Clarity,Urine Clear (Clear/Hazy); Color,Urine Yellow (Lt Yel-Yel); Glucose, Urine Negative (Negative); Hyaline Casts,Urine < 1 /hpf (0-1); Ketones,Urine 1+ (Negative); Leukocyte Esterase,Urine Positive (Negative); Nitrite,Urine Negative (Negative); Protein,Urine Negative (Neg - Trace); RBC,Urine 2 /hpf (0-3); Specific Gravity,Urine 1.023 (1.001-1.035); Squamous Epithelial Cell,Urine < 1 /hpf (0-5); WBC,Urine 74 /hpf (0-5)
[2024-09-19 04:55] LABS: Culture Indicated,Urine Yes
[2024-09-19 05:06] LABS: COVID-19 Antigen (In-House) Negative (Negative)
--- NOTE | 2024-09-19 05:12 | PRELIM_ITS ---
CT angiogram of the chest with intravenous contrast (axial sections with sagittal and coronal reformats). September 19, 2024 at 0423 hours Clinical History: Hemoptysis. Technique:Helical axial sections with sagittal and coronal reformats of the chest were obtained with intravenous contrast. Iterative reconstruction technique was employed to reduce patient radiation exposure. 3D/MIP reconstructed images were also provided. Comparison: No prior study is available for comparison. Findings: There is no filling defect within the pulmonary artery divisions to suggest pulmonary thromboembolism. The mediastinum demonstrates no evidence of mass or lymphadenopathy. The thoracic aorta is unremarkable. There is no pericardial effusion. Honeycombing and bilateral lower lobes consolidation. No evidence of pleural effusion or pneumothorax. The osseous structures are unremarkable. Gallstones without evidence of acute cholecystitis. Dilated left atrium. Coronary arteries calcifications. Large hiatus hernia. Impression: 1. No CT evidence of pulmonary thromboembolism. 2. Coronary arteries calcifications. If acute myocardial infarction is clinically suspected consider correlation with troponin. 3. Large hiatus hernia. 4. Bilateral lower lobes pneumonia. 5. Dilated left atrium. Report Electronically Signed By: Darrin Sams 09/19/2024 5:11:50 AM [EST]
--- NOTE | 2024-09-19 05:15 | PRELIM_ITS ---
CT scan of the abdomen and pelvis with intravenous contrast (axial sections with sagittal and coronal reformats). September 19, 2024 at 0423 hours Clinical History: Hematemesis. Comparison: No prior study is available for comparison. Findings: Please, see separate report for description of the chest findings. The liver, pancreas, spleen and adrenals are unremarkable. Hypotrophic right kidney. Normal left kidney. No hydronephrosis. Gallstones without evidence of acute cholecystitis. No evidence of bowel obstruction. No evidence of appendicitis. There is no mesenteric or retroperitoneal adenopathy. The urinary bladder is nondistended, limited evaluation. There is no free fluid or free air. No acute fractures. Left femoral hardware noted. Large hiatus hernia. The uterus and ovaries are within normal limits. Impression: Large hiatus hernia. Report Electronically Signed By: Darrin Sams 09/19/2024 5:14:37 AM [EST]
[2024-09-19] MEDS: Vancomycin Inj 2,000 MG in SODIUM CHLORIDE 0.9% 500 ML 500 ML 150 MG IV (05:41)
[2024-09-19] MEDS: cefTRIAXone/D5w 1gm IV premix 1 GM/50 ML BAG IV (05:49)
--- NOTE | 2024-09-19 06:03 | PD.RESHP ---
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 on 08/22/24 on Plavix and aspirin, presented to ED from nursing facility after 2 episodes of hematemesis. Patient was at the ED yesterday with chief complaints of nausea, vomiting, was given Zofran and was sent back to the facility. Today daughter is at bedside and stated that she was called and notified by facility that patient had 2 large episode of hematemesis, and has been complaining of nausea and vomiting whole day. On presentation patient was hypotensive, was given 1 L of fluids, also oxygen requirement has increased on the road, and patient received methylprednisone due to hypoxia. Otherwise upon my evaluation patient was hemodynamically stable, was AO x 2, however still slightly confused, which appears to be her baseline. Patient was able to give some history, stated that has been nauseous for the last 2 days, has been throwing up blood, but denied any hematochezia. Per chart review patient hemoglobin dropped since last admission, from 13-10.6, hematocrit is 32 from 39.4. Otherwise labs also revealed leukocytosis with WBC of 13.9 most likely reactive, lactic acid was slightly elevated 2.1, UA was consistent for UTI, patient denies any dysuria. CTA did not reveal any PE, revealed coronary artery calcifications large hiatal hernia, bilateral lower lobe pneumonia, dilated left atrium. Patient will be admitted for acute GI bleed treatment and management. PMH COMMENT: PMH: Positive for rheumatoid arthritis, hypertension and hyperlipidemia PSHx: Positive for hip and knee surgery in the past Allergies: No known drug and food allergies Social history: -Smoking: Denies -Alcohol Use: Denies -Illicit Drug Use: Denies Review of Systems Review of Systems Systems Reviewed: All systems reviewed, normal except as documented Exam Vital Signs Temp Pulse Resp BP Pulse Ox O2 Del Method O2 Flow Rate 98.4 F 104 H 18 88/38 L 100 Room Air 2 09/19/24 00:11 09/19/24 01:04 09/19/24 01:04 09/19/24 00:11 09/19/24 01:04 09/19/24 00:11 09/19/24 01:04 Narrative Exam General: Awake and in no acute distress. Conversational and non-toxic appearing. HEENT: Normocephalic, atraumatic, mucous membranes moist. Heart: Regular rate and rhythm, no murmurs. Lungs: Clear to auscultation with no wheezing or crackles. Abdomen: Soft, nondistended, nontender, positive bowel sounds. ?No guarding or rebound tenderness. Neurologic: Alert and oriented x2, left side facial droop, however exam is limited due to patient was not completely cooperating with physical exam. At baseline patient uses a wheelchair after stroke. Extremities: Deformity is noted secondary to rheumatoid arthritis on the right foot and bilateral upper extremities. Skin: No rash or ecchymoses. Results: Labs 09/19/24 01:09 09/19/24 01:09 Labs: Short CBC 09/19/24 Range/Units 01:09 WBC 13.9 H (3.6-11.0) Thou/mm3 Hgb 10.6 L D (12.0-16.0) g/dL Hct 32.0 L (36.0-46.0) % Plt Count 171 (140-440) Thou/mm3 BMP 09/19/24 01:09 Sodium 137 Potassium 4.7 Chloride 105 Carbon Dioxide 23.5 BUN 27 H Creatinine 1.1 Glucose 117 H Calcium 8.3 D Cardiac Enzymes 09/19/24 Range/Units 01:09 Troponin I 0.028 (0.0-0.045) ng/mL Liver Function 09/19/24 Range/Units 01:09 Total Bilirubin 0.9 (0.3-1.2) mg/dL Direct Bilirubin 0.4 H (0.0-0.3) mg/dL AST 22 (0-34) U/L ALT 12 (10-49) U/L Alkaline Phosphatase 88 D (46-116) U/L Albumin 2.8 L D (3.4-4.8) gm/dL Urine 09/19/24 Range/Units 04:12 Urine Color Yellow (Lt Yel-Yel) Urine Clarity Clear (Clear/Hazy) Urine pH 6.0 (5.0-7.0) Ur Specific [place] 1.023 (1.001-1.035) Urine Protein Negative (Neg - Trace) Urine Glucose (UA) Negative (Negative) Quality Measures Quality Measures none Advance care planning discussed with:: child Medications Home Medications and Allergies Home Medications ?Medication ?Instructions ?Recorded ?Confirmed ?Type Fosinopril * (MONOPRIL *) 40 mg PO BID #0 tabs 05/29/16 08/20/24 History Allergies Allergy/AdvReac Type Severity Reaction Status Date / Time No Known Allergies Allergy Verified 08/20/24 07:25 Visit Medications Acetaminophen (Acetaminophen 325 Mg Tablet) 650 mg PO Q6H PRN PRN Reason: PAIN OR FEVER > 101 Stop: 10/19/24 05:44 Vancomycin HCl 2,000 mg/ (Sodium Chloride) 500 mls @ 150 mls/hr IV X1 ONE Stop: 09/19/24 08:34 Last Admin: 09/19/24 05:41 Dose: 150 mls/hr Sodium Chloride (Ns) 1,000 mls @ 75 mls/hr IV .[id number] NADIR Stop: 10/19/24 05:44 Pantoprazole Sodium (Protonix/Ns 80mg Iv Premix) 80 mg in 100 mls @ 400 mls/hr IV X1 ONE Stop: 09/19/24 06:04 Ceftriaxone Sodium/Dextrose (Rocephin/D5w 1gm Iv Premix) 1 gm in 50 mls @ 100 mls/hr IV QDAY [facility] Stop: 09/27/24 08:59 Ondansetron HCl (Ondansetron Inj 2 Mg/Ml Inj 2 Ml) 4 mg IVP Q6H PRN; Protocol PRN Reason: NAUSEA OR VOMITING Stop: 10/19/24 05:44 Pantoprazole Sodium (Pantoprazole Inj 40 Mg Vial) 40 mg IVP BID [facility] Stop: 10/19/24 20:59 Discontinued Medications Albuterol/Ipratropium (Albuterol/Ipratropium (Duoneb) Rt Lida 3 Ml Nebu) 3 ml INH X1 ONE Stop: 09/19/24 00:30 Last Admin: 09/19/24 01:00 Dose: 3 ml Sodium Chloride (Ns) 1,000 mls @ 999 mls/hr IV .Q1H1M ONE Stop: 09/19/24 01:29 Last Admin: 09/19/24 01:52 Dose: 999 mls/hr Ceftriaxone Sodium/Dextrose (Rocephin/D5w 1gm Iv Premix) 1 gm in 50 mls @ 100 mls/hr IV X1 ONE Stop: 09/19/24 05:26 Last Admin: 09/19/24 05:49 Dose: 100 mls/hr Ceftriaxone Sodium/Dextrose (Rocephin/D5w 1gm Iv Premix) 1 gm in 50 mls @ 100 mls/hr IV QDAY NADIR Stop: 09/26/24 05:50 Last Admin: 09/19/24 05:57 Dose: Not Given Methylprednisolone Sodium Succinate (Methylprednisolone Sod Succ 62.5 Mg/Ml 2ml Vial) 125 mg IVP X1 ONE Stop: 09/19/24 00:30 Last Admin: 09/19/24 01:52 Dose: 125 mg Ondansetron HCl (Ondansetron Inj 2 Mg/Ml Inj 2 Ml) 4 mg IVP X1 ONE; Protocol Stop: 09/19/24 00:30 Last Admin: 09/19/24 01:51 Dose: 4 mg Assessment & Plan Plan Patient is 84-year-old female with past medical history of rheumatoid arthritis, hypertension, hyperlipidemia was admitted for acute GI bleed treatment and management. #Hematemesis #GI bleed Patient presented with chief complaint of 2 episodes of large hematemesis Patient has been on Plavix and aspirin further recent diagnosed CVA Hold Plavix and aspirin ? Per chart review patient is also on prednisone 1 mg daily, ? Started on PPI loading dose, continue with PPI 40 mg IV daily ? N.p.o. ? GI was consulted, recommendations appreciated #PNA seen on imaging Per daughter patient was complaining of coughing, patient resides at SNF Labs revealed leukocytosis, could be reactive due to GI bleed versus infectious cause En route to ED patient had episode of hypoxic respiratory failure and was initially given methylprednisone IV Upon my evaluation patient was saturating in room air, denied any cough, shortness of breath, any recent sick contact, Influenza/COVID is negative ? Started on Rocephin daily #History of CVA Patient is on Plavix and aspirin ? Hold medication in the setting of GI bleed ? Consider PT #Episode of hypotension, most likely due to hypovolemia secondary due to GI bleed and poor oral intake. #Lactic acidosis most likely in the setting of hypotension Blood pressure improved after liter of fluid - Started on maintenance fluid - Trend lactic acid Chronic conditions #Rheumatoid arthritis #Hypertension #Hyperlipidemia ? Resume home medication after med rec reconciliation. Currently patient is NPO. Disposition:medtele DVT prophylaxis: SCDs GI prophylaxis: PPI Diet: NPO Lines: PIV CODE STATUS:DNR Patient care was discussed with attending physician Dr. Olga Gaines MD PGY-2 I have carefully reviewed this document. Due to imperfections in the voice software, there could be grammatical errors including phonetic/typographic errors. This in no way compromises the medical care the patient is receiving Attending Provider Attestation/Addendum I have examined the patient, reviewed labs and imaging findings, discussed the case with the resident(s), and reviewed entered orders. I agree with the plan of care as outlined in this note, with these additional summaries/recommendations: After examination of the patient and review of the clinical data, I feel that this patient needs admission to the hospital for further treatment and evaluation. 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 emergency department with chief complaint of hematemesis x 2. Patient and daughter seen at bedside. Per daughter patient has had 2 episodes of hematemesis. Patient will be admitted for GI bleed. Hemoglobin previously 13.0 and dropped to 10.6 within 48 hours. Patient and daughter are unsure if she has had dark stools but daughter does report patient had 2 episodes of hematemesis. Consult gastroenterology, recommendations appreciated. Hold all chemical anticoagulation for now including DAPT. Discussed with daughter that patient is at increased risk of stroke off these medicines although after weighing the benefits and risk, risks outweigh the benefit at this time. Patient's daughter in agreement. Start IV Protonix, n.p.o., low-dose maintenance fluids, and as needed Zofran for nausea. Trend hemoglobin and hematocrit. Transfuse for hemoglobin less than 7. Patient also diagnosed with community-acquired pneumonia. Patient and daughter think she has had a productive cough. Start IV antibiotics and monitor for improvement. Patient was noted to be hypotensive with minimal lactic acidosis. Patient received IV fluid bolus in the ED and while at bedside MAP was noted to be trending around 70-75. Continue to trend lactic acid until resolution. We will hold home antihypertensives for now given soft blood pressure in the emergency room. Patient has recent history of CVA and continue home statin when able. Patient receives dysphagia diet at SNF. Patient and daughter updated on the plan and in agreement. All questions answered to satisfaction. Please see residents note for additional details and management. Dr. Olga MD
[2024-09-19] MEDS: SODIUM CHLORIDE 0.9% 1000 ML 1,000 ML 75 ML IV ×2 (06:07→20:16)
[2024-09-19] MEDS: PANTOPRAZOLE/NS 80MG IV PREMIX 80 MG/100 ML BAG 400 MG IV (06:30)
[2024-09-19 06:56] LABS: Lactate (Lactic Acid) 1.6 mMol/L (0.4-2.0)
[2024-09-19 07:08] LABS: Hematocrit 30.4 % (36.0-46.0); Hemoglobin 9.6 g/dL (12.0-16.0)
[2024-09-19 07:57] LABS: Sed Rate (ESR) 35 mm/hr (0-30)
[2024-09-19 08:21] LABS: COVID-19 Antigen (In-House) Negative (Negative)
--- NOTE | 2024-09-19 08:52 | PC.NURSE ---
PT LYDIA FROM [facility] FOR REPORTED VOMITING BLOOD. RN SPOKE TO PT AND PT STATES THAT THE REASON SHES IN THE ER WAS FOR FALLS. RN ASKED IF SHE REMEMBERS VOMITING BLOOD. PT STATES SHE DOES NOT REMEMBER
[2024-09-19 10:14] LABS: Lactate (Lactic Acid) 1.1 mMol/L (0.4-2.0)
--- NOTE | 2024-09-19 10:37 | CHAP ---
Gave patient encouragement, comfort and prayer.
[2024-09-19 11:27] LABS: Basophils % (Auto) 0 % (0-2.5); Eosinophils % (Auto) 0 % (0-10); Hemoglobin 10.2 g/dL (12.0-16.0); Immature Granulocytes % (Auto) 0 % (0-0); Immature Granulocytes Auto 0.04 Thou/mm3 (0.00-0.00); Lymphocytes # (Auto) 0.6 Thou/mm3 (1.0-4.8); Lymphocytes % (Auto) 6 % (10-50); Mean Corpuscular HGB Conc 31.9 g/dl (31.0-37.0); Mean Corpuscular Hemoglobin 27.3 pg (25.0-35.0); Mean Corpuscular Volume 86 fL (80-100); Monocytes # (Auto) 0.1 Thou/mm3 (0.0-0.8); Monocytes % (Auto) 1 % (0-12); Neutrophils # (Auto) 9.3 Thou/mm3 (1.8-7.7); Neutrophils % (Auto) 93 % (37-80); Nucleated Red Blood Cell % 0 /100 WBC (0); Platelet Count 169 Thou/mm3 (140-440); RDW Standard Deviation 44.7 fL (36.4-46.3); Red Blood Count 3.74 Miln/mm3 (4.00-5.20)
--- NOTE | 2024-09-19 11:46 | PC.SS ---
Initial assessment: this is 84 year old female admitted for hematemesis. Information was obtained from patient's daughter, Crystal Nagy . Patient comes from [facility], and has been there for about a month now. Patient able to complete ADL's with some assistance. Per daughter, the patient transfers with a wheelchair and walker to assist with ambulation. Patient was being seen by provider Fitz Owen at the [facility]. Patient's pharmacy of choice is [facility] in [place]. Patient's alternate medical surrogate decision maker is her daughter Crystal, she informs she has POA. At this time, the discharge plan is to return to [facility]. D/c plan: return to [facility] Next of kin: daughterCrystal
--- NOTE | 2024-09-19 11:55 | PC.SS ---
SS follow up: per Chitra at [facility], patient will be a bed hold and can return upon discharge to the facility.
--- NOTE | 2024-09-19 11:57 | PD.RESEVENT ---
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 Upon initial evaluation, patient states that she has not remember having any episodes of hematemesis, however remembers that she fell. Later when speaking with the patient few hours later, patient does remember that she had 2 episodes of hematemesis for the last day. In the ED, patient had an episode where she desaturated to the 70s on room air and was given methylprednisone 125 mg x 1 and a breathing treatment. CTA showed severe bilateral pulmonary fibrosis, and superimposed pneumonia of the right lung but negative for PE. Abdominal pelvic CT showed large retrocardiac gastric hernia, cholelithiasis but no bowel obstruction. Patient will continue with IV antibiotics, pending final cultures. Patient's aspirin and Plavix is currently held due to the setting of GI bleed workup. Patient has mild leukocytosis and ESR elevation. Patient has received 1 L bolus in the ER, and has been on maintenance fluids since. Patient's hemoglobin is also a lot lower than when she came in last month. Patient is new hemoglobin is 9.6 from baseline of 13. Will order repeat CBC to check patient's hemoglobin and as well as type and screen in case patient needs packed RBCs. Patient will continue to be on Protonix IV 40mg BID, and pending GI recommendations. General Appearance: Pt in no apparent distress, on room air. Conversational, and nontoxic appearing. HEENT: NC/AT, no scleral icterus, no conjunctival pallor, dry mucous membranes, with dried blood on her lips Lungs: CTAB, no wheezes or crackles appreciated CVS: RRR, S1/S2 heard, no murmurs or rubs appreciated ABD: Soft, non-tender, non-distended, BS + in all 4 quadrants EXT: Patient has multiple bruises with various healing stages including left shoulder and right and lower extremities which are tender to light touch. Deformity noted secondary to RA on right foot and bilateral upper extremities SKIN: Skin exam normal without any rashes. Neuro: A&O x [address] Left side facial droop present no gross neurological deficits. Motor is 4 out of 5 in all extremities except her left upper extremity which is currently a 0 out of 5. Psych: Appropriate mood and affect Assessment and plan as mentioned above. Patient's plan and care discussed with my attending, Dr. Chris Rollins MD PGY-2
[2024-09-19 13:08] LABS: Lactate (Lactic Acid) 1.6 mMol/L (0.4-2.0)
--- NOTE | 2024-09-19 14:47 | PC.SS ---
Rounding note: treating for GI bleed. D/c plan is to return to [facility].
--- NOTE | 2024-09-19 19:09 | PD.IMCONS ---
HPI Data of Consult Requesting Physician: Prosper Espinoza MD Primary Care Provider: Fitz Gomes MD Consult Narrative Reason for consult: Hematemesis History of present illness: 84-year-old female who was brought into the emergency room and was subsequently admitted for episodes of hematemesis nausea vomiting On 09/17/2024 hemoglobin hematocrit when she was sent home back to the skilled nursing was 13.0 39.4 dropped down to 9.6 and 30.4 Patient had at least couple of witnessed episodes in the nursing facility of hematemesis Patient does have a history of rheumatoid arthritis hypertension hyperlipidemia right CVA with residual left motor weakness and was discharged on 08/22/2024 on Plavix and aspirin cc:: cc: Prosper Espinoza MD Review of Systems Review of Systems ROS Unobtainable: unobtainable due to medical condition Past Medical History Surgical History OTHER SURGICAL HX: As in the history of present illness Meds Home Medications and Allergies Home Medications ?Medication ?Instructions ?Recorded ?Confirmed ?Type Fosinopril * (MONOPRIL *) 40 mg PO BID #0 tabs 05/29/16 08/20/24 History Allergies Allergy/AdvReac Type Severity Reaction Status Date / Time No Known Allergies Allergy Verified 08/20/24 07:25 Exam Vital Signs Temp Pulse Resp BP Pulse Ox O2 Del Method O2 Flow Rate 97.4 F 76 18 142/56 H 99 Room Air 2 09/19/24 16:00 09/19/24 16:00 09/19/24 16:00 09/19/24 16:00 09/19/24 16:00 09/19/24 16:00 09/19/24 06:56 Constitutional Comments: Chronically ill Routine Respiratory Exam Comments: Normal to auscultation Routine Abdominal Exam Comments: Soft nontender Results Labs 09/19/24 11:00 09/19/24 01:09 Labs: Short CBC 09/19/24 09/19/24 09/19/24 Range/Units 01:09 06:40 11:00 WBC 13.9 H 10.0 (3.6-11.0) Thou/mm3 Hgb 10.6 L D 9.6 L 10.2 L (12.0-16.0) g/dL Hct 32.0 L 30.4 L 32.0 L (36.0-46.0) % Plt Count 171 169 (140-440) Thou/mm3 BMP 09/19/24 01:09 Sodium 137 Potassium 4.7 Chloride 105 Carbon Dioxide 23.5 BUN 27 H Creatinine 1.1 Glucose 117 H Calcium 8.3 D Cardiac Enzymes 09/19/24 Range/Units 01:09 Troponin I 0.028 (0.0-0.045) ng/mL Liver Function 09/19/24 Range/Units 01:09 Total Bilirubin 0.9 (0.3-1.2) mg/dL Direct Bilirubin 0.4 H (0.0-0.3) mg/dL AST 22 (0-34) U/L ALT 12 (10-49) U/L Alkaline Phosphatase 88 D (46-116) U/L Albumin 2.8 L D (3.4-4.8) gm/dL Urine 09/19/24 Range/Units 04:12 Urine Color Yellow (Lt Yel-Yel) Urine Clarity Clear (Clear/Hazy) Urine pH 6.0 (5.0-7.0) Ur Specific [place] 1.023 (1.001-1.035) Urine Protein Negative (Neg - Trace) Urine Glucose (UA) Negative (Negative) Assessment and Plan Additional Assessment & Plan Additional Plan: # Hematemesis complicated by the use of aspirin and Plavix plan Serial CBC transfuse if the hemoglobin drops below 7 g IV Protonix N.p.o. midnight tonight for fiberoptic esophagogastro duodenoscopy with possible therapeutic intervention possible biopsy under intravenous moderate sedation scheduled for tomorrow Will follow the patient Other medical problems include Right CVA with residual left motor weakness Rheumatoid arthritis Essential hypertension Hyperlipidemia USP patient Thank you very much for the opportunity to participate in the care of this patient
[2024-09-19] MEDS: PANTOPRAZOLE INJ 40 MG VIAL IVP (20:15)
[2024-09-20] VITALS (10 sets, daily range): BP systolic 132–160; BP diastolic 44–70; PULSE 60–92; RESP 14–21; TEMP 36.3–36.6; O2SAT 93–100; BMI 11.0
[2024-09-20 06:14] LABS: Basophils % (Auto) 0 % (0-2.5); Eosinophils % (Auto) 0 % (0-10); Hematocrit 26.6 % (36.0-46.0); Immature Granulocytes % (Auto) 1 % (0-0); Immature Granulocytes Auto 0.11 Thou/mm3 (0.00-0.00); Lymphocytes # (Auto) 1.7 Thou/mm3 (1.0-4.8); Lymphocytes % (Auto) 14 % (10-50); Mean Corpuscular HGB Conc 32.3 g/dl (31.0-37.0); Mean Corpuscular Hemoglobin 27.6 pg (25.0-35.0); Mean Corpuscular Volume 85 fL (80-100); Monocytes # (Auto) 1.1 Thou/mm3 (0.0-0.8); Monocytes % (Auto) 9 % (0-12); Neutrophils # (Auto) 9.4 Thou/mm3 (1.8-7.7); Neutrophils % (Auto) 77 % (37-80); Nucleated Red Blood Cell % 0 /100 WBC (0); Platelet Count 141 Thou/mm3 (140-440); RDW Standard Deviation 45.1 fL (36.4-46.3); Red Blood Count 3.12 Miln/mm3 (4.00-5.20); White Blood Count 12.3 Thou/mm3 (3.6-11.0)
[2024-09-20 06:17] LABS: Hemoglobin 8.6 g/dL (12.0-16.0)
[2024-09-20 06:19] LABS: Alanine Aminotransferase 11 U/L (10-49); Albumin, Serum 2.6 gm/dL (3.4-4.8); Albumin/Globulin Ratio 1.1 (1.2-2.2); Alkaline Phosphatase 68 U/L (46-116); Anion Gap 11 (7-16); Aspartate Amino Transferase 21 U/L (0-34); BUN/Creatinine Ratio 39 Ratio (12-20); Bilirubin,Total 0.5 mg/dL (0.3-1.2); Blood Urea Nitrogen 35 mg/dL (9-23); Calcium 7.7 mg/dL (8.3-10.6); Calcium (Corrected) 8.8 mg/dL (8.5-10.1); Carbon Dioxide 20.6 mMol/L (20.0-31.0); Cardiac Risk Estimate 2.7 RATIO (3.7-5.6); Chloride 112 mMol/L (98-107); Cholesterol 74 mg/dL (132-200); Creatinine (Component) 0.9 mg/dL (0.6-1.3); Estimated Creatinine Clearance 37.6 mL/min (>60); Globulin 2.4 gm/dL (2.3-3.5); Glucose 84 mg/dL (74-106); HDL Cholesterol 27 mg/dL (40-60); LDL Cholesterol,Calculated 33 mg/dL (0-130); Osmolality,Calculated 293 (275-295); Phosphorous 2.1 mg/dL (2.4-5.1); Potassium 4.4 mMol/L (3.4-5.1); Sodium 144 mMol/L (136-145); Triglycerides 71 mg/dL (30-150); eGFR > 60 See Note
--- NOTE | 2024-09-20 07:32 | CHAP ---
Prayed with patient as they were preparing to take her for her procedure.
[2024-09-20] MEDS: METOCLOPRAMIDE INJ 5 MG/ML VIAL 2 ML IVP ×2 (08:37→21:53)
[2024-09-20] MEDS: PANTOPRAZOLE INJ 40 MG VIAL IVP ×2 (08:37→21:53)
[2024-09-20] MEDS: cefTRIAXone/D5w 1gm IV premix 1 GM/50 ML BAG IV (08:37)
[2024-09-20] MEDS: NAPH,KPH MBDB 1 PACKET (1.5 GM) PO ×2 (08:37→21:53)
[2024-09-20] MEDS: SODIUM CHLORIDE 0.9% 1000 ML 1,000 ML 75 ML IV ×2 (08:47→21:53)
--- NOTE | 2024-09-20 14:23 | ESPR_ITS ---
<Statement entered by Pilo Perez MD - 09/26/24 15:43> I reviewed above note and agree with findings and plans. I have also personally examined the patient with medicine team and went over assessment and plan with medical team including physician internist and resident physician. Documentation for date of: 09/20/24 Subjective Subjective Interval history: Overnight, no acute events reported. Patient had a EGD this morning which showed Tavegil ulcers with no bleeding, large 30 mm ulcer at GE junction, gastritis and large hiatal hernia. Recommendations at this point is to continue with Protonix twice daily, Reglan 5 mg IV twice daily and peptic ulcer diet. Urine culture is still pending. Blood cultures negative in last 24 hours. Labs remarkable for low hemoglobin of 8.6, from baseline of 13 in July. Patient denies any gross hematuria or blood in dorsal stool. Patient seen and examined at bedside. Patient denies any complaints at this time. Patient most likely will need to be discharged with just aspirin only, and can discontinue Plavix at discharge as patient has finished her dual antiplatelet therapy treatment for secondary prevention of stroke. Will continue to monitor patient's CBC, and depending on antibiogram tomorrow can discharge her back to her facility. Exam Vital Signs Temp Pulse Resp BP Pulse Ox O2 Del Method O2 Flow Rate 97.3 F 81 17 137/60 H 99 Room Air 3 09/20/24 11:46 09/20/24 11:46 09/20/24 11:46 09/20/24 11:46 09/20/24 11:46 09/20/24 11:46 09/20/24 07:59 Narrative Exam General Appearance: Pt in no apparent distress, on room air. Conversational, and nontoxic appearing. HEENT: NC/AT, no scleral icterus, no conjunctival pallor, dry mucous membranes, with dried blood on her lips Lungs: CTAB, no wheezes or crackles appreciated CVS: RRR, S1/S2 heard, no murmurs or rubs appreciated ABD: Soft, non-tender, non-distended, BS + in all 4 quadrants EXT: Patient has multiple bruises with various healing stages including left shoulder and right and lower extremities which are tender to light touch. Deformity noted secondary to RA on right foot and bilateral upper extremities SKIN: Skin exam normal without any rashes. Neuro: A&O x [address] Left side facial droop present no gross neurological deficits. Motor is 4 out of 5 in all extremities except her left upper extremity which is currently a 0 out of 5. Psych: Appropriate mood and affect Objective Labs 09/20/24 04:41 09/20/24 04:41 Labs: Laboratory Results - last 24 hr 09/19/24 09/20/24 11:30 04:41 WBC 12.3 H RBC 3.12 L Hgb 8.6 L Hct 26.6 L MCV 85 MCH 27.6 MCHC 32.3 RDW Std Deviation 45.1 Plt Count 141 Neut % (Auto) 77 Lymph % (Auto) 14 [place] % (Auto) 9 Eos % (Auto) 0 Baso % (Auto) 0 Neut # (Auto) 9.4 H Lymph # (Auto) 1.7 [place] # (Auto) 1.1 H Eos # (Auto) 0.0 Baso # (Auto) 0.0 Immature Gran # (Auto) 0.11 H Absolute Nucleated RBC 0.00 Immature Gran % 1 H Nucleated RBC % 0 Sodium 144 Potassium 4.4 Chloride 112 H Carbon Dioxide 20.6 Anion Gap 11 BUN 35 H Creatinine 0.9 Estim Creat Clear Calc 37.6 L eGFR > 60 BUN/Creatinine Ratio 39 H Glucose 84 Calculated Osmolality 293 Calcium 7.7 L Corrected Calcium 8.8 Phosphorus 2.1 L Magnesium 2.0 Total Bilirubin 0.5 AST 21 ALT 11 Alkaline Phosphatase 68 D Total Protein 5.0 L Albumin 2.6 L Globulin 2.4 Albumin/Globulin Ratio 1.1 L Triglycerides 71 Cholesterol 74 L LDL Cholesterol, Calc 33 HDL Cholesterol 27 L Cholesterol/HDL Ratio 2.7 L Blood Type O Positive Antibody Screen NEGATIVE Quality Measures Quality Measures none Advance care planning discussed with:: patient Assessment & Plan Assessment Current Active Medications: Generic Name Dose Route Start Last Admin Trade Name Freq PRN Reason Stop Dose Admin Acetaminophen 650 mg 09/19/24 05:45 Acetaminophen 325 Mg Tablet PO 10/19/24 05:44 Q6H PRN PAIN OR FEVER > 101 Sodium Chloride 1,000 mls @ 75 mls/hr 09/19/24 05:45 09/20/24 08:47 Ns IV 10/19/24 05:44 75 mls/hr .[id number] NADIR Administration Ceftriaxone Sodium/Dextrose 1 gm in 50 mls @ 100 mls/hr 09/20/24 09:00 09/20/24 08:37 Rocephin/D5w 1gm Iv Premix IV 09/27/24 08:59 100 mls/hr QDAY NADIR Administration Metoclopramide HCl 5 mg 09/20/24 09:00 09/20/24 08:37 Metoclopramide Inj 5 Mg/Ml Vial 2 Ml IVP 10/20/24 08:59 5 mg Q12HR NADIR Administration Protocol Ondansetron HCl 4 mg 09/19/24 05:45 Ondansetron Inj 2 Mg/Ml Inj 2 Ml IVP 10/19/24 05:44 Q6H PRN NAUSEA OR VOMITING Protocol Pantoprazole Sodium 40 mg 09/19/24 21:00 09/20/24 08:37 Pantoprazole Inj 40 Mg Vial IVP 10/19/24 20:59 40 mg BID NADIR Administration Potassium Phos/Sodium Phos 1 packet 09/20/24 09:00 09/20/24 08:37 [facility] 1 Packet (1.5 Gm) PO 10/20/24 08:59 1 packet BID NADIR Administration Plan Patient is 84-year-old female with past medical history of rheumatoid arthritis, hypertension, hyperlipidemia was admitted for acute GI bleed treatment and management. #Acute Blood loss Anemia #Upper GI bleed #Gastricesophageal ulcer Patient presented with chief complaint of 2 episodes of large hematemesis Patient has been on Plavix and aspirin further recent diagnosed CVA Hold Plavix and aspirin EGD this morning which showed Tavegil ulcers with no bleeding, large 30 mm ulcer at GE junction, gastritis and large hiatal hernia. Will DC Plavix at discharge ? Started on PPI loading dose, continue with PPI 40 mg IV daily ? Peptic Ulcer Diet - Reglan IV 5mg BID - Resumed Aspirin 81mg for tomorrow ? GI was consulted, recommendations appreciated #Community Acquired PNA Per daughter patient was complaining of coughing, patient resides at [facility] Labs revealed leukocytosis, could be reactive due to GI bleed versus infectious cause En route to ED patient had episode of hypoxic respiratory failure and was initially given methylprednisone IV Upon my evaluation patient was saturating in room air, denied any cough, shortness of breath, any recent sick contact, Influenza/COVID is negative BCx negative in the last 24 hours UCx pending ? Started on Rocephin daily and can transition to oral Abx tomorrow s/p antibiogram tmw #History of CVA Patient is on Plavix and aspirin ? Will resume Asa tomorrow, and DC Plavix at discharge ? PT saw patient, and still requires SNF at this time d/t loss of balance #Hypotension-resolved #Lactic acidosis -resolved Chronic conditions #Rheumatoid arthritis #Hypertension #Hyperlipidemia ? Resume home medication after med rec reconciliation. Health Maintenance: Disposition:medtele DVT prophylaxis: SCDs GI prophylaxis: PPI Diet: Peptic Ulcer Diet Lines: PIV CODE STATUS:DNR Patient care was discussed with attending physician Dr. Chris Rollins, PGY-2
--- NOTE | 2024-09-20 17:00 | PC.SS ---
Rounding note: EGD today. Pending final cultures.
[2024-09-20] MEDS: ATORVASTATIN CALCIUM 20 MG TABLET 40 MG PO (21:53)
[2024-09-21] VITALS (8 sets, daily range): BP systolic 137–155; BP diastolic 47–90; PULSE 67–101; RESP 15–19; TEMP 36.4–36.6; O2SAT 95–96; BMI 11.0
[2024-09-21] MEDS: ACETAMINOPHEN 325 MG TABLET 650 MG PO ×2 (00:09→09:52)
[2024-09-21 05:10] LABS: Basophils # (Auto) 0.1 Thou/mm3 (0.0-0.2); Basophils % (Auto) 1 % (0-2.5); Eosinophils # (Auto) 0.2 Thou/mm3 (0.0-0.5); Eosinophils % (Auto) 2 % (0-10); Immature Granulocytes % (Auto) 0 % (0-0); Immature Granulocytes Auto 0.04 Thou/mm3 (0.00-0.00); Lymphocytes % (Auto) 19 % (10-50); Mean Corpuscular HGB Conc 32.6 g/dl (31.0-37.0); Mean Corpuscular Hemoglobin 27.7 pg (25.0-35.0); Mean Corpuscular Volume 85 fL (80-100); Monocytes # (Auto) 0.9 Thou/mm3 (0.0-0.8); Monocytes % (Auto) 8 % (0-12); Neutrophils # (Auto) 7.5 Thou/mm3 (1.8-7.7); Neutrophils % (Auto) 70 % (37-80); Nucleated Red Blood Cell % 0 /100 WBC (0); Platelet Count 142 Thou/mm3 (140-440); Red Blood Count 3.18 Miln/mm3 (4.00-5.20); White Blood Count 10.6 Thou/mm3 (3.6-11.0)
[2024-09-21 05:15] LABS: Hemoglobin 8.8 g/dL (12.0-16.0)
[2024-09-21 05:22] LABS: Alanine Aminotransferase 12 U/L (10-49); Albumin, Serum 2.6 gm/dL (3.4-4.8); Albumin/Globulin Ratio 1.1 (1.2-2.2); Alkaline Phosphatase 72 U/L (46-116); Anion Gap 10 (7-16); Aspartate Amino Transferase 25 U/L (0-34); BUN/Creatinine Ratio 24 Ratio (12-20); Bilirubin,Total 0.6 mg/dL (0.3-1.2); Blood Urea Nitrogen 19 mg/dL (9-23); Calcium 7.7 mg/dL (8.3-10.6); Calcium (Corrected) 8.8 mg/dL (8.5-10.1); Carbon Dioxide 21.8 mMol/L (20.0-31.0); Chloride 112 mMol/L (98-107); Creatinine (Component) 0.8 mg/dL (0.6-1.3); Estimated Creatinine Clearance 42.3 mL/min (>60); Globulin 2.4 gm/dL (2.3-3.5); Glucose 77 mg/dL (74-106); Magnesium 1.7 mg/dL (1.6-2.6); Osmolality,Calculated 288 (275-295); Potassium 3.9 mMol/L (3.4-5.1); Sodium 144 mMol/L (136-145); eGFR > 60 See Note
[2024-09-21] MEDS: Lisinopril 20 MG TABLET 40 MG PO (09:00)
[2024-09-21] MEDS: NAPH,KPH MBDB 1 PACKET (1.5 GM) PO (09:01)
[2024-09-21] MEDS: METOCLOPRAMIDE INJ 5 MG/ML VIAL 2 ML IVP (09:01)
[2024-09-21] MEDS: PANTOPRAZOLE 40 MG TABLET PO (09:01)
[2024-09-21] MEDS: ASPIRIN EC 81 MG TABEC PO (09:01)
[2024-09-21] MEDS: cefTRIAXone/D5w 1gm IV premix 1 GM/50 ML BAG IV (09:02)
[2024-09-21] MEDS: Milk Of Magnesia Susp 30 ML UDC PO (09:06)
--- NOTE | 2024-09-21 10:45 | PC.SS ---
SS sent updated clinicals to Ruy Garcia via [facility]
--- NOTE | 2024-09-21 13:20 | PD.IMPROG ---
Documentation for date of: 09/21/24 Subjective Subjective Interval history: Hemoglobin hematocrit 8.8 and 22.0 No further hematemesis Endoscopy showed distal GE junction ulceration Exam Vital Signs Temp Pulse Resp BP Pulse Ox O2 Del Method O2 Flow Rate 97.8 F 87 16 155/56 H 95 Room Air 3 09/21/24 12:00 09/21/24 12:00 09/21/24 12:00 09/21/24 12:00 09/21/24 12:00 09/21/24 12:00 09/20/24 07:59 Objective Labs 09/21/24 03:57 09/21/24 03:57 Labs: Laboratory Results - last 24 hr 09/21/24 03:57 WBC 10.6 RBC 3.18 L Hgb 8.8 L Hct 27.0 L MCV 85 MCH 27.7 MCHC 32.6 RDW Std Deviation 45.0 Plt Count 142 Neut % (Auto) 70 Lymph % (Auto) 19 [place] % (Auto) 8 Eos % (Auto) 2 Baso % (Auto) 1 Neut # (Auto) 7.5 Lymph # (Auto) 2.0 [place] # (Auto) 0.9 H Eos # (Auto) 0.2 Baso # (Auto) 0.1 Immature Gran # (Auto) 0.04 H Absolute Nucleated RBC 0.00 Immature Gran % 0 Nucleated RBC % 0 Sodium 144 Potassium 3.9 D Chloride 112 H Carbon Dioxide 21.8 Anion Gap 10 BUN 19 Creatinine 0.8 Estim Creat Clear Calc 42.3 L eGFR > 60 BUN/Creatinine Ratio 24 H Glucose 77 Calculated Osmolality 288 Calcium 7.7 L Corrected Calcium 8.8 Magnesium 1.7 Total Bilirubin 0.6 AST 25 ALT 12 Alkaline Phosphatase 72 Total Protein 5.0 L Albumin 2.6 L Globulin 2.4 Albumin/Globulin Ratio 1.1 L Impressions Impression: GE junction ulcer leading to hematemesis Hemoglobin hematocrit stable Advance diet as tolerated From a GI viewpoint patient can be discharged back to skilled nursing Assessment & Plan A&P Narrative # Hematemesis complicated by the use of aspirin and Plavix plan Serial CBC transfuse if the hemoglobin drops below 7 g IV Protonix N.p.o. 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
--- NOTE | 2024-09-21 13:29 | ESDS_ITS ---
<Statement entered by Pilo Perez MD - 09/26/24 15:44> I reviewed above note and agree with findings and plans. I have also personally examined the patient with medicine team and went over assessment and plan with medical team including dietetic intern and resident physician. Planned Discharge Date 09/21/24 DS: Providers Provider Date of admission: 09/19/24 05:45 Primary care physician: Fitz Gomes MD Admitting Provider: Prosper Espinoza MD Attending Provider on Admission: Prosper Espinoza MD Consults: 09/19/24 05:51 Consult to Gastroenterology Stat Comment: Consulting Provider: Glenis Elizabeth 09/19/24 11:32 [facility] Referral - Knowledge Deficit Routine Comment: Positive screening for knowledge deficit needs. 09/19/24 12:06 Referral Physical Therapy Routine Comment: Physician Instructions: Attending Provider on DC: Pilo Perez MD Discharging Provider: Pilo Perez MD DS: Diagnosis Problem List Completed Was Problem List Reviewed/Reconciled?: Yes Hospital Course Hospital Course Hospital course: 84-year-old female with past medical history of rheumatoid arthritis, hypertension, hyperlipidemia, and CVA with residual left-sided weakness was admitted to the hospital on 09/12/2019 2:25 episodes of hematemesis. Patient had been taking aspirin and Plavix due to recently diagnosed CVA. Initially she was hypotensive, but this resolved and her hemoglobin did drop from her baseline. Throughout the hospital admission patient was seen by GI specialist who did an EGD and found an esophageal ulcer with no bleeding, gastritis, and normal duodenum. At this time patient was started on Protonix twice daily as well as Reglan twice daily and peptic ulcer disease diet. Patient remained stable throughout the hospital stay and no more active signs of bleeding and hemoglobin remained stable. Patient did have chest CTA which showed right lung pneumonia. Patient's blood cultures remain negative and urine culture was also negative throughout hospital stay. On the day of discharge patient was AO x 3 and did not have any signs of bleeding. At the time of discharge patient was stable enough to be discharged back to long-term facility. Discharge plan: Please follow-up with primary care physician within 1 week upon discharge Recommend to follow-up with GI specialist as an outpatient We have sent 3 days of Augmentin for completion of treatment for pneumonia. We have started you on metoclopramide 5 mg twice daily and pantoprazole 40 mg twice daily We have stopped your celecoxib, clopidogrel, and prednisone. Please continue taking all home medications as prescribed Please come back to the ED if symptoms persist or worsen Problem list: #Acute Blood loss Anemia #Upper GI bleed #Esophageal ulcer # Community-acquired pneumonia #Hypotension-resolved #Lactic acidosis -resolved #Rheumatoid arthritis #Hypertension #Hyperlipidemia Case disclosed with Attending Dr. Chris Lawson PGY1 Disclaimer: Even though this this note was dictated by speech recognition and even though it was carefully revised there may still be minor errors in statistical financial analyst due to voice recognition software. Status at Discharge Overall status at discharge: patient is progressing back to baseline Time Spent with Patient Time attestation: Total time spent providing and/or coordinating discharge services:>35 min Time spent: Greater than 30 minutes Exam Vital Signs Temp Pulse Resp BP Pulse Ox O2 Del Method O2 Flow Rate 97.8 F 87 16 155/56 H 95 Room Air 3 09/21/24 12:09/21/24 12:09/21/24 12:09/21/24 12:09/21/24 12:09/21/24 12:09/20/24 07:59 Narrative Exam General: A/O x3, no acute distress Eyes: PERRL, EOMI. Anicteric, vision grossly intact. Ears: No ear pain, no ear discharge, Hearing grossly intact. Nose: No nasal discharge. Mouth/Throat: Moist mucous membranes, no redness, no lesions. Neck: Neck supple, non-tender, no cervical lymphadenopathy. Lungs: Clear RAAD to auscultation and percussion, No accessory muscle use. Cardio: Normal S1/S2, regular rhythm, no murmurs, no JVD Abdomen: Soft, non-tender, no palpable masses, peristalsis present, no guarding or rebound. Extremities: Symmetrical, L hand deformity due to RA with decreased mobility on L UE, RAAD toe deformities, but able to move both LE. R UE good range of motion no peripheral edema , non-tender, peripheral pulses presents. Skin: No rashes, no lesions, warm to touch. Neuro: No focal neurological deficits. motor and sensory intact. Psych: Cooperative, appropriate mood and effect. Discharge Plan Plan Patient Disposition: Xfer Skilled Nsg Fac (SNF) Care Plan Goals: Please follow-up with primary care physician within 1 week upon discharge Recommend to follow-up with GI specialist as an outpatient We have sent 3 days of Augmentin for completion of treatment for pneumonia. We have started you on metoclopramide 5 mg twice daily and pantoprazole 40 mg twice daily We have stopped your celecoxib, clopidogrel, and prednisone. Please continue taking all home medications as prescribed Please come back to the ED if symptoms persist or worsen Prescriptions/Referrals Prescriptions/Med Rec: New pantoprazole 40 mg tablet,delayed release (DR/EC) 40 mg PO BID Qty: 60 0RF metoclopramide HCl [Reglan] 5 mg tablet 5 mg PO BID Qty: 60 0RF amoxicillin-pot clavulanate 875-125 mg tablet 1 tab PO BID Qty: 6 0RF Continued Fosinopril * (MONOPRIL *) 40 MG tablet 40 mg PO BID Qty: 0 Rx Instructions: hold if SBP <100, HR <60 atorvastatin 20 mg Tablet 80 mg PO HS 30 Days Qty: 120 3RF aspirin [Ecotrin Low Strength] 81 mg Tablet,Delayed Release (Dr/Ec) 81 mg PO QDAY 30 Days Qty: 30 3RF acetaminophen 325 mg tablet 650 mg PO Q4H PRN (Reason: fever or pain) Rx Instructions: for elevated temperature not to exceed 3 grams acetaminophen in 24 hours; mild and moderate pain bisacodyl [Dulcolax (bisacodyl)] 10 mg suppository 10 mg OR QDAY PRN (Reason: constipation) Rx Instructions: for constipation if MOM is ineffective and no BM for 8 hours Fleet Enema 19-7 gram/118 mL enema 118 ml OR QDAY PRN (Reason: constipation) Rx Instructions: for constipation, give if no results from dulcolax suppository in 24 hours magnesium hydroxide [Milk of Magnesia] 400 mg/5 mL suspension 1,200 mg PO QDAY PRN (Reason: constipation) Rx Instructions: give 30 mL by mouth as needed for constipation (no BM for 2 days). Give 1 dose, if no results in 24 hours see dulcolax suppository order. amino acids-protein hydrolys Liquid See Rx Instructions PO QDAY Rx Instructions: give 30 mL orally daily for supplement for 30 days Discontinued clopidogrel 75 mg tablet 75 mg PO QDAY 30 Days Qty: 30 0RF celecoxib 200 mg capsule 200 mg PO QDAY Patient Comments: TAKE 1 CAPSULE BY MOUTH DAILY prednisone 1 mg tablet 1 mg PO QDAY Referrals: Fitz Gomes MD [Primary Care Provider] - Patient/Caregiver Discharge Instructions Other Discharge Activity Instructions:: Please follow-up with primary care physician within 1 week upon discharge Recommend to follow-up with GI specialist as an outpatient We have sent 3 days of Augmentin for completion of treatment for pneumonia. We have started you on metoclopramide 5 mg twice daily and pantoprazole 40 mg twice daily We have stopped your celecoxib, clopidogrel, and prednisone. Please continue taking all home medications as prescribed Please come back to the ED if symptoms persist or worsen Education Materials: Esophageal Ulcer, Preventing Pneumonia Print Language: Tajik Stand Alone Forms: Pam Award Info., Patient Portal Info Letter Discharge Order Discharge Orders: Discharge (Routine); Ordered 09/21/24 Ordered By: Ryan Lawson Quality Discharge Quality Measures VTE prophylaxis
--- NOTE | 2024-09-21 14:43 | PC.SS ---
Addendum entered by CAMDEN Uribe 09/21/24 16:07: SNF staff Cynthia updated. Addendum entered by CAMDEN Uribe 09/21/24 16:06: [facility] ETA [id number]. refund clerk Lorraine updated. Original Note: Pt DC ready,SS spoke to Dtr Crystal who stated DC plan is back to [facility]. SS set up transport Reservation #[id number], pending release to [facility]
== END 2024-09-21 17:57 | disposition skilled nursing facility (03) | DRG 380 ==
LOC: SERX 05:20 → SERHOLD 06:33 → S3SX 10:15
PROVIDERS: Emergency Medicine; Specialist; Student in an Organized Health Care Education/Training Program; Admitting Provider Student in an Organized Health Care Education/Training Program; Emergency Provider Emergency Medicine; PCP Family Medicine; Visit Provider Student in an Organized Health Care Education/Training Program
PROC: 0DJ08ZZ Inspection of Upper Intestinal Tract, Via Natural or Artificial Opening Endoscopic (ICD-10-PCS; CPT 43239; principal; 2024-09-20 08:00)
DX: K22.11 Ulcer of esophagus with bleeding (principal); J18.9 Pneumonia, unspecified organism; I69.354 Hemiplegia and hemiparesis following cerebral infarction affecting left non-dominant side; N39.0 Urinary tract infection, site not specified; D62 Acute posthemorrhagic anemia; E87.20 Acidosis, unspecified; M06.9 Rheumatoid arthritis, unspecified; I10 Essential (primary) hypertension; E78.00 Pure hypercholesterolemia, unspecified; K29.71 Gastritis, unspecified, with bleeding; E86.1 Hypovolemia; K44.9 Diaphragmatic hernia without obstruction or gangrene; I95.9 Hypotension, unspecified; Z79.02 Long term (current) use of antithrombotics/antiplatelets; Z79.82 Long term (current) use of aspirin; J84.10 Pulmonary fibrosis, unspecified; Z66 Do not resuscitate
CPT/HCPCS: 36415; 71275; 74177; 80053; 80061; 81001; 82150; 82248; 83605; 83690; 83735; 83880; 84100; 84145; 84439; 84443; 84484; 85014; 85018; 85025; 85379; 85652; 86140; 86850; 86900; 86901; 87040; 87081; 87086; 87400; 87811; 93005; 93225; 94640; 96361; 96365; 96366; 96375; 97162; 99285; A4649; A9270; J0696; J1200; J2250; J2405; J2470; J2765; J2919; J3010; J3370; J3490; J7030; J7040; Q9967

== ENCOUNTER 2024-09-27 09:10 | Inpatient (IN) | payer MEDICARE, MEDICAID, SELFPAY ==
[2024-09-27] VITALS (12 sets, daily range): BP systolic 95–139; BP diastolic 32–71; PULSE 68–115; RESP 16–97; TEMP 36.4–37.6; O2SAT 96–100; BMI 19.8
--- NOTE | 2024-09-27 09:27 | EKG_ITS ---
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
--- NOTE | 2024-09-27 10:14 | PD.EDADULT ---
ED General RME/HPI General Chief complaint: GI Bleed Stated complaint: BLOODY EMESIS Time Seen by Provider: 09/27/24 18:35 Arrival date/time: 09/27/24 09:10 RME / HPI RME / HPI narrative: DR. DE LA VEGA MAIN ED EVALUATION: 84 year old female with past medical history significant for GI bleed, stroke right-sided hemaplegia, right arm contractures, DNR with selective treatment presents to the Emergency Department [facility] from [facility] with complaints of coffee ground emesis x1 hour ago, so about 8 AM today. Patient still complains of nausea. Takes ASA. Denies any abdominal pain or other symptoms at this time. Related Data Home Medications ?Medication ?Instructions ?Recorded ?Confirmed Fosinopril * (MONOPRIL *) 40 mg PO BID #0 tabs 05/29/16 09/20/24 acetaminophen 325 mg tablet 650 mg PO Q4H PRN fever or pain 09/20/24 09/20/24 amino acids-protein hydrolysate See Rx Instructions PO QDAY 09/20/24 09/20/24 oral liquid bisacodyl 10 mg rectal suppository 10 mg TN QDAY PRN constipation 09/20/24 09/20/24 (Dulcolax (bisacodyl)) magnesium hydroxide 400 mg/5 mL 1,200 mg PO QDAY PRN constipation 09/20/24 09/20/24 oral suspension (Milk of Magnesia) sodium phosphates 19 gram-7 118 ml TN QDAY PRN constipation 09/20/24 09/20/24 gram/118 mL enema (Fleet Enema) Previous Rx's ?Medication ?Instructions ?Recorded aspirin 81 mg tablet,delayed 81 mg PO QDAY 1 month #30 tabs 08/23/24 release (Ecotrin Low Strength) atorvastatin 20 mg tablet 80 mg (4 x 20 mg) PO HS 1 month 08/23/24 #120 tabs amoxicillin 875 mg-potassium 1 tab PO BID #6 tabs 09/21/24 clavulanate 125 mg tablet metoclopramide HCl 5 mg tablet 5 mg PO BID #60 tabs 09/21/24 (Reglan) pantoprazole 40 mg tablet,delayed 40 mg PO BID #60 tabs 09/21/24 release Allergies Allergy/AdvReac Type Severity Reaction Status Date / Time No Known Allergies Allergy Verified 08/20/24 07:25 Review of Systems Review of Systems Systems Reviewed: All systems reviewed, normal except as documented Past Medical History Past Medical History CARDIAC: Positive Hypercholesterolemia and Hypertension MUSCULOSKELETAL: Positive Rheumatoid Arthritis OTHER HISTORY: Positive Blood Transfusions and Anesthesia Reactions (nausea) Social History SMOKING STATUS: Never smoker SUBSTANCE USE: does not use ALCOHOL: Never ED Exam Narrative Physical exam: GENERAL APPEARANCE: Generally well-appearing, no acute distress. Mild pallor. HEENT: NC, AT. MMM. EOMI, clear conjunctiva, coffee ground emesis stain in her mouth. NECK: Supple without lymphadenopathy. No stiffness or restricted ROM. HEART: Normal rate and regular rhythm, normal S1/S1, no m/r/g LUNGS: CTAB, moving air well. No crackles or wheezes are heard. ABDOMEN: Soft, nontender, nondistended with good bowel sounds heard. BACK: No midline C/T/L spine pain or deformity, No CVAT, no obvious deformity. EXTREMITIES: Without cyanosis, clubbing or edema. Right hand contractures. MUSCULOSKELETAL: FROM of all major joints, no chest tenderness NEUROLOGICAL: At baseline. Skin: Mild pallor otherwise warm and dry without any rash. Course Quality Measures none Orders Category Date Time Status EKG (ED ONLY) *Do not use* NOW Care 09/27/24 09:27 Completed EKG (ED Only) Stat Exams 09/27/24 09:27 Draft XR chest 1V Stat Exams 09/27/24 10:15 Completed CBC Stat Lab 09/27/24 09:15 Completed CMP [Comprehensive Metabolic Panel] Stat Lab 09/27/24 09:15 Completed Hemoglobin and Hematocrit Stat Lab 09/27/24 12:27 Completed Partial Thromboplastin Time Stat Lab 09/27/24 12:27 Completed Prothrombin Time with INR Stat Lab 09/27/24 12:27 Completed Troponin I Stat Lab 09/27/24 09:15 Completed Type and Screen Stat Lab 09/27/24 09:15 Results Ondansetron Inj [Zofran Inj] Med 09/27/24 10:15 Discontinued 4 mg IVP X1 ONE Pantoprazole Inj [Protonix Inj] Med 09/27/24 13:00 Discontinued 80 mg IV X1 ONE Pantoprazole/Ns 80Mg IV Premix [Protonix/NS 80mg IV Med 09/27/24 12:46 Active Premix] 80 mg in 100 ml IV X1 Pantoprazole/Ns 80Mg IV Premix [Protonix/NS 80mg IV Med 09/27/24 12:46 Discontinued Premix] 80 mg in 100 ml IV X1 Sodium Chloride 0.9% 500 ml [Ns] 500 ml Med 09/27/24 10:15 Discontinued IV 999 mls/hr Vital Signs Vital signs: Vital Signs Temperature 99.7 F 09/27/24 09:13 Pulse Rate 98 09/27/24 09:13 Respiratory Rate 19 09/27/24 09:13 Blood Pressure 131/69 H 09/27/24 09:13 Pulse Oximetry (%) 99 09/27/24 09:13 Oxygen Delivery Method Room Air 09/27/24 09:13 Discharge Plan Plan Patient Disposition: Admit Acute Care w/in Hospital Patient condition on transfer: Stable Problem List Clinical Impression: Gastritis, Acute upper GI bleed, Acute post-hemorrhagic anemia, Acute hypotension Patient/Caregiver Discharge Instructions Diet Instructions: Crook Diet [facility] Narrative Sign out note: Ms. Nagy has a history of upper GI bleed with EGD 1 week ago (source at the GE junction) who presents with another single episode of large hematemesis. She otherwise had no further episodes of hematemesis. Emergency department. Initial blood pressure was stable and hemoglobin within range of recent discharge after review of the electronic medical record. Patient was started on IV PPI while serial hemoglobins were done to assess for possible stability. Patient had an EGD done just 1 week ago without any significant ulcerations or varices and does not necessarily have emergent EGD indicated at this point. After discussion with gastroenterology we also agreed to monitor the hemoglobin here in the emergency department. However during her ER course, she continued to drop her hemoglobin to 7.1. She also became persistently hypotensive despite position changes and in Trendelenburg. Consult was reopened with gastroenterology and agreed that she does have continued bleeding, acute hemorrhagic anemia, and would benefit from transfusion of 1 PRBC and plan for EGD tomorrow for bleeding control. [facility] hospital course: Letitia Ballard am scribing for and in the presence of Dr. De La Vega. Clinical Information Provided by patient and EMS Medical Records Reviewed [facility] and EMS Meds/Rx Considered, not Ordered None Labs/Rad/Tests considered, not Ordered None Chronic Illness/Social Conditions which may negatively complicate care or outcome(s)-explain: residential/debilitated ([facility]) Add or document further as needed: GI bleed, stroke right-sided hemaplegia, right arm contractures, DNR with selective treatment. EKG Interpretation EKG #1: Date/time of EK09/27/24 0917 hours EKG interpretation: sinus rhythm, rate 99, normal intervals, normal axis, no acute ST-T wave changes. Lab Interpretation Labs: interpreted by ia Lab(s) interpretation(s): Hemoglobin 7.9 at 0915 hours and 7.8 at 1227 hours. Hemoglobin at 1717 hours was 7.1 so plan to discharge. Imaging Radiology reports / interpretation(s): Procedure(s): XR chest 1V Accession Number(s): [id number] cc: Dallin De La Vega MD; Ramin Denis MD; Fitz Gomes MD~ Examination: AP chest single view Technique one AP portable upright chest single view Date and time: September 27, 2024 10:29 AM Comparison April 02, 2024 INDICATIONS: Chest pain beginning 2 days ago. FINDINGS: Abnormal interstitial disease throughout the lungs Mild prominence left ventricle Prominent osteopenia More pronounced opacity in the right lung IMPRESSION: Bilateral pulmonary fibrosis pattern Superimposed pneumonia right lung Dictated By: Ramin Denis MD Medication Administration(s) Medication Administration History Pantoprazole Sodium (Protonix/Ns 80mg Iv Premix) 80 mg in 100 mls @ 10 mls/hr IV X1 ONE Stop: 09/27/24 22:45 Last Admin: 09/27/24 13:17 Dose: 10 mls/hr Documented By: Discontinued Medications Sodium Chloride (Ns) 500 mls @ 999 mls/hr IV .Q31M ONE Stop: 09/27/24 10:45 Last Infusion: 09/27/24 11:18 Dose: Infused Documented By: Admin: 09/27/24 10:42 Dose: 999 mls/hr Documented By: Pantoprazole Sodium (Protonix/Ns 80mg Iv Premix) 80 mg in 100 mls @ 400 mls/hr IV X1 ONE Stop: 09/27/24 13:00 Last Admin: 09/27/24 13:05 Dose: Not Given Documented By: LAILA Non-Admin Reason: Discontinued Ondansetron HCl (Ondansetron Inj 2 Mg/Ml Inj 2 Ml) 4 mg IVP X1 ONE; Protocol Stop: 09/27/24 10:16 Last Admin: 09/27/24 10:40 Dose: 4 mg Documented By: GM Pantoprazole Sodium (Pantoprazole Inj 40 Mg Vial) 80 mg IV X1 ONE Stop: 09/27/24 13:01 Last Admin: 09/27/24 13:08 Dose: 80 mg Documented By: LAILA Consultations/Discussions re: Management Consult #1: Date/time: 09/27/24 1:40 pm Physician, specialty, service, details: Discussed test HPI, PMHx, lab, radiology results and/or management with Dr. Elizabeth. Dr. Elizabeth states he just did an endoscopy 9 days ago and no need to do another one today. Last endoscopy showed distal GE junction ulceration which is probably bleeding again. Plan is to repeat hemoglobin in 3 hours and then if stable then discharge home. Consult #2: Date/time: 09/27/24 6:40 pm Physician, specialty, service, details: GI, Dr. Elizabeth, patient hemoglobin continues to slowly drop to 7.1 gradually more hypotensive. Recent systolic blood pressure in the 90s. We agreed on transfusion 1 unit PRBCs with plans for EGD tomorrow for substernal bleeding and possible intervention/bleeding control. Diagnosis Differential diagnosis: Upper GI bleed, lower GI bleed, esophageal varices Most likely dx, and/or detailed dx discussion: Gastritis Dispositon Disposition: Discharge Home
[2024-09-27] MEDS: ONDANSETRON INJ 2 MG/ML INJ 2 ML 4 MG IVP (10:40)
[2024-09-27] MEDS: SODIUM CHLORIDE 0.9% 500 ML 500 ML 999 ML IV (10:42)
--- NOTE | 2024-09-27 10:44 | PC.NURSE ---
Dr. Yeung made aware pt's BP at this /. Orders received.
--- NOTE | 2024-09-27 10:57 | PC.NURSE ---
Crystal Nagy, pt's daughter, at bedside with pt.
[2024-09-27 11:27] LABS: Basophils # (Auto) 0.1 Thou/mm3 (0.0-0.2); Basophils % (Auto) 1 % (0-2.5); Eosinophils # (Auto) 0.3 Thou/mm3 (0.0-0.5); Eosinophils % (Auto) 2 % (0-10); Hematocrit 24.2 % (36.0-46.0); Immature Granulocytes % (Auto) 1 % (0-0); Immature Granulocytes Auto 0.14 Thou/mm3 (0.00-0.00); Lymphocytes # (Auto) 5.3 Thou/mm3 (1.0-4.8); Lymphocytes % (Auto) 35 % (10-50); Mean Corpuscular HGB Conc 32.6 g/dl (31.0-37.0); Mean Corpuscular Hemoglobin 27.3 pg (25.0-35.0); Mean Corpuscular Volume 84 fL (80-100); Monocytes # (Auto) 1.2 Thou/mm3 (0.0-0.8); Monocytes % (Auto) 8 % (0-12); Neutrophils # (Auto) 8.2 Thou/mm3 (1.8-7.7); Neutrophils % (Auto) 54 % (37-80); Nucleated Red Blood Cell % 0 /100 WBC (0); Platelet Count 212 Thou/mm3 (140-440); RDW Standard Deviation 46.5 fL (36.4-46.3); Red Blood Count 2.89 Miln/mm3 (4.00-5.20); White Blood Count 15.2 Thou/mm3 (3.6-11.0)
[2024-09-27 11:43] LABS: Hemoglobin 7.9 g/dL (12.0-16.0)
[2024-09-27 11:46] LABS: Alanine Aminotransferase 12 U/L (10-49); Albumin, Serum 2.9 gm/dL (3.4-4.8); Albumin/Globulin Ratio 1.2 (1.2-2.2); Alkaline Phosphatase 72 U/L (46-116); Anion Gap 15 (7-16); Aspartate Amino Transferase 23 U/L (0-34); BUN/Creatinine Ratio 30 Ratio (12-20); Bilirubin,Total 0.5 mg/dL (0.3-1.2); Blood Urea Nitrogen 36 mg/dL (9-23); Calcium 8.3 mg/dL (8.3-10.6); Calcium (Corrected) 9.2 mg/dL (8.5-10.1); Carbon Dioxide 23.3 mMol/L (20.0-31.0); Chloride 103 mMol/L (98-107); Creatinine (Component) 1.2 mg/dL (0.6-1.3); Estimated Creatinine Clearance 22.5 mL/min (>60); Globulin 2.5 gm/dL (2.3-3.5); Glucose 121 mg/dL (74-106); Osmolality,Calculated 290 (275-295); Potassium 5.2 mMol/L (3.4-5.1); Sodium 141 mMol/L (136-145); Total Protein 5.4 gm/dL (5.7-8.2); eGFR 45 See Note
[2024-09-27 11:47] LABS: Troponin I 0.229 ng/mL (0.0-0.045)
[2024-09-27 12:32] LABS: Hematocrit 23.3 % (36.0-46.0)
[2024-09-27 12:52] LABS: INR 1.1 (0.9-1.3); Partial Thromboplastin Time 22.8 Seconds (22.0-36.0); Prothrombin Time 12.1 Seconds (9.0-12.2)
[2024-09-27 12:58] LABS: Hemoglobin 7.8 g/dL (12.0-16.0)
[2024-09-27] MEDS: PANTOPRAZOLE INJ 40 MG VIAL 80 MG IV (13:08)
[2024-09-27] MEDS: PANTOPRAZOLE/NS 80MG IV PREMIX 80 MG/100 ML BAG 10 MG IV (13:17)
[2024-09-27 17:41] LABS: Hematocrit 21.6 % (36.0-46.0)
--- NOTE | 2024-09-27 17:41 | PC.CC ---
Patient is a 84 year-old female who presents to the hospital for GI Bleed, SBO. Ariadna BLAIR made face to face contact with patient and daughter Crystal Nagy introduced self, role, and reason for visit. Patient appeared to be alert but not responsive and confused. This information writer explained limits of confidentiality. Crystal completed initial assessment with this information writer. Crystal reports that she is patient's medical decision maker for the patient. Patient currently resides at [facility]. For ambulation the patient uses a wheelchair and need assistance for ADLs. Patient does not require oxygen and is not a dialysis patient. Primary care provider is Fitz Gomes and for prescription medications the patient uses [facility]. Upon discharge the patient plans to return back to [facility]. director career services to follow up for any discharge needs.
[2024-09-27 17:46] LABS: Hemoglobin 7.1 g/dL (12.0-16.0)
--- NOTE | 2024-09-27 18:34 | EDNOTE_ITS ---
Emergency Room Addendum <Ghada Juárez - Last Filed: 09/27/24 20:15> Addendum Narrative: I took over the care from Dr. Yeung at 6 PM on 09/27/2024, see his notes for complete H&P and ED course. I was asked to take over the patient pending admission. I discussed the case with our hospitalist. About the presentation and exam and diagnostics and treatments here. And need of further care in the hospital. Will accept the patient. Flo Garvey MD. <Flo Garvey MD - Last Filed: 09/27/24 20:35> Addendum Narrative: I took over the care from Dr. Yeung at 6 PM on 09/27/2024, see his notes for com plete H&P and ED course. I discussed the case with our hospitalist. About the presentation and exam and diagnostics and treatments here. And need of further care in the hospital, as recommended by Dr. Elizabeth. Will accept the patient. Flo Garvey MD.
--- NOTE | 2024-09-27 20:46 | PD.RESHP ---
Documentation for date of: 09/27/24 HPI History of Present Illness Chief complaint: Coffee-ground emesis History of present illness: History was limited as patient is not at baseline mental status, daughter provided history however she is also unsure as patient has been living in a group home facility. 84-year-old female with past medical history of rheumatoid arthritis, hypertension, hyperlipidemia, and CVA with residual left-sided weakness, recent admission on 09/12/2019 2:25 episodes of hematemesis who presented to the ED today due to coffee-ground emesis. Daughter who was at bedside provided most of the history as patient has dementia and baseline is AO x 2 however the time of my evaluation she is only AO x 1. Patient last admission had GI workup including EGD which showed esophageal ulcers. Daughter received a call today that the patient was having coffee-ground emesisx 1 episode was witnessed at the facility and was brought here to the ER. ER consulted GI specialist and patient will be admitted for GI workup. ED course: ED vitals: BP 131/69, HR 98, saturating 99% on room air ED labs: Leukocytosis, hemoglobin 7.1, potassium 5.2, BUN 36, EGFR 45, glucose 121, troponin 0.229 PMHx: As above SHx: Positive for hip and knee surgery in the past Allergies: No known drug and food allergies Social history: Denies smoking, denies alcohol use, denies illicit substances including THC FH X: Unknown Review of Systems Review of Systems ROS Unobtainable: unobtainable due to mental status and unobtainable due to medical condition Exam Vital Signs Temp Pulse Resp BP Pulse Ox O2 Del Method 98.4 F 98 16 98/43 L 100 Room Air 09/27/24 18:22 09/27/24 18:22 09/27/24 18:22 09/27/24 18:22 09/27/24 18:22 09/27/24 18:22 Narrative Exam Physical Exam GENERAL: NAD, GCS of 14, frail HEENT: dried blood in oral mucosa. Eyes open, symmetrical, & clear CARDIO: Heart RRR, no obvious murmurs PULM: No noted coughing/dyspnea CTA B/L, no R/W/R GI: Abdomen soft, nondistended, no pain on palpation. BSx4 SKIN/MSK/EXT: No wounds/rashes/edema/amputations, no pain on palpation. Pedal pulses present B/L NEURO: GCS 14 left-sided weakness, residual deficits from prior Results: Labs 09/28/24 03:22 09/27/24 09:15 Labs: Short CBC 09/27/24 09/27/24 09/27/24 Range/Units 09:15 12:27 17:17 WBC 15.2 H D (3.6-11.0) Thou/mm3 Hgb 7.9 L 7.8 L 7.1 L (12.0-16.0) g/dL Hct 24.2 L 23.3 L 21.6 L* (36.0-46.0) % Plt Count 212 D (140-440) Thou/mm3 BMP 09/27/24 09:15 Sodium 141 Potassium 5.2 H Chloride 103 Carbon Dioxide 23.3 BUN 36 H Creatinine 1.2 Glucose 121 H Calcium 8.3 Cardiac Enzymes 09/27/24 Range/Units 09:15 Troponin I 0.229 H* (0.0-0.045) ng/mL Liver Function 09/27/24 Range/Units 09:15 Total Bilirubin 0.5 (0.3-1.2) mg/dL AST 23 (0-34) U/L ALT 12 (10-49) U/L Alkaline Phosphatase 72 (46-116) U/L Albumin 2.9 L (3.4-4.8) gm/dL Quality Measures Quality Measures none Advance care planning discussed with:: patient and child Medications Home Medications and Allergies Home Medications ?Medication ?Instructions ?Recorded ?Confirmed ?Type Fosinopril * (MONOPRIL *) 40 mg PO BID #0 tabs 05/29/16 09/28/24 History acetaminophen 325 mg tablet 650 mg PO Q4H PRN fever or pain 09/20/24 09/28/24 History amino acids-protein hydrolysate See Rx Instructions PO QDAY 09/20/24 09/28/24 History oral liquid bisacodyl 10 mg rectal suppository 10 mg [place] QDAY PRN constipation 09/20/24 09/28/24 History (Dulcolax (bisacodyl)) magnesium hydroxide 400 mg/5 mL 1,200 mg PO QDAY PRN constipation 09/20/24 09/28/24 History oral suspension (Milk of Magnesia) sodium phosphates 19 gram-7 118 ml NH QDAY PRN constipation 09/20/24 09/28/24 History gram/118 mL enema (Fleet Enema) Allergies Allergy/AdvReac Type Severity Reaction Status Date / Time No Known Allergies Allergy Verified 08/20/24 07:25 Visit Medications Acetaminophen (Acetaminophen 325 Mg Tablet) 650 mg PO Q6H PRN PRN Reason: Fever >99.5 Stop: 10/27/24 20:40 Acetaminophen (Acetaminophen 325 Mg Tablet) 1,000 mg PO Q6H PRN PRN Reason: PAIN SCALE 1-3 (mild Stop: 10/27/24 20:40 Pantoprazole Sodium (Protonix/Ns 80mg Iv Premix) 80 mg in 100 mls @ 10 mls/hr IV X1 ONE Stop: 09/27/24 22:45 Last Admin: 09/27/24 13:17 Dose: 10 mls/hr Ondansetron HCl (Ondansetron Inj 2 Mg/Ml Inj 2 Ml) 4 mg IVP Q6H PRN; Protocol PRN Reason: NAUSEA OR VOMITING Stop: 10/27/24 20:40 Pantoprazole Sodium (Pantoprazole Inj 40 Mg Vial) 40 mg IVP Q12HR NADIR Stop: 10/27/24 20:59 Discontinued Medications Sodium Chloride (Ns) 500 mls @ 999 mls/hr IV .Q31M ONE Stop: 09/27/24 10:45 Last Infusion: 09/27/24 11:18 Dose: Infused Pantoprazole Sodium (Protonix/Ns 80mg Iv Premix) 80 mg in 100 mls @ 400 mls/hr IV X1 ONE Stop: 09/27/24 13:00 Last Admin: 09/27/24 13:05 Dose: Not Given Ondansetron HCl (Ondansetron Inj 2 Mg/Ml Inj 2 Ml) 4 mg IVP X1 ONE; Protocol Stop: 09/27/24 10:16 Last Admin: 09/27/24 10:40 Dose: 4 mg Pantoprazole Sodium (Pantoprazole Inj 40 Mg Vial) 80 mg IV X1 ONE Stop: 09/27/24 13:01 Last Admin: 09/27/24 13:08 Dose: 80 mg Assessment & Plan Plan 84-year-old female with past medical history as stated above who presented to the ED with coffee-ground emesis. Patient is admitted for acute GI bleed. #GI bleed likely secondary to #Esophageal ulcers Per EGD from prior admission on 09/11/2024 patient had EGD which showed esophageal ulceration Was given 500 mL bolus in the ED ? Pantoprazole 40 mg IV twice daily ? GI consulted, appreciate recs ? Monitor H&H ? Transfuse 1 unit PRBCs now ? Transfuse if hemoglobin less than 7 # rheumatoid arthritis #hypertension #hyperlipidemia #CVA with residual left-sided weakness ?Resume home meds when appropriate Health Maintenance: Disposition: Telemetry, GI workup Fluids: NS Feeding: N.p.o. Thrombo prophylaxis: SCDs Gastric Ulcer prophylaxis: Pantoprazole CODE STATUS: DNR Case discussed with my attending Dr. Sanford Juárez MD PGY-1 Attending Provider Attestation/Addendum I have examined the patient, reviewed labs and imaging findings, discussed the case with the resident(s), and reviewed entered orders. I agree with the plan of care as outlined in this note, with these additional summaries/recommendations: 84-year-old female from SNF with past medical history of CVA with left-sided residual deficits, RA, hypertension, hyperlipidemia presents to the ED with chief complaint of 1 episode of large-volume hematemesis. Of note, patient was recently admitted for acute upper GI bleeding found to have bleeding esophageal ulcer, was placed on Protonix twice daily and Reglan and discharged to SNF. Today she had 1 large-volume episode of hematemesis and labs in the ER showed hemoglobin of 7.9 which subsequently down trended today to 7.1 with hypotension and AMS. Given small bolus of fluids with improvement in blood pressure. Will give 1 unit PRBC and have 1 on hold and continue to monitor closely, GI consult, Protonix 40 twice daily. Bj Christina MD
--- NOTE | 2024-09-27 21:54 | ESCONSULT_ITS ---
HPI Data of Consult Requesting Physician: Bj Christina MD Primary Care Provider: Fitz Gomes MD Consult Narrative Reason for consult: Coffee-ground emesis with dropping hemoglobin hematocrit History of present illness: 84 years old female evaluated in the ER at the request of the ER physician Patient presented with coffee-ground emesis Initial hemoglobin was in the 7.5 range repeat 1 Dropping and this led to the admission On 09/20/2024 patient had undergone an upper endoscopy which showed a large GE junction ulcer and small distal esophageal ulceration Patient was sent back to the nursing facility with a PPI twice daily cc:: cc: Bj Christina MD Review of Systems Review of Systems ROS Unobtainable: unobtainable due to medical condition Past Medical History Surgical History OTHER SURGICAL HX: detention patient CVA with residual motor weakness Essential hypertension Previous history of GI bleed recently Meds Home Medications and Allergies Home Medications ?Medication ?Instructions ?Recorded ?Confirmed ?Type Fosinopril * (MONOPRIL *) 40 mg PO BID #0 tabs 7 09/28/24 History acetaminophen 325 mg tablet 650 mg PO Q4H PRN fever or pain 09/20/24 09/28/24 History amino acids-protein hydrolysate See Rx Instructions PO QDAY 09/20/24 09/28/24 History oral liquid bisacodyl 10 mg rectal suppository 10 mg [place] QDAY PRN c onstipation 09/20/24 09/28/24 History (Dulcolax (bisacodyl)) magnesium hydroxide 400 mg/5 mL 1,200 mg PO QDAY PRN c onstipation 09/20/24 09/28/24 History oral suspension (Milk of Magnesia) sodium phosphates 19 gram-7 118 ml NJ QDAY PRN constip ation 09/20/24 09/28/24 History gram/118 mL enema (Fleet Enema) Allergies Allergy/AdvReac Type Severity Reaction Status Date / Time No Known Allergies Allergy Verified 08/20/24 07:25 Exam Vital Signs Temp Pulse Resp BP Pulse Ox O2 Del Method 99.0 F 112 H 19 106/50 L 100 Room Air 09/27/24 21:16 09/27/24 21:16 09/27/24 21:16 09/27/24 21:16 09/27/24 21:16 09/27/24 21:16 Constitutional Comments: Chronically ill-appearing Routine Respiratory Exam Comments: Normal to auscultation Routine Abdominal Exam Comments: Soft nontender Results Labs 09/28/24 05:25 09/28/24 05:25 Labs: Short CBC 09/27/24 09/27/24 09/27/24 Range/Units 09:15 12:27 17:17 WBC 15.2 H D (3.6-11.0) Thou/mm3 Hgb 7.9 L 7.8 L 7.1 L (12.0-16.0) g/dL Hct 24.2 L 23.3 L 21.6 L* (36.0-46.0) % Plt Count 212 D (140-440) Thou/mm3 BMP 09/27/24 09:15 Sodium 141 Potassium 5.2 H Chloride 103 Carbon Dioxide 23.3 BUN 36 H Creatinine 1.2 Glucose 121 H Calcium 8.3 Cardiac Enzymes 09/27/24 Range/Units 09:15 Troponin I 0.229 H* (0.0-0.045) ng/mL Liver Function 09/27/24 Range/Units 09:15 Total Bilirubin 0.5 (0.3-1.2) mg/dL AST 23 (0-34) U/L ALT 12 (10-49) U/L Alkaline Phosphatase 72 (46-116) U/L Albumin 2.9 L (3.4-4.8) gm/dL Assessment and Plan Additional Assessment & Plan Additional Plan: # Coffee-ground hematemesis # Dropping hemoglobin hematocrit Plan is to Agree with the blood transfusion after discussion with the ER physician Will decide tomorrow if the patient needs a repeat endoscopy with possible therapeutic intervention IV Protonix twice daily Will follow the patient
--- NOTE | 2024-09-27 23:10 | PC.NURSE ---
Report given to KRYS Garveymortgage field inspector
[2024-09-28] VITALS (12 sets, daily range): BP systolic 106–168; BP diastolic 52–88; PULSE 83–116; RESP 12–98; TEMP 36.3–36.6; O2SAT 97–100; BMI 26.0; BMI 27.3
[2024-09-28 03:37] LABS: Hematocrit 26.4 % (36.0-46.0); Hemoglobin 9.2 g/dL (12.0-16.0)
[2024-09-28 05:40] LABS: Basophils # (Auto) 0.1 Thou/mm3 (0.0-0.2); Basophils % (Auto) 0 % (0-2.5); Eosinophils % (Auto) 0 % (0-10); Hematocrit 25.4 % (36.0-46.0); Immature Granulocytes % (Auto) 1 % (0-0); Immature Granulocytes Auto 0.14 Thou/mm3 (0.00-0.00); Lymphocytes # (Auto) 2.2 Thou/mm3 (1.0-4.8); Lymphocytes % (Auto) 10 % (10-50); Mean Corpuscular HGB Conc 33.5 g/dl (31.0-37.0); Mean Corpuscular Volume 84 fL (80-100); Monocytes # (Auto) 1.5 Thou/mm3 (0.0-0.8); Monocytes % (Auto) 7 % (0-12); Neutrophils # (Auto) 17.1 Thou/mm3 (1.8-7.7); Neutrophils % (Auto) 82 % (37-80); Nucleated Red Blood Cell # 0.03 Thou/mm3 (0.00-0.00); Nucleated Red Blood Cell % 0 /100 WBC (0); Platelet Count 197 Thou/mm3 (140-440); RDW Standard Deviation 45.1 fL (36.4-46.3); Red Blood Count 3.04 Miln/mm3 (4.00-5.20); White Blood Count 20.9 Thou/mm3 (3.6-11.0)
[2024-09-28 05:45] LABS: Hemoglobin 8.5 g/dL (12.0-16.0)
[2024-09-28 06:08] LABS: Alanine Aminotransferase 9 U/L (10-49); Albumin, Serum 2.7 gm/dL (3.4-4.8); Albumin/Globulin Ratio 1.3 (1.2-2.2); Alkaline Phosphatase 62 U/L (46-116); Anion Gap 9 (7-16); Aspartate Amino Transferase 24 U/L (0-34); BUN/Creatinine Ratio 36 Ratio (12-20); Blood Urea Nitrogen 43 mg/dL (9-23); Calcium 8.5 mg/dL (8.3-10.6); Calcium (Corrected) 9.5 mg/dL (8.5-10.1); Carbon Dioxide 23.6 mMol/L (20.0-31.0); Chloride 105 mMol/L (98-107); Creatinine (Component) 1.2 mg/dL (0.6-1.3); Estimated Creatinine Clearance 25.8 mL/min (>60); Globulin 2.1 gm/dL (2.3-3.5); Glucose 100 mg/dL (74-106); Magnesium 2.1 mg/dL (1.6-2.6); Osmolality,Calculated 286 (275-295); Phosphorous 2.6 mg/dL (2.4-5.1); Potassium 4.7 mMol/L (3.4-5.1); Sodium 138 mMol/L (136-145); Thyroid Stimulating Hormone 2.36 uIU/mL (0.55-4.78); Total Protein 4.8 gm/dL (5.7-8.2); eGFR 45 See Note
[2024-09-28] MEDS: PANTOPRAZOLE INJ 40 MG VIAL IVP ×2 (08:00→20:53)
[2024-09-28] MEDS: cefTRIAXone/D5w 1gm IV premix 1 GM/50 ML BAG IV (08:00)
[2024-09-28 08:12] LABS: Troponin I 0.322 ng/mL (0.0-0.045)
[2024-09-28] MEDS: AZITHROMYCIN INJ 500 MG in SODIUM CHLORIDE 0.9% 250 ML 250 ML 250 MG IV (08:37)
--- NOTE | 2024-09-28 11:06 | ESPR_ITS ---
Documentation for date of: 09/28/24 Subjective Subjective Interval history: Patient examined at bedside. She is oriented to self only otherwise confused. Per nursing, patient has had 2 episodes of melena overnight. She received 1 unit PRBC in the ED with morning labs reflecting hemoglobin 8.5. Plan for EGD this afternoon. Continue pantoprazole 40 twice daily. Leukocytosis 21 most likely due to her pneumonia. Continue ceftriaxone and azithromycin. Monitor respiratory requirements due to her pneumonia and underlying pulmonary fibrosis. Currently saturating well at 97% on room air. Exam Vital Signs Temp Pulse Resp BP Pulse Ox O2 Del Method 97.7 F 111 H 16 129/83 97 Room Air 09/28/24 08:00 09/28/24 09:00 09/28/24 09:00 09/28/24 08:00 09/28/24 08:00 09/28/24 08:00 Narrative Exam General: Elderly female, no acute distress, laying in bed HEENT: NCAT, No JVD noted. Mucosa dry, with dry blood around lips. Pupils are equal and reactive to light bilaterally Cardiovascular: Normal S1 and S2. Regular rate and rhythm. Respiratory: Lungs are clear to auscultation bilaterally. No wheezing or crackles heard. Abdomen: Soft, nontender, not distended, normal bowel sounds. Skin: Warm to touch, dry, no rashes noted Musculoskeletal: No gross injuries. Able to move all 4 extremities but has left sided weakness. No pitting edema Neuro: Alert and oriented x1. No focal neuro deficits. Psych: Normal affect and mood Objective Labs 09/28/24 05:25 09/28/24 05:25 Labs: Laboratory Results - last 24 hr 09/27/24 09/27/24 09/27/24 09:15 12:27 17:17 WBC 15.2 H D RBC 2.89 L Hgb 7.9 L 7.8 L 7.1 L Hct 24.2 L 23.3 L 21.6 L* MCV 84 MCH 27.3 MCHC 32.6 RDW Std Deviation 46.5 H Plt Count 212 D Neut % (Auto) 54 Lymph % (Auto) 35 [place] % (Auto) 8 Eos % (Auto) 2 Baso % (Auto) 1 Neut # (Auto) 8.2 H Lymph # (Auto) 5.3 H [place] # (Auto) 1.2 H Eos # (Auto) 0.3 Baso # (Auto) 0.1 Immature Gran # (Auto) 0.14 H Absolute Nucleated RBC 0.00 Immature Gran % 1 H Nucleated RBC % 0 PT 12.1 INR 1.1 APTT 22.8 Sodium 141 Potassium 5.2 H Chloride 103 Carbon Dioxide 23.3 Anion Gap 15 BUN 36 H Creatinine 1.2 Estim Creat Clear Calc 22.5 L eGFR 45 L BUN/Creatinine Ratio 30 H Glucose 121 H Calculated Osmolality 290 Calcium 8.3 Corrected Calcium 9.2 Phosphorus Magnesium Total Bilirubin 0.5 AST 23 ALT 12 Alkaline Phosphatase 72 Troponin I 0.229 H* Total Protein 5.4 L Albumin 2.9 L Globulin 2.5 Albumin/Globulin Ratio 1.2 TSH Blood Type O Positive Antibody Screen NEGATIVE Crossmatch See Detail Blood Bank Wristband ID Yes 09/28/24 09/28/24 03:22 05:25 WBC 20.9 H D RBC 3.04 L Hgb 9.2 L D 8.5 L Hct 26.4 L 25.4 L MCV 84 MCH 28.0 MCHC 33.5 RDW Std Deviation 45.1 Plt Count 197 Neut % (Auto) 82 H Lymph % (Auto) 10 [place] % (Auto) 7 Eos % (Auto) 0 Baso % (Auto) 0 Neut # (Auto) 17.1 H Lymph # (Auto) 2.2 [place] # (Auto) 1.5 H Eos # (Auto) 0.0 Baso # (Auto) 0.1 Immature Gran # (Auto) 0.14 H Absolute Nucleated RBC 0.03 H Immature Gran % 1 H Nucleated RBC % 0 PT INR APTT Sodium 138 Potassium 4.7 D Chloride 105 Carbon Dioxide 23.6 Anion Gap 9 BUN 43 H Creatinine 1.2 Estim Creat Clear Calc 25.8 L eGFR 45 L BUN/Creatinine Ratio 36 H Glucose 100 Calculated Osmolality 286 Calcium 8.5 Corrected Calcium 9.5 Phosphorus 2.6 Magnesium 2.1 Total Bilirubin 1.0 D AST 24 ALT 9 L Alkaline Phosphatase 62 Troponin I 0.322 H* Total Protein 4.8 L Albumin 2.7 L Globulin 2.1 L Albumin/Globulin Ratio 1.3 TSH 2.36 Blood Type Antibody Screen Crossmatch Blood Bank Wristband ID Quality Measures Quality Measures none Advance care planning discussed with:: other Assessment & Plan Assessment Current Active Medications: Generic Name Dose Route Start Last Admin Trade Name Freq PRN Reason Stop Dose Admin Acetaminophen 650 mg 09/27/24 20:41 Acetaminophen 325 Mg Tablet PO 10/27/24 20:40 Q6H PRN Fever >99.5 Acetaminophen 1,000 mg 09/28/24 06:57 Acetaminophen 500 Mg Tablet PO 10/27/24 20:40 Q6H PRN PAIN SCALE 1-3 (mild Azithromycin 500 mg/ Sodium 250 mls @ 250 mls/hr 09/28/24 07:38 09/28/24 09:37 Chloride IV 10/05/24 07:37 Infused QDAY NADIR Infusion Ceftriaxone Sodium/Dextrose 1 gm in 50 mls @ 100 mls/hr 09/28/24 07:38 09/28/24 08:30 Rocephin/D5w 1gm Iv Premix IV 10/05/24 07:37 Infused QDAY NADIR Infusion Ondansetron HCl 4 mg 09/27/24 20:41 Ondansetron Inj 2 Mg/Ml Inj 2 Ml IVP 10/27/24 20:40 Q6H PRN NAUSEA OR VOMITING Protocol Pantoprazole Sodium 40 mg 09/28/24 09:00 09/28/24 08:00 Pantoprazole Inj 40 Mg Vial IVP 10/28/24 08:59 40 mg Q12HR NADIR Administration Plan Jonah Nagy is 84-year-old female with past medical history of rheumatoid arthritis, hypertension, hyperlipidemia, and CVA with residual left-sided weakness coming to ED with coffee-ground emesis. Patient is admitted for acute GI bleed. #GI bleed likely secondary to #Esophageal ulcers #Melena Per EGD from prior admission on 09/11/2024 patient had EGD which showed esophageal ulceration s/p 1 unit pRBC transfusion in ED. ? Pantoprazole 40 mg IV BID ? GI consulted, appreciate recs--planning for EGD this afternoon ? Monitor H&H ? Transfuse if hemoglobin less than 7 #CAP #Hx pulmonary fibrosis Patient had CTA chest completed on had findings of severe bilateral pulmonary fibrosis. Negative for PE. Chest x-ray on this admission shows fibrosis pattern with superimposed pneumonia. Has leukocytosis 21. ?IV ceftriaxone 1 g daily ? IV azithromycin 500 mg daily ? Oxygen as needed #Chest discomfort Troponins mildly elevated 0.229--> 0.322. EKG normal sinus rhythm. Most likely NSTEMI type II in setting of stress. Patient also appears very dry and dehydrated. - Trend troponins ? Start IV NS maintenance 125 cc/h # Rheumatoid arthritis #Hypertension #Hyperlipidemia #CVA with residual left-sided weakness ? Holding aspirin due to GI bleed ? Continue atorvastatin 80 mg at bedtime ? Patient takes full lisinopril for blood pressure at home. Not available in the hospital. Will start on amlodipine Health Maintenance: Disposition: Telemetry, GI workup Diet: NPO pending EGD Thrombo prophylaxis: SCDs Gastric Ulcer prophylaxis: Pantoprazole CODE STATUS: DNR The patient's management plan was discussed with my attending physician Dr. Perez. Emani Katz, PGY-1
[2024-09-28] MEDS: SODIUM CHLORIDE 0.9% 1000 ML 1,000 ML 125 ML IV (12:12)
--- NOTE | 2024-09-28 14:29 | PC.SS ---
Rounding note: per medical team, patient is pending an EGD. D/c plan is to return to [facility].
[2024-09-28 16:57] LABS: Troponin I 0.323 ng/mL (0.0-0.045)
[2024-09-28] MEDS: ATORVASTATIN CALCIUM 20 MG TABLET 80 MG PO (21:49)
[2024-09-29] VITALS (9 sets, daily range): BP systolic 120–145; BP diastolic 46–69; PULSE 67–98; RESP 16–97; TEMP 35.9–36.4; O2SAT 96–98; BMI 27.3
[2024-09-29 05:47] LABS: Basophils # (Auto) 0.1 Thou/mm3 (0.0-0.2); Basophils % (Auto) 1 % (0-2.5); Eosinophils # (Auto) 0.3 Thou/mm3 (0.0-0.5); Eosinophils % (Auto) 2 % (0-10); Hematocrit 22.8 % (36.0-46.0); Immature Granulocytes % (Auto) 1 % (0-0); Immature Granulocytes Auto 0.08 Thou/mm3 (0.00-0.00); Lymphocytes # (Auto) 1.6 Thou/mm3 (1.0-4.8); Lymphocytes % (Auto) 12 % (10-50); Mean Corpuscular HGB Conc 33.8 g/dl (31.0-37.0); Mean Corpuscular Hemoglobin 27.8 pg (25.0-35.0); Mean Corpuscular Volume 82 fL (80-100); Monocytes # (Auto) 1.1 Thou/mm3 (0.0-0.8); Monocytes % (Auto) 8 % (0-12); Neutrophils # (Auto) 11.1 Thou/mm3 (1.8-7.7); Neutrophils % (Auto) 78 % (37-80); Nucleated Red Blood Cell % 0 /100 WBC (0); Platelet Count 155 Thou/mm3 (140-440); RDW Standard Deviation 45.7 fL (36.4-46.3); Red Blood Count 2.77 Miln/mm3 (4.00-5.20); White Blood Count 14.3 Thou/mm3 (3.6-11.0)
[2024-09-29 05:54] LABS: Hemoglobin 7.7 g/dL (12.0-16.0)
[2024-09-29 06:39] LABS: Alanine Aminotransferase 8 U/L (10-49); Albumin, Serum 2.7 gm/dL (3.4-4.8); Albumin/Globulin Ratio 1.4 (1.2-2.2); Alkaline Phosphatase 62 U/L (46-116); Anion Gap 10 (7-16); BUN/Creatinine Ratio 26 Ratio (12-20); Bilirubin,Total 0.9 mg/dL (0.3-1.2); Blood Urea Nitrogen 23 mg/dL (9-23); Calcium 8.3 mg/dL (8.3-10.6); Calcium (Corrected) 9.3 mg/dL (8.5-10.1); Carbon Dioxide 24.6 mMol/L (20.0-31.0); Chloride 106 mMol/L (98-107); Creatinine (Component) 0.9 mg/dL (0.6-1.3); Estimated Creatinine Clearance 34.3 mL/min (>60); Globulin 1.9 gm/dL (2.3-3.5); Glucose 82 mg/dL (74-106); Osmolality,Calculated 283 (275-295); Phosphorous 2.5 mg/dL (2.4-5.1); Potassium 4.4 mMol/L (3.4-5.1); Sodium 141 mMol/L (136-145); Total Protein 4.6 gm/dL (5.7-8.2); eGFR > 60 See Note
[2024-09-29] MEDS: cefTRIAXone/D5w 1gm IV premix 1 GM/50 ML BAG IV (08:33)
[2024-09-29] MEDS: PANTOPRAZOLE INJ 40 MG VIAL IVP ×2 (08:34→20:56)
[2024-09-29] MEDS: AZITHROMYCIN INJ 500 MG in SODIUM CHLORIDE 0.9% 250 ML 250 ML 250 MG IV (08:34)
[2024-09-29 09:59] LABS: Basophils # (Auto) 0.1 Thou/mm3 (0.0-0.2); Basophils % (Auto) 0 % (0-2.5); Eosinophils # (Auto) 0.2 Thou/mm3 (0.0-0.5); Eosinophils % (Auto) 2 % (0-10); Immature Granulocytes % (Auto) 1 % (0-0); Immature Granulocytes Auto 0.07 Thou/mm3 (0.00-0.00); Lymphocytes # (Auto) 1.5 Thou/mm3 (1.0-4.8); Lymphocytes % (Auto) 10 % (10-50); Mean Corpuscular HGB Conc 33.8 g/dl (31.0-37.0); Mean Corpuscular Hemoglobin 27.6 pg (25.0-35.0); Mean Corpuscular Volume 82 fL (80-100); Monocytes % (Auto) 7 % (0-12); Neutrophils # (Auto) 11.2 Thou/mm3 (1.8-7.7); Neutrophils % (Auto) 80 % (37-80); Nucleated Red Blood Cell % 0 /100 WBC (0); Platelet Count 155 Thou/mm3 (140-440); RDW Standard Deviation 45.3 fL (36.4-46.3); Red Blood Count 2.93 Miln/mm3 (4.00-5.20); White Blood Count 13.9 Thou/mm3 (3.6-11.0)
[2024-09-29 10:02] LABS: Hemoglobin 8.1 g/dL (12.0-16.0)
--- NOTE | 2024-09-29 11:44 | ESDS_ITS ---
<Statement entered by Teri Ricci MD - 09/29/24 14:37> I Teri Ricci MD reviewed the note and agree with the resident's assessment & plan with exceptions as below. I have personally reviewed labs, imaging, home meds/prior records, examined the patient, formulated and discussed management plan with the IM team. Planned Discharge Date 09/29/24 DS: Providers Provider Date of admission: 09/27/24 16:10 Primary care physician: Fitz Gomes MD Admitting Provider: Justino Sawant MD Attending Provider on Admission: Pilo Perez MD Consults: 09/27/24 20:27 Consult to Gastroenterology Stat Comment: GI bleed Consulting Provider: Glenis Elizabeth Attending Provider on DC: Hattie Gaines MD Discharging Provider: Hattie Gaines MD DS: Diagnosis Problem List Completed Was Problem List Reviewed/Reconciled?: Yes Hospital Course Hospital Course Hospital course: The patient is an 84-year-old female with a history of rheumatoid arthritis (on long-term NSAIDs), CVA (on Plavix and aspirin), hypertension, and hyperlipidemia. She was sent from a custodial facility due to coffee- ground emesis and was admitted for management of a gastrointestinal (GI) bleed. On presentation, she was found to be severely anemic and required a blood transfusion. Gastroenterology was consulted, and the patient was started on a PPI drip. An EGD revealed an esophageal ulcer, hemorrhagic gastritis, and an actively bleeding ulcer at the gastroesophageal junction. During hospitalization, the patient?s condition improved. She was transitioned to a peptic ulcer diet, which she tolerated well. Per Gastroenterology, she is safe for discharge with the following instructions: Take Protonix 40 mg twice daily; Plavix and aspirin are to be held; NSAIDs should be avoided. Continue peptic ulcer diet.Follow-Up with Primary Care Provider in 1?2 weeks, F/u with Neurology to reassess antiplatelet therapy due to prior CVA Additionally, a chest X-ray performed during admission revealed superimposed community-acquired pneumonia. The patient was started on IV antibiotics and will be discharged on oral antibiotics to complete the treatment course. The family was at the bedside and received a detailed explanation of the hospital course, treatment plan, and discharge instructions. They expressed understanding. #GI bleed #Esophageal ulcer #Hemorrhagic gastritis #Community-acquired pneumonia #History of pulmonary fibrosis Patient care was discussed with attending physician Dr. Radhames Gaines MD PGY-2 I have carefully reviewed this document. Due to imperfections in the voice software, there could be grammatical errors including phonetic/typographic errors. This in no way compromises the medical care the patient is receiving Time Spent with Patient Time attestation: Total time spent providing and/or coordinating discharge services: Time spent: Greater than 30 minutes Exam Vital Signs Temp Pulse Resp BP Pulse Ox O2 Del Method O2 Flow Rate 96.6 F L 94 17 132/59 H 98 Room Air 3 09/29/24 08:00 09/29/24 08:00 09/29/24 08:00 09/29/24 08:00 09/29/24 08:00 09/29/24 08:00 09/28/24 17:11 Narrative Exam General: Elderly female, no acute distress, laying in bed HEENT: NCAT, No JVD noted. . Pupils are equal and reactive to light bilaterally Cardiovascular: Normal S1 and S2. Regular rate and rhythm. Respiratory: Lungs are clear to auscultation bilaterally. No wheezing or crackles heard. Abdomen: Soft, nontender, not distended, normal bowel sounds. Skin: Warm to touch, dry, no rashes noted Musculoskeletal: No gross injuries. No pitting edema Neuro: Alert and oriented x1. however limited. Psych: Normal affect and mood Discharge Plan Plan Patient Disposition: Xfer Skilled Nsg Fac (SNF) Patient condition on transfer: Stable Care Plan Goals: Aspirin as you are having active GI bleed, esophageal ulcers, follow-up with PCP before restarting Continue taking pantoprazole 40 mg twice daily, at least 40 more days, follow-up with PCP to refill the prescription. Follow-up with PCP and GI in 1 to 2 weeks after discharge Stop taking Plavix Hold aspirin for now, follow-up with PCP before restarting take amoxicillin 1 g twice daily for 4 more days to complete antibiotic course for community-acquired pneumonia which was seen on chest x-ray. Continue taking the rest of the home medication Return to ED anytime symptoms worsens Prescriptions/Referrals Prescriptions/Med Rec: New amoxicillin 500 mg capsule 1,000 mg PO BID 3 Days Qty: 12 0RF Continued Fosinopril * (MONOPRIL *) 40 MG tablet 40 mg PO BID Qty: 0 Rx Instructions: hold if SBP <100, HR <60 atorvastatin 20 mg Tablet 80 mg PO HS 30 Days Qty: 120 3RF acetaminophen 325 mg tablet 650 mg PO Q4H PRN (Reason: fever or pain) Rx Instructions: for elevated temperature not to exceed 3 grams acetaminophen in 24 hours; mild and moderate pain bisacodyl [Dulcolax (bisacodyl)] 10 mg suppository 10 mg DC QDAY PRN (Reason: constipation) Rx Instructions: for constipation if MOM is ineffective and no BM for 8 hours Fleet Enema 19-7 gram/118 mL enema 118 ml DC QDAY PRN (Reason: constipation) Rx Instructions: for constipation, give if no results from dulcolax suppository in 24 hours magnesium hydroxide [Milk of Magnesia] 400 mg/5 mL suspension 1,200 mg PO QDAY PRN (Reason: constipation) Rx Instructions: give 30 mL by mouth as needed for constipation (no BM for 2 days). Give 1 dose, if no results in 24 hours see dulcolax suppository order. amino acids-protein hydrolys Liquid See Rx Instructions PO QDAY Rx Instructions: give 30 mL orally daily for supplement for 30 days pantoprazole 40 mg tablet,delayed release (DR/EC) 40 mg PO BID Qty: 60 0RF metoclopramide HCl [Reglan] 5 mg tablet 5 mg PO BID Qty: 60 0RF Held aspirin [Ecotrin Low Strength] 81 mg Tablet,Delayed Release (Dr/Ec) 81 mg PO QDAY 30 Days Qty: 30 3RF Hold Instructions: Resume on 10/22/24. Hold aspirin as you having active GI bleed and esophageal ulcer, follow-up with PCP before restarting. Referrals: Fitz Gomes MD [Primary Care Provider] - Patient/Caregiver Discharge Instructions Other Discharge Diet Instructions: [place] Diet Education Materials: Bleeding Gastrointestinal, ED Upper GI Bleeding (Stable) Print Language: Azeri Stand Alone Forms: Pam Award Info., Patient Portal Info Letter Discharge Order Discharge Orders: Discharge (Routine); Ordered 09/29/24 Ordered By: Hattie Gaines Quality Discharge Quality Measures VTE prophylaxis
--- NOTE | 2024-09-29 11:45 | PC.SS ---
Addendum entered by Priscilla Stevenson 09/29/24 13:10: EMS ETA for 1700. Original Note: [employer] (LIV) Priscilla informed by Dr. Ricci that patient was going to discharge today. Patient will return to [facility]. LIV contacted patient's daughter, Crystal to explain discharge plan: patient to return to [facility] via non emergency transprotation. Crystal in agreement. LIV contacted [facility] and spoke to [employer] (reservation number: [phone]). LIV scheduled transportation for 1600. LIV notified Crystal and bedside RN-Sagrario.
--- NOTE | 2024-09-29 16:32 | ESPR_ITS ---
Documentation for date of: 09/29/24 Subjective Subjective Interval history: Hemoglobin hematocrit 8.1 and 24.0 which is stable Upper endoscopy showed distal esophageal ulcer GE junction ulcer and hemorrhagic gastritis Exam Vital Signs Temp Pulse Resp BP Pulse Ox O2 Del Method O2 Flow Rate 97.5 F 98 22 H 123/63 98 Room Air 3 09/29/24 16:00 09/29/24 16:00 09/29/24 16:00 09/29/24 16:00 09/29/24 16:00 09/29/24 16:00 09/28/24 17:11 Objective Labs 09/29/24 09:50 09/29/24 05:02 Labs: Laboratory Results - last 24 hr 09/28/24 09/28/24 09/29/24 15:41 23:42 05:02 WBC 14.3 H D RBC 2.77 L Hgb 7.7 L Hct 22.8 L MCV 82 MCH 27.8 MCHC 33.8 RDW Std Deviation 45.7 Plt Count 155 D Neut % (Auto) 78 Lymph % (Auto) 12 [place] % (Auto) 8 Eos % (Auto) 2 Baso % (Auto) 1 Neut # (Auto) 11.1 H Lymph # (Auto) 1.6 [place] # (Auto) 1.1 H Eos # (Auto) 0.3 Baso # (Auto) 0.1 Immature Gran # (Auto) 0.08 H Absolute Nucleated RBC 0.00 Immature Gran % 1 H Nucleated RBC % 0 Sodium 141 Potassium 4.4 Chloride 106 Carbon Dioxide 24.6 Anion Gap 10 BUN 23 Creatinine 0.9 Estim Creat Clear Calc 34.3 L eGFR > 60 BUN/Creatinine Ratio 26 H Glucose 82 Calculated Osmolality 283 Calcium 8.3 Corrected Calcium 9.3 Phosphorus 2.5 Magnesium 2.0 Total Bilirubin 0.9 ALT 8 L Alkaline Phosphatase 62 Troponin I 0.323 H* 0.300 H* Total Protein 4.6 L Albumin 2.7 L Globulin 1.9 L Albumin/Globulin Ratio 1.4 09/29/24 09:50 WBC 13.9 H RBC 2.93 L Hgb 8.1 L Hct 24.0 L MCV 82 MCH 27.6 MCHC 33.8 RDW Std Deviation 45.3 Plt Count 155 Neut % (Auto) 80 Lymph % (Auto) 10 [place] % (Auto) 7 Eos % (Auto) 2 Baso % (Auto) 0 Neut # (Auto) 11.2 H Lymph # (Auto) 1.5 [place] # (Auto) 1.0 H Eos # (Auto) 0.2 Baso # (Auto) 0.1 Immature Gran # (Auto) 0.07 H Absolute Nucleated RBC 0.00 Immature Gran % 1 H Nucleated RBC % 0 Sodium Potassium Chloride Carbon Dioxide Anion Gap BUN Creatinine Estim Creat Clear Calc eGFR BUN/Creatinine Ratio Glucose Calculated Osmolality Calcium Corrected Calcium Phosphorus Magnesium Total Bilirubin ALT Alkaline Phosphatase Troponin I Total Protein Albumin Globulin Albumin/Globulin Ratio Impressions Impression: GE junction ulcer Hemorrhagic gastritis Okay to discharge patient on PPI and patient can be anticoagulant Assessment & Plan A&P Narrative # Coffee-ground hematemesis # Dropping hemoglobin hematocrit Plan is to Agree with the blood transfusion after discussion with the ER physician Will decide tomorrow if the patient needs a repeat endoscopy with possible therapeutic intervention IV Protonix twice daily Will follow the patient Time Spent With Patient Time: Total time spent is greater than 50% in coordination of care (as documented) at patient's floor/unit and/or counseling patient:
--- NOTE | 2024-09-29 20:19 | PC.NURSE ---
Pt voided at approximately 1939. Ambulance called and said transport will be here at approximately 2129. Called [facility] to inform them of the time change.
[2024-09-29] MEDS: ATORVASTATIN CALCIUM 20 MG TABLET 80 MG PO (20:56)
--- NOTE | 2024-09-29 21:38 | PC.NURSE ---
Ambulance called again and said new pickup time is 2229. [facility] informed of the time change
== END 2024-09-29 21:57 | disposition skilled nursing facility (03) | DRG 380 ==
LOC: SERX 16:11 → SERHOLD 16:42 → S2NX 23:29
PROVIDERS: Emergency Medicine; Specialist; Student in an Organized Health Care Education/Training Program; Admitting Provider Student in an Organized Health Care Education/Training Program; Emergency Provider Emergency Medicine; PCP Family Medicine; Visit Provider Internal Medicine
PROC: 0DJ08ZZ Inspection of Upper Intestinal Tract, Via Natural or Artificial Opening Endoscopic (ICD-10-PCS; CPT 43239; principal; 2024-09-28 16:15)
DX: K22.11 Ulcer of esophagus with bleeding (principal); I21.A1 Myocardial infarction type 2; J18.9 Pneumonia, unspecified organism; I69.354 Hemiplegia and hemiparesis following cerebral infarction affecting left non-dominant side; D62 Acute posthemorrhagic anemia; Z66 Do not resuscitate; M06.9 Rheumatoid arthritis, unspecified; I10 Essential (primary) hypertension; E78.5 Hyperlipidemia, unspecified; F03.90 Unspecified dementia, unspecified severity, without behavioral disturbance, psychotic disturbance, mood disturbance, and anxiety; K92.1 Melena; J84.10 Pulmonary fibrosis, unspecified; Z79.1 Long term (current) use of non-steroidal anti-inflammatories (NSAID); E86.0 Dehydration; K29.71 Gastritis, unspecified, with bleeding; Z79.82 Long term (current) use of aspirin; Z79.899 Other long term (current) drug therapy
CPT/HCPCS: 36415; 71045; 80053; 83735; 84100; 84443; 84484; 85014; 85018; 85025; 85610; 85730; 86850; 86900; 86901; 86923; 87811; 93005; 94762; 96361; 96374; 96375; 99285; A4217; J0456; J0696; J2250; J2405; J2470; J3010; J3490; J7030; J7040; J7050; P9016; A9270

== ENCOUNTER 2024-10-12 15:14 | Emergency (ER) | payer MEDICARE, MEDICAID, SELFPAY ==
[2024-10-12] VITALS (7 sets, daily range): BP systolic 105–162; BP diastolic 52–74; PULSE 73–102; RESP 16–18; TEMP 36.6–37; O2SAT 96–100
--- NOTE | 2024-10-12 15:34 | PD.EDADULT ---
ED General RME/HPI General Chief complaint: Weakness Stated complaint: ABNORMAL LABS Time Seen by Provider: 10/12/24 15:34 Arrival date/time: 10/12/24 15:14 RME / HPI RME / HPI narrative: DR. WOLF MAIN ED EVALUATION: 84 year old female presents to the Emergency Department [facility] with complaints of increased weakness and sent over for a blood transfusion, hemoglobin of 6.0. No other symptoms reported at this time. PMHx: Rheumatoid arthritis, hypertension, hyperlipidemia, old CVA, DNR with selective treatment. Social Hx: No tobacco, alcohol, or substance use. Related Data Home Medications ?Medication ?Instructions ?Recorded ?Confirmed Fosinopril * (MONOPRIL *) 40 mg PO BID #0 tabs 05/29/16 09/28/24 acetaminophen 325 mg tablet 650 mg PO Q4H PRN fever or pain 09/20/24 09/28/24 amino acids-protein hydrolysate See Rx Instructions PO QDAY 09/20/24 09/28/24 oral liquid bisacodyl 10 mg rectal suppository 10 mg NC QDAY PRN constipation 09/20/24 09/28/24 (Dulcolax (bisacodyl)) magnesium hydroxide 400 mg/5 mL 1,200 mg PO QDAY PRN constipation 09/20/24 09/28/24 oral suspension (Milk of Magnesia) sodium phosphates 19 gram-7 118 ml NC QDAY PRN constipation 09/20/24 09/28/24 gram/118 mL enema (Fleet Enema) Previous Rx's ?Medication ?Instructions ?Recorded aspirin 81 mg tablet,delayed 81 mg PO QDAY 1 month #30 tabs 08/23/24 release (Ecotrin Low Strength) Held on 09/29/24. Instructions: Resume on 10/22/24. Hold aspirin as you having active GI bleed and esophageal ulcer, follow-up with PCP before restarting. atorvastatin 20 mg tablet 80 mg (4 x 20 mg) PO HS 1 month 08/23/24 #120 tabs metoclopramide HCl 5 mg tablet 5 mg PO BID #60 tabs 09/21/24 (Reglan) pantoprazole 40 mg tablet,delayed 40 mg PO BID #60 tabs 09/21/24 release Allergies Allergy/AdvReac Type Severity Reaction Status Date / Time No Known Allergies Allergy Verified 08/20/24 07:25 Review of Systems Review of Systems Systems Reviewed: All systems reviewed, normal except as documented Narrative Review of Systems: Constitutional: POSITIVES: increased weakness DENIES: fevers; Eyes: DENIES: loss of vision; Head/Ear/Nose: DENIES: loss of hearing. Throat: DENIES: dysphagia. Cardiovascular: DENIES: chest pain, dyspnea, or syncope. Respiratory: DENIES: shortness of breath; Gastrointestinal: DENIES: rectal bleeding or melena. Genitourinary: DENIES: dysuria (painful or difficult urination); Musculoskeletal: DENIES: arthralgia (pain in a joint); Skin: DENIES: rash; Neurological: DENIES: loss of function or movement; Psychiatric: DENIES: recent major life stressor, emotional problem, illicit drug use or abuse; Endocrinology: DENIES: weight change,; Hematologic/Lymphatic: DENIES: abnormal bruising. Allergic/Immunologic: DENIES: urticaria (hives). Past Medical History Past Medical History NEUROLOGIC: Positive Cerebrovascular Accident (left side deficits), Transient Ischemic Attacks (TIA) and Epilepsy CARDIAC: Positive Cardiac Disorders, Myocardial Infarction, Hypercholesterolemia and Hypertension RESPIRATORY: Positive Pulmonary Fibrosis GASTROINTESTINAL: Positive Gastrointestinal Bleed GENITOURINARY: Positive Kidney Stones OTHER HISTORY: Positive Falls and Blood Transfusions Social History SMOKING STATUS: Never smoker SUBSTANCE USE: does not use ALCOHOL: Never ED Exam Narrative Physical exam: Physical Exam: General: The vital signs were reviewed. The patient is non-toxic, in no apparent distress and appears healthy with a patent airway, no respiratory distress and has no apparent circulatory problems. Head & Scalp: Normocephalic, atraumatic. Face: Appears normal and is without lesions, deformity. Ears: Very pale conjunctiva left external pinna appears normal. Right external pinna appears normal. Eyes: The sclera is anicteric. No obvious photophobia. The Left and Right Orbit/Lid/Conjunctiva appears normal without swelling, discoloration or injection. Nose: The nose is without deformity, discharge or tenderness; Throat: Appears normal. The mucous membranes are pink and moist without exudates, redness or mass seen. The tongue appears normal. Neck: The neck is supple and no apparent mass or adenopathy. Chest: The chest wall is normal in size and symmetry and has no chest wall tenderness or crepitus. The patient displays normal ventilator effort without retractions, accessory muscle use and has adequate air movement bilaterally with no wheezes and no rales. Cardiovascular: Regular rate and rhythm; No murmurs, rubs, or gallops; Gastrointestinal: The abdomen appears normal. No obvious hernias or mass. The abdomen is soft and benign, non-distended, with no pain, no guarding and no rebound tenderness. Bowel sounds are present and normal sounding. No CVA tenderness. Genitourinary: Back/Spine: Extremities/Musculoskeletal/lymphatic: The bilateral upper and lower extremities are warm. There is no evidence of arterial insufficiency. There is no evidence of venous insufficiency/edema. The patient spontaneously moves bilateral upper and lower extremities with no pain and no limitation of movement. There is no apparent, injury or trauma. Skin: The skin is warm, dry and intact. No rashes. No petechia. No purpura. No abnormal bruising. The color is appropriate with no cyanosis. Mental status/Psychiatric: Mental status is appropriate for age. The patient has no apparent delusions, visual hallucinations, no apparent audible hallucinations. The patient has no apparent suicidal thoughts/ideation and no apparent homicidal thoughts/ideation. Neurological: The patient is awake, alert, interactive, cordial, cooperative and is oriented to name and situation. Patient understands and responds in Ghanaian sentences appears to have some paucity or inability to communicate in detail. The patient follows commands and answers historical question with no impairment. There is no visual disturbance apparent. The pupils are equal and reactive bilaterally with normal eye movements and no diplopia The bilateral upper and lower extremities have normal strength, normal range of motion and normal functioning. The gait, station and balance not tested due to acuity Course Quality Measures none Orders Category Date Time Status Insert IV NOW Care 10/12/24 15:35 Active XR chest 1V portable Stat Exams 10/12/24 15:35 Completed CBC Stat Lab 10/12/24 17:19 Completed Comprehensive Metabolic Panel Stat Lab 10/12/24 17:19 Completed Lactate (Lactic Acid) Stat Lab 10/12/24 17:19 Completed Lipase Stat Lab 10/12/24 17:19 Completed Prothrombin Time with INR Stat Lab 10/12/24 17:19 Completed Type and Screen Stat Lab 10/12/24 17:19 Received Urinalysis Stat Lab 10/12/24 15:35 Ordered Urinalysis, C/S if Indicated Stat Lab 10/12/24 15:35 Ordered Sodium Chloride 0.9% 1000 ml [Ns] 1,000 ml Med 10/12/24 15:45 Active IV 100 mls/hr Vital Signs Vital signs: Vital Signs Temperature 98.6 F 10/12/24 15:17 Pulse Rate 73 10/12/24 15:17 Respiratory Rate 18 10/12/24 15:17 Blood Pressure 105/63 10/12/24 15:17 Pulse Oximetry (%) 96 10/12/24 15:17 Oxygen Delivery Method Room Air 10/12/24 15:17 Discharge Plan Prescriptions/Referrals Prescriptions/Med Rec: No Action Fosinopril * (MONOPRIL *) 40 MG tablet 40 mg PO BID Qty: 0 Rx Instructions: hold if SBP <100, HR <60 atorvastatin 20 mg Tablet 80 mg PO HS 30 Days Qty: 120 3RF aspirin [Ecotrin Low Strength] 81 mg Tablet,Delayed Release (Dr/Ec) 81 mg PO QDAY 30 Days Qty: 30 3RF acetaminophen 325 mg tablet 650 mg PO Q4H PRN (Reason: fever or pain) Rx Instructions: for elevated temperature not to exceed 3 grams acetaminophen in 24 hours; mild and moderate pain bisacodyl [Dulcolax (bisacodyl)] 10 mg suppository 10 mg NC QDAY PRN (Reason: constipation) Rx Instructions: for constipation if MOM is ineffective and no BM for 8 hours Fleet Enema 19-7 gram/118 mL enema 118 ml NC QDAY PRN (Reason: constipation) Rx Instructions: for constipation, give if no results from dulcolax suppository in 24 hours magnesium hydroxide [Milk of Magnesia] 400 mg/5 mL suspension 1,200 mg PO QDAY PRN (Reason: constipation) Rx Instructions: give 30 mL by mouth as needed for constipation (no BM for 2 days). Give 1 dose, if no results in 24 hours see dulcolax suppository order. amino acids-protein hydrolys Liquid See Rx Instructions PO QDAY Rx Instructions: give 30 mL orally daily for supplement for 30 days pantoprazole 40 mg tablet,delayed release (DR/EC) 40 mg PO BID Qty: 60 0RF metoclopramide HCl [Reglan] 5 mg tablet 5 mg PO BID Qty: 60 0RF Problem List Clinical Impression: Anemia Patient/Caregiver Discharge Instructions Print Language: Ghanaian MDM Narrative Sign out note: Dr. Ortega, 18 hours assumed care of the patient to follow-up on the labs that got delayed and draw and transfuse as needed [facility] hospital course: Patient sent in from her retirement for severe anemia with a hemoglobin of 6.0 that was tested as an outpatient. Will repeat labs and reevaluate. Patient sat in the ambulance bay until approximately 1720 hrs. where she removed to room 19. Chest x-ray reveals interstitial fibrosis with right lower lung infiltrate or mass or lesion of uncertain age or significance clinically at this point Patient be signed out 1800 hrs. to the oncoming doctor to follow-up on the hemoglobin and transfuse as needed. Letitia Ballard am scribing for and in the presence of Dr. Wolf. Clinical Information Provided by patient and EMS Medical Records [facility] and [facility] Meds/Rx Considered, not Ordered None Labs/Rad/Tests considered, not Ordered None Chronic Illness/Social Conditions Add or document further as needed: Rheumatoid arthritis, hypertension, hyperlipidemia, old CVA, DNR with selective treatment. EKG EKG not done Lab Interpretation Labs: see narrative above Imaging Imaging interpretation: see narrative above Medication Administration(s) Medication Administration History Sodium Chloride (Ns) 1,000 mls @ 100 mls/hr IV .Q10H NADIR Stop: 11/11/24 15:44 Last Admin: 10/12/24 17:28 Dose: 100 mls/hr Documented By: GLENN Diagnosis Differential diagnosis: anemia, dehydration, iron deficiency Most likely dx, and/or detailed dx discussion: Anemia Dispositon Disposition: other (Patient is signed out to Dr. Garvey.)
--- NOTE | 2024-10-12 15:35 | XR_ITS ---
Examination: AP chest single view TECHNIQUE: AP portable upright chest single view Date and time: October 12, 2024 at 1713 hours Comparison September 27, 2024 INDICATION: Fever weakness shortness of breath today FINDINGS: Bilateral significant pulmonary fibrosis pattern Mild enlargement left ventricle Superimposed pneumonia diffusely in the right lung and at the left base Prominent osteopenia IMPRESSION: Significant bilateral pulmonary fibrosis Superimposed bilateral pneumonia
[2024-10-12] MEDS: SODIUM CHLORIDE 0.9% 1000 ML 1,000 ML 100 ML IV (17:28)
[2024-10-12 17:39] LABS: Lactate (Lactic Acid) 1.6 mMol/L (0.4-2.0)
[2024-10-12 17:47] LABS: Basophils # (Auto) 0.1 Thou/mm3 (0.0-0.2); Basophils % (Auto) 1 % (0-2.5); Eosinophils # (Auto) 0.1 Thou/mm3 (0.0-0.5); Eosinophils % (Auto) 1 % (0-10); Immature Granulocytes % (Auto) 0 % (0-0); Immature Granulocytes Auto 0.04 Thou/mm3 (0.00-0.00); Lymphocytes # (Auto) 2.1 Thou/mm3 (1.0-4.8); Lymphocytes % (Auto) 23 % (10-50); Mean Corpuscular HGB Conc 32.2 g/dl (31.0-37.0); Mean Corpuscular Hemoglobin 27.6 pg (25.0-35.0); Mean Corpuscular Volume 86 fL (80-100); Monocytes % (Auto) 12 % (0-12); Neutrophils # (Auto) 5.7 Thou/mm3 (1.8-7.7); Neutrophils % (Auto) 63 % (37-80); Nucleated Red Blood Cell % 0 /100 WBC (0); Platelet Count 270 Thou/mm3 (140-440); RDW Standard Deviation 53.1 fL (36.4-46.3); Red Blood Count 2.32 Miln/mm3 (4.00-5.20); White Blood Count 9.1 Thou/mm3 (3.6-11.0)
[2024-10-12 17:58] LABS: Prothrombin Time 11.2 Seconds (9.0-12.2)
[2024-10-12 18:01] LABS: Alanine Aminotransferase 12 U/L (10-49); Albumin, Serum 2.9 gm/dL (3.4-4.8); Albumin/Globulin Ratio 1.1 (1.2-2.2); Alkaline Phosphatase 77 U/L (46-116); Anion Gap 7 (7-16); Aspartate Amino Transferase 30 U/L (0-34); BUN/Creatinine Ratio 12 Ratio (12-20); Bilirubin,Total 0.5 mg/dL (0.3-1.2); Blood Urea Nitrogen 12 mg/dL (9-23); Calcium 8.4 mg/dL (8.3-10.6); Calcium (Corrected) 9.3 mg/dL (8.5-10.1); Carbon Dioxide 26.5 mMol/L (20.0-31.0); Chloride 104 mMol/L (98-107); Globulin 2.7 gm/dL (2.3-3.5); Glucose 94 mg/dL (74-106); Lipase 45 U/L (12-53); Osmolality,Calculated 273 (275-295); Potassium 4.5 mMol/L (3.4-5.1); Sodium 137 mMol/L (136-145); Total Protein 5.6 gm/dL (5.7-8.2); eGFR 56 See Note
--- NOTE | 2024-10-12 18:05 | PD.EDADDENDU ---
Emergency Room Addendum <Ghada Juárez - Last Filed: 10/13/24 01:33> Addendum Narrative: I took over the care from Dr. Wolf at 6 PM on 10/12/2024, see his notes for complete H&P and ED course. I reviewed all diagnostic test results. Blood tests remarkable for Hemoglobin 6.4, Hematocrit 19.9. I discussed the case with our lead software qa engineer. About the presentation and exam and diagnostics and treatments here. And need of further care in the hospital. Recommends giving the patient pRBCs and discharging her back to the [facility]. Discharge Instructions from Dr. Garvey printed for you: 1. After evaluation, we discussed the case with Dr. Elizabeth (our lead software qa engineer) and follow with his instructions. 2. Patient received 2 units of blood here 3. For pneumonia, give Levaquin as prescribed. Oral Levaquin 500 milligram daily for 10 days. 4. Recheck with long term vice president medical affairs or private doctor on 10/15/2024. 5. Seek immediate medical care with worsening or with any concerns. <Flo Garvey MD - Last Filed: 10/13/24 04:59> Addendum Narrative: I took over the care from Dr. Wolf at 6 PM on 10/12/2024, see his notes for complete H&P and ED course. My interpretation of the chest x-ray is infiltrates. Blood tests remarkable for Hemoglobin 6.4, Hematocrit 19.9. Diagnoses include severe anemia and pneumonia. I discussed the case with our lead software qa engineer. About the presentation and exam and diagnostics and treatments here. And possible need of further care in the hospital. Recommended discharge after transfusion. Patient was given IV fluid, 2 units of pRBC, Zithromax, and Rocephin. Discharge Instructions from Dr. Garvey printed for you: 1. After evaluation, we discussed the case with Dr. Elizabeth (our lead software qa engineer) and follow with his instructions. 2. Patient received 2 units of blood here 3. For pneumonia, give Levaquin as prescribed. Oral Levaquin 500 milligram daily for 10 days. 4. Recheck with long term vice president medical affairs or private doctor on 10/15/2024. 5. Seek immediate medical care with worsening or with any concerns.
[2024-10-12 18:18] LABS: Hematocrit 19.9 % (36.0-46.0); Hemoglobin 6.4 g/dL (12.0-16.0)
[2024-10-12 18:55] LABS: Path Review Blood Smear Sent to Pathologist
[2024-10-12] MEDS: cefTRIAXone/D5w 1gm IV premix 1 GM/50 ML BAG IV (20:31)
[2024-10-12 21:04] LABS: Collection Type, Urine Catheter; Squamous Epithelial Cell,Urine 0 /hpf (0-5)
[2024-10-12 21:10] LABS: Bilirubin,Urine Negative (Negative); Blood,Urine Negative (Negative); Clarity,Urine Clear (Clear/Hazy); Color,Urine Lt-Yellow (Lt Yel-Yel); Culture Indicated,Urine Not Indicated; Glucose, Urine Negative (Negative); Hyaline Casts,Urine < 1 /hpf (0-1); Ketones,Urine Negative (Negative); Leukocyte Esterase,Urine Negative (Negative); Nitrite,Urine Negative (Negative); PH,Urine 6.5 (5.0-7.0); Protein,Urine Negative (Neg - Trace); RBC,Urine 1 /hpf (0-3); Specific Gravity,Urine 1.016 (1.001-1.035); WBC,Urine 1 /hpf (0-5)
[2024-10-12 22:01] LABS: OBS Developer Lot # 424; OBS QC OK? Yes; Occult Blood, Stool Positive (Negative)
[2024-10-12] MEDS: AZITHROMYCIN INJ 500 MG in SODIUM CHLORIDE 0.9% 250 ML 250 ML 250 MG IV (22:32)
[2024-10-13] VITALS (7 sets, daily range): BP systolic 142–167; BP diastolic 61–71; PULSE 88–100; RESP 16–19; TEMP 36.4–36.9; O2SAT 98–99
[2024-10-13 03:12] LABS: Hematocrit 31.9 % (36.0-46.0)
--- NOTE | 2024-10-13 04:58 | PC.NURSE ---
REPORT CALLED AND GIVEN TO NURSE AT [facility]
== END 2024-10-13 05:09 | disposition skilled nursing facility (03) ==
PROVIDERS: Emergency Medicine; Emergency Provider Emergency Medicine; PCP Family Medicine
DX: D64.9 Anemia, unspecified (principal); J18.9 Pneumonia, unspecified organism
CPT/HCPCS: 36415; 36430; 71045; 80053; 81001; 82270; 83605; 83690; 85014; 85018; 85025; 85610; 86850; 86900; 86901; 86923; 96361; 96365; 96366; 96367; 99285; J0456; J0696; J7030; J7050; P9016

== ENCOUNTER 2024-10-14 13:55 | Inpatient (IN) | payer MEDICARE, MEDICAID, SELFPAY ==
--- NOTE | 2024-10-14 13:58 | XR_ITS ---
Examination: CTA carotids with intravenous contrast CTA brain, head with intravenous contrast. 2-D sagittal, coronal reconstructions. 3-D reconstructions. Exam date and time: October 14, 2024, 1419 hrs. Indications: Stroke alert, onset focal neurologic deficit today CTDI: vol (mGy) 15.2 DLP: (mGycm) 341 Technique: Multiple CTA axial brain, head carotid images post intravenous contrast injection 75 cc, [id number]. 2-D sagittal, coronal reconstructions. 3-D reconstructions, 3-D post processing including vascular maximum intensity projection images. Low dose protocols were performed. One or more of the following dose reduction techniques were used; automated exposure control, adjustment of the mA and/or KV according to patient size, use of iterative reconstruction technique. Findings: Heavy calcification origins internal carotid arteries, 50% stenosis right internal carotid artery, 70-80% stenosis left internal carotid artery The internal carotid arteries appear intact Dominant right vertebral artery with no critical stenoses No cerebral large vessel arterial occlusions or thrombus Impression: 50% stenosis right internal carotid artery 70-80% stenosis left internal carotid artery No cerebral large vessel arterial occlusions or thrombus
--- NOTE | 2024-10-14 13:58 | EKG_ITS ---
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
[2024-10-14 14:00] VITALS: PULSE 97; PULSE 99; RESP 18; RESP 97; O2SAT 96
--- NOTE | 2024-10-14 14:00 | EDNOTE_ITS ---
ED General RME/HPI General Stated complaint: STROKE Time Seen by Provider: 10/14/24 14:00 Arrival date/time: 10/14/24 13:55 Limitations: language barrier (aphasia) and physical limitation RME / HPI RME / HPI narrative: DR. WINKLER MAIN ED EVALUATION: 84 year old female presents to the Emergency Department [facility] from [facility] with complaint of aphasia. 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 Normally, patient is talkative. Blood glucose per EMS was 99. No other symptoms reported. 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 Social Hx: No tobacco, alcohol, or substance use. Related Data Home Medications ?Medication ?Instructions ?Recorded ?Confirmed Fosinopril * (MONOPRIL *) 40 mg PO BID #0 tabs 7 09/28/24 acetaminophen 325 mg tablet 650 mg PO Q4H PRN fever or pain 09/20/24 09/28/24 amino acids-protein hydrolysate See Rx Instructions PO QDAY 09/20/24 09/28/24 oral liquid bisacodyl 10 mg rectal suppository 10 mg NV QDAY PRN c onstipation 09/20/24 09/28/24 (Dulcolax (bisacodyl)) magnesium hydroxide 400 mg/5 mL 1,200 mg PO QDAY PRN c onstipation 09/20/24 09/28/24 oral suspension (Milk of Magnesia) sodium phosphates 19 gram-7 118 ml NV QDAY PRN constip ation 09/20/24 09/28/24 gram/118 mL enema (Fleet Enema) Previous Rx's ?Medication ?Instructions ?Recorded aspirin 81 mg tablet,delayed 81 mg PO QDAY 1 month #30 tabs 08/23/24 release (Ecotrin Low Strength) Held on 09/29/24. Instructions: Resume on 10/22/24. Hold aspirin as you having active GI bleed and esophageal ulcer, follow-up with PCP before restarting. atorvastatin 20 mg tablet 80 mg (4 x 20 mg) PO HS 1 mo nth 08/23/24 #120 tabs metoclopramide HCl 5 mg tablet 5 mg PO BID #60 tabs (Reglan) pantoprazole 40 mg tablet,delayed 40 mg PO BID #60 tab s 09/21/24 release levofloxacin 500 mg tablet 500 mg PO QDAY 10 days #10 tabs 10/13/24 Allergies Allergy/AdvReac Type Severity Reaction Status Date / Time No Known Allergies Allergy Verified 08/20/24 07:25 Review of Systems Review of Systems ROS Unobtainable: unobtainable due to mental status and unobtainable due to medical condition Past Medical History Past Medical History NEUROLOGIC: Positive Cerebrovascular Accident (left side deficits), Transient Ischemic Attacks (TIA) and Epilepsy CARDIAC: Positive Cardiac Disorders, Myocardial Infarction, Hypercholesterolemia and Hypertension RESPIRATORY: Positive Pulmonary Fibrosis GASTROINTESTINAL: Positive Gastrointestinal Bleed GENITOURINARY: Positive Kidney Stones OTHER HISTORY: Positive Falls and Blood Transfusions Social History SMOKING STATUS: Never smoker SUBSTANCE USE: does not use ALCOHOL: Never ED Exam General Limitations: Present language barrier (aphasia) and physical limitation General appearance: Present other (aphasia, cannot give history initially) Head Head exam: Present atraumatic, normocephalic and normal inspection Eye Eye exam: Present normal appearance, PERRL and EOMI ENT ENT exam: Present normal exam, normal oropharynx and mucous membranes moist Neck Neck exam: Present normal inspection and trachea midline Chest Chest inspection: Present normal inspection and symmetric chest wall rise Respiratory Respiratory exam: Present normal lung sounds bilaterally Cardiovascular Cardiovascular exam: Present regular rate, normal rhythm and normal heart sounds Abdominal Exam Abdominal exam: Present soft and normal bowel sounds Extremities Exam Extremities exam: Present other (left hemiplegia with contractures of left upper arm); Absent pedal edema Back Exam Back exam: Present normal inspection Neurological Exam Neurological exam: Present other (aphasia; left hemiplegia) Psychiatric Psychiatric exam: Present normal affect and normal mood Skin Skin exam: Present warm, dry, intact and normal color Course Quality Measures none Orders Category Date Time Status Bedside Blood Glucose NOW Care 10/14/24 13:58 Active COVID-19 Screening Questionnaire NOW Care 10/14/24 14:42 Active Athletic Instructor NOW Care 10/14/24 13:58 Active Continuous Pulse Oximetry NOW Care 10/14/24 13:58 Completed Decision to Admit X1 Care 10/14/24 14:42 Active EKG (ED ONLY) *Do not use* NOW Care 10/14/24 13:58 Completed In and Out Catheter NEEDED Care 10/14/24 13:58 Active Insert IV NOW Care 10/14/24 13:58 Active NIH Stroke Scale now Care 10/14/24 13:58 Active NPO NOW Care 10/14/24 13:58 Active Nurse Swallow Screen x1 Care 10/14/24 13:58 Active Consult to Neurology / Tele-Neurology Routine Cons 10/14/24 13:[address] angio stroke protocol Stat Exams 10/14/24 13:[address] stroke protocol Stat Exams 10/14/24 13:58 Completed EKG (ED Only) Stat Exams 10/14/24 13:58 Draft CBC Stat Lab 10/14/24 14:19 Completed Comprehensive Metabolic Panel Stat Lab 10/14/24 14:19 Completed Drug Screen,Urine Stat Lab 10/14/24 17:12 Received HCG Titer if Positive Stat Lab 10/14/24 14:19 Completed Magnesium Stat Lab 10/14/24 14:19 Completed Partial Thromboplastin Time Stat Lab 10/14/24 14:19 Completed Prothrombin Time with INR Stat Lab 10/14/24 14:19 Completed Troponin I Stat Lab 10/14/24 14:19 Completed Urinalysis Stat Lab 10/14/24 17:12 Completed Urine Culture Stat Lab 10/14/24 17:12 Received Oxygen Delivery NOW RT 10/14/24 13:58 Active Vital Signs Vital signs: Vital Signs Pulse Rate 97 10/14/24 14:00 Critical Care Time Critical Care Time Critical Care Time: Yes Total Critical Care Time (min.): 45 Attestation: The high probability of sudden, clinically significant deterioration in the patient?s condition required the highest level of my preparedness to intervene urgently. The services I provided to this patient were to treat and/or prevent clinically significant deterioration. Services included the following: chart data review, reviewing nursing notes and/or old charts, documentation time, statistical consultant co llaboration regarding findings and treatment options, medication orders and management, direct patient care, vital sign assessments and ordering, interpreting and reviewing diagnostic studies and lab tests. Aggregate critical care time includes only time during which I was engaged in work directly related to the patient?s care, as described above, whether at bedside or elsewhere in the Emergency Department. It did not include time spent performing other reported procedures or the services of residents, students, nurses or physician assistants. Discharge Plan Plan Patient Disposition: Admit Acute Care w/in Hospital Problem List Clinical Impression: CVA (cerebral vascular accident) MDM Narrative [facility] hospital course: I, Letitialyndon Herman, am scribing for and in the presence of Dr. Winkler. Patient will be admitted for acute CVA. Teleneurologist was going to start the patient on heparin but due to recent GI bleed, we opted not to do so. Clinical Information Provided by EMS [facility] Meds/Rx Considered, not Ordered Describe details: Teleneurologist was going to start the patient on heparin but due to recent GI bleed, we opted not to do so. 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 EKG EKG Interpretation narrative: My interpretation: EKG performed at 1436 hours, sinus rhythm, rate 97, no acute changes, NV interval 150 ms, QRS duration 78 ms, QT/QTc 332/386, P-R-T axis 39, 16, 35 Lab Interpretation Labs: see narrative above Imaging Radiology reports / interpretation(s): Procedure(s): CT stroke protocol Accession Number(s): [id number] cc: Ramin Denis MD; Jade Ny PA-C; Fitz Gomes MD~ Examination: CT brain head without contrast. 2-D sagittal coronal reconstructions Date and time of exam:October 14, 2024, 1401 hrs. Indications: Stroke alert, onset Focal neurologic deficit CTDI: vol (mGy):45.7 DLP: (mGycm):863 Technique: Multiple CT axial sections of the brain have been obtained, 5 mm slice thickness. Contrast has not been administered. 2-D sagittal, coronal reconstructions have been obtained Low dose protocols were performed. One or more of the following dose reduction techniques were used; automated exposure control, adjustment of the mA and/or KV according to patient size, use of iterative reconstruction technique. Findings: No significant ventricular enlargement. Intra-axial or extra-axial hemorrhage density is not seen. No mass effect or midline shift Basal cisterns are not remarkable. Fourth ventricle is midline. Cranial vault intact. Impression: Negative for acute hemorrhage, mass effect or midline shift Dictated By: Ramin Denis MD Procedure(s): XR chest 1V portable Accession Number(s): [id number] cc: Misael Wolf MD; Ramin Denis MD; Fitz Gomes MD~ Examination: AP chest single view TECHNIQUE: AP portable upright chest single view Date and time: October 12, 2024 at 1713 hours Comparison September 27, 2024 INDICATION: Fever weakness shortness of breath today FINDINGS: Bilateral significant pulmonary fibrosis pattern Mild enlargement left ventricle Superimposed pneumonia diffusely in the right lung and at the left base Prominent osteopenia IMPRESSION: Significant bilateral pulmonary fibrosis Superimposed bilateral pneumonia Dictated By: Ramin Denis MD Medication Administration(s) Medication Administration History Acetaminophen (Acetaminophen Supp 650 Mg Supp) 650 mg NV Q6HR PRN PRN Reason: Fever > 100.3 Stop: 11/13/24 15:21 Atorvastatin Calcium (Atorvastatin Calcium 20 Mg Tablet) 80 mg PO HS NADIR Stop: 11/13/24 20:59 Dextrose (Dextrose 50%-Water Inj 50 Ml Syringe) 25 ml IV Q15MIN PRN PRN Reason: BG 50-70 responsive npo pt Stop: 11/13/24 15:58 Last Admin: 10/14/24 17:53 Dose: 25 ml Documented By: VL Dextrose (Dextrose 50%-Water Inj 50 Ml Syringe) 50 ml IV Q15MIN PRN PRN Reason: BG <50 OR BG <70 & pt unresponsive Stop: 11/13/24 15:58 Glucagon (Glucagon Inj 1 Mg Vial) 1 mg IM Q15MIN PRN PRN Reason: BG <70, and no IV access Sodium Chloride (Ns) 1,000 mls @ 75 mls/hr IV .[id number] [facility] Stop: 10/15/24 04:51 Last Admin: 10/14/24 16:54 Dose: 75 mls/hr Documented By: KAYODE Levofloxacin/Dextrose (Levaquin Ivpb) 750 mg in 150 mls @ 100 mls/hr IV QDAY NADIR Stop: 10/21/24 15:44 Last Admin: 10/14/24 16:54 Dose: 100 mls/hr Documented By: KAYODE Morphine Sulfate (Morphine Sulf Inj 10 Mg/Ml Vial) 1 mg IVP Q6H PRN PRN Reason: PAIN SCALE 4-10(Mod-Sev Stop: 10/19/24 15:21 Ondansetron HCl (Ondansetron Inj 2 Mg/Ml Inj 2 Ml) 4 mg IVP Q6H PRN; Protocol PRN Reason: NAUSEA OR VOMITING Stop: 11/13/24 15:21 Pantoprazole Sodium (Pantoprazole Inj 40 Mg Vial) 40 mg IVP BID NADIR Stop: 11/13/24 15:29 Last Admin: 10/14/24 16:55 Dose: 40 mg Documented By: KAYODE Discontinued Medications Aspirin (Aspirin 300 Mg Supp) 300 mg NV X1 ONE Stop: 10/14/24 15:38 Last Admin: 10/14/24 16:54 Dose: 300 mg Documented By: KAYODE Atorvastatin Calcium (Atorvastatin Calcium 20 Mg Tablet) 80 mg PO HS NADIR Stop: 11/13/24 20:59 Sodium Chloride (Ns) 1,000 mls @ 65 mls/hr IV .[id number] [facility] Stop: 10/15/24 06:53 Diagnosis Differential diagnosis: TIA, CVA, brain bleed Most likely dx, and/or detailed dx discussion: Acute CVA Recent GI bleed Dispositon Disposition: Admit
[2024-10-14 14:33] VITALS: BP 158/67; PULSE 97; RESP 18; TEMP 36.5; O2SAT 98
--- NOTE | 2024-10-14 14:37 | ESCONSULT_ITS ---
Tele Neuro Consultation Consultation Date 10/14/24 Most Recent Vital Signs Last Vital Signs Temp 97.7 F 10/14/24 14:33 Pulse 97 10/14/24 14:33 Resp 18 10/14/24 14:33 BP 158/67 H 10/14/24 14:33 Pulse Ox 98 10/14/24 14:33 O2 Del Method Room Air 10/14/24 14:33 Consultation Narrative [facility] TeleNeurology Consult Services Patient Name:???Katherine Nagy Date of :???1940 Identification Number:??? Date of Service:???10/14/2024 13:51:44 Diagnosis:?I63.89 - Cerebrovascular accident (CVA) due to other mechanism ([facility]CCC) Impression: ?84 year old female with recent previous history of multiple strokes, presents with aphasia. Given recent stroke not a candidate for thrombolytic therapy. CT head does not reveal hemorrhage. CTA does not show LVO on my personal review. Given the previous strokes and non-bacterial endocarditis I would recommend anticoagulation to avoid further stroke events. I would recommend starting with heparin. Repeat DEANGELO to check on the status of the endocarditis is also recommended. Given recent presentation for anemia, close observation for bleeding is recommended as well. Our recommendations are outlined below. Recommendations: ? Stroke/Telemetry Floor ? Neuro Checks (Q2) ? Bedside Swallow Eval ? DVT Prophylaxis ? IV Fluids, Normal Saline ? Head of Bed 30 Degrees ? Euglycemia and Avoid Hyperthermia (PRN Acetaminophen) ?Heparin gtt ?Consider DEANGELO Sign Out: ? Discussed with Emergency Department Provider Advanced Imaging:Advanced imaging has been ordered. Results pending. Metrics: Last Known Well: Unknown Dispatch Time: 10/14/2024 13:51:44 Arrival Time: 10/14/2024 13:55:12 Initial Response Time: 10/14/2024 13:53:51Symptoms: aphasia. Initial patient interaction: 10/14/2024 13:59:43 NIHSS Assessment Completed: 10/14/2024 14:02:17Patient is not a candidate for Thrombolytic. Thrombolytic Medical Decision: 10/14/2024 14:02:20Patient was not deemed candidate for Thrombolytic because of following reasons: Significant head trauma or stroke in previous [address] Head: I personally reviewed all the CT images that were available to me and it showed: no evidence of hemorrhage. Primary Provider Notified of Diagnostic Impression and Management Plan on: 10/14/2024 14:35:34 History of Present Illness:Patient is a 84 year old Female. Patient was brought by EMS for symptoms of aphasia. The patient was found unable to talk at 1230. She has a previous CVA in July which led to left sided weakness which persists. The patient herself is unable to give history. Review of the chart mentions multiple acute/subacute strokes on MRI Brain of 08/20. The patient had a DEANGELO which did show valvular vegetations, felt to be sterile. ? Past Medical History: ?Stroke unable to obtain due to:?? Patient Cannot Speak Medications: No Anticoagulant use? Antiplatelet use:?Yes?ASA Reviewed EMR for current medications Allergies:? NKDA Allergies Unable To Obtain Due To:?Patient Cannot Speak Social History: Unable To Obtain Due To Patient Status :?Patient Cannot Speak Family History: Family History Cannot Be Obtained Because:Patient Cannot Speak ROS :?ROS Cannot Be Obtained Because:? Patient Cannot Speak Past Surgical History: Past Surgical History Cannot Be Obtained Because: Patient Cannot Speak There Is No Surgical History Contributory To Today?s Visit ? Examination: BP(147/65),?Pulse(96),?Blood Glucose(94) 1A: Level of Consciousness - Alert; keenly responsive?+ 0 1B: Ask Month and Age - Aphasic?+ 2 1C: Blink Eyes & Squeeze Hands - Performs Both Tasks?+ 0 2: Test Horizontal Extraocular Movements - Normal?+ 0 3: Test Visual Schulz - No Visual Loss?+ 0 4: Test Facial Palsy (Use Grimace if Obtunded) - Minor paralysis (flat nasola bial fold, smile asymmetry)?+ 1 5A: Test Left Arm Motor Drift - No Effort Against [place]?+ 3 5B: Test Right Arm Motor Drift - No Drift for 10 Seconds?+ 0 6A: Test Left Leg Motor Drift - No Effort Against [place]?+ 3 6B: Test Right Leg Motor Drift - Some Effort Against [place]?+ 2 7: Test Limb Ataxia (FNF/Heel-[place]) - No Ataxia?+ 0 8: Test Sensation - Normal; No sensory loss?+ 0 9: Test Language/Aphasia - Mute/Global Aphasia: No Usable Speech/Auditory Comprehension?+ 3 10: Test Dysarthria - Mute/Anarthric?+ 2 11: Test Extinction/Inattention - No abnormality?+ 0 NIHSS Score:?16 Pre-Morbid Modified [place] Scale:Unable to assess Spoke with :?Dr. Ochoa, ED physician This consult was conducted in real time using interactive audio and video technology. Patient was informed of the technology being used for this visit and agreed to proceed. Patient located in hospital and provider located at home/office setting. Patient is being evaluated for possible acute neurologic impairment and high probability of imminent or life-threatening deterioration. I spent total of 45 minutes providing care to this patient, including time for face to face visit via telemedicine, review of medical records, imaging studies and discussion of findings with providers, the patient and/or family. Dr Mynor Layton [facility] For Inpatient follow-up with [facility] physician please call [facility] at . As we are not an outpatient service for any post hospital discharge needs please contact the hospital for assistance. If you have any questions for the [facility] physicians or need to reconsult for clinical or diagnostic changes please contact us via [facility] at . ?
[2024-10-14 14:42] LABS: Basophils # (Auto) 0.1 Thou/mm3 (0.0-0.2); Basophils % (Auto) 1 % (0-2.5); Eosinophils # (Auto) 0.1 Thou/mm3 (0.0-0.5); Eosinophils % (Auto) 1 % (0-10); Hematocrit 36.1 % (36.0-46.0); Hemoglobin 12.3 g/dL (12.0-16.0); Immature Granulocytes % (Auto) 0 % (0-0); Immature Granulocytes Auto 0.04 Thou/mm3 (0.00-0.00); Lymphocytes # (Auto) 1.9 Thou/mm3 (1.0-4.8); Lymphocytes % (Auto) 18 % (10-50); Mean Corpuscular HGB Conc 34.1 g/dl (31.0-37.0); Mean Corpuscular Hemoglobin 28.3 pg (25.0-35.0); Mean Corpuscular Volume 83 fL (80-100); Monocytes % (Auto) 10 % (0-12); Neutrophils # (Auto) 7.2 Thou/mm3 (1.8-7.7); Neutrophils % (Auto) 70 % (37-80); Nucleated Red Blood Cell % 0 /100 WBC (0); Platelet Count 227 Thou/mm3 (140-440); RDW Standard Deviation 46.9 fL (36.4-46.3); Red Blood Count 4.34 Miln/mm3 (4.00-5.20); White Blood Count 10.2 Thou/mm3 (3.6-11.0)
[2024-10-14 14:59] LABS: HCG Titer if Positive Negative
[2024-10-14 15:06] LABS: Partial Thromboplastin Time 22.5 Seconds (22.0-36.0); Prothrombin Time 11.4 Seconds (9.0-12.2)
--- NOTE | 2024-10-14 15:29 | XR_ITS ---
Examination: Abdomen AP single view Technique: AP portable supine abdomen, single view Exam date and time: October 14, 2024 1806 hours INDICATIONS: Abdominal pain today FINDINGS: Moderate to large amounts of stool in the rectosigmoid Contrast in the urinary bladder Contrast in the kidneys with no hydronephrosis No obstruction No free air Heavy vascular calcification Healed left hip fracture Bilateral basilar pulmonary fibrosis pattern IMPRESSION:. Moderate to large amounts of stool in the rectosigmoid
--- NOTE | 2024-10-14 15:30 | ESHP_ITS ---
Documentation for date of: 10/14/24 HPI History of Present Illness Chief complaint: Aphasia History of present illness: Ms. 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 July 2024) who presented to [facility] emergency department on October 14, 2024 with a chief complaint of aphasia, patient was at [facility], daughter was at bedside when patient started experiencing aphasia, per daughter at bedside nurse was going to feed her, patient was not able to speak and started to stare blankly. Hence patient was transported to the emergency department for CVA workup. Patient is unable to provide history, is alert and oriented x 1. Most history obtained from daughter at bedside and chart review. Patient currently complains of some lower abdominal pain and left sided abdominal pain. Otherwise patient complains of feeling thirsty, patient failed bedside swallow eval, will provide with swabs and start on IV fluids. Patient currently denies any chest pain shortness of breath and headache. DNR/DNI status confirmed with daughter at bedside. Of note over the course of last 2 months patient had a EGD on July 21 showing esophageal ulcer-large 30 mm at the GE junction and EGD on September 28, 2024 shows similar ulcer. Patient was recently brought to the ED on October 20, 2024 for increased weakness and hemoglobin of 6, received 2 units PRBC and was discharged home on oral antibiotics for pneumonia. ED Course: ED Vitals: On presentation in the emergency department blood pressure 158/6 7, heart rate 97, respiratory rate 18, temp 97.7, O2 sat 98 on room air ED Labs: Emergency department labs show hemoglobin 12.3, WBC 10.2, ED Imaging: CT scan of head negative for any acute hemorrhage, mass effect or midline shift ED Treatment: Teleneurology was consulted in ED, teleneuro recommendations: Heparin drip, DEANGELO, telemetry monitoring, neurochecks, bedside swallow eval, DVT prophylaxis, IV fluids, head of bed elevation Review of Systems Review of Systems ROS Unobtainable: unobtainable due to mental status Past Medical History Past Medical History Comments PMH COMMENT: PMH: Positive for rheumatoid arthritis, hypertension and hyperlipidemia PSHx: Positive for hip and knee surgery in the past Allergies: No known drug and food allergies Social history: -Smoking: Denies -Alcohol Use: Denies -Illicit Drug Use: Denies Patient currently lives in [facility]. Family History: Denies any family history of CVA. Family history of cancers including leukemia and dementia. Exam Vital Signs Temp Pulse Resp BP Pulse Ox O2 Del Method 97.7 F 97 18 158/67 H 98 Room Air 10/14/24 14:33 10/14/24 14:33 10/14/24 14:33 10/14/24 14:33 10/14/24 14:10/14/24 14:33 Narrative Exam Physical Exam General: Awake, unable to hold conversation, significant joint deformities and left upper extremity weakness noted. HEENT: Normocephalic, atraumatic, mucous membranes moist. Heart: Regular rate and rhythm, positive murmur left sternal border Lungs: Clear to auscultation with no wheezing or crackles. Abdomen: Soft, minimal tenderness left sided abdomen and lower quadrant, nontender, positive bowel sounds. ?No guarding or rebound tenderness. Neurologic: Alert and oriented x1, left upper extremity weakness noted. Patient able to move right upper extremity and both legs. Extremities: No edema. Skin: No rash or ecchymoses. Results: Labs 10/16/24 04:21 10/16/24 04:21 Labs: Short CBC 10/14/24 Range/Units 14:19 WBC 10.2 (3.6-11.0) Thou/mm3 Hgb 12.3 (12.0-16.0) g/dL Hct 36.1 (36.0-46.0) % Plt Count 227 D (140-440) Thou/mm3 Quality Measures Quality Measures none Advance care planning discussed with:: patient Medications Home Medications and Allergies Home Medications ?Medication ?Instructions ?Recorded ?Confirmed ?Type Fosinopril * (MONOPRIL *) 40 mg PO BID #0 tabs 7 10/14/24 History acetaminophen 325 mg tablet 650 mg PO Q4H PRN fever or pain 09/20/24 10/14/24 History amino acids-protein hydrolysate See Rx Instructions PO QDAY 09/20/24 10/14/24 History oral liquid bisacodyl 10 mg rectal suppository 10 mg NM QDAY PRN c onstipation 09/20/24 10/14/24 History (Dulcolax (bisacodyl)) magnesium hydroxide 400 mg/5 mL 1,200 mg PO QDAY PRN c onstipation 09/20/24 10/14/24 History oral suspension (Milk of Magnesia) sodium phosphates 19 gram-7 118 ml NM QDAY PRN constip ation 09/20/24 10/14/24 History gram/118 mL enema (Fleet Enema) Allergies Allergy/AdvReac Type Severity Reaction Status Date / Time No Known Allergies Allergy Verified 08/20/24 07:25 Visit Medications Acetaminophen (Acetaminophen Supp 650 Mg Supp) 650 mg NM Q6HR PRN PRN Reason: Fever > 100.3 Stop: 11/13/24 15:21 Sodium Chloride (Ns) 1,000 mls @ 65 mls/hr IV .[id number] [facility] Stop: 10/15/24 06:53 Morphine Sulfate (Morphine Sulf Inj 10 Mg/Ml Vial) 1 mg IVP Q6H PRN PRN Reason: PAIN SCALE 4-10(Mod-Sev Stop: 10/19/24 15:21 Ondansetron HCl (Ondansetron Inj 2 Mg/Ml Inj 2 Ml) 4 mg IVP Q4HR PRN PRN Reason: NAUSEA OR VOMITING Stop: 11/13/24 13:57 Ondansetron HCl (Ondansetron Inj 2 Mg/Ml Inj 2 Ml) 4 mg IVP Q6H PRN; Protocol PRN Reason: NAUSEA OR VOMITING Stop: 11/13/24 15:21 Pantoprazole Sodium (Pantoprazole Inj 40 Mg Vial) 40 mg IVP BID [facility] Stop: 11/13/24 15:29 Assessment & Plan Plan Assessment and plan: Summary: Ms. 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 July 2024) who presented to [facility] emergency department on October 14, 2024 with a chief complaint of aphasia. Patient admitted to the hospital for CVA workup. 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 Per daughter at bedside patient is not at baseline, at baseline patient is able to hold conversation. Patient is alert and oriented x 1 to self. Teleneurology consulted in the emergency department- recommends heparin drip because of history of noninfective endocarditis and DEANGELO. DEANGELO contraindicated because of large esophageal ulcer, will not start patient on heparin drip because of the same, daughter aware. Hemoglobin is stable for now. CT scan of head in ED was negative for any acute hemorrhage, midline shift or mass effect. CTA head and neck negative for any large vessel occlusion per teleneurologist. EKG in ED showed sinus rhythm. Patient failed bedside nurse swallow screen. TSH 2.36-09/28, Triglyc 71, Gladys 74, LDL 33 HDL 21-09/20, A1c 5.9-08/21 Plan: - Heparin drip deferred for now, patient was recently seen in the ED for active bleeding due to esophageal ulcer - Aspirin 300 per rectum x 1 - NS maintenance fluid 75 cc/h - Ordered MRI stroke protocol - Neurology consulted, appreciate recommendations - Referral to physical therapy - Referral to speech therapy - Fingerstick checks every 6 hours, patient n.p.o. - Hypoglycemia protocol - Elevate head of bed greater than 30 degrees - Neurochecks every 4 hours - Ordered echocardiogram: TTE, DEANGELO contraindicated with dose of esophageal ulcer. - Atorvastatin 80 mg at bedtime if patient able to swallow - Aspiration precautions - Will consider hospice referral considering recurrent strokes, discussed with daughter. #30 mm large esophageal ulcer at GE junction, by history #Recent GI bleed Patient presented to the ED on October 12 for significant anemia, hemoglobin 6, received 2 units PRBC. Hemoglobin today 12.3, patient does appear dehydrated though. EGD on July 21 showing esophageal ulcer-large 30 mm at the GE junction and EGD on September 28, 2024 shows similar ulcer. Plan: - Protonix IV 40 twice daily - GI consulted, appreciate recommendations - Bleeding precautions - Repeat H&H at 8 PM later today - Type and screen - Will obtain KUB - Transfuse if hemoglobin less than 7 #Bilateral pneumonia Chest x-ray October 20 showed significant bilateral pulmonary fibrosis and superimposed bilateral pneumonia. Patient was discharged from the ED on oral levofloxacin. Currently afebrile, no cough, saturating well on room air. Plan: -IV Levaquin 750 mg daily, will transition to p.o. to complete treatment -Tylenol per rectal as needed for fever #Hypertension #Hyperlipidemia #Rheumatoid arthritis -Started on atorvastatin 80 mg at bedtime, once patient passes swallow will resume -Monitor blood pressure -Pain management with IV morphine DVT prophylaxis: SCDs GI prophylaxis: Protonix IV twice daily Diet: N.p.o., pending speech therapy evaluation Lines: Peripheral IV Code status: DNR/DNI Case discussed with Attending Dr. Perez. Raquel Torres PGY1 Disclaimer: This note was dictated by speech recognition. Minor errors in bank compliance officer may be present due to voice recognition software. Attending Provider Attestation/Addendum 84-year-old female with multiple comorbidities including rheumatoid arthritis and marantic endocarditis and multiple stents in [place] secondary to multiple embolic infarcts with residual left-sided weakness last being 07/2024 and history of UGIB secondary to esophageal ulcers who presented again with aphasia and plan to admit the patient to tele and obtain a stroke workup. Likely sympstoms consistent with acute stroke. Tele neurology recommended stating patient on heparin drip given prior embolic strokes. Of note, the patient had an DEANGELO last time which did not show any thrombus however questionable marantic endocarditis. I also spoke with daughter at bedside regarding poor prognosis. I reviewed above note and agree with findings and plans. I have also personally examined the patient with medicine team and went over assessment and plan with medical team including intern architect and resident physician.
[2024-10-14 15:38] VITALS: PULSE 99; RESP 20; RESP 98
[2024-10-14 16:16] VITALS: BP 176/71; PULSE 95; RESP 18; TEMP 36.9; O2SAT 97
[2024-10-14 16:16] LABS: Alanine Aminotransferase 10 U/L (10-49); Albumin, Serum 3.1 gm/dL (3.4-4.8); Albumin/Globulin Ratio 1.1 (1.2-2.2); Alkaline Phosphatase 83 U/L (46-116); Anion Gap 9 (7-16); Aspartate Amino Transferase 26 U/L (0-34); BUN/Creatinine Ratio 8 Ratio (12-20); Blood Urea Nitrogen 8 mg/dL (9-23); Calcium 8.8 mg/dL (8.3-10.6); Calcium (Corrected) 9.5 mg/dL (8.5-10.1); Chloride 104 mMol/L (98-107); Globulin 2.9 gm/dL (2.3-3.5); Glucose 83 mg/dL (74-106); Magnesium 2.1 mg/dL (1.6-2.6); Osmolality,Calculated 276 (275-295); Potassium 4.9 mMol/L (3.4-5.1); Sodium 140 mMol/L (136-145); Troponin I 0.036 ng/mL (0.0-0.045); eGFR 56 See Note
--- NOTE | 2024-10-14 16:24 | PRELIM_ITS ---
CT angiogram of the head and neck with intravenous contrast (axial sections with sagittal, coronal MIP and 3D reformats) October 14, 2024 1419 hours Clinical History: Focal neuro deficit, stroke suspected, no weakness, difficulty speaking and swallowing, slurred speech Comparison: None. Findings: Head: The internal carotid, middle and anterior cerebral arteries are patent bilaterally. The intracranial vertebral arteries are patent. The vertebrobasilar junction, basilar and posterior cerebral arteries are patent. No evidence of large vessel occlusion, critical stenosis or aneurysm. Neck: There is atheromatous calcification of the aortic arch. The right brachiocephalic, left common carotid, and left subclavian arteries are patent. Calcified plaque is seen in the proximal left internal carotid artery, causing 80% stenosis (axial image 91/185). The mid and distal portion of the left internal carotid artery is patent. Calcified plaque is seen in the right internal carotid artery, causing 50% stenosis. The common carotid arteries, carotid bulbs, and external carotid arteries are patent. The origins of the vertebral arteries are unremarkable. Calcified plaque is seen at the origins of vertebral arteries, causing 50% stenosis. The soft tissues of the neck are unremarkable. Degenerative changes are identified in the spine. Impression: Head: No evidence of large vessel occlusion, critical stenosis or aneurysm. Neck: Calcified plaque in the proximal left internal carotid artery, causing 80% stenosis. Calcified plaque in the right internal carotid artery, causing 50% stenosis. Discussion Details: Results Discussed With : Dr. Perez at 03:44 PM 10/14/2024 Report Electronically Signed By: Daniel Brewer 10/14/2024 4:23:45 PM [EST]
--- NOTE | 2024-10-14 16:30 | ESCONSULT_ITS ---
HPI Data of Consult Requesting Physician: Pilo Perez MD Primary Care Provider: Fitz Gomes MD Consult Narrative Reason for consult: GI bleed, new CVA, History of present illness: 84-year-old female I been consulted for history of GI bleed and in the setting of new onset symptoms of aphasia with a negative CT scan of the head to see if she can be anticoagulated He was in the ER 2 days ago with hematemesis on appears endoscopy she has found to have ulceration of the distal esophagus Her hemoglobin is 6.5 g range I told the ER physician no need for admission give 2 units of blood and send the patient back to intermediate which was done However this morning she became aphasic which is new in onset as she talks a lot She has brought back into the emergency room Difficult to examine as she has a previous history of left CVA with right residual motor weakness I been asked by the internal medicine can she be anticoagulated and given aspirin cc:: cc: Pilo Perez MD Review of Systems Review of Systems ROS Unobtainable: unobtainable due to medical condition Past Medical History Surgical History OTHER SURGICAL HX: Rheumatoid arthritis Essential hypertension Hyperlipidemia 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 Meds Home Medications and Allergies Home Medications ?Medication ?Instructions ?Recorded ?Confirmed ?Type Fosinopril * (MONOPRIL *) 40 mg PO BID #0 tabs 7 09/28/24 History acetaminophen 325 mg tablet 650 mg PO Q4H PRN fever or pain 09/20/24 09/28/24 History amino acids-protein hydrolysate See Rx Instructions PO QDAY 09/20/24 09/28/24 History oral liquid bisacodyl 10 mg rectal suppository 10 mg TN QDAY PRN c onstipation 09/20/24 09/28/24 History (Dulcolax (bisacodyl)) magnesium hydroxide 400 mg/5 mL 1,200 mg PO QDAY PRN c onstipation 09/20/24 09/28/24 History oral suspension (Milk of Magnesia) sodium phosphates 19 gram-7 118 ml TN QDAY PRN constip ation 09/20/24 09/28/24 History gram/118 mL enema (Fleet Enema) Allergies Allergy/AdvReac Type Severity Reaction Status Date / Time No Known Allergies Allergy Verified 08/20/24 07:25 Exam Vital Signs Temp Pulse Resp BP Pulse Ox O2 Del Method 98.5 F 95 18 176/71 H 97 Room Air 10/14/24 16:16 10/14/24 16:16 10/14/24 16:16 10/14/24 16:16 10/14/24 16:16 10/14/24 16:16 Constitutional Comments: Chronically ill-appearing Routine Abdominal Exam Comments: Soft nontender benign Results Labs 10/14/24 14:19 10/14/24 14:19 Labs: Short CBC 10/14/24 Range/Units 14:19 WBC 10.2 (3.6-11.0) Thou/mm3 Hgb 12.3 (12.0-16.0) g/dL Hct 36.1 (36.0-46.0) % Plt Count 227 D (140-440) Thou/mm3 BMP 10/14/24 14:19 Sodium 140 Potassium 4.9 Chloride 104 Carbon Dioxide 27.0 BUN 8 L Creatinine 1.0 Glucose 83 Calcium 8.8 Cardiac Enzymes 10/14/24 Range/Units 14:19 Troponin I 0.036 (0.0-0.045) ng/mL Liver Function 10/14/24 Range/Units 14:19 Total Bilirubin 1.0 D (0.3-1.2) mg/dL AST 26 (0-34) U/L ALT 10 (10-49) U/L Alkaline Phosphatase 83 (46-116) U/L Albumin 3.1 L (3.4-4.8) gm/dL Assessment and Plan Additional Assessment & Plan Additional Plan: # New onset of aphasia Patient can be given aspirin and if the Plavix is necessary it can also be added # History of GI bleed secondary to ulceration of the distal esophagus Patient can be given and should be given PPIs twice a day No need for a repeat endoscopy other medical problems include previous CVA with right residual motor weakness Rheumatoid arthritis essential hypertension Hyperlipidemia thank you very much for the opportunity to participate in the care of this patient
[2024-10-14] MEDS: SODIUM CHLORIDE 0.9% 1000 ML 1,000 ML 75 ML IV (16:54)
[2024-10-14] MEDS: LEVOFLOXACIN/D5W 750MG IVPB 750 MG/150 ML BAG 100 MG IV (16:54)
[2024-10-14] MEDS: ASPIRIN 300 MG SUPP PR (16:54)
[2024-10-14 16:55] VITALS: BMI 26.0
[2024-10-14] MEDS: PANTOPRAZOLE INJ 40 MG VIAL IVP ×2 (16:55→20:23)
[2024-10-14 17:23] LABS: Collection Type, Urine Catheter
[2024-10-14 17:45] LABS: Bilirubin,Urine Negative (Negative); Blood,Urine Trace (Negative); Clarity,Urine Clear (Clear/Hazy); Color,Urine Lt-Yellow (Lt Yel-Yel); Glucose, Urine Negative (Negative); Ketones,Urine Negative (Negative); Leukocyte Esterase,Urine Negative (Negative); Nitrite,Urine Negative (Negative); Protein,Urine Negative (Neg - Trace); RBC,Urine 1 /hpf (0-3); Specific Gravity,Urine 1.037 (1.001-1.035); Squamous Epithelial Cell,Urine < 1 /hpf (0-5); Urobilinogen,Urine Negative mg/dL (0.0-1.0); WBC,Urine 1 /hpf (0-5)
[2024-10-14] MEDS: DEXTROSE 50%-WATER INJ 50 ML SYRINGE 25 ML IV (17:53)
[2024-10-14 18:00] VITALS: BP 154/71; PULSE 94; RESP 17; TEMP 36.9; O2SAT 97
[2024-10-14 18:18] LABS: Amphetamine/Methamp Scrn,U Negative (Negative); Barbiturate Screen,Urine Negative (Negative); Benzodiazepines Screen,Urine Negative (Negative); Benzoylecgonine Screen, Ur Negative (Negative); Fentanyl Screen,Urine Positive (Negative); Opiate Screen,Urine Positive (Negative); THC Screen,Urine Negative (Negative)
--- NOTE | 2024-10-14 18:34 | PC.NURSE ---
Report called to KRYS Shay. Patient had blood sugar of 74 when checked, called resident to inform of patient's blood sugar, per resident give D50 (25ml) under the PRN orders since patient is NPO. Rechecked patients blood sugar which was 165. Patient will be taken up to room 270.
[2024-10-14 20:00] VITALS: BP 150/66; PULSE 85; PULSE 98; RESP 15; TEMP 36.7; O2SAT 100
[2024-10-14 20:13] LABS: Hematocrit 31.5 % (36.0-46.0); Hemoglobin 10.7 g/dL (12.0-16.0)
--- NOTE | 2024-10-14 20:48 | PD.NEUROPROG ---
Documentation for date of: 10/14/24 Subjective Subjective Interval history: Patient was seen in telemetry today at the bedside, continued to have the left facial and upper extremity weakness. she denies any headache, dizziness or any new symptoms. Her speech has improved some. Exam - Neurology Vital Signs Temp Pulse Resp BP Pulse Ox O2 Del Method 98.4 F 85 17 154/71 H 97 Room Air 10/14/24 18:00 10/14/24 20:00 10/14/24 18:00 10/14/24 18:00 10/14/24 18:00 10/14/24 18:00 Narrative Exam GENERAL APPEARANCE: Well hydrated, well-nourished in no acute distress. HEENT: Normocephalic, atraumatic, extraocular movements intact. Pupils: Equal reacting to light and accommodation NECK: Supple, no JVD or bruits. CARDIOVASULAR: Heart: S1, S2 heard, regular without S3-S4 or murmur no rubs or gallops. LUNGS/CHEST: Clear to auscultation bilaterally. No rails, rhonchi, or wheezing. Normal inspection. ABDOMEN: Soft, nontender, with normal bowel sounds. No pulsatile masses. No rebound, rigidity, or guarding. Normal inspection and palpation. EXTREMITIES: Normal inspection and palpation. No edema, clubbing or cyanosis. SKIN: Warm and dry without rashes. Normal inspection. MUSCULOSKELETAL: She has significant joint deformities consistent with severe rheumatoid arthritis NEURO: Alert, awake and oriented x3. Cranial nerves: II through XII grossly intact with exception of left facial weakness of upper motor neuron type. Speech and language: improved some. Motor system: Tone and bulk: Normal: Strength: Moves all 4 extremities; No pronator drift noted. Deep tendon reflexes: 1+ bilaterally symmetrical. Plantar reflex: Downgoing bilaterally. Sensory system: Intact to all modalities of sensation bilaterally. Coordination: Intact to [id number] and [id number] test bilaterally. No ataxia, no dysmetria, or dysdiadochokinesia noted. No intention tremors noted. Gait: Not tested. PSYCHIATRIC: Normal mood and affect. Objective Labs 10/14/24 20:04 10/14/24 14:19 Labs: Laboratory Results - last 24 hr 10/14/24 10/14/24 10/14/24 14:19 16:37 17:12 WBC 10.2 RBC 4.34 Hgb 12.3 Hct 36.1 MCV 83 MCH 28.3 MCHC 34.1 RDW Std Deviation 46.9 H Plt Count 227 D Neut % (Auto) 70 Lymph % (Auto) 18 [place] % (Auto) 10 Eos % (Auto) 1 Baso % (Auto) 1 Neut # (Auto) 7.2 Lymph # (Auto) 1.9 [place] # (Auto) 1.0 H Eos # (Auto) 0.1 Baso # (Auto) 0.1 Immature Gran # (Auto) 0.04 H Absolute Nucleated RBC 0.00 Immature Gran % 0 Nucleated RBC % 0 PT 11.4 INR 1.0 APTT 22.5 Sodium 140 Potassium 4.9 Chloride 104 Carbon Dioxide 27.0 Anion Gap 9 BUN 8 L Creatinine 1.0 Estim Creat Clear Calc Not Performed. eGFR 56 L BUN/Creatinine Ratio 8 L Glucose 83 Calculated Osmolality 276 Calcium 8.8 Corrected Calcium 9.5 Magnesium 2.1 Total Bilirubin 1.0 D AST 26 ALT 10 Alkaline Phosphatase 83 Troponin I 0.036 Total Protein 6.0 Albumin 3.1 L Globulin 2.9 Albumin/Globulin Ratio 1.1 L Ur Collection Type Catheter Urine Color Lt-Yellow Urine Clarity Clear Urine pH 7.0 Ur Specific [place] 1.037 H Urine Protein Negative Urine Glucose (UA) Negative Urine Ketones Negative Urine Blood Trace Urine Nitrite Negative Urine Bilirubin Negative Urine Urobilinogen (Auto) Negative Ur Leukocyte Esterase Negative Urine RBC 1 Urine WBC 1 Ur Squamous Epith Cells < 1 Urine Bacteria None Urine Opiates Screen Positive A Urine Fentanyl Screen Positive A Ur Barbiturates Screen Negative U Amphetamin/Meth Scrn Negative U Benzodiazepines Scrn Negative U Cocaine Metab Screen Negative U Marijuana (THC) Screen Negative HCG (Qual) Negative Blood Type O Positive Antibody Screen NEGATIVE Blood Bank Wristband ID Yes 10/14/24 20:04 WBC RBC Hgb 10.7 L Hct 31.5 L MCV MCH MCHC RDW Std Deviation Plt Count Neut % (Auto) Lymph % (Auto) [place] % (Auto) Eos % (Auto) Baso % (Auto) Neut # (Auto) Lymph # (Auto) [place] # (Auto) Eos # (Auto) Baso # (Auto) Immature Gran # (Auto) Absolute Nucleated RBC Immature Gran % Nucleated RBC % PT INR APTT Sodium Potassium Chloride Carbon Dioxide Anion Gap BUN Creatinine Estim Creat Clear Calc eGFR BUN/Creatinine Ratio Glucose Calculated Osmolality Calcium Corrected Calcium Magnesium Total Bilirubin AST ALT Alkaline Phosphatase Troponin I Total Protein Albumin Globulin Albumin/Globulin Ratio Ur Collection Type Urine Color Urine Clarity Urine pH Ur Specific [place] Urine Protein Urine Glucose (UA) Urine Ketones Urine Blood Urine Nitrite Urine Bilirubin Urine Urobilinogen (Auto) Ur Leukocyte Esterase Urine RBC Urine WBC Ur Squamous Epith Cells Urine Bacteria Urine Opiates Screen Urine Fentanyl Screen Ur Barbiturates Screen U Amphetamin/Meth Scrn U Benzodiazepines Scrn U Cocaine Metab Screen U Marijuana (THC) Screen HCG (Qual) Blood Type Antibody Screen Blood Bank Wristband ID Assessment & Plan Assessment and plan (1) CVA (cerebral vascular accident): Status: Acute Assessment and plan: Presented with acute onset of aphasia and residual left facial weakness, MRI brain from 08/20/24 showed acute multiple embolic type infarcts. FU with repeat MRI brain, DEANGELO to look for cardiac sources of emboli. Continue with current mgt for now as per teleneuro recs. Close monitoring for bleeding. Physical therapy, speech and Occupational Therapy. (2) Hypertension: Status: Chronic Assessment and plan: Continue with permissive blood pressure management
[2024-10-15] VITALS (7 sets, daily range): BP systolic 121–142; BP diastolic 53–77; PULSE 67–100; RESP 13–98; TEMP 36–37.1; O2SAT 97–100; BMI 23.1; BMI 11.0
--- NOTE | 2024-10-15 | XR_ITS ---
Examinations: MRI Brain without intravenous contrast. MRA brain without intravenous contrast. MRA carotids without intravenous contrast 3-D vascular reconstructions Date and time of exam: October 15, 2024 at 0802 hours Comparison August 20, 2024 INDICATIONS: Stroke alert October 14, 2024, onset focal neurologic deficit aphasia difficulty swallowing Technique: Multiple axial and sagittal images of the brain have been obtained MRA brain carotid images without contrast obtained, including 3-D postprocessing, vascular maximum intensity projection images Findings: [place] is not enlarged. The optic chiasm and infundibular stalk are not remarkable. Prepontine and interpeduncular cisterns are not enlarged. No localized enlargement of the medulla or tacos. Fourth ventricle and cerebellar tonsils normal in position. Subacute hemorrhage is not seen. Fourth ventricle is midline. Mass in the cerebellopontine angle region is not evident. 7th and 8th nerve complexes exhibits symmetry. Globes are symmetrical with no retro-orbital mass. Increased white matter signal prominent Diffusion-weighted images demonstrate subtle foci restricted diffusion right occipital lobe and larger focus restricted diffusion right parietal lobe Mass-effect upon the ventricular system is not identified. MRA carotid images degraded by patient motion. MRA brain images very poor quality motion degraded Impression: Findings most consistent with acute infarcts right occipital lobe, right parietal lobe
[2024-10-15] MEDS: DEXTROSE 50%-WATER INJ 50 ML SYRINGE 25 ML IV (00:06)
--- NOTE | 2024-10-15 05:24 | PC.NURSE ---
SPOKE WITH DR. KING IN REGARDS TO FSBS AT 71. PT NPO. ASYMPTOMATIC. TO PLACE ORDERS FOR D50 AMP X1. MADE AWARE OF IVF X1L TO BE COMPLETED SOON. 3RD COVERAGE WITH D50 SINCE ED. REQUESTED PT GET STARTED ON IVF WITH D5, MD DECLINED AT THIS TIME.
[2024-10-15] MEDS: DEXTROSE 50%-WATER INJ 50 ML SYRINGE IVP (05:29)
[2024-10-15 05:42] LABS: Basophils % (Auto) 0 % (0-2.5); Eosinophils # (Auto) 0.2 Thou/mm3 (0.0-0.5); Eosinophils % (Auto) 2 % (0-10); Hematocrit 31.5 % (36.0-46.0); Hemoglobin 10.6 g/dL (12.0-16.0); Immature Granulocytes % (Auto) 0 % (0-0); Immature Granulocytes Auto 0.04 Thou/mm3 (0.00-0.00); Lymphocytes # (Auto) 1.6 Thou/mm3 (1.0-4.8); Lymphocytes % (Auto) 17 % (10-50); Mean Corpuscular HGB Conc 33.7 g/dl (31.0-37.0); Mean Corpuscular Volume 83 fL (80-100); Monocytes # (Auto) 1.1 Thou/mm3 (0.0-0.8); Monocytes % (Auto) 12 % (0-12); Neutrophils # (Auto) 6.2 Thou/mm3 (1.8-7.7); Neutrophils % (Auto) 68 % (37-80); Nucleated Red Blood Cell % 0 /100 WBC (0); Platelet Count 203 Thou/mm3 (140-440); RDW Standard Deviation 46.2 fL (36.4-46.3); Red Blood Count 3.79 Miln/mm3 (4.00-5.20); White Blood Count 9.2 Thou/mm3 (3.6-11.0)
[2024-10-15 05:53] LABS: INR 1.1 (0.9-1.3); Partial Thromboplastin Time 26.2 Seconds (22.0-36.0); Prothrombin Time 11.9 Seconds (9.0-12.2)
[2024-10-15 05:59] LABS: Anion Gap 8 (7-16); BUN/Creatinine Ratio 8 Ratio (12-20); Blood Urea Nitrogen 6 mg/dL (9-23); Calcium 8.3 mg/dL (8.3-10.6); Carbon Dioxide 27.5 mMol/L (20.0-31.0); Chloride 106 mMol/L (98-107); Creatinine (Component) 0.8 mg/dL (0.6-1.3); Estimated Creatinine Clearance 38.6 mL/min (>60); Glucose 76 mg/dL (74-106); Magnesium 1.8 mg/dL (1.6-2.6); Osmolality,Calculated 277 (275-295); Phosphorous 2.2 mg/dL (2.4-5.1); Potassium 3.8 mMol/L (3.4-5.1); Sodium 141 mMol/L (136-145); eGFR > 60 See Note
[2024-10-15] MEDS: PANTOPRAZOLE INJ 40 MG VIAL IVP ×2 (08:54→20:04)
[2024-10-15] MEDS: LEVOFLOXACIN/D5W 750MG IVPB 750 MG/150 ML BAG 100 MG IV (08:54)
--- NOTE | 2024-10-15 12:19 | PC.SS ---
Patient is an 84YO female admitted to Telemetry, Reason for visit: CVA WORKUP Patient unable to provide information due to sleeping. SS contacted patient?s daughter Crystal Nagy [phone]. Crystal confirmed she is patient?s primary medical surrogate decisionmaker. Role and purpose was explained to Crystal. Crystal stated patient will return to [facility] at time of discharge. Crystal stated patient requires maximum assistance with ADLs. Patient ambulates/transferred with a wheelchair. [facility]acy: [facility]. PCP: Dr. Esteban. ? Next of kin: Daughter Crystal Nagy [phone] Discharge plan: RW, transportation needed.
--- NOTE | 2024-10-15 13:30 | PD.RESPRO ---
Documentation for date of: 10/15/24 Subjective Subjective Interval history: No acute overnight events reported. Patient seen and examined at bedside this morning. Patient is saturating on room air, upon questioning patient is minimally responding to questions other than answering yes or no. Patient is not following commands however she does recognize where she is. Neuroexam is very limited as patient is unable to respond to questions and follow commands. vitals are stable. Labs are reviewed. MRI showed acute infarcts in the occipital and parietal lobes. Will touch base with neuro recommendations, will confirm pt may need DEANGELO. Exam Vital Signs Temp Pulse Resp BP Pulse Ox O2 Del Method 97.6 F 80 21 H 133/77 H 99 Room Air 10/15/24 12:00 10/15/24 12:00 10/15/24 12:00 10/15/24 12:00 10/15/24 12:00 10/15/24 12:00 Narrative Exam GENERAL: A&Ox2 (self and place), speech is aphagic . Awake, Not in acute distress NEURO: limited due to patient's previous hx. of stroke and difficulty following commands. left facial droop noted HEENT: Atraumatic, Normocephalic. mucous membranes moist. Eyes open, symmetrical, & clear HEART: Normal Heart Sounds LUNGS: Clear to auscultation with no wheezing or crackles. ABDOMEN: soft, non-distended, non-tender, bowel sounds heard, no guarding or rebound tenderness SKIN: No Rash, multiple ecchymoses noted on LE and UE EXTREMITIES: No edema, tenderness, able to move all 4 extremities, pedal pulses palpated, contracted left hand Objective Labs 10/16/24 04:21 10/16/24 04:21 Labs: Laboratory Results - last 24 hr 10/14/24 10/14/24 10/14/24 14:19 16:37 17:12 WBC 10.2 RBC 4.34 Hgb 12.3 Hct 36.1 MCV 83 MCH 28.3 MCHC 34.1 RDW Std Deviation 46.9 H Plt Count 227 D Neut % (Auto) 70 Lymph % (Auto) 18 [place] % (Auto) 10 Eos % (Auto) 1 Baso % (Auto) 1 Neut # (Auto) 7.2 Lymph # (Auto) 1.9 [place] # (Auto) 1.0 H Eos # (Auto) 0.1 Baso # (Auto) 0.1 Immature Gran # (Auto) 0.04 H Absolute Nucleated RBC 0.00 Immature Gran % 0 Nucleated RBC % 0 PT 11.4 INR 1.0 APTT 22.5 Sodium 140 Potassium 4.9 Chloride 104 Carbon Dioxide 27.0 Anion Gap 9 BUN 8 L Creatinine 1.0 Estim Creat Clear Calc Not Performed. eGFR 56 L BUN/Creatinine Ratio 8 L Glucose 83 Calculated Osmolality 276 Calcium 8.8 Corrected Calcium 9.5 Phosphorus Magnesium 2.1 Total Bilirubin 1.0 D AST 26 ALT 10 Alkaline Phosphatase 83 Troponin I 0.036 Total Protein 6.0 Albumin 3.1 L Globulin 2.9 Albumin/Globulin Ratio 1.1 L Ur Collection Type Catheter Urine Color Lt-Yellow Urine Clarity Clear Urine pH 7.0 Ur Specific [place] 1.037 H Urine Protein Negative Urine Glucose (UA) Negative Urine Ketones Negative Urine Blood Trace Urine Nitrite Negative Urine Bilirubin Negative Urine Urobilinogen (Auto) Negative Ur Leukocyte Esterase Negative Urine RBC 1 Urine WBC 1 Ur Squamous Epith Cells < 1 Urine Bacteria None Urine Opiates Screen Positive A Urine Fentanyl Screen Positive A Ur Barbiturates Screen Negative U Amphetamin/Meth Scrn Negative U Benzodiazepines Scrn Negative U Cocaine Metab Screen Negative U Marijuana (THC) Screen Negative HCG (Qual) Negative Blood Type O Positive Antibody Screen NEGATIVE Blood Bank Wristband ID Yes 10/14/24 10/15/24 20:04 05:13 WBC 9.2 RBC 3.79 L Hgb 10.7 L 10.6 L Hct 31.5 L 31.5 L MCV 83 MCH 28.0 MCHC 33.7 RDW Std Deviation 46.2 Plt Count 203 Neut % (Auto) 68 Lymph % (Auto) 17 [place] % (Auto) 12 Eos % (Auto) 2 Baso % (Auto) 0 Neut # (Auto) 6.2 Lymph # (Auto) 1.6 [place] # (Auto) 1.1 H Eos # (Auto) 0.2 Baso # (Auto) 0.0 Immature Gran # (Auto) 0.04 H Absolute Nucleated RBC 0.00 Immature Gran % 0 Nucleated RBC % 0 PT 11.9 INR 1.1 APTT 26.2 Sodium 141 Potassium 3.8 D Chloride 106 Carbon Dioxide 27.5 Anion Gap 8 BUN 6 L Creatinine 0.8 Estim Creat Clear Calc 38.6 L eGFR > 60 BUN/Creatinine Ratio 8 L Glucose 76 Calculated Osmolality 277 Calcium 8.3 Corrected Calcium Phosphorus 2.2 L Magnesium 1.8 Total Bilirubin AST ALT Alkaline Phosphatase Troponin I Total Protein Albumin Globulin Albumin/Globulin Ratio Ur Collection Type Urine Color Urine Clarity Urine pH Ur Specific [place] Urine Protein Urine Glucose (UA) Urine Ketones Urine Blood Urine Nitrite Urine Bilirubin Urine Urobilinogen (Auto) Ur Leukocyte Esterase Urine RBC Urine WBC Ur Squamous Epith Cells Urine Bacteria Urine Opiates Screen Urine Fentanyl Screen Ur Barbiturates Screen U Amphetamin/Meth Scrn U Benzodiazepines Scrn U Cocaine Metab Screen U Marijuana (THC) Screen HCG (Qual) Blood Type Antibody Screen Blood Bank Wristband ID Quality Measures Quality Measures none Advance care planning discussed with:: child Assessment & Plan Assessment Current Active Medications: Generic Name Dose Route Start Last Admin Trade Name Freq PRN Reason Stop Dose Admin Acetaminophen 650 mg 10/14/24 15:22 Acetaminophen Supp 650 Mg Supp AK 11/13/24 15:21 Q6HR PRN Fever > 100.3 Atorvastatin Calcium 80 mg 10/14/24 21:00 10/14/24 19:19 Atorvastatin Calcium 20 Mg Tablet PO 11/13/24 20:59 Not Given HS NADIR Dextrose 25 ml 10/14/24 15:59 10/15/24 00:06 Dextrose 50%-Water Inj 50 Ml Syringe IV 11/13/24 15:58 25 ml Q15MIN PRN Administration BG 50-70 responsive npo pt Dextrose 50 ml 10/14/24 15:59 Dextrose 50%-Water Inj 50 Ml Syringe IV 11/13/24 15:58 Q15MIN PRN BG <50 OR BG <70 & pt unresponsive Glucagon 1 mg 10/14/24 15:59 Glucagon Inj 1 Mg Vial IM Q15MIN PRN BG <70, and no IV access Levofloxacin/Dextrose 750 mg in 150 mls @ 100 mls/hr 10/15/24 09:00 10/15/24 08:54 Levaquin Ivpb IV 10/21/24 15:44 100 mls/hr Q48H NADIR Administration Morphine Sulfate 1 mg 10/14/24 15:22 Morphine Sulf Inj 10 Mg/Ml Vial IVP 10/19/24 15:21 Q6H PRN PAIN SCALE 4-10(Mod-Sev Ondansetron HCl 4 mg 10/14/24 15:22 Ondansetron Inj 2 Mg/Ml Inj 2 Ml IVP 11/13/24 15:21 Q6H PRN NAUSEA OR VOMITING Protocol Pantoprazole Sodium 40 mg 10/14/24 15:30 10/15/24 08:54 Pantoprazole Inj 40 Mg Vial IVP 11/13/24 15:29 40 mg BID NADIR Administration Plan Ms. 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 July 2024) who presented to [facility] emergency department on October 14, 2024 with a chief complaint of aphasia. Patient admitted to the hospital for CVA workup. 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 Per daughter at bedside patient is not at baseline, at baseline patient is able to hold conversation. Patient is alert and oriented x 1 to self. Teleneurology consulted in the emergency department-recommends heparin drip because of history of noninfective endocarditis and DEANGELO. DEANGELO contraindicated because of large esophageal ulcer, will not start patient on heparin drip because of the same, daughter aware. Hemoglobin is stable for now. CT scan of head in ED was negative for any acute hemorrhage, midline shift or mass effect. CTA head and neck negative for any large vessel occlusion per teleneurologist. EKG in ED showed sinus rhythm. Patient failed bedside nurse swallow screen. TSH 2.36-09/28, Triglyc 71, Gladys 74, LDL 33 HDL 21-09/20, A1c 5.9-08/21 MRI with MRA: acute infarcts right occipital lobe, right parietal lobe Plan: - Heparin drip deferred for now, patient was recently seen in the ED for active bleeding due to esophageal ulcer - Aspirin 300 per rectum x 1 - NS maintenance fluid 75 cc/h - Neurology consulted, appreciate recommendations - Referral to physical therapy - Referral to speech therapy - Fingerstick checks every 6 hours, patient n.p.o. - Hypoglycemia protocol - Elevate head of bed greater than 30 degrees - Neurochecks every 4 hours - Ordered echocardiogram: TTE, Will confirm with neuro, pt may need repeat DEANGELO due to new findings on MRI. Will confirm with GI regarding DEANGELO due to pt's history of esophageal ulcer. - Atorvastatin 80 mg at bedtime - Aspiration precautions - Will consider hospice referral considering recurrent strokes, discussed with daughter. #Hx of 30 mm large esophageal ulcer at GE junction #Recent GI bleed, previous hospital admission Patient presented to the ED on October 12 for significant anemia, hemoglobin 6, received 2 units PRBC. Hemoglobin today 12.3, patient does appear dehydrated though. EGD on July 21 showing esophageal ulcer-large 30 mm at the GE junction and EGD on September 28, 2024 shows similar ulcer. Plan: - Protonix IV 40 twice daily - GI consulted, appreciate recommendations - Bleeding precautions - Repeat H&H at 8 PM later today - Type and screen - Transfuse if hemoglobin less than 7 #Bilateral pneumonia Chest x-ray October 20 showed significant bilateral pulmonary fibrosis and superimposed bilateral pneumonia. Patient was discharged from the ED on oral levofloxacin. Currently afebrile, no cough, saturating well on room air. Plan: -IV Levaquin 750 mg daily, will transition to p.o. to complete treatment -Tylenol per rectal as needed for fever #Primary Hypertension #Hyperlipidemia #Rheumatoid arthritis -Started on atorvastatin 80 mg at bedtime, once patient passes swallow will resume -Monitor blood pressure -Pain management with IV morphine DVT prophylaxis: SCDs GI prophylaxis: Protonix IV twice daily Diet: N.p.o., pending speech therapy evaluation Lines: Peripheral IV Code status: DNR/DNI Assessment and plan discussed with my attending physician Dr. Chris Ricci ([id number])- Internal medicine resident Attending Provider Attestation/Addendum 84-year-old female with multiple comorbidities including rheumatoid arthritis and marantic endocarditis and multiple stents in [place] secondary to multiple embolic infarcts with residual left-sided weakness last being 07/2024 and history of UGIB secondary to esophageal ulcers who presented again with aphasia and plan to admit the patient to tele and obtain a stroke workup. Likely sympstoms consistent with acute stroke. Tele neurology recommended stating patient on heparin drip given prior embolic strokes however did not recommend tPA at this time. Of note, the patient had an DEANGELO last time which did not show any thrombus however questionable marantic endocarditis. I also spoke with daughter at bedside regarding poor prognosis. Overnight, the patient had her MRI which showed multiple strokes in the occipital and parietal lobes. As a result, will discuss with neurology regarding repeating the DEANGELO. Clinically the patient appears to be improving. I reviewed above note and agree with findings and plans. I have also personally examined the patient with medicine team and went over assessment and plan with medical team including physician/internist and resident physician.
--- NOTE | 2024-10-15 15:56 | ECHO_ITS ---
Transthoracic Echo Report Ht (in): 59 Wt (lb): 114 Exam Location: Echo Lab Status: Inpatient B2B Sales Representative: Carolyne Person Indications: Procedure Performed: BP: 134 / 64 HR: 71 Technical Quality: Adequate MEASUREMENTS (Male / Female) Normal Values 2D ECHO LV Diastolic Diameter PLAX 4.2 cm 4.2 - 5.9 / 3.9 - 5.3 cm LV Systolic Diameter PLAX 3.0 cm IVS Diastolic Thickness 0.9 cm 0.6 - 1.0 / 0.6 - 0.9 cm LVPW Diastolic Thickness 0.7 cm 0.6 - 1.0 / 0.6 - 0.9 cm LV Relative Wall Thickness 0.4 LVOT Diameter 1.9 cm LA Volume Index 56.0 cm?/m? 16 - 28 cm?/m? Ascending Aorta Diameter 2.6 cm DOPPLER AV Peak Velocity 156.0 cm/s AV Peak Gradient 9.7 mmHg AV Mean Gradient 5.0 mmHg AV Velocity Time Integral 28.5 cm AI Peak Velocity 404.0 cm/s AI Peak Gradient 65.3 mmHg AI Pressure Half Time 368.0 ms LVOT Peak Velocity 105.0 cm/s LVOT Peak Gradient 4.4 mmHg LVOT Velocity Time Integral 19.8 cm LVOT Cardiac Index 2701.2 cm?/min?m? AV Area Cont Eq vti 2.0 cm? AV Area Cont Eq pk 1.9 cm? MV Peak Velocity 192.0 cm/s MV Peak Gradient 14.7 mmHg MV Mean Velocity 109.0 cm/s MV Mean Gradient 6.0 mmHg MV Area PHT 2.1 cm? MR Peak Velocity 438.0 cm/s MR Peak Gradient 76.7 mmHg PV Peak Velocity 88.2 cm/s PV Peak Gradient 3.1 mmHg FINDINGS Left Ventricle Normal left ventricular size, wall thickness, systolic function with no obvious regional wall motion abnormalities. Diastology can not be assessed due to mitral stenosis. The ejection fraction is visually estimated at 65 %. Right Ventricle The right ventricle is normal in size and systolic function. The estimated right ventricular systolic pressure can not be determined due to innadequate Doppler signal. Left Atrium The left atrium is severe enlargement. Right Atrium The right atrium is normal by two-dimensional imaging, color flow and Doppler imaging with no structural abnormalities, no thrombus formation present. Atrial Septum The interatrial septum appears normal with no evidence of a shunt. Aorta The aorta is normal by two-dimensional, color flow and Doppler interrogation. Mitral Valve The mitral valve is moderately calcified with mild mitral stenosis. There is moderate mitral regurgitation. Aortic Valve The aortic valve is moderately calcified without evidence of stenosis. There is mild aortic regurgitation. Tricuspid Valve The tricuspid valve is normal by two-dimensional, color flow and Doppler interrogation. There is no significant tricuspid valve regurgitation. Pulmonic Valve The pulmonic valve is not well visualized. There is no significant pulmonic valve regurgitation. Vessels The pulmonary artery appears normal. The inferior vena cava pulmonary and hepatic veins appear normal. Pericardium The pericardium is normal by two-dimensional imaging. There is no significant pericardial effusion. CONCLUSIONS Indications: CVA Workup Normal LV size and function. Estimated EF 60 to 65%. Diastolic dysfunction present but could not be graded secondary to severe MAC. Normal RV size and function. RVSP could not be measured due to inadequate TR jet. Severe MAC of both mitral leaflets with mild to moderate mitral stenosis with mean PG of 7 mmHg. Moderate eccentric MR. Moderate aortic valve sclerosis without stenosis. Mild to moderate AI trace TR and trace PI Severe massive left atrial dilatation. No pericardial effusion. Bandar Robledo (Electronically Signed) Final Date: 17 October 2024 01:36
--- NOTE | 2024-10-15 16:53 | PC.SS ---
Rounding note: New stroke found on MRI, neurology recommendations are pending, possible DEANGELO to be performed.
[2024-10-15] MEDS: ATORVASTATIN CALCIUM 20 MG TABLET 80 MG PO (20:05)
[2024-10-15] MEDS: Artificial Tears 225 DROP/15 ML BTL BOTH EYES (20:05)
--- NOTE | 2024-10-15 21:53 | ESPR_ITS ---
Documentation for date of: 10/15/24 Subjective Subjective Interval history: Patient evaluated hemoglobin hematocrit 10.6 and 31.5 Exam Vital Signs Temp Pulse Resp BP Pulse Ox O2 Del Method 98.1 F 100 17 121/53 L 97 Room Air 10/15/24 20:00 10/15/24 20:00 10/15/24 20:00 10/15/24 20:00 10/15/24 20:00 10/15/24 20:00 Objective Labs 10/15/24 05:13 10/15/24 05:13 Labs: Laboratory Results - last 24 hr 10/15/24 05:13 WBC 9.2 RBC 3.79 L Hgb 10.6 L Hct 31.5 L MCV 83 MCH 28.0 MCHC 33.7 RDW Std Deviation 46.2 Plt Count 203 Neut % (Auto) 68 Lymph % (Auto) 17 [place] % (Auto) 12 Eos % (Auto) 2 Baso % (Auto) 0 Neut # (Auto) 6.2 Lymph # (Auto) 1.6 [place] # (Auto) 1.1 H Eos # (Auto) 0.2 Baso # (Auto) 0.0 Immature Gran # (Auto) 0.04 H Absolute Nucleated RBC 0.00 Immature Gran % 0 Nucleated RBC % 0 PT 11.9 INR 1.1 APTT 26.2 Sodium 141 Potassium 3.8 D Chloride 106 Carbon Dioxide 27.5 Anion Gap 8 BUN 6 L Creatinine 0.8 Estim Creat Clear Calc 38.6 L eGFR > 60 BUN/Creatinine Ratio 8 L Glucose 76 Calculated Osmolality 277 Calcium 8.3 Phosphorus 2.2 L Magnesium 1.8 Impressions Impression: Upper GI bleed secondary to esophageal ulceration stable new onset of [employer] UPHOLSTERING symptoms with aphasia possible TIA/CVA if patient needs anticoagulation she can be anticoagulated Assessment & Plan A&P Narrative # New onset of aphasia Patient can be given aspirin and if the Plavix is necessary it can also be added # History of GI bleed secondary to ulceration of the distal esophagus Patient can be given and should be given PPIs twice a day No need for a repeat endoscopy other medical problems include previous CVA with right residual motor weakness Rheumatoid arthritis essential hypertension Hyperlipidemia thank you very much for the opportunity to participate in the care of this patient Time Spent With Patient Time: Total time spent is greater than 50% in coordination of care (as documented) at patient's floor/unit and/or counseling patient:
--- NOTE | 2024-10-15 23:44 | ESPR_ITS ---
Documentation for date of: 10/15/24 Subjective Subjective Interval history: Patient was seen in telemetry today at the bedside, continued to have the left facial and upper extremity weakness. she denies any headache, dizziness or any new symptoms. Her speech has improved some. Exam - Neurology Vital Signs Temp Pulse Resp BP Pulse Ox O2 Del Method 98.1 F 100 17 121/53 L 97 Room Air 10/15/24 20:00 10/15/24 20:00 10/15/24 20:00 10/15/24 20:00 10/15/24 20:00 10/15/24 20:00 Narrative Exam GENERAL APPEARANCE: Well hydrated, well-nourished in no acute distress. HEENT: Normocephalic, atraumatic, extraocular movements intact. Pupils: Equal reacting to light and accommodation NECK: Supple, no JVD or bruits. CARDIOVASULAR: Heart: S1, S2 heard, regular without S3-S4 or murmur no rubs or gallops. LUNGS/CHEST: Clear to auscultation bilaterally. No rails, rhonchi, or wheezing. Normal inspection. ABDOMEN: Soft, nontender, with normal bowel sounds. No pulsatile masses. No rebound, rigidity, or guarding. Normal inspection and palpation. EXTREMITIES: Normal inspection and palpation. No edema, clubbing or cyanosis. SKIN: Warm and dry without rashes. Normal inspection. MUSCULOSKELETAL: She has significant joint deformities consistent with severe rheumatoid arthritis NEURO: Alert, awake and oriented x3. Cranial nerves: II through XII grossly intact with exception of left facial weakness of upper motor neuron type. Speech and language: improved some. Motor system: Tone and bulk: Normal: Strength: Moves all 4 extremities; No pronator drift noted. Deep tendon reflexes: 1+ bilaterally symmetrical. Plantar reflex: Downgoing bilaterally. Sensory system: Intact to all modalities of sensation bilaterally. Coordination: Intact to [id number] and [id number] test bilaterally. No ataxia, no dysmetria, or dysdiadochokinesia noted. No intention tremors noted. Gait: Not tested. PSYCHIATRIC: Normal mood and affect. Objective Labs 10/15/24 05:13 10/15/24 05:13 Labs: Laboratory Results - last 24 hr 10/15/24 05:13 WBC 9.2 RBC 3.79 L Hgb 10.6 L Hct 31.5 L MCV 83 MCH 28.0 MCHC 33.7 RDW Std Deviation 46.2 Plt Count 203 Neut % (Auto) 68 Lymph % (Auto) 17 [place] % (Auto) 12 Eos % (Auto) 2 Baso % (Auto) 0 Neut # (Auto) 6.2 Lymph # (Auto) 1.6 [place] # (Auto) 1.1 H Eos # (Auto) 0.2 Baso # (Auto) 0.0 Immature Gran # (Auto) 0.04 H Absolute Nucleated RBC 0.00 Immature Gran % 0 Nucleated RBC % 0 PT 11.9 INR 1.1 APTT 26.2 Sodium 141 Potassium 3.8 D Chloride 106 Carbon Dioxide 27.5 Anion Gap 8 BUN 6 L Creatinine 0.8 Estim Creat Clear Calc 38.6 L eGFR > 60 BUN/Creatinine Ratio 8 L Glucose 76 Calculated Osmolality 277 Calcium 8.3 Phosphorus 2.2 L Magnesium 1.8 Assessment & Plan Assessment and plan (1) CVA (cerebral vascular accident): Status: Acute Assessment and plan: Presented with acute onset of aphasia and residual left facial weakness, MRI brain from today showed acute embolic type infarcts in the right parietal and occipital area. FU with DEANGELO to look for cardiac sources of emboli. Continue with current mgt for now, Close monitoring for bleeding. Physical therapy, speech and Occupational Therapy. (2) Hypertension: Status: Chronic Assessment and plan: Continue with aggressive blood pressure management
[2024-10-16] VITALS (10 sets, daily range): BP systolic 117–138; BP diastolic 56–84; PULSE 68–94; RESP 13–99; TEMP 36.6–36.9; O2SAT 97–99; BMI 25.0; BMI 11.0
[2024-10-16 06:11] LABS: Basophils % (Auto) 1 % (0-2.5); Eosinophils # (Auto) 0.1 Thou/mm3 (0.0-0.5); Eosinophils % (Auto) 2 % (0-10); Hematocrit 31.6 % (36.0-46.0); Hemoglobin 10.4 g/dL (12.0-16.0); Immature Granulocytes % (Auto) 1 % (0-0); Immature Granulocytes Auto 0.04 Thou/mm3 (0.00-0.00); Lymphocytes # (Auto) 1.7 Thou/mm3 (1.0-4.8); Lymphocytes % (Auto) 20 % (10-50); Mean Corpuscular HGB Conc 32.9 g/dl (31.0-37.0); Mean Corpuscular Hemoglobin 27.5 pg (25.0-35.0); Mean Corpuscular Volume 84 fL (80-100); Monocytes # (Auto) 1.1 Thou/mm3 (0.0-0.8); Monocytes % (Auto) 13 % (0-12); Neutrophils # (Auto) 5.4 Thou/mm3 (1.8-7.7); Neutrophils % (Auto) 64 % (37-80); Nucleated Red Blood Cell % 0 /100 WBC (0); Platelet Count 200 Thou/mm3 (140-440); RDW Standard Deviation 46.1 fL (36.4-46.3); Red Blood Count 3.78 Miln/mm3 (4.00-5.20); White Blood Count 8.4 Thou/mm3 (3.6-11.0)
[2024-10-16 06:29] LABS: Anion Gap 8 (7-16); BUN/Creatinine Ratio 6 Ratio (12-20); Blood Urea Nitrogen 5 mg/dL (9-23); Calcium 8.1 mg/dL (8.3-10.6); Carbon Dioxide 26.9 mMol/L (20.0-31.0); Chloride 104 mMol/L (98-107); Creatinine (Component) 0.8 mg/dL (0.6-1.3); Glucose 81 mg/dL (74-106); Magnesium 1.9 mg/dL (1.6-2.6); Osmolality,Calculated 273 (275-295); Potassium 3.6 mMol/L (3.4-5.1); Sodium 139 mMol/L (136-145); eGFR > 60 See Note
[2024-10-16] MEDS: Magnesium Sulfate 2 GM Ivpb 2 GM/50 ML BAG IV (09:22)
[2024-10-16] MEDS: NAPH,KPH MBDB 1 PACKET (1.5 GM) PO (09:23)
[2024-10-16] MEDS: PANTOPRAZOLE INJ 40 MG VIAL IVP ×2 (09:23→21:06)
--- NOTE | 2024-10-16 15:59 | ESPR_ITS ---
<Statement entered by Pilo Perez MD - 10/25/24 07:48> I reviewed above note and agree with findings and plans. I have also personally examined the patient with medicine team and went over assessment and plan with medical team including post graduate internship and resident physician. Documentation for date of: 10/16/24 Subjective Subjective Interval history: No acute overnight events reported. Patient seen and examined at bedside this morning. Patient is alert and awake today she is speaking in full sentences and answering questions although aphasia is noted which is from her previous stroke. Patient continues to to have left facial droop. Patient's weakness in left upper and lower extremity is from previous stroke. Vitals are stable and labs are reviewed. Exam Vital Signs Temp Pulse Resp BP Pulse Ox O2 Del Method 98.4 F 86 16 128/84 99 Room Air 10/16/24 15:58 10/16/24 15:58 10/16/24 15:58 10/16/24 15:58 10/16/24 15:58 10/16/24 15:58 Narrative Exam GENERAL: A&Ox2 (self and place), speech is aphasic . Awake, Not in acute distress NEURO: left facial droop noted, Pt has Left Upper and Lower extremity weakness from previous stroke HEENT: Atraumatic, Normocephalic. mucous membranes moist. Eyes open, symmetrical, & clear HEART: Normal Heart Sounds LUNGS: Clear to auscultation with no wheezing or crackles. ABDOMEN: soft, non-distended, non-tender, bowel sounds heard, no guarding or rebound tenderness SKIN: No Rash, multiple ecchymoses noted on LE and UE EXTREMITIES: No edema, tenderness,pedal pulses palpated, contracted hands bilaterally Objective Labs 10/16/24 04:21 10/16/24 04:21 Labs: Laboratory Results - last 24 hr 10/16/24 04:21 WBC 8.4 RBC 3.78 L Hgb 10.4 L Hct 31.6 L MCV 84 MCH 27.5 MCHC 32.9 RDW Std Deviation 46.1 Plt Count 200 Neut % (Auto) 64 Lymph % (Auto) 20 [place] % (Auto) 13 H Eos % (Auto) 2 Baso % (Auto) 1 Neut # (Auto) 5.4 Lymph # (Auto) 1.7 [place] # (Auto) 1.1 H Eos # (Auto) 0.1 Baso # (Auto) 0.0 Immature Gran # (Auto) 0.04 H Absolute Nucleated RBC 0.00 Immature Gran % 1 H Nucleated RBC % 0 Sodium 139 Potassium 3.6 Chloride 104 Carbon Dioxide 26.9 Anion Gap 8 BUN 5 L Creatinine 0.8 Estim Creat Clear Calc 40.0 L eGFR > 60 BUN/Creatinine Ratio 6 L Glucose 81 Calculated Osmolality 273 L Calcium 8.1 L Phosphorus 2.0 L Magnesium 1.9 Quality Measures Quality Measures none Advance care planning discussed with:: child Assessment & Plan Assessment Current Active Medications: Generic Name Dose Route Start Last Admin Trade Name Freq PRN Reason Stop Dose Admin Acetaminophen 650 mg 10/14/24 15:22 Acetaminophen Supp 650 Mg Supp GA 11/13/24 15:21 Q6HR PRN Fever > 100.3 Artificial Tears 0 drop 10/15/24 19:40 10/15/24 20:05 Artificial Tears 225 Drop/15 Ml Btl BOTH EYES 11/14/24 19:39 1 drop PRN PRN Administration TO KEEP EYES MOIST Atorvastatin Calcium 80 mg 10/14/24 21:00 10/15/24 20:05 Atorvastatin Calcium 20 Mg Tablet PO 11/13/24 20:59 80 mg HS NADIR Administration Dextrose 25 ml 10/14/24 15:59 10/15/24 00:06 Dextrose 50%-Water Inj 50 Ml Syringe IV 11/13/24 15:58 25 ml Q15MIN PRN Administration BG 50-70 responsive npo pt Dextrose 50 ml 10/14/24 15:59 Dextrose 50%-Water Inj 50 Ml Syringe IV 11/13/24 15:58 Q15MIN PRN BG <50 OR BG <70 & pt unresponsive Glucagon 1 mg 10/14/24 15:59 Glucagon Inj 1 Mg Vial IM Q15MIN PRN BG <70, and no IV access Levofloxacin/Dextrose 750 mg in 150 mls @ 100 mls/hr 10/15/24 09:00 10/15/24 20:12 Levaquin Ivpb IV 10/21/24 15:44 Infused Q48H NADIR Infusion Morphine Sulfate 1 mg 10/14/24 15:22 Morphine Sulf Inj 10 Mg/Ml Vial IVP 10/19/24 15:21 Q6H PRN PAIN SCALE 4-10(Mod-Sev Ondansetron HCl 4 mg 10/14/24 15:22 Ondansetron Inj 2 Mg/Ml Inj 2 Ml IVP 11/13/24 15:21 Q6H PRN NAUSEA OR VOMITING Protocol Pantoprazole Sodium 40 mg 10/14/24 15:30 10/16/24 09:23 Pantoprazole Inj 40 Mg Vial IVP 11/13/24 15:29 40 mg BID NADIR Administration Plan Ms. 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 July 2024) who presented to [facility] emergency department on October 14, 2024 with a chief complaint of aphasia. Patient admitted to the hospital for CVA workup. 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 Per daughter at bedside patient is not at baseline, at baseline patient is able to hold conversation. Patient is alert and oriented x 1 to self. Teleneurology consulted in the emergency department- recommends heparin drip because of history of noninfective endocarditis and DEANGELO. DEANGELO contraindicated because of large esophageal ulcer, will not start patient on heparin drip because of the same, daughter aware. Hemoglobin is stable for now. CT scan of head in ED was negative for any acute hemorrhage, midline shift or mass effect. CTA head and neck negative for any large vessel occlusion per teleneurologist. EKG in ED showed sinus rhythm. Patient failed bedside nurse swallow screen. TSH 2.36-06, Triglyc 71, Gladys 74, LDL 33 HDL 21-09/20, A1c 5.9-08/21 MRI with MRA: acute infarcts right occipital lobe, right parietal lobe Plan: - Aspirin 300 per rectum x 1 given in the ED - Neurology consulted, appreciate recommendations - Referral to physical therapy - Referral to speech therapy - Fingerstick checks every 6 hours, patient n.p.o. 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 Hemoglobin today 12.3, patient does appear dehydrated though. EGD on July 21 showing esophageal ulcer-large 30 mm at the GE junction and EGD on September 28, 2024 shows similar ulcer. Plan: - Protonix IV 40 twice daily - GI consulted, appreciate recommendations - Repeat H&H at 8 PM later today - Type and screen - Transfuse if hemoglobin less than 7 #Community-acquired pneumonia, bilateral Chest x-ray October 20 showed significant bilateral pulmonary fibrosis and superimposed bilateral pneumonia. Patient was discharged from the ED on oral levofloxacin. Currently afebrile, no cough, saturating well on room air. Plan: -IV Levaquin 750 mg Q48h due to Creatinine clearance of 40 -Tylenol per rectal as needed for fever #Primary Hypertension #Hyperlipidemia #Rheumatoid arthritis -Started on atorvastatin 80 mg at bedtime -Will hold antihypertensives as pt's blood pressure is WNL, will continue to monitor blood pressure -Pain management with IV morphine Health Maintenance DVT prophylaxis: SCDs GI prophylaxis: Protonix IV twice daily Diet: chopped/minced cardiac diet Lines: Peripheral IV Code status: DNR/DNI Assessment and plan discussed with my attending physician Dr. Chris Ricci (PGY-1)- Internal medicine resident
[2024-10-16] MEDS: ATORVASTATIN CALCIUM 20 MG TABLET 80 MG PO (21:06)
--- NOTE | 2024-10-16 21:14 | PD.IMPROG ---
Documentation for date of: 10/16/24 Subjective Subjective Interval history: Hemoglobin hematocrit relatively staying stable at 10.4 and 31.6 Exam Vital Signs Temp Pulse Resp BP Pulse Ox O2 Del Method 97.9 F 91 16 117/66 98 Room Air 10/16/24 20:00 10/16/24 20:00 10/16/24 20:00 10/16/24 20:00 10/16/24 20:00 10/16/24 20:00 Objective Labs 10/16/24 04:21 10/16/24 04:21 Labs: Laboratory Results - last 24 hr 10/16/24 04:21 WBC 8.4 RBC 3.78 L Hgb 10.4 L Hct 31.6 L MCV 84 MCH 27.5 MCHC 32.9 RDW Std Deviation 46.1 Plt Count 200 Neut % (Auto) 64 Lymph % (Auto) 20 [place] % (Auto) 13 H Eos % (Auto) 2 Baso % (Auto) 1 Neut # (Auto) 5.4 Lymph # (Auto) 1.7 [place] # (Auto) 1.1 H Eos # (Auto) 0.1 Baso # (Auto) 0.0 Immature Gran # (Auto) 0.04 H Absolute Nucleated RBC 0.00 Immature Gran % 1 H Nucleated RBC % 0 Sodium 139 Potassium 3.6 Chloride 104 Carbon Dioxide 26.9 Anion Gap 8 BUN 5 L Creatinine 0.8 Estim Creat Clear Calc 40.0 L eGFR > 60 BUN/Creatinine Ratio 6 L Glucose 81 Calculated Osmolality 273 L Calcium 8.1 L Phosphorus 2.0 L Magnesium 1.9 Impressions Impression: Esophageal ulceration Stable hemoglobin hematocrit Continue to monitor Assessment & Plan A&P Narrative # New onset of aphasia Patient can be given aspirin and if the Plavix is necessary it can also be added # History of GI bleed secondary to ulceration of the distal esophagus Patient can be given and should be given PPIs twice a day No need for a repeat endoscopy other medical problems include previous CVA with right residual motor weakness Rheumatoid arthritis essential hypertension Hyperlipidemia thank you very much for the opportunity to participate in the care of this patient Time Spent With Patient Time: Total time spent is greater than 50% in coordination of care (as documented) at patient's floor/unit and/or counseling patient:
--- NOTE | 2024-10-16 22:53 | PD.VPROG1 ---
Telemedicine visit statement This visit was conducted with the use of interactive audio and video telecommunications system that permits real time communication between the patient and the provider. Patient's verbal consent for virtual visit was obtained on 10/16/24 at 2253. Documentation for date of: 10/16/24 Virtual exam Vital Signs Temp Pulse Resp BP Pulse Ox O2 Del Method 97.9 F 91 16 117/66 98 Room Air 10/16/24 20:00 10/16/24 20:00 10/16/24 20:00 10/16/24 20:00 10/16/24 20:00 10/16/24 20:00 Objective Labs 10/16/24 04:21 10/16/24 04:21 Labs: Laboratory Results - last 24 hr 10/16/24 04:21 WBC 8.4 RBC 3.78 L Hgb 10.4 L Hct 31.6 L MCV 84 MCH 27.5 MCHC 32.9 RDW Std Deviation 46.1 Plt Count 200 Neut % (Auto) 64 Lymph % (Auto) 20 [place] % (Auto) 13 H Eos % (Auto) 2 Baso % (Auto) 1 Neut # (Auto) 5.4 Lymph # (Auto) 1.7 [place] # (Auto) 1.1 H Eos # (Auto) 0.1 Baso # (Auto) 0.0 Immature Gran # (Auto) 0.04 H Absolute Nucleated RBC 0.00 Immature Gran % 1 H Nucleated RBC % 0 Sodium 139 Potassium 3.6 Chloride 104 Carbon Dioxide 26.9 Anion Gap 8 BUN 5 L Creatinine 0.8 Estim Creat Clear Calc 40.0 L eGFR > 60 BUN/Creatinine Ratio 6 L Glucose 81 Calculated Osmolality 273 L Calcium 8.1 L Phosphorus 2.0 L Magnesium 1.9
[2024-10-17] VITALS (8 sets, daily range): BP systolic 121–153; BP diastolic 58–73; PULSE 80–99; RESP 11–99; TEMP 35.9–36.6; O2SAT 95–100; BMI 24.8
[2024-10-17 06:00] LABS: Basophils # (Auto) 0.1 Thou/mm3 (0.0-0.2); Basophils % (Auto) 1 % (0-2.5); Eosinophils # (Auto) 0.2 Thou/mm3 (0.0-0.5); Eosinophils % (Auto) 3 % (0-10); Hemoglobin 10.8 g/dL (12.0-16.0); Immature Granulocytes % (Auto) 0 % (0-0); Immature Granulocytes Auto 0.02 Thou/mm3 (0.00-0.00); Lymphocytes # (Auto) 1.5 Thou/mm3 (1.0-4.8); Lymphocytes % (Auto) 22 % (10-50); Mean Corpuscular HGB Conc 32.7 g/dl (31.0-37.0); Mean Corpuscular Volume 86 fL (80-100); Monocytes # (Auto) 0.9 Thou/mm3 (0.0-0.8); Monocytes % (Auto) 13 % (0-12); Neutrophils # (Auto) 4.2 Thou/mm3 (1.8-7.7); Neutrophils % (Auto) 60 % (37-80); Nucleated Red Blood Cell % 0 /100 WBC (0); Platelet Count 217 Thou/mm3 (140-440); RDW Standard Deviation 47.4 fL (36.4-46.3); Red Blood Count 3.86 Miln/mm3 (4.00-5.20); White Blood Count 6.9 Thou/mm3 (3.6-11.0)
[2024-10-17 06:43] LABS: Anion Gap 8 (7-16); BUN/Creatinine Ratio 7 Ratio (12-20); Blood Urea Nitrogen 6 mg/dL (9-23); Calcium 8.1 mg/dL (8.3-10.6); Carbon Dioxide 26.8 mMol/L (20.0-31.0); Chloride 104 mMol/L (98-107); Creatinine (Component) 0.9 mg/dL (0.6-1.3); Estimated Creatinine Clearance 35.5 mL/min (>60); Glucose 90 mg/dL (74-106); Magnesium 2.3 mg/dL (1.6-2.6); Osmolality,Calculated 275 (275-295); Potassium 3.7 mMol/L (3.4-5.1); Sodium 139 mMol/L (136-145); eGFR > 60 See Note
[2024-10-17] MEDS: LEVOFLOXACIN/D5W 750MG IVPB 750 MG/150 ML BAG 100 MG IV (08:39)
[2024-10-17] MEDS: PANTOPRAZOLE INJ 40 MG VIAL IVP (08:39)
[2024-10-17] MEDS: NAPH,KPH MBDB 1 PACKET (1.5 GM) PO (08:39)
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
--- NOTE | 2024-10-17 09:13 | PC.SS ---
Addendum entered by CAMDEN Uribe 10/17/24 15:49: [facility] is able to accept the patient at their facility to return today. Per facility, they no longer have transportation available at this time. Patient's daughter, Crystal informs she can transport the patient by private vehicle at 5pm. Paolo is aware. Facility staff Radha is aware. Addendum entered by CAMDEN Uribe 10/17/24 12:37: SS update: Updated clinicals sent to [facility] via [employer]. Original Note: SS update: patient was identified as a possible d/c today. Updated admissions-Radha at [facility].
[2024-10-17] MEDS: ASPIRIN EC 81 MG TABEC PO (10:31)
--- NOTE | 2024-10-17 12:06 | ESPR_ITS ---
Documentation for date of: 10/17/24 Exam Vital Signs Temp Pulse Resp BP Pulse Ox O2 Del Method 97.1 F 85 20 121/60 98 Room Air 10/17/24 08:04 10/17/24 08:04 10/17/24 08:04 10/17/24 08:04 10/17/24 08:04 10/17/24 08:04 Objective Labs 10/17/24 04:40 10/17/24 05:00 Labs: Laboratory Results - last 24 hr 10/17/24 10/17/24 04:40 05:00 WBC 6.9 RBC 3.86 L Hgb 10.8 L Hct 33.0 L MCV 86 MCH 28.0 MCHC 32.7 RDW Std Deviation 47.4 H Plt Count 217 Neut % (Auto) 60 Lymph % (Auto) 22 [place] % (Auto) 13 H Eos % (Auto) 3 Baso % (Auto) 1 Neut # (Auto) 4.2 Lymph # (Auto) 1.5 [place] # (Auto) 0.9 H Eos # (Auto) 0.2 Baso # (Auto) 0.1 Immature Gran # (Auto) 0.02 H Absolute Nucleated RBC 0.00 Immature Gran % 0 Nucleated RBC % 0 Sodium 139 Potassium 3.7 Chloride 104 Carbon Dioxide 26.8 Anion Gap 8 BUN 6 L Creatinine 0.9 Estim Creat Clear Calc 35.5 L eGFR > 60 BUN/Creatinine Ratio 7 L Glucose 90 Calculated Osmolality 275 Calcium 8.1 L Phosphorus 2.0 L Magnesium 2.3 Assessment & Plan A&P Narrative # New onset of aphasia Patient can be given aspirin and if the Plavix is necessary it can also be added # History of GI bleed secondary to ulceration of the distal esophagus Patient can be given and should be given PPIs twice a day No need for a repeat endoscopy other medical problems include previous CVA with right residual motor weakness Rheumatoid arthritis essential hypertension Hyperlipidemia thank you very much for the opportunity to participate in the care of this patient Time Spent With Patient Time: Total time spent is greater than 50% in coordination of care (as documented) at patient's floor/unit and/or counseling patient:
--- NOTE | 2024-10-17 15:11 | CHAP ---
Patient was visited by a Spiritual Care Volunteer on 10/15/2024 between 0930 and 1200 and received comfort, encouragement and/or prayer.
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
--- NOTE | 2024-10-17 16:50 | ESDS_ITS ---
Planned Discharge Date 10/17/24 DS: Providers Provider Date of admission: 10/14/24 15:19 Primary care physician: Fitz Gomes MD Admitting Provider: Pilo Perez MD Attending Provider on Admission: John Robert DO Consults: 10/14/24 13:58 Consult to Neurology / Tele-Neurology Routine Comment: Consulting Provider: [facility] 10/14/24 15:27 Consult to Gastroenterology Routine Comment: Gastric Ulcer Consulting Provider: Glenis Elizabeth Consult to Neurology / Tele-Neurology Routine Comment: CVA Workup Consulting Provider: Valente Rollins 10/14/24 15:28 Referral Physical Therapy Routine Comment: CVA Workup Physician Instructions: Referral Speech Therapy Routine Comment: CVA Workup 10/14/24 20:18 Referral [facility] Routine Comment: Attending Provider on DC: Peace Ricci MD Discharging Provider: Peace Ricci MD DS: Diagnosis Problem List Completed Was Problem List Reviewed/Reconciled?: Yes Hospital Course Hospital Course Hospital course: Ms. Nagy is a 84-year-old female with past medical history significant for hypertension, hyperlipidemia, CVA with left-sided weakness and aphasia (July 2024) presented to [facility] ED on 10/14/2024 from SNF after daughter noticed worsening aphasia. Stroke alert was called in the ED and telemetry neurologist was consulted. At the time of evaluation CT scan of the head was negative for acute hemorrhage, mass effect or midline shift however patient's aphasia persist with left facial weakness which was also new. Patient was admitted to the hospital for full stroke workup. In-house neurologist was consulted as well and patient was seen by Dr. Rollins. MRI of the head showed acute infarct in the right occipital and parietal lobes. Over the next couple days patient continued to have improvement in her speech and mentation. Patient is now back to her baseline. Although neurology recommended DEANGELO however patient was recently hospitalized for large esophageal ulcer and was transfused pRBCs. Patient had undergone DEANGELO in July which was suggestive of marrow enteric endocarditis. Due to recent bleeding needing blood transfusion patient was not started on Plavix and her home Plavix was on hold. Per neurology recommendation patient is safely discharge back to SNF on home aspirin of 81 mg daily and continue atorvastatin 80 mg at bedtime. Patient is hemodynamically stable and back to her baseline underwent PT evaluation and swallow evaluation and can be discharged back to SNF. Discharge Recommendations -Follow up with PCP within 1 week of discharge, if you do not have a primary care physician you can come see us at the [facility] by calling [phone] -Follow up outpatient with neurologist Dr. Rollins within 2 weeks. 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 Yesica Ricci (PGY-1)- Internal medicine resident Time Spent with Patient Time attestation: Total time spent providing and/or coordinating discharge services: Time spent: Greater than 30 minutes Quality: Stroke Pt Provided Written Stroke Discharge Instructions: Yes Exam Vital Signs Temp Pulse Resp BP Pulse Ox O2 Del Method 96.6 F L 80 11 L 143/72 H 100 Room Air 10/17/24 12:00 10/17/24 16:00 10/17/24 12:00 10/17/24 12:00 10/17/24 12:00 10/17/24 12:00 Narrative Exam GENERAL: A&Ox2 (self and place), speech is aphasic . Awake, Not in acute distress NEURO: left facial droop noted, Pt has Left Upper and Lower extremity weakness from previous stroke HEENT: Atraumatic, Normocephalic. mucous membranes moist. Eyes open, symmetrical, & clear HEART: Normal Heart Sounds LUNGS: Clear to auscultation with no wheezing or crackles. ABDOMEN: soft, non-distended, non-tender, bowel sounds heard, no guarding or rebound tenderness SKIN: No Rash, multiple ecchymoses noted on LE and UE EXTREMITIES: No edema, tenderness,pedal pulses palpated, contracted hands bilaterally Discharge Plan Plan Patient Disposition: Xfer Skilled Nsg Fac (SNF) Disposition Comment: Report given to Sveta guzman [facility]. Daughter picked patient up. Patient condition on transfer: Stable Care Plan Goals: -Follow up with PCP within 1 week of discharge, if you do not have a primary care physician you can come see us at the [facility] by calling [phone] -Follow up outpatient with neurologist Dr. Rollins within 2 weeks. -Continue to hold plavix, continue Aspirin 81mg daily and Atorvastatin 80mg daily -Avoid taking NSAIDs due to recent GI bleed requiring blood transfusion -Continue rest of medications as previously prescribed -Return to the ED or call EMS if symptoms return and/or worsen Prescriptions/Referrals Prescriptions/Med Rec: New atorvastatin 80 mg tablet 80 mg PO HS 30 Days Qty: 30 0RF Continued Fosinopril * (MONOPRIL *) 40 MG tablet 40 mg PO BID Qty: 0 Rx Instructions: hold if SBP <100, HR <60 aspirin [Ecotrin Low Strength] 81 mg Tablet,Delayed Release (Dr/Ec) 81 mg PO QDAY 30 Days Qty: 30 3RF acetaminophen 325 mg tablet 650 mg PO Q4H PRN (Reason: fever or pain) Rx Instructions: for elevated temperature not to exceed 3 grams acetaminophen in 24 hours; mild and moderate pain bisacodyl [Dulcolax (bisacodyl)] 10 mg suppository 10 mg ND QDAY PRN (Reason: constipation) Rx Instructions: for constipation if MOM is ineffective and no BM for 8 hours Fleet Enema 19-7 gram/118 mL enema 118 ml ND QDAY PRN (Reason: constipation) Rx Instructions: for constipation, give if no results from dulcolax suppository in 24 hours magnesium hydroxide [Milk of Magnesia] 400 mg/5 mL suspension 1,200 mg PO QDAY PRN (Reason: constipation) Rx Instructions: give 30 mL by mouth as needed for constipation (no BM for 2 days). Give 1 dose, if no results in 24 hours see dulcolax suppository order. pantoprazole 40 mg tablet,delayed release (DR/EC) 40 mg PO BID Qty: 60 0RF metoclopramide HCl [Reglan] 5 mg tablet 5 mg PO BID Qty: 60 0RF Changed levofloxacin 500 mg tablet 750 mg PO QDAY 1 Days Qty: 1 0RF Discontinued atorvastatin 20 mg Tablet 80 mg PO HS 30 Days Qty: 120 3RF amino acids-protein hydrolys Liquid See Rx Instructions PO QDAY Rx Instructions: give 30 mL orally daily for supplement for 30 days Referrals: Fitz Gomes MD [Primary Care Provider] - Patient/Caregiver Discharge Instructions Education Materials: Discharge Instructions for ..., Discharge Instructions for Stroke Print Language: Persian Stand Alone Forms: Pam Award Info., Patient Portal Info Letter Discharge Order Discharge Orders: Discharge (Routine); Ordered 10/17/24 Ordered By: Peace Ricci Quality Discharge Quality Measures VTE prophylaxis Attestestation Attestation I have discussed and was present for the essential components of the discharge history, physical examination, diagnosis, and discharge treatment plan with the resident. I agree with the patient's discharge care as documented by the resident and amended herein by me. Anders Robert DO. The patient understood all discharge instructions, all questions were answered satisfactorily. The patient was instructed to return to the Emergency Department is symptoms worsened or persisted. Patient was stable, afebrile and tolerating p.o. intake at time of discharge back to SNF. Patient's statin has been uptitrated to a high intensity dose, patient will also continue aspirin per neurology recommendations however will hold Plavix at this time in setting of previously diagnosed esophageal ulcer. Although this document has been carefully reviewed, there may still be some phonetic and other typographical errors. These errors are purely grammatical due to imperfections in the software program and should not be construed in any way to compromise the substance of the patient's medical care during this visit.
== END 2024-10-17 17:36 | disposition skilled nursing facility (03) | DRG 64 ==
LOC: SERX 15:04 → SERHOLD 15:55 → S2NX 18:55 → S3NX 10-16 17:19
PROVIDERS: Physician Assistant Medical; Admitting Provider Internal Medicine; Emergency Provider Family Medicine; PCP Family Medicine; Visit Provider Student in an Organized Health Care Education/Training Program
DX: I63.9 Cerebral infarction, unspecified (principal); J18.9 Pneumonia, unspecified organism; K22.11 Ulcer of esophagus with bleeding; I69.354 Hemiplegia and hemiparesis following cerebral infarction affecting left non-dominant side; I38 Endocarditis, valve unspecified; M06.9 Rheumatoid arthritis, unspecified; R47.01 Aphasia; R29.810 Facial weakness; E78.5 Hyperlipidemia, unspecified; I10 Essential (primary) hypertension; E86.0 Dehydration; R29.716 NIHSS score 16; D64.9 Anemia, unspecified; I69.320 Aphasia following cerebral infarction; J84.10 Pulmonary fibrosis, unspecified; Z66 Do not resuscitate; Z79.1 Long term (current) use of non-steroidal anti-inflammatories (NSAID); Z79.899 Other long term (current) drug therapy
CPT/HCPCS: 36415; 70450; 70496; 70498; 70544; 74018; 80048; 80053; 80307; 81001; 83735; 84100; 84484; 84703; 85014; 85018; 85025; 85610; 85730; 86850; 86900; 86901; 87081; 87086; 92526; 92610; 93005; 93225; 93306; 96374; 97162; 99291; A4314; A4649; J1956; J2470; J3475; J7030; Q9967; A9270